=== PATIENT | female | born 1965 | race Caucasian/White ===

== ENCOUNTER 2022-02-05 11:04 | Outpatient (CLI) | payer OTHER, SELFPAY ==
--- NOTE | 2022-02-05 11:30 | CRLHL7_ITS ---
For Patients: As a result of the Century Cures Act, medical imaging exams and procedure reports are released immediately into your electronic medical record. You may view this report before your referring provider. If you have questions, please contact your health care provider. BILATERAL MAMMOGRAM WITH COMPUTER-AIDED DETECTION AND TOMOSYNTHESIS TECHNIQUE: CC and MLO views were obtained. These mammographic images have been obtained using full-field digital technique. These mammographic images were interpreted with the benefit of computer-aided detection. Breast Tomosynthesis was used in this interpretation. COMPARISON FILM: 01/17/2021, 01/17/2020, 12/15/2018. FINDINGS: The breasts are heterogeneously dense, which may obscure small masses IMPRESSION: There is no radiographic evidence for malignancy. ASSESSMENT: BI-RADS Category 2: Benign RECOMMENDATION: Routine screening mammogram in 1 year. A lay language report of this examination will be provided to the patient. Antonio Ludwig M.D. Diagnostic Radiologist [email or web address] ANTHONY/Dictated by: Antonio Ludwig MD @ 02/06/2022 12:56:00 PM (Electronically Signed)
--- NOTE | 2022-02-26 12:15 | ONC.NURNOTE ---
Rolando will be following up with Dr. Guevara in [place].
== END 2022-02-05 11:05 | disposition home or self-care (01) ==
LOC: MAMMO 11:05
PROVIDERS: PCP Family Medicine; Visit Provider Family Medicine
DX: Z12.31 Encounter for screening mammogram for malignant neoplasm of breast (principal); R92.8 Other abnormal and inconclusive findings on diagnostic imaging of breast
CPT/HCPCS: 77063; 77067

== ENCOUNTER 2022-06-24 10:56 | Outpatient (CLI) | payer OTHER, SELFPAY ==
--- OUTSIDE RECORDS SUMMARY | 2022-06-24 10:58 | XMS_ITS | Encounter Summary ---
:1965 Author Organization [facility] Address [address] [place] [address] Care Team Providers Name Role Phone Unavailable Primary Care Provider Unavailable Reason for Referral Outpatient (Routine) - Authorized Specialty Diagnoses / Procedures Referred By Contact Refer red To Contact Oncology Diagnoses Malignant Neoplasm Of Breast Upper Outer Quadrant Female Left (HCC) Macrocytosis Alma Guevara M.D. [address] [place] [phone] Referral ID Status Reason Start Date Expiration Date Visits V isits Requested Authorized [id number] Authorized 03/18/2022 03/18/2023 1 1 Scheduling Instructions Labs one week before ov Reason for Visit Reason Comments Follow-up Breast cancer Appointment Request (Routine) - Closed Specialty Diagnoses / Procedures Referred By Contact Refer red To Contact Oncology Alma Guevara M.D. [address] [place] [phone] Referral ID Status Reason Start Date Expiration Date Visits Requ ested Visits Authorized [id number] Closed 01/31/2022 01/31/2023 1 1 Encounter Details Date Type Department Care Team Description 03/18/2022 Office Visit Department of Oncology Alma Guevara Ma lignant Neoplasm Of Breast Upper Outer Quadrant Female Left (HCC) (Primary Dx); in [place] Rose M.D. Macrocytosis [address] [place] [phone] Social History Tobacco Use Types Packs/Day Years Used Date Smoking Tobacco: Former Cigarettes Quit : 11/12/2009 Smokeless Tobacco: Never Tobacco Cessation: Counseling Given: Not Answered Sex Assigned at Date Recorded Not on file documented as of this encounter Last Filed Vital Signs Vital Sign Reading Time Taken Comments Blood Pressure 134/97 03/18/2022 8:29 AM CDT Pulse 90 03/18/2022 8:29 AM CDT Temperature 35.9 ??C (96.6 ??F) 03/18/2022 8:29 AM CDT Respiratory Rate 14 03/18/2022 8:29 AM CDT Oxygen Saturation 97% 03/18/2022 8:29 AM CDT Inhaled Oxygen - - Concentration Weight 75.8 kg (167 lb 1.7 03/18/2022 8:29 AM verified, weighed oz) CDT twice Height - - Body Mass Index 25.92 02/12/2018 7:53 AM CDT documented in this encounter Patient Instructions Patient InstructionsKMelani ozuna R.N. - 03/18/2022 8:30 AM CDT Return to clinic in 6 months with lab work one week prior. documented in this encounter Progress Notes Alma Guevara M.D. - 03/18/2022 8:30 AM CDT SUBJECTIVE PRIMARY CARE PHYSICIAN No primary care provider on file. LOCAL ONCOLOGIST Alma Guevara M.D. 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 female who presents for evaluation on treatment for ER/KS positive HER2 negative stage IIA invasive ductal carcinoma of the left breast. HISTORY OF PRESENT ILLNESS Oncology History Oncology History Overview Note This Is 51-year-old 3 para 1 woman with cysts with a recently diagnosed infiltrating ductal carcinoma the breast, stage IIA whose oncologic history is as follows. 1. 08/15/2016 routine screening mammogram was notable for a suspicious lesion in the left breast, specifically a developing asymmetry in the posterior retroareolar aspect of left breast at approximately 3 o'clock, BI-RADS 0. 2. 08/20/2016 diagnostic mammogram was notable for a 16 x 15 mm suspicious mass at the 3 o'clock position 12 cm from the nipple. Ultrasound-guided biopsy was performed and returned infiltrating ductal carcinoma with Tray grade 1 of 3 ERPR positive her 2-characteristics. 3. 08/23/2016 MRI was notable for an abnormal vividly enhancing rounded mass with irregular margins measuring 1.7 x 1.7 x 1.9 cm at 10:30 to 3 o'clock 10 cm from the nipple. There were no additional ipsilateral left-sided lesions and no contralateral right-sided breast lesions identified on MRI. Therewas no obvious axillary adenopathy on either side. 5. Genetic counseling at [facility] on 09/02/2016 returned no evidence of BRCA mutations. 6. 10/01/2016 the patient underwent wire localization of the left breast mass and lumpectomy with sentinel lymph node biopsy. Pathology returned left breast lumpectomy infiltrating ductal carcinoma Caldwell grade 2, 1.7 cm with associated previous core biopsy site changes and ductal carcinoma in situ, cribriform and solid type, nuclear grade 2. Left axillary sentinel lymph node was negative, but 2 of 6 non sentinel lymph nodes were positive for metastatic carcinoma, measuring 0.5 cm in greatest diameter with extranodal extension present measuring 0.1 cm. Final stage was T1c N1 MX likely stage IIAestrogen receptor positive HER 2-. The margins were widely negative. 7. 10/31/2016 patient started on treatment with dose dense AC. 8. 12/26/2016 started on weekly paclitaxel. 9. 03/13/2017 the patient underwent left breast ultrasound for prominent ridge in inferior aspect upper breast which returned benign findings. She also completed her 12 weeks of paclitaxel on that date. 10. Patient completed radiation to the chest wall to a total dose of 60 Gy on 05/27/2017. 11. 08/14/2017 started on letrozole. 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 She did nurse her 1child for a short period of time. Her last menstrual period was 08/26/2016. Malignant Neoplasm Of Breast Upper Outer Quadrant Female Left (HCC) 10/24/2016 Initial Diagnosis Malignant Neoplasm Of Breast Upper Outer Quadrant Female Left (HCC) INTERVAL HISTORY The patient is here for follow up. She denies fever, chills, night sweats, change in appetite energyor weight. No cough, shortness of breath, chest pain, palpitations, nausea, vomiting, diarrhea, constipation, genitourinary or musculoskeletal complaints. The remainder of a detailed 12 system review of systems was explored with the patient and negative. The following portions of the patient's history were reviewed and updated as appropriate: allergies,current medications, family history, medical history, social history, surgical history, and problem list. A Pap smear in July 2021 was notable for LGSIL positive for high-risk HPV, not HPV type 16 or 18. History of radiation pneumonitis The patient has had multiple plastics procedures on the left breast post treatment. She gets in someexercise, but not consistently. She is working with a health track coach. REVIEW OF SYSTEMS A 12 system ROS is otherwise negative except as noted above in the HPI. OBJECTIVE BP (!) 134/97 (BP Location: Right arm, Patient Position: Sitting, Cuff Size: Regular) Pulse 90 Temp (!) 35.9 ??C Resp 14 Wt 75.8 kg Comment: verified, weighed twice SpO2 97% BMI 25.92 kg/m?? PHYSICAL EXAM Constitutional Comments: General: This is a well-developed well nourished woman who is comfortable and in no acuterespiratory distress. Her hair is growing back. HEENT: Patient is normocephalic. Pupils are equal round reactive to light. Extraocular movements areintact. Sclerae are anicteric. Conjunctivae are pink. Mouth not examined to avoid aresolization during COVID-19 public health crisis. Neck: Supple without thyromegaly or jugular venous distention. Lymph: There is no palpable preauricular, anterior or posterior cervical supraclavicular, infraclavicular, axillary, epitrochlear, inguinal, or femoral adenopathy. Lungs: Clear to percussion and auscultation. Breasts: Examined in the upright and supine positions. There is a an 8 cm well- healed wound in the lateral aspect of the left breast at three o'clock There is a 2 cm horizontal incision in the mid axillary line. There is a suggestion of a nodular area in the breast tissue, about 1.5 cm in diameter at about 7:30 and an angular band that feels linea. It is tender to touch. The patient describes it feeling like a bruise. Cardiovascular: Regular rate and rhythm without murmurs gallops or rubs. Abdomen: Soft and nontender. The liver is not enlarged. The spleen is not palpable. There are no palpable masses. Extremities: Without clubbing cyanosis or edema. Neuropsychiatric: Normal affect and mood; mood is much brighter today than in the recent past. Oriented and alert. Cranial nerves are intact. Speech is fluid. Gait is normal. Skin: Multiple tattoos. LABORATORY DATA Lab data reviewed. Recent Results (from the past 336 hour(s)) CBC with Differential, Blood Collection Time: 03/18/22 8:08 AM Result Value Ref Range Hemoglobin 14.6 11.6 - 15.0 g/dL Hematocrit 44.1 35.5 - 44.9 % Erythrocytes 4.25 3.92 - 5.13 x10(12)/L MCV 103.8 (H) 78.2 - 97.9 fL RBC Distrib Width 12.8 12.2 - 16.1 % Platelet Count 231 157 - 371 x10(9)/L Leukocytes 3.7 3.4 - 9.6 x10(9)/L Neutrophils 1.85 1.56 - 6.45 x10(9)/L Lymphocytes 1.30 0.95 - 3.07 x10(9)/L Monocytes 0.34 0.26 - 0.81 x10(9)/L Eosinophils 0.14 0.03 - 0.48 x10(9)/L Basophils 0.02 0.01 - 0.08 x10(9)/L Comprehensive Metabolic Panel Collection Time: 03/18/22 8:08 AM Result Value Ref Range Potassium, P 4.5 3.6 - 5.2 mmol/L Sodium, P 140 135 - 145 mmol/L Chloride, P 102 98 - 107 mmol/L Bicarbonate, P 28 22 - 29 mmol/L Anion Gap, P 10 7 - 15 BUN (Blood Urea Nitrogen), P 14 6 - 21 mg/dL Creatinine, P 0.76 0.59 - 1.04 mg/dL eGFR-Black/ >90 >=60 mL/min/BSA eGFR Non-Black/ 89 >=60 mL/min/BSA Calcium, Total, P 9.6 8.6 - 10.0 mg/dL Glucose, P 116 70 - 140 mg/dL Protein, Total, P 6.7 6.3 - 7.9 g/dL Albumin, P 4.3 3.5 - 5.0 g/dL Aspartate Aminotransferase (AST), P 27 8 - 43 U/L Alkaline Phosphatase, P 85 35 - 104 U/L Alanine Aminotransferase (ALT), P 28 7 - 45 U/L Bilirubin, Total, P 0.4 <=1.2 mg/dL RADIOLOGICAL DATA Radiology data reviewed. ASSESSMENT / PLAN #1 Malignant Neoplasm Of Breast Upper Outer Quadrant Female Left (HCC) #2 Macrocytosis Other orders - Oncology office visit (clinic) General; Breast; Future; Expected date: 09/18/2022 - CBC with Differential, Blood; Future; Expected date: 09/18/2022 - Comprehensive Metabolic Panel; Future; Expected date: 09/18/2022 - Vitamin B12 Assay; Future; Expected date: 09/18/2022 - Folate; Future; Expected date: 09/18/2022 - Haptoglobin; Future; Expected date: 09/18/2022 - Electrophoresis, Protein; Future; Expected date: 09/18/2022 - Thyroid Function Schurz; Future; Expected date: 09/11/2022 Rolando Turk is a year-old woman with definitively treated estrogen and progesterone receptor positive HER2 negative stage II infiltrating ductal carcinoma of the left breast. She has been on exemestane 25 mg p.o. daily since 2018. New data suggests that 7 years for high-risk disease, i.e. node positive disease, has a similar outcome to 10 years worth of adjuvant endocrine therapy. Her last visit was on 07/20/[address] Bob Melendez in [place] where I originally saw her. He reviewed the above data with the patient at that time and recommended 7 total years of treatment. He also recommended follow-up in 6 months, which would have been January of this year. He also notes that she had an elevated hemoglobin at the time of her visit in 04/2021, and he ordered comprehensive metabolic panel and complete blood count for the day of her next office visit. Workup for her macrocytosis at the time of her next visit. All of Mrs. Turk's questions were answered to the best of my ability and to her satisfaction. PATIENT EDUCATION Ready to learn, no apparent learning barriers were identified; learning preferences include listening. Explained diagnosis and treatment plan; patient expressed understanding of the content. ADMINISTRATIVE BILLING I personally spent 30 minutes in care of the patient today. Time includes both non face to face and face to face patient care. documented in this encounter Plan of Treatment Upcoming Encounters Date Type Specialty Care Team Description 09/11/2022 Appointment Laboratory Medicine Alma Guevara M.D. [address] [place] [address] [phone] (Wo rk) 09/18/2022 Office Visit Hematology Oncology Alma Guevara M.D. [address] [place] [phone] (Wo rk) Scheduled Orders Name Type Priority Associated Diagnoses Order S chedule CBC with Differential, Lab Routine Malignant Neoplasm Of Expected: 09/18/2022 Blood Breast Upper Outer (Approxim ate), Quadrant Female Left Expires : 06/17/2023 (HCC) Macrocytosis Comprehensive Metabolic Lab Routine Malignant Neoplas m Of Expected: 09/18/2022 Panel Breast Upper Outer (Approxim ate), Quadrant Female Left Expires : 06/17/2023 (HCC) Macrocytosis Vitamin B12 Assay Lab Routine Malignant Neoplasm Of E xpected: 09/18/2022 Breast Upper Outer (Approxim ate), Quadrant Female Left Expires : 03/18/2025 (HCC) Macrocytosis Folate Lab Routine Malignant Neoplasm Of Expect ed: 09/18/2022 Breast Upper Outer (Approxim ate), Quadrant Female Left Expires : 03/18/2025 (HCC) Macrocytosis Haptoglobin Lab Routine Malignant Neoplasm Of Expect ed: 09/18/2022 Breast Upper Outer (Approxim ate), Quadrant Female Left Expires : 06/18/2023 (HCC) Macrocytosis Electrophoresis, Protein Lab Routine Malignant Neopla sm Of Expected: 09/18/2022 Breast Upper Outer (Approxim ate), Quadrant Female Left Expires : 06/18/2023 (HCC) Macrocytosis Thyroid Function Schurz Lab Routine Malignant Neopla sm Of Expected: 09/11/2022, Breast Upper Outer Expires: 07/09/2023 Quadrant Female Left (HCC) Macrocytosis Scheduled Referrals Name Type Priority Associated Diagnoses Order S chedu Oncology office Outpatient Referral Routine Malignant Neoplasm Expected: visit (clinic) Of Breast Upper 09/18/2022 General; Breast Outer Quadrant (Approxima te), Female Left (HCC ) Expires: Macrocytosis 06/17/2023 documented as of this encounter Visit Diagnoses Diagnosis Malignant Neoplasm Of Breast Upper Outer Quadrant Female Left (HCC) - Primary Macrocytosis documented in this encounter Additional Health Concerns Assessment Noted Time PHQ-9 Depression Total Score: 1 04/29/2017 2:23 PM CDT documented as of this encounter
--- OUTSIDE RECORDS SUMMARY | 2022-06-24 10:58 | XMS_ITS | Clinical Summary ---
:1965 Author Organization [facility] Address [address] [place] [address] Care Team Providers Name Role Phone Unavailable Primary Care Provider Unavailable Source Comments Patient records contain information from all sites at [facility]. For routine questions regarding patient records, call [phone] during business hours, M-F 8:00 AM - 5:00 PM Central Time. Record requests for emergency care only can be directed to [phone] at any time.[facility] Allergies Active Allergy Reactions Severity Noted Date Comments Aspirin Hives 10/24/2016 rash Tezrnwks-Owrcajdkrbp-Dbksykixx Hives 10/24/2016 rash Nitrofurantoin Monohyd/M-Cryst Hives 10/24/2016 rash Sulfa (Sulfonamide Antibiotics) Hives 7 rash Sulfamethoxazole-Trimethoprim Hives 10/24/2016 rash Medications Medication Sig Dispensed Refills Start Date End Date Status acyclovir (for_ZOVIRAX) Take 1 tablet by 0 7 Active 400 mg tablet mouth as needed. cholecalciferol Take 1 capsule by 0 06/30/2017 Active (for_VITAMIN D3) 5,000 mouth daily. Unit capsule omeprazole Take 1 capsule by 0 07/09/2017 Active (for_PriLOSEC) 40 mg mouth daily. capsule calcium citrate-vitamin Take 2 tablets by 0 Active D3 (CITRACAL+D) 315 mouth. mg-5 mcg (200 Unit) per tablet cetirizine (ZyrTEC) 10 Take 10 mg by 0 05/02/2021 Active mg tablet mouth. estradioL (ESTRACE) 0.1 Insert 1 g into 0 05/17/2019 Active mg/g (0.01%) vaginal the vagina. cream ibuprofen Take 600 mg by 0 Activ e (ADVIL,MOTRIN) 600 mg mouth. tablet prasterone, dhea, Insert vaginally 0 09/23/2019 Active (Intrarosa) 6.5 mg as needed insert FLUoxetine (PROzac) 40 0 01/09/2022 Active mg capsule oxybutynin 0 02/22/2022 Active (DITROPAN-XL) 10 mg 24 hr tablet exemestane (AROMASIN) Take one tablet 90 tablet 3 04/24/2022 Active 25 mg tablet by mouth daily. Active Problems Problem Noted Date Nausea And Vomiting NOS 11/12/2017 Pneumonitis Radiation Acute 07/09/2017 Malignant Neoplasm Of Breast Upper Outer Quadrant Fema le Left 10/24/2016 Malignant Neoplasm Of Breast Adenocarcinoma Left 10/07 Malignant Neoplasm Of Overlapping Sites Of Left Female Breast 10/07/2016 Encounters Date Type Specialty Care Team Description 04/24/2022 Clinical Communication Hematology Oncology Nina Guevara M.D. from Last 3 Months Family History Medical History Relation Name Comments Hypertension Father Relation Name Status Comments Father Social History Tobacco Use Types Packs/Day Years Used Date Smoking Tobacco: Former Cigarettes Quit : 11/12/2009 Smokeless Tobacco: Never Tobacco Cessation: Counseling Given: Not Answered Sex Assigned at Date Recorded Not on file Last Filed Vital Signs Vital Sign Reading [...] AM verified, weighed oz) CDT twice Height 171 cm (5' 7.32) 02/12/2018 7:53 AM CDT Body Mass Index 25.92 02/12/2018 7:53 AM CDT Plan of Treatment Upcoming Encounters Date Type Specialty Care Team Description 09/11/2022 Appointment Laboratory Medicine Alma Guevara M.D. [address] [place] [phone] (Wo rk) 09/18/2022 Office Visit Hematology Oncology Alma Guevara M.D. [address] [place], [place] [phone] (Wo rk) Health Maintenance Due Date Last Done Comments CT Colonography 1965 Cologuard 1965 Colonoscopy 1965 Colorectal Cancer Screening 1965 FIT 1965 HIV Screening 1965 Hepatitis B Vaccines (1 of 1965 3 - 3-dose series) Hepatitis C Screening 1965 Lipid (Cholesterol) 1965 Screening Mammogram 10/01/2017 10/01/2016, 08/20/2016, 08/19/2016, Additional history exists COVID-19 Vaccine (3 - 09/12/2020 08/15/2020, 07/26/2020 Pfizer risk series) Depression Screening 08/04/2021 (Annual PHQ-2) Cervical Cancer Screening 03/19/2022 03/19/2019 DTaP,Tdap,and Td Vaccines 07/22/2024 07/22/2014, 07/12/2014 (3 - Td or Tdap) Fasting Glucose for 03/18/2025 03/18/2022, 11/12/2017 Diabetes Screening Zoster Vaccines Completed 09/02/2020, 06/03/2020 Influenza Vaccine Completed 05/22/2022, 05/02/2021, 04/24/2021, Additional history exists Pneumococcal vaccine (0-64 Aged Out No lo nger eligible years) based on patient 's age to complete this topic Insurance Payer Benefit Plan / Subscriber ID Effective Phone Address T ype Group Dates PREFERREDONE PREFERREDONE [id number] 2013-Pre [phone] PPO ADMINISTRATIVE ADMINISTRATIVE sent [phone] [id number] SERVICES SERVICES [place] [phone]
--- OUTSIDE RECORDS SUMMARY | 2022-06-24 10:58 | XMS_ITS | Encounter Summary ---
:1965 Author Organization [facility] Address [address] [place] [address] Care Team Providers Name Role Phone Unavailable Primary Care Provider Unavailable Encounter Details Date Type Department Care Team Description 04/24/2022 Clinical Communication Department of Oncology Graciela Guevara, in [place] Rose M.D. [address] [phone] Social History Tobacco Use Types Packs/Day Years Used Date Smoking Tobacco: Former Cigarettes Quit : 11/12/2009 Smokeless Tobacco: Never Sex Assigned at Date Recorded Not on file documented as of this encounter Miscellaneous Notes Telephone Encounter - Alma Solo - 04/24/2022 1:56 PM CDT Patient needs refill of exemestane. She has 1 weeks' left. Patient is requesting 90 day supply. Updated pharmacy: [facility] (call if questions: [phone]) (Pt thinks before, she was using [facility] --this is no longer) documented in this encounter Plan of Treatment Upcoming Encounters Date Type Specialty Care Team Description 09/11/2022 Appointment Laboratory Medicine Alma Guevara M.D. [address] [place] [address] [phone] (Wo rk) 09/18/2022 Office Visit Hematology Oncology Alma Guevara M.D. [address] [place] [address] [phone] (Wo rk) documented as of this encounter Visit Diagnoses Not on filedocumented in this encounter Additional Health Concerns Assessment Noted Time PHQ-9 Depression Total Score: 1 04/29/2017 2:23 PM CDT documented as of this encounter
--- OUTSIDE RECORDS SUMMARY | 2022-06-24 10:59 | XMS_ITS | Encounter Summary ---
:1965 Author Organization [facility] Address [address] [place] [address] Care Team Providers Name Role Phone Unavailable Primary Care Provider Unavailable Reason for Visit Reason Comments Communication Encounter Details Date Type Department Care Team Description 01/31/2022 Clinical Communication Department of Alma Guevara C ommunication Oncology in [place], [place] [address] [facility] [address] [place] [phone] Social History Tobacco Use Types Packs/Day Years Used Date Smoking Tobacco: Former Cigarettes Quit : 11/12/2009 Smokeless Tobacco: Never Sex Assigned at Date Recorded Not on file documented as of this encounter Miscellaneous Notes Telephone Encounter - Melani Talbot R.N. - 01/31/2022 1:51 PM CDT She may be scheduled as a follow up with Dr. Guevara due to being seen by a [facility] [place] provider, Dr. Melendez. She will need a CBC and CMP, day of follow up. Thanks Telephone Encounter - Bessie Srinivasan V. - 01/31/2022 12:51 PM CDT Reason for Communication: Patient would like to be seen by Dr. Guevara again. She hasn't been see since 2018. Would she be considered a new patient? Patient would like to be seen in March. (she is currently being seen in [place]) Action Needed: Schedule patient Special calling instructions: N/A Portal- No- Can we get you signed up today or send you instructions at how to get signed up? No- Patient refused documented in this encounter Plan of Treatment Upcoming Encounters Date Type Specialty Care Team Description 09/11/2022 Appointment Laboratory Medicine Alma Guevara M.D. [address] [place], [place] [phone] (Wo rk) 09/18/2022 Office Visit Hematology Oncology Alma Guevara M.D. [address] [place], [place] [phone] (Wo rk) documented as of this encounter Results Comprehensive Metabolic Panel (03/18/2022 8:08 AM CDT) P athologist Signature Potassium, P 4.5 3.6 - 5.2 03/18/2022 [facility] mmol/L 8:31 AM CDT Sodium, P 140 135 - 145 03/18/2022 [facility] mmol/L 8:31 AM CDT Chloride, P 102 98 - 107 03/18/2022 [facility] mmol/L 8:31 AM CDT Bicarbonate, P 28 22 - 29 03/18/2022 [facility] mmol/L 8:31 AM CDT Anion Gap, P 10 7 - 15 03/18/2022 [facility] 8:31 AM CDT BUN (Blood Urea 14 6 - 21 03/18/2022 [facility] Nitrogen), P mg/dL 8:31 AM CDT Creatinine 0.76 0.59 - 03/18/2022 [facility] 1.04 mg/dL 8:31 AM CDT eGFR-Black/Afric >90 >=60 03/18/2022 [facility] an Welsh mL/min/BSA 8:31 AM CDT Comment: ----ADDITIONAL INFORMATION---- Estimated GFR calculated using the 2009 CKD_EPI creatinine equation. eGFR Non-Black/ 89 >=60 mL/min/BSA 8:31 AM CDT NPR[facility] Comment: ----ADDITIONAL INFORMATION---- Estimated GFR calculated using the 2009 CKD_EPI creatinine equation. Calcium, Total, P 9.6 8.6 - 10.0 mg/dL 03/18/2022 8:31 AM CDT NPR[facility] Glucose, P 116 70 - 140 mg/dL 03/18/2022 8:31 AM CDT N PRG Protein, Total, P 6.7 6.3 - 7.9 g/dL 03/18/2022 8:31 A M CDT NPRG Albumin, P 4.3 3.5 - 5.0 g/dL 03/18/2022 8:31 AM CDT N PRG Aspartate Aminotransferase 27 8 - 43 U/L 03/18/2022 8 :31 AM CDT [facility] (AST), P Alkaline Phosphatase, P 85 35 - 104 U/L 03/18/2022 8: 31 AM CDT NPR[facility] Alanine Aminotransferase (ALT), 28 7 - 45 U/L 022 8:31 AM CDT NPRG P Bilirubin, Total, P 0.4 <=1.2 mg/dL 03/18/2022 8:31 AM CDT NPR[facility] Specimen Anatomical Collection Method Collection Time Receive d Time (Source) Location / / Volume Laterality Blood (Blood, 03/18/2022 8:08 AM 03/18/20 22 8:12 Venous) CDT AM CDT Alma Guevara M.D. LAB BLOOD ADD-ON Performing Organization Address City/State/ZIP Code Phon e Number [facility]- [address] [place] [address] [address] [facility] [place] [address] (ABNORMAL) CBC with Differential, Blood (03/18/2022 8:08 AM CDT) [facility] gist Method Time Signature Hemoglobin 14.6 11.6 - 03/18/2022 [facility] 15.0 g/dL 8:23 AM CDT Hematocrit 44.1 35.5 - 03/18/2022 [facility] 44.9 % 8:23 AM CDT Erythrocytes 4.25 3.92 - 03/18/2022 [facility] 5.13 8:23 AM CDT x10(12)/L MCV 103.8 (H) 78.2 - 03/18/2022 [facility] 97.9 fL 8:23 AM CDT RBC Distrib Width 12.8 12.2 - 03/18/2022 [facility] 16.1 % 8:23 AM CDT Platelet Count 231 157 - 371 03/18/2022 [facility] x10(9)/L 8:23 AM CDT Leukocytes 3.7 3.4 - 9.6 03/18/2022 [facility] x10(9)/L 8:23 AM CDT Neutrophils 1.85 1.56 - 03/18/2022 [facility] 6.45 8:23 AM CDT x10(9)/L Lymphocytes 1.30 0.95 - 03/18/2022 [facility] 3.07 8:23 AM CDT x10(9)/L Monocytes 0.34 0.26 - 03/18/2022 [facility] 0.81 8:23 AM CDT x10(9)/L Eosinophils 0.14 0.03 - 03/18/2022 [facility] 0.48 8:23 AM CDT x10(9)/L Basophils 0.02 0.01 - 03/18/2022 [facility] 0.08 8:23 AM CDT x10(9)/L Specimen Anatomical Collection Method Collection Time Receive d Time (Source) Location / / Volume Laterality Blood (Blood, 03/18/2022 8:08 AM 03/18/20 8:12 Venous) CDT AM CDT Alma Guevara M.D. LAB BLOOD ADD-ON Performing Organization Address City/State/ZIP Code Phon e Number [facility] [address] [place], [place] [address] [address] [place] [address] [facility] [address] documented in this encounter Visit Diagnoses Diagnosis Malignant Neoplasm Of Breast Upper Outer Quadrant Female Left (HCC) - Primary documented in this encounter Additional Health Concerns Assessment Noted Time PHQ-9 Depression Total Score: 1 04/29/2017 2:23 PM CDT documented as of this encounter
--- OUTSIDE RECORDS SUMMARY | 2022-06-24 10:59 | XMS_ITS | Encounter Summary ---
:1965 Author Organization [facility] Address [address] [place] [address] Care Team Providers Name Role Phone Unavailable Primary Care Provider Unavailable Reason for Referral Outpatient (Routine) - Closed Specialty Diagnoses / Procedures Referred By Contact Refer red To Contact Radiation Oncology Diagnoses Malignant Neoplasm Of Breast Upper Outer Quadrant Female Left (HCC) Joslyn Cruz P.A.-C.[facility] [address] [place] [address] Referral ID Status Reason Start Date Expiration Date Visits Requ ested Visits Authorized [id number] Closed 11/27/2017 05/26/2018 1 1 Encounter Details Date Type Department Care Team Description 11/10/2017 Orders Only Department of Infusion Nancy Hayes Ma lignant Neoplasm Of Therapy in [place], L, R.N. Breast Upper Outer [place] [address] Quadrant Female Left [address] [place], [place] (HCC) [place] [phone] Social History Tobacco Use Types Packs/Day Years Used Date Smoking Tobacco: Unknown Sex Assigned at Date Recorded Not on file documented as of this encounter Plan of Treatment Upcoming Encounters Date Type Specialty Care Team Description 09/11/2022 Appointment Laboratory Medicine Alma Guevara M.D. [address] [place], [place] [phone] (Wo rk) 09/18/2022 Office Visit Hematology Oncology Alma Guevara M.D. [address] [place] [phone] (Wo rk) Scheduled Referrals Name Type Priority Associated Diagnoses Order S chedu Radiation Oncology Outpatient Referral Routine Malignant Neopl asm Expected: office visit Of Breast Upper 02/11/2018 (clinic) Outer Quadrant (Approximate) , Female Left (HCC) Expires: 11/27/2020 documented as of this encounter Visit Diagnoses Diagnosis Malignant Neoplasm Of Breast Upper Outer Quadrant Female Left (HCC) documented in this encounter Additional Health Concerns Assessment Noted Time PHQ-9 Depression Total Score: 1 04/29/2017 2:23 PM CDT documented as of this encounter
--- OUTSIDE RECORDS SUMMARY | 2022-06-24 10:59 | XMS_ITS | Encounter Summary ---
:1965 Author Organization [facility] Address [address] [place] [id number] Care Team Providers Name Role Phone Unavailable Primary Care Provider Unavailable Reason for Referral Outpatient (Routine) - Closed Specialty Diagnoses / Procedures Referred By Contact Refer red To Contact Radiation Oncology Diagnoses Malignant Neoplasm Of Breast Upper Outer Quadrant Female Left (HCC) Joslyn Cruz P.A.-C., [facility] [address] [place] [phone] Referral ID Status Reason Start Date Expiration Date Visits Requ ested Visits Authorized [id number] Closed 11/27/2017 05/26/2018 1 1 Reason for Visit Outpatient (Routine) - Closed Specialty Diagnoses / Procedures Referred By Contact Refer red To Contact Radiation Oncology Diagnoses Malignant Neoplasm Of Breast Upper Outer Quadrant Female Left (HCC) Joslyn Cruz P.A.-C., [facility] [address] [place] [phone] Referral ID Status Reason Start Date Expiration Date Visits Requ ested Visits Authorized [id number] Closed 11/27/2017 05/26/2018 1 1 Encounter Details Date Type Department Care Team Description 02/12/2018 Hospital Encounter Department of Joseluis Huang Neoplasm Radiation Oncology Diomedes Marquez Of Breast Upper in [address] Female Left (HCC) [address] [phone] [place], [place] [phone] (Work) [phone] Social History Tobacco Use Types Packs/Day Years Used Date Smoking Tobacco: Former Cigarettes Quit : 11/12/2009 Smokeless Tobacco: Never Sex Assigned at Date Recorded Not on file documented as of this encounter Last Filed Vital Signs Vital Sign Reading Time Taken Comments Blood Pressure 125/76 02/12/2018 7:53 AM CDT Pulse 87 02/12/2018 7:53 AM CDT Temperature 36.4 ??C (97.5 ??F) 02/12/2018 7:53 AM CDT Respiratory Rate - - Oxygen Saturation 100% 02/12/2018 7:53 AM CDT Inhaled Oxygen Concentration - - Weight 85.5 kg (188 lb 7.9 oz) 02/12/2018 7:53 AM CDT Height 171 cm (5' 7.32) 02/12/2018 7:53 AM CDT Body Mass Index 29.24 02/12/2018 7:53 AM CDT documented in this encounter Medications at Time of Discharge Medication Sig Dispensed Refills Start Date End Date acyclovir (for_ZOVIRAX) Take 1 tablet by mouth 0 10/24/2016 400 mg tablet as needed. cholecalciferol Take 1 capsule by 0 06/30/2017 (for_VITAMIN D3) 5,000 mouth daily. Unit capsule omeprazole Take 1 capsule by 0 07/09/2017 (for_PriLOSEC) 40 mg mouth daily. capsule LORazepam (for_ATIVAN) Take 1-2 tablets by 0 10/0303/18/2022 0.5 mg tablet mouth as needed. EPINEPHrine (EPIPEN) Inject 0.3 mg intramuscularly once. Inj ect into the thigh. 0 03/18/2022 0.3 mg/0.3 mL injection hypersensitivity/bronchospas m ;Inject the delivered dose as needed syringe FLUoxetine (PROzac) 20 Take 1 capsule by 0 201603/18/2022 mg capsule mouth daily. gabapentin Take 1 capsule by 0 09/11/2017 022 (for_NEURONTIN) 300 mg mouth 2 (two) times a capsule day. documented as of this encounter Progress Notes Joseluis Huang M.D. - 02/12/2018 8:28 AM CDT SUBJECTIVE CHIEF COMPLAINT/PURPOSE OF VISIT Follow-up after completing radiotherapy for left-sided breast cancer. ?? HISTORY OF PRESENT ILLNESS Mrs. 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 She completed radiotherapy to the whole left breast and regional lymph nodes to a dose of 5000 cGy in 25 fractions followed by a boost of 1000 cGy in 5 fractions to the lumpectomy cavity on May 27, 2017. She developed posttreatment radiation pneumonitis. Her oncologic history is as follows: 1. August 15, 2016: Routine screening mammogram was notable for a developing asymmetry in the posterior retroareolar aspect of the left breast at approximately 3 o'clock, BI-RADS category 0. The patient had no antecedent breast symptoms. She did do regular self breast exams and did not notice any breast pain, any palpable masses, or nipple discharge or skin changes. 2. August 19, 2016: Diagnostic mammogram of the left breast was notable for a 13-14 mm focal asymmetry with irregular borders at the posterior 2-3 o'clock position of the left breast. Sonographic evaluation of the left breast demonstrated a suspicious 16 x 15 mm solid mass at the 3 o'clock position, 12 cm from the nipple. BI-RADS category 4 - suspicious. 3. August 20, 2016: Ultrasound-guided biopsy was performed and returned infiltrating ductal carcinoma with Trail grade 1 of 3, angio-lymphatic invasion suspicious. There was associated DCIS, cribriform type, nuclear grade 2. Estrogen receptor positive, progesterone receptor positive, and HER2 neg ative. 4. August 23, 2016: MRI was notable for an abnormal enhancing round mass with irregular margins that measured 1.7 x 1.7 x 1.9 cm at the 2 to 3 o'clock position, 10 cm from the nipple. There were no additional ipsilateral left-sided breast lesions and no contralateral right-sided breast lesions identified on MRI. There were no abnormal enlarged lymph nodes. 5. August 26, 2016: Surgical consultation with Dr. Back including discussion of surgical treatment options. 6. August 29, 2016: Consultation with Dr. Guevara who recommended Oncotype DX testing. Plan for follow-up after surgery to discuss final recommendations depending on BRCA testing and pathology. 7. September 02, 2016: The patient had genetic counseling at [facility]. BRCA testing wasnegative. 8. September 05, 2016: Oncotype DX test resulted in a low risk recurrence score of 11. 9. October 01, 2016: Dr. Back performed a wire localized left breast lumpectomy with left axillary sentinel node biopsy. Pathology of the left breast lumpectomy demonstrated infiltrating ductal carcinoma, Tray grade 2, 1.7 cm in maximum dimension with associated previous core biopsy site changes and ductal carcinoma in situ, minor component, cribriform and solid type, nuclear grade 2. The invasive carcinoma was located more than 0.6 cm from the closest anterior margin. The left axillary sentinel lymph node was negative, but 2 of 6 non-sentinel lymph nodes were positive for metastatic carcinoma, measuring 0.5 cm in greatest dimension with extranodal extension present measuring 0.1 cm. Estrogen receptor positive at 98%, progesterone receptor positive in 99%, and HER2 was 1+, not over expressed. Final pathologic stage IIA (pT1c N1a M0). 10. October 07, 2016: Appointment with Dr. Guevara, who recommended chemotherapy with dose dense doxorubicin and cyclophosphamide followed by weekly paclitaxel. 11. October 21, 2016: Port-A-Cath placement by Dr. Back. 12. October 24, 2016: Dr. Huang saw the patient in consultation and recommended adjuvant radiotherapy to the whole breast and regional lymphatics. 13. October 31, 2016 through March 13, 2017: Patient treated with 4 cycles of Adriamycin and Cytoxan followed by 12 cycles of Taxol under the care of Dr. Guevara. 14. April 16, 2017 through May 27, 2017: Patient treated with radiotherapy to the whole leftbreast and regional lymph nodes to a dose of 5000 cGy in 25 fractions followed by a boost of 1000 cGy in 5 fractions to the lumpectomy cavity. 15. June 11, 2017: CT scan of the abdomen and pelvis demonstrated no acute intra-abdominal abnormality identified. Postoperative changes in the posterior lateral left breast with 5 x 2 x 2 cm hypodense collection, most likely representing a postoperative seroma. Mild patchy infiltrate in the anterior lower left lung. 16. June 24, 2017: MRI of the brain demonstrated scattered areas of punctate white matter T2 hyperintensity, nonspecific. No intracranial mass, intracranial hemorrhage, or acute or subacute infarction. Mild bilateral patchy ethmoid air cell mucosal thickening. 17. June 24, 2017: WBC 2,810; Hgb 13.0; Platelet 284,000; ANC 1,340 18. June 25, 2017: Chest x-ray demonstrated linear areas of subsegmental atelectasis/fibrosis within the left lung with no consolidative infiltrates, overt pulmonary vascular congestion, or pleuraleffusions. 19. June 25, 2017: Ultrasound was negative for deep venous thrombosis in either lower extremity. 20. June 27, 2017: AST 83; ALT 77 21. July 02, 2017: CT scan of the chest with contrast revealed postoperative changes in the leftbreast with a probable seroma measuring 4.6 x 1.9 cm. Also seen were subpleural opacities in the lingula anteriorly and laterally as well as a small subpleural opacity at the left lung apex posteriorlylikely due to radiation. There was no lymphadenopathy. There is also a periosteal reaction along thelateral aspect of the right 6th rib which could indicate a subacute healing fracture. 22. July 08, 2017: PET/CT scan done in [place] showed no findings concerning for active malignancy. There was active radiation pneumonitis seen in the left lung in a linear distribution in the anterior aspect with a similar FDG avid part-solid opacity in the apex of the lung. There was also a subacute posttraumatic healing fracture in the right anterior 6th rib with mild FDG activity. Degenerative type activity was seen in the left neck facet joints and then the synovium of the left acromioclavicular joint. 23. July 09, 2017 anticipated through September 09, 2017: Patient started on prednisone taper starting at 60 mg daily for radiation pneumonitis. 24. July 15, 2017 and July 16, 2017: Patient completed an observed Bactrim challenge with two doses at [facility] while on prednisone. She had no allergic reaction. 25. August 14, 2017: Letrozole was started. 26. August 27, 2017: Prednisone taper was increased back to 20 mg from 10 mg daily due to recrudescence of left chest soreness 27. September 03, 2017: Chest CT with contrast revealed a chronic seroma anterior to the left chest wall measuring 4.4 x 1.5 cm that previously measured 4.6 x 1.9 cm. The subpleural opacities in the posterior left lung apex and the subpleural anterior left upper lobe have improved. No new pulmonary infiltrates or masses were seen. 28. October 19, 2017: Prednisone taper discontinued. 29. November 11, 2017: Bilateral diagnostic mammography was negative. 30. November 12, 2017: Patient presented to Dr. Guevara with nausea and vomiting. Letrozole was held. 31. November 19, 2017: MRI of the brain was negative. Letrozole was resumed. 32. January 21, 2018: Patient had switched from letrozole to tamoxifen because of arthralgias. These persisted on tamoxifen. Tamoxifen was held. INTERVAL HISTORY Patient reports that her nausea and arthralgias are improving somewhat since holding tamoxifen. Because of all of her symptoms, she has not been working. She does report that her breathing is good. Shedenies any dyspnea at rest or on exertion. Denies any cough or hemoptysis. She is doing her neck andshoulder range of motion exercises twice daily. She is also doing self breast massage in the area ofscarring twice daily. She is doing regular self-breast exams. She has noticed no new masses. She hasadjusted her diet and is making attempts at exercise and weight loss. Her ECOG performance status is1. ?? PATIENT REPORTED SYMPTOM SCREEN FATIGUE (Scale: 0 = no fatigue; 10 = worst fatigue you can imagine): 3 ?? PAIN (Scale: 0 = no pain; 10 = worst pain you can imagine): 3 ?? OVERALL QUALITY OF LIFE (Scale: 0 = as bad as can be; 10 = as good as can be): 10 OBJECTIVE Admission Weight: 85.5 kg Current Weight: 85.5 kg VITAL SIGNS Temperature: [36.4 ??C] 36.4 ??C Blood Pressure: (125)/(76) 125/76 SpO2: [100 %] 100 % Height: [171 cm] 171 cm Weight: [85.5 kg] 85.5 kg BSA (Calculated - sq m): [2.01 sq meters] 2.01 sq meters BMI (Calculated): [29.2 kg/m??] 29.2 kg/m?? Pulse Rate: [87] 87 PHYSICAL EXAM General: Patient is awake, alert, and oriented to person, place, and time. No apparent distress. ENT: Pupils equal, round, and reactive to light. Sclera anicteric. Oral cavity inspection reveals moist mucous membranes and no visible lesions. Neck: Supple. Lymph: No palpable cervical, supraclavicular, infraclavicular, or axillary adenopathy. Spine: No tenderness to palpation or fist percussion. Lungs: Clear to auscultation bilaterally. Heart: Regular rate and rhythm. Normal S1 and S2. No murmurs. Extremities: No clubbing, cyanosis, or edema. Wrist circumference is equal and normal bilaterally. Neurologic: CN II-XII tested and intact. Gait is normal. Breasts: Deferred because the patient just had an exam with Dr. Guevara last month. ASSESSMENT / PLAN #1 Stage IIA (pT1c pN1a M0) grade 2 infiltrating ductal carcinoma of the upper outer quadrant of theleft breast, ER positive, OR positive, HER2 negative, status post margin negative lumpectomy on October 01, 2016 #2 Adjuvant chemotherapy with 4 cycles of Adriamycin and Cytoxan followed by 12 cycles of Taxol, completed March 13, 2017 #3 Radiotherapy to the left breast initiated on April 16, 2017 and completed on May 27, 2017 #4 Left axillary/chest wall discomfort, onset on April 30, 2017; improved, likely secondary to muscle strain and inflammation from radiotherapy; improved with prednisone taper then worse again at adose of 10 mg daily #5 Radiation pneumonitis apparent on chest CT from July 02, 2017 and PET/CT from July 08, 2017; prednisone taper initiated on July 09, 2017; improved on chest CT from September 03, 2017 The patient is doing reasonably well now 9 months out from treatment completion. I saw her back today mainly with respect to her radiation pneumonitis which seems to have fully resolved. I encouraged her efforts at deep breathing and cardiovascular exercise as well as her self breast massage and arm and neck [id number] exercises. She is followed closely with Dr. Guevara, so I will not schedule anyfurther formal follow-up in Radiation Oncology Clinic. The patient knows she can contact me at any time with questions or concerns. She verbalized satisfaction with this plan. MEDICAL ONCOLOGIST Alma Guevara M.D. TILE INSPECTOR Samaria Giles M.D. SURGEON Cheikh Back M.D. documented in this encounter Miscellaneous Notes Addendum Note - Tami Covarrubias - 02/12/2018 9:00 AM CDTEncounter addended by: Tami Covarrubias on: 02/12/2018 9:31 AM
Actions taken: Letter status changed documented in this encounter Plan of Treatment Upcoming Encounters Date Type Specialty Care Team Description 09/11/2022 Appointment Laboratory Medicine Alma Guevara M.D. [address] [place] [phone] (Wo rk) 09/18/2022 Office Visit Hematology Oncology Alma Guevara M.D. [address] [place] [phone] (Wo rk) Scheduled Referrals Name Type Priority Associated Order Schedule Diagnoses Radiation Oncology Outpatient Referral Routine Malignant Neopl asm Once for 1 office visit Of Breast Upper Occurrences starting (clinic) Outer Quadrant 02/12/2018 un til Female Left (HCC) 02/12/2018 documented as of this encounter Visit Diagnoses Diagnosis Malignant Neoplasm Of Breast Upper Outer Quadrant Female Left (HCC) documented in this encounter Additional Health Concerns Assessment Noted Time PHQ-9 Depression Total Score: 1 04/29/2017 2:23 PM CDT documented as of this encounter
--- OUTSIDE RECORDS SUMMARY | 2022-06-24 10:59 | XMS_ITS | Encounter Summary ---
:1965 Author Organization [facility] Address [address] [place] [address] Care Team Providers Name Role Phone Unavailable Primary Care Provider Unavailable Reason for Visit Reason Comments Med Refill Encounter Details Date Type Department Care Team Description 03/31/2020 Refill Department of Oncology in Carmelo Mcdowell M.D. Med Refill [place], [place] [address] [facility] [address] [place] [address] [place] [address] [phone] Social History Tobacco Use Types Packs/Day Years Used Date Smoking Tobacco: Former Cigarettes Quit : 11/12/2009 Smokeless Tobacco: Never Sex Assigned at Date Recorded Not on file documented as of this encounter Miscellaneous Notes Telephone Encounter - Alma Guevara M.D. - 03/31/2020 6:41 PM CDT I messaged the patient to let her know that I will only give her a 30 day supply with a sig of 5 mg bid. I have not seen the patient in several months. The medication was originally given to palliate the hot flashes she was experiencing from endocrine therapy for breast cancer that significantly interfered with her sleep. I do not encourage patients to take more than 5 mg per dose, nor more than twice daily. Review of her chart shows that she is seeing a urologist in the [facility] system, Dr. Harris, who has sanctioned the 7.5 mg dose. I have let the patient know that the prescription I have given her is only to be taken as prescribed and to bridge her until she is able to obtain the medication from [facility]. Telephone Encounter - Alma Guevara M.D. - 03/31/2020 6:17 PM CDT Carmelo, I have used oxybutynin for hot flashes in some cases per Dr. Salome Samano's [facility] study SC-1603, presented at [place] in 2018. I am aware of some data that suggests it may be linked to a higher riskof dementia, and always encourage women to take it for as short a time as possible. Do you have other data that I need to consider when I think about prescribing this? Thanks for your help. Alma documented in this encounter Plan of Treatment Upcoming Encounters Date Type Specialty Care Team Description 09/11/2022 Appointment Laboratory Medicine Alma Guevara M.D. [address] [place], [place] [phone] (Billy avalos) 09/18/2022 Office Visit Hematology Oncology Alma Guevara M.D. [address] [place], [place] [phone] (Billy avalos) documented as of this encounter Visit Diagnoses Not on filedocumented in this encounter Additional Health Concerns Assessment Noted Time PHQ-9 Depression Total Score: 1 04/29/2017 2:23 PM CDT documented as of this encounter
--- OUTSIDE RECORDS SUMMARY | 2022-06-24 10:59 | XMS_ITS | Encounter Summary ---
:1965 Author Organization [facility] Address [address] [place] [address] Care Team Providers Name Role Phone Unavailable Primary Care Provider Unavailable Reason for Referral Outpatient (Routine) - Closed Specialty Diagnoses / Procedures Referred By Contact Refer red To Contact Oncology Diagnoses Malignant Neoplasm Of Overlapping Sites Of Left Female Breast (HCC) Alma Guevara M.D. [address] [phone] Referral ID Status Reason Start Date Expiration Date Visits Requ ested Visits Authorized [id number] Closed 11/12/2017 05/11/2018 1 1 Reason for Visit Reason Comments Return Visit Outpatient (Routine) - Canceled Specialty Diagnoses / Procedures Referred By Contact Refer red To Contact Oncology Alma Guevara M.D. [address] [phone] Referral ID Status Reason Start Date Expiration Date Visits V isits Requested Authorized [id number] Canceled 11/10/2017 05/09/2018 1 1 Encounter Details Date Type Department Care Team Description 11/12/2017 Office Visit Department of Oncology Alma Guevara Ma lignant Neoplasm Of Overlapping Sites Of Left Female Breast (HCC) (Primary Dx); in Talon Rose M.D. [address] [phone] Social History Tobacco Use Types Packs/Day Years Used Date Smoking Tobacco: Former Cigarettes Quit : 11/12/2009 Smokeless Tobacco: Never Sex Assigned at Date Recorded Not on file documented as of this encounter Last Filed Vital Signs Vital Sign Reading Time Taken Comments Blood Pressure 120/71 11/12/2017 3:08 PM CDT Pulse 97 11/12/2017 3:08 PM CDT Temperature 36.3 ??C (97.3 ??F) 11/12/2017 3:08 PM CDT Respiratory Rate 16 11/12/2017 3:08 PM CDT Oxygen Saturation 98% 11/12/2017 3:08 PM CDT Inhaled Oxygen Concentration - - Weight 85.6 kg (188 lb 11.4 oz) 11/12/2017 3:08 PM CDT Height 172 cm (5' 7.72) 11/12/2017 3:08 PM CDT Body Mass Index 28.93 11/12/2017 3:08 PM CDT documented in this encounter Progress Notes lAma Guevara M.D. - 11/12/2017 3:00 PM CDT SUBJECTIVE PRIMARY CARE PHYSICIAN No primary care provider on file. LOCAL ONCOLOGIST Alma Guevara M.D. PRIMARY [place] ONCOLOGIST No care project manager/team coach to display CHIEF COMPLAINT / REASON FOR VISIT Rolando Turk is a 52 y.o. female who presents for evaluation on endocrine therapy for her earlystage infiltrating ductal carcinoma of the breast. HISTORY OF PRESENT ILLNESS Oncology History 1. 08/15/2016 routine screening mammogram was notable [...] performed and returned infiltrating ductal carcinoma with [place] grade 1 of 3 ERPR positive her [...] on either side. 5. Genetic counseling at [facility] on 09/02/2016 returned no evidence of BRCA mutations. 6. 10/01/2016 the patient underwent wire localization of the left breast mass and lumpectomy with sentinel lymph node biopsy. Pathology returned left breast lumpectomy infiltrating ductal carcinoma Tray grade 2, 1.7 cm with associated previous [...] on 05/27/2017. 11. 08/14/2017 started on letrozole. JOINT RUNNER HISTORY 3 para 1-0-2-1 she had 1 vaginal delivery, 1 miscarriage and 1 . She did nurse her 1child for a short period of time. Her last menstrual period was 08/26/2016. INTERVAL HISTORY The patient is here for follow up. She is a [place] patient who is seeing me here in [place] for persistent severe nausea and vomiting. Turns out she actually never vomits. It is actually intractable nausea and dry heaves. The patient started having these symptoms around October 18, 2017. They are intermittent. They are not associated with eating. It is usually in the morning. She feels relief after the episode of dry heaves. Joints are sore and stiff. Fatigue. This patient has had a very difficult time from the very start of her treatment, and nausea has been one of her main symptoms throughout her treatment. Early on this was attributed to palonosetron and was accompanied by severe headaches. The following portions of the patient's history were reviewed and updated as appropriate: allergies,current medications, family history, medical history, social history, surgical history and problem list. REVIEW OF SYSTEMS Constitutional: Positive for fatigue, loss of appetite and weight gain of more than 10 pounds. Negative for fever and night sweats. Skin: Negative for skin rash. Eyes: Negative for visual problems. ENT: Negative for difficulty hearing. Respiratory: Negative for dyspnea. Cardiovascular: Negative for chest pain, pressure or tightness, swelling in the legs or feet and rapid or fluttering heart beat. Gastrointestinal: Positive for nausea. Negative for constipation, diarrhea and vomiting. She may have experienced one or two episodes of nausea and vomiting throughout the entire period ofher illness. She marvels at the fact that despite the nausea and the dry heaves, she does not in fact vomit. Genitourinary: Negative for incontinence, pain with urination, hematuria, urgency and frequent urination. Hematologic: Negative for bruises or bleeds easily. Musculoskeletal: Positive for arthralgias and pain or stiffness in the joints. No symptoms of PPE Neurological: Negative for headaches and slurred speech. No symptoms of peripheral neuropathy. All other systems reviewed and are negative. The following systems were negative: Skin, Eyes, Psych OBJECTIVE BP 120/71 (BP Location: Right arm, Patient Position: Sitting, Cuff Size: Regular) Pulse 97 Temp 36.3 ??C (Temporal) Resp 16 Ht 172 cm Wt 85.6 kg SpO2 98% BMI 28.93 kg/m?? PHYSICAL EXAM Constitutional: She is oriented to person, place, and time. She appears well- developed and well-nourished. HENT: Head: Normocephalic and atraumatic. Right Ear: External ear normal. Left Ear: External ear normal. Nose: Nose normal. Mouth/Throat: Oropharynx is clear and moist. Eyes: Conjunctivae and EOM are normal. Pupils are equal, round, and reactive to light. Neck: Normal range of motion. Neck supple. No JVD present. No tracheal deviation present. No thyromegaly present. Cardiovascular: Normal rate and regular rhythm. She exhibits no edema. Exam reveals no gallop and nofriction rub. No murmur heard. Pulmonary/Chest: Effort normal. She has no wheezes. She has no rales. No rhonchi. The breasts were examined in the upright and supine positions. There were no masses, nipple discharge, skin changes in the bilateral breasts. Abdominal: Soft. Bowel sounds are normal. She exhibits no mass (palpable). There is no tenderness. The liver is not enlarged. The spleen is not palpable. Neurological: She is alert and oriented to person, place, and time. No cranial nerve deficit. Normal gait. Speech is fluid. Skin: Skin is warm and dry. No rash noted. Psychiatric: She has a normal mood and affect. Her behavior is normal. Judgment and thought content normal. Nursing note and vitals reviewed. There is no palpable preauricular, anterior posterior cervical, supraclavicular, infraclavicular, axillary, epitrochlear, inguinal, or femoral adenopathy. LABORATORY DATA Lab data reviewed. RADIOLOGICAL DATA Radiology data reviewed. ASSESSMENT / PLAN #1 Malignant Neoplasm Of Overlapping Sites Of Left Female Breast (HCC) - Oncology office visit (clinic); Future; Expected date: 11/19/2017 #2 Vomiting Other orders - Oncology office visit (clinic) - CMP (Comprehensive Metabolic Panel); Future; Expected date: 11/12/2017 - Calcium, Ionized; Future; Expected date: 11/12/2017 - CBC with Differential; Future; Expected date: 11/12/2017 - CMP (Comprehensive Metabolic Panel) - Calcium, Ionized - CBC with Differential Stop all medications, as this is the most likely reason for the problem. Fluoxetine, in particular, has a very long half life, and also has effects in the serotonin pathway, as do the 5HT3s. I will seeher again in one week, at which time, if the symptoms have abated, we will put her medications back one at a time. \ PATIENT EDUCATION Ready to learn, no apparent learning barriers were identified; learning preferences include listening. Explained diagnosis and treatment plan; patient expressed understanding of the content. ADMINISTRATIVE BILLING I personally spent over half of a total 60 minutes face to face with the patient in counseling and discussion and/or coordination of care as described above. documented in this encounter Plan of Treatment Upcoming Encounters Date Type Specialty Care Team Description 09/11/2022 Appointment Laboratory Medicine Alma Guevara M.D. [address] [place] [phone] ([facility]) 09/18/2022 Office Visit Hematology Oncology Alma Guevara M.D. [address] [place], [place] [phone] (Wo rk) Scheduled Referrals Name Type Priority Associated Diagnoses [facility] Outpatient Referral Routine Malignant Neoplasm Of Expected: visit (clinic) Overlapping Sites Of 11/19 Left Female Breast (Approxim ate), (HCC) Expires: 11/12/2020 documented as of this encounter Procedures Procedure Name Priority Date/Time Associated Comments Diagnosis CBC WITH DIFFERENTIAL, Routine 11/12/2017 4:50 PM Malignant Ne oplasm Results for this B CDT Of Overlapping procedure are in Sites Of Left the results Female Breast (H CC) section. Vomiting CALCIUM, IONIZED, S/B Routine 11/12/2017 4:50 PM Malignant Ramez plasm Results for this CDT Of Overlapping procedure are in Sites Of Left the results Female Breast (H CC) section. Vomiting COMPREHENSIVE Routine 11/12/2017 4:50 PM Malignant Neoplasm Re sults for this METABOLIC PANEL, S/P CDT Of Overlapping proce dure are in Sites Of Left the results Female Breast (H CC) section. Vomiting documented in this encounter Results Calcium, Ionized (11/12/2017 4:50 PM CDT) P athologist Signature Calcium, 5.25 4.57 - 11/14/2017 [facility] Ionized, S 5.43 mg/dL 7:08 AM CDT LABORATORIES - [facility] Comment: ----ADDITIONAL INFORMATION---- This test has been modified from the man ufacturer's instructions. Its performance characteri stics were determined by [facility] in a manner co nsistent with CLIA requirements. This test has not bee n cleared or approved by the U.S. Food and Drug Admin istration. pH for Ionized 7.39 7.35 - 7.48 11/14/2017 7:08 AM CDT [facility] Calcium LABORATORIES - [facility] Specimen Anatomical Collection Method Collection Time Receive d Time (Source) Location / / Volume Laterality Blood (Blood, 11/12/2017 4:50 PM 11/15/19 18 6:34 Venous) CDT AM CDT Alma Guevara M.D. LAB BLOOD NON ADD-ON Performing Organization Address City/State/ZIP Code Phon e Number [facility] LAB[facility]ATORIES - [address] [place], [place] [address] [facility] (ABNORMAL) CBC with Differential (11/12/2017 4:50 PM CDT) [facility] Method Time Signature Hemoglobin 15.1 (H) 11.6 - 11/12/2017 [facility] 15.0 g/dL 5:17 PM CDT [facility] [place] [facility] Hematocrit 44.4 35.5 - 11/12/2017 [facility] 44.9 % 5:17 PM CDT [facility] [place] [facility] Erythrocytes 4.26 3.92 - 11/12/2017 [facility] 5.13 5:17 PM CDT [facility]ALTH x10(12)/L [facility] [place] [facility] MCV 104.2 (H) 78.2 - 11/12/2017 [facility] 97.9 fL 5:17 PM CDT [facility] [place] [facility] RBC Distrib Width 12.4 12.2 - 11/12/2017 [facility] 16.1 % 5:17 PM CDT [facility] [place] [facility] Platelet Count 237 157 - 371 11/12/2017 [facility] x10(9)/L 5:17 PM CDT [facility] [place] [facility] Leukocytes 3.6 3.4 - 9.6 11/12/2017 [facility] x10(9)/L 5:17 PM CDT [facility] [place] [facility] Neutrophils 1.93 1.56 - 11/12/2017 [facility] 6.45 5:17 PM CDT [facility]ALTH x10(9)/L [facility] [place] [facility] Lymphocytes 0.96 0.95 - 11/12/2017 [facility] 3.07 5:17 PM CDT [facility] x10(9)/L [facility] [place] [facility] Monocytes 0.55 0.26 - 11/12/2017 [facility] 0.81 5:17 PM CDT [facility] x10(9)/L [facility] [place] [facility] Eosinophils 0.11 0.03 - 11/12/2017 [facility] 0.48 5:17 PM CDT [facility] x10(9)/L [facility] [place] [facility] Basophils 0.02 0.01 - 11/12/2017 [facility] 0.08 5:17 PM CDT HEALTH x10(9)/L [facility] [employer] Specimen Anatomical Collection Method Collection Time Receive d Time (Source) Location / / Volume Laterality Blood (Blood, 11/12/2017 4:50 PM 11/13/19 18 4:52 Venous) CDT PM CDT Alma Guevara M.D. LAB BLOOD ADD-ON Performing Organization Address City/State/ZIP Code Phon e Number [facility] [address] [place] [address] [place] [facility] (ABNORMAL) CMP (Comprehensive Metabolic Panel) (11/12/2017 4:50 PM CDT) P athologist Signature Potassium, S 5.0 3.6 - 5.2 11/12/2017 [facility] mmol/L 6:15 PM [facility] Sodium, S 144 135 - 145 11/12/2017 [facility] mmol/L 6:15 PM [facility] Chloride, S 105 98 - 107 11/12/2017 [facility] mmol/L 6:15 PM [facility] Bicarbonate, S 28 22 - 29 11/12/2017 [facility] mmol/L 6:15 PM [facility] Anion Gap 11 7 - 15 11/12/2017 [facility] 6:15 PM [facility] BUN (Blood Urea 18 6 - 21 11/12/2017 [facility] Nitrogen), S mg/dL 6:15 PM [facility] Creatinine 0.67 0.59 - 11/12/2017 [facility] 1.04 mg/dL 6:15 PM [facility] eGFR-Non >90 >=60 11/12/2017 [facility] Black/ mL/min/BSA 6:15 PM [facility] [place] [facility] Comment: ----ADDITIONAL INFORMATION---- Estimated GFR calculated using the 2009 CKD_EPI creatinine equation. eGFR-Black/ >90 >=60 mL/min/BSA 2017 6:15 PM [facility] [place] [facility] Comment: ----ADDITIONAL INFORMATION---- Estimated GFR calculated using the 2009 CKD_EPI creatinine equation. Calcium, Total, S 9.5 8.9 - 10.1 11/12/2017 6:[address] [facility] mg/dL [facility] Glucose, S 100 70 - 140 mg/dL 11/12/2017 6:15 PM [facility] Protein, Total, S 6.5 6.3 - 7.9 g/dL 11/12/2017 6:15 P M [facility] Albumin, S 4.3 3.5 - 5.0 g/dL 11/12/2017 6:15 PM [facility] Aspartate 51 (H) 8 - 43 U/L 11/12/2017 6:15 PM [facility] Aminotransferase (AST), S [facility] [place] [facility] Alkaline Phosphatase, S 75 39 - 100 U/L 11/12/2017 6: 15 PM [facility] Alanine Aminotransferase 66 (H) 7 - 45 U/L 11/12/2017 6:1 5 PM [facility] (ALT), [facility] Bilirubin, Total, S 0.6 <=1.2 mg/dL 11/12/2017 6:15 PM [facility] Specimen Anatomical Collection Method Collection Time Receive d Time (Source) Location / / Volume Laterality Blood (Blood, 11/12/2017 4:50 PM 11/13/19 18 4:52 Venous) CDT PM CDT Alma Guevara M.D. LAB BLOOD ADD-ON Performing Organization Address City/State/ZIP Code Phon e Number [facility] [address] [place] [address] [place] documented in this encounter Visit Diagnoses Diagnosis Malignant Neoplasm Of Overlapping Sites Of Left Female Breast (HCC) - Primary Vomiting documented in this encounter Additional Health Concerns Assessment Noted Time PHQ-9 Depression Total Score: 1 04/29/2017 2:23 PM CDT documented as of this encounter
--- OUTSIDE RECORDS SUMMARY | 2022-06-24 10:59 | XMS_ITS | Encounter Summary ---
:1965 Author Organization [facility] Address [address] [place] [address] Care Team Providers Name Role Phone Unavailable Primary Care Provider Unavailable Encounter Details Date Type Department Care Team Description 07/08/2017 Hospital Encounter HX NO MAPPING Provider, Historical Social History Tobacco Use Types Packs/Day Years Used Date Smoking Tobacco: Never Assessed Sex Assigned at Date Recorded Not on file documented as of this encounter Medications at Time of Discharge Medication Sig Dispensed Refills Start Date End Date acyclovir (for_ZOVIRAX) 400 Take 1 tablet by 0 mg tablet mouth as needed. cholecalciferol Take 1 capsule by 0 06/30/2017 (for_VITAMIN D3) 5,000 Unit mouth daily. capsule FLUoxetine (PROzac) 20 mg Take 1 capsule by 0 03/18/2022 capsule mouth daily. LORazepam (for_ATIVAN) 0.5 Take 1-2 tablets 0 03/18/2022 mg tablet by mouth as needed. documented as of this encounter Plan of Treatment Upcoming Encounters Date Type Specialty Care Team Description 09/11/2022 Appointment Laboratory Medicine Alma Guevara M.D. [address] [place], [place] [phone] (Billy avalos) 09/18/2022 Office Visit Hematology Oncology Alma Guevara M.D. [address] [place], [place] [phone] (Billy avalos) documented as of this encounter Visit Diagnoses Not on filedocumented in this encounter Additional Health Concerns Assessment Noted Time PHQ-9 Depression Total Score: 1 04/29/2017 2:23 PM CDT documented as of this encounter
--- OUTSIDE RECORDS SUMMARY | 2022-06-24 10:59 | XMS_ITS | Encounter Summary ---
:[address] [facility] Address [address] [place] [address] Care Team Providers Name Role Phone Unavailable Primary Care Provider Unavailable Encounter Details Date Type Department Care Team Description 11/18/2018 Orders Only Department of Sherry Murphy, Malign ant Neoplasm Of Radiation Oncology in [employer] [facility], C.N. P., D.N.P. Breast [place], [place] [address] [facility] Quadrant Female Left [address] [place], [place] (HCC) (Primary Dx) [place] [id number] [phone] Social History Tobacco Use Types Packs/Day Years Used Date Smoking Tobacco: Former Cigarettes Quit : 11/12/2009 Smokeless Tobacco: Never Sex Assigned at Date Recorded Not on file documented as of this encounter Plan of Treatment Upcoming Encounters Date Type Specialty Care Team Description 09/11/2022 Appointment Laboratory Medicine Alma Guevara M.D. [address] [place], [place] [phone] (Wo bailey) 09/18/2022 Office Visit Hematology Oncology Alma Guevara M.D. [address] [place], [place] [phone] (Wo bailey) documented as of this encounter Visit Diagnoses Diagnosis Malignant Neoplasm Of Breast Upper Outer Quadrant Female Left (HCC) - Primary documented in this encounter Additional Health Concerns Assessment Noted Time PHQ-9 Depression Total Score: 1 04/29/2017 2:23 PM CDT documented as of this encounter
--- OUTSIDE RECORDS SUMMARY | 2022-06-24 10:59 | XMS_ITS | Encounter Summary ---
:1965 Author Organization [facility] Address [address] [place] [address] Care Team Providers Name Role Phone Unavailable Primary Care Provider Unavailable Encounter Details Date Type Department Care Team Description 04/01/2005 - Hospital Encounter HX ARZ NO MAPPING Provider, Histori oswaldo 04/02/2005 Social History Tobacco Use Types Packs/Day Years Used Date Smoking Tobacco: Never Assessed Sex Assigned at Date Recorded Not on file documented as of this encounter Plan of Treatment Upcoming Encounters Date Type Specialty Care Team Description 09/11/2022 Appointment Laboratory Medicine Alma Guevara M.D. [address] [place] [phone] (Billy avalos) 09/18/2022 Office Visit Hematology Oncology Alma Guevara M.D. [address] [place] [phone] (Wo bailey) documented as of this encounter Visit Diagnoses Not on filedocumented in this encounter
--- OUTSIDE RECORDS SUMMARY | 2022-06-24 10:59 | XMS_ITS | Encounter Summary ---
:1965 Author Organization [facility] Address [address] [place] [address] Care Team Providers Name Role Phone Unavailable Primary Care Provider Unavailable Reason for Visit Reason Comments Return Visit Outpatient (Routine) - Closed Specialty Diagnoses / Procedures Referred By Contact Refer red To Contact Oncology Diagnoses Malignant Neoplasm Of Overlapping Sites Of Left Female Breast (HCC) Alma Guevara M.D. [facility] Region [address] [place] [address] Referral ID Status Reason Start Date Expiration Date Visits Requ ested Visits Authorized [id number] Closed 11/12/2017 05/11/2018 1 1 Encounter Details Date Type Department Care Team Description 11/19/2017 Office Visit Department of Oncology Alma Guevara Ma lignant Neoplasm Of in Talon Rose M.D. [facility] [place] [address] [facility] Left Female Breast [address] [place], [place] (HCC) [place] [phone] Social History Tobacco Use Types Packs/Day Years Used Date Smoking Tobacco: Former Cigarettes Quit : 11/12/2009 Smokeless Tobacco: Never Sex Assigned at Date Recorded Not on file documented as of this encounter Last Filed Vital Signs Vital Sign Reading Time Taken Comments Blood Pressure 118/88 11/19/2017 9:58 AM CDT Pulse 93 11/19/2017 9:58 AM CDT Temperature 36.7 ??C (98.1 ??F) 11/19/2017 9:58 AM CDT Respiratory Rate 14 11/19/2017 9:58 AM CDT Oxygen Saturation 95% 11/19/2017 9:58 AM room air CDT Inhaled Oxygen Concentration - - Weight 85.2 kg (187 lb 13.3 11/19/2017 9:58 AM oz) CDT Height 172 cm (5' 7.72) 11/19/2017 9:58 AM per history CDT Body Mass Index 28.8 11/19/2017 9:58 AM CDT documented in this encounter Progress Notes Alma Guevara M.D. - 11/19/2017 10:00 AM CDT SUBJECTIVE PRIMARY CARE PHYSICIAN No primary care provider on file. LOCAL ONCOLOGIST Alma Guevara M.D. PRIMARY [place] ONCOLOGIST No care production team manager to display CHIEF COMPLAINT / REASON FOR VISIT Rolando Turk is a 52 y.o. female who presents for evaluation on endocrine therapy for stage IIAinfiltrating ductal carcinoma of the breast. HISTORY OF PRESENT ILLNESS Oncology History Oncology History This Is 51-year-old 3 para 1 woman with cysts with a recently diagnosed infiltrating ductalcarcinoma the breast, stage IIA whose oncologic history [...] performed and returned infiltrating ductal carcinoma with Loranger grade 1 of 3 ERPR positive her [...] on either side. 5. Genetic counseling at [facility] on 09/02/2016 returned no evidence of BRCA [...] on 05/27/2017. 11. 08/14/2017 started on letrozole. 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 She did nurse her 1child for a short period of time. Her last menstrual period was 08/26/2016. Malignant Neoplasm Of Breast Upper Outer Quadrant Female Left (HCC) 10/24/2016 Initial Diagnosis Malignant Neoplasm Of Breast Upper Outer Quadrant Female Left (HCC) INTERVAL HISTORY The patient is here for follow up for recent intractable nausea and dry heaves. The patient started having these symptoms around October 18, 2017. They are intermittent. They are not associated with eating. It is usually in the morning. She is off all her meds for the last week with essentially no change in her symptoms. She feels relief after the episode of dry heaves. Joints are sore and stiff. Fatigue. I saw her a week ago and stopped all of her medications. There has been absolutely no change in her symptoms. The following portions of the patient's history were reviewed and updated as appropriate: allergies,current medications, family history, medical history, social history, surgical history and problem list. REVIEW OF SYSTEMS Constitutional: Positive for weight gain of more than 10 pounds. Negative for fatigue, fever, loss of appetite and night sweats. Skin: Negative for skin [...] were negative: Skin, Eyes, Psych OBJECTIVE BP 118/88 (BP Location: Right arm, Patient Position: Sitting, Cuff Size: Large) Pulse 93 Temp 36.7 ??C (Core) Resp 14 Ht 172 cm Comment: per history Wt 85.2 kg SpO2 95% Comment: room air BMI 28.80 kg/m?? Physical Exam General: This is a well-developed well nourished woman who is comfortable and in no acute respiratory distress. Her hair is growing back. HEENT: Patient is normocephalic. Pupils are equal round reactive to light. Extraocular movements areintact. Sclerae are anicteric. Conjunctivae are pink. Oral mucous membranes are moist without lesions. Neck: Supple without thyromegaly or jugular venous [...] Multiple tattoos. LABORATORY DATA Lab data reviewed. RADIOLOGICAL DATA Radiology data reviewed. ASSESSMENT / PLAN #1 Malignant Neoplasm Of Overlapping Sites Of Left Female Breast (HCC) - Oncology office visit (clinic) - MR Brain with IV Contrast; Future; Expected date: 11/19/2017 (Patient to have study done at [facility]) The patient's clinical course Is unchanged. She does not want to restart her medications, and I don't think it is necessary to restart them, which the exception of the letrazole. Her current symptoms actually are explainable with that drug. For completeness, I will do an MRI of the brain to rule out brain metastases and I will see her in follow up in [place], where I usually see her. PATIENT EDUCATION Ready to learn, no apparent [...] Laboratory Medicine Alma Guevara M.D. [address] [place], [place] [phone] (Billy avalos) 09/18/2022 Office Visit Hematology Oncology Alma Guevara M.D. [address] [place], [place] [phone] (Billy avalos) documented as of this encounter Visit Diagnoses Diagnosis Malignant Neoplasm Of Overlapping Sites Of Left Female Breast (HCC) documented in this encounter Additional Health Concerns Assessment Noted Time PHQ-9 Depression Total Score: 1 04/29/2017 2:23 PM CDT documented as of this encounter
--- OUTSIDE RECORDS SUMMARY | 2022-06-24 10:59 | XMS_ITS | Encounter Summary ---
:1965 Author Organization [facility] Address [address] [place] [address] Care Team Providers Name Role Phone Unavailable Primary Care Provider Unavailable Encounter Details Date Type Department Care Team Description 01/27/2018 Abstract [facility] CRISTIANA Ray ea Provider, Historical [address] [facility] [place] [address] Social History Tobacco Use Types Packs/Day Years Used Date Smoking Tobacco: Former Cigarettes Quit : 11/12/2009 Smokeless Tobacco: Never Sex Assigned at Date Recorded Not on file documented as of this encounter Plan of Treatment Upcoming Encounters Date Type Specialty Care Team Description 09/11/2022 Appointment Laboratory Medicine Alma Guevara M.D. [address] [place], [place] [phone] (Wo bailey) 09/18/2022 Office Visit Hematology Oncology Alma Guevara M.D. [address] [place] [phone] (Wo rk) documented as of this encounter Visit Diagnoses Not on filedocumented in this encounter Additional Health Concerns Assessment Noted Time PHQ-9 Depression Total Score: 1 04/29/2017 2:23 PM CDT documented as of this encounter
--- OUTSIDE RECORDS SUMMARY | 2022-06-24 10:59 | XMS_ITS | Encounter Summary ---
:1965 Author Organization [facility] Address [address] [place] [address] Care Team Providers Name Role Phone Unavailable Primary Care Provider Unavailable Encounter Details Date Type Department Care Team Description 12/31/2017 Abstract DATA ABSTRACTION Provider, Historical Social History Tobacco Use Types Packs/Day Years Used Date Smoking Tobacco: Former Cigarettes Quit : 11/12/2009 Smokeless Tobacco: Never Sex Assigned at Date Recorded Not on file documented as of this encounter Plan of Treatment Upcoming Encounters Date Type Specialty Care Team Description 09/11/2022 Appointment Laboratory Medicine Alma Guevara M.D. [address] [place] [phone] (Wo bailey) 09/18/2022 Office Visit Hematology Oncology Alma Guevara M.D. [address] [place] [phone] (Wo bailey) documented as of this encounter Visit Diagnoses Not on filedocumented in this encounter Additional Health Concerns Assessment Noted Time PHQ-9 Depression Total Score: 1 04/29/2017 2:23 PM CDT documented as of this encounter
--- OUTSIDE RECORDS SUMMARY | 2022-06-24 10:59 | XMS_ITS | Encounter Summary ---
:1965 Author Organization [facility] Address [address] [place] [address] Care Team Providers Name Role Phone Unavailable Primary Care Provider Unavailable Encounter Details Date Type Department Care Team Description 04/01/2017 Ancillary Procedure Department of Oncology Social History Tobacco Use Types Packs/Day Years Used Date Smoking Tobacco: Never Assessed Sex Assigned at Date Recorded Not on file documented as of this encounter Plan of Treatment Upcoming Encounters Date Type Specialty Care Team Description 09/11/2022 Appointment Laboratory Medicine Alma Guevara M.D. [address] [place] [phone] (Wo rk) 09/18/2022 Office Visit Hematology Oncology Alma Guevara M.D. [address] [place] [phone] (Wo rk) documented as of this encounter Procedures Procedure Name Priority Date/Time Associated Diagnosis Comme nts ONCOLOGY IMAGE EXAM Routine 04/01/2017 9:45 AM Re sults for this CDT procedure are i n the results section. documented in this encounter Results LT MF BREAST-Oncology Image Exam (04/01/2017 9:45 AM CDT) Specimen (Source) Anatomical Location Collection Method / Collectio n Time Received Time / Laterality Volume Narrative IIMS - 11/21/2018 7:13 AM CDT This order has been created and auto-finalized to support the import of images acquired without order. The clini oswaldo documentation to support these images can be found on the encounter avelina t produced images. Provider Not In System IMG NON RAD IMAGING PROCEDUR ES Performing Organization Address City/State/ZIP Code Phon e Number IIMS IIMS NA documented in this encounter Visit Diagnoses Not on filedocumented in this encounter
--- OUTSIDE RECORDS SUMMARY | 2022-06-24 10:59 | XMS_ITS | Encounter Summary ---
:1965 Author Organization [facility] Address [address] [place] [address] Care Team Providers Name Role Phone Unavailable Primary Care Provider Unavailable Encounter Details Date Type Department Care Team Description 02/26/2018 Orders Only Department of Oncology Alma Guevara Ma lignant Neoplasm Of in Talon Rose M.D. Overlapping Sites [facility] [address] [place] [address] Left Female Breast [address] [place] [address] (HCC) [place] [phone] Social History Tobacco Use Types Packs/Day Years Used Date Smoking Tobacco: Former Cigarettes Quit : 11/12/2009 Smokeless Tobacco: Never Sex Assigned at Date Recorded Not on file documented as of this encounter Plan of Treatment Upcoming Encounters Date Type Specialty Care Team Description 09/11/2022 Appointment Laboratory Medicine Alma Guevara M.D. [address] [place] [phone] (Wo rk) 09/18/2022 Office Visit Hematology Oncology Alma Guevara M.D. [address] [place] [phone] (Wo rk) documented as of this encounter Procedures Procedure Name Priority Date/Time Associated Diagnosis Comme nts MR BRAIN WITH IV RAD - Routine (most 02/26/2018 11:53 Malignant Ramez plasm CONTRAST inpatients and all AM CDT Of Overlapping Sites outpatients) Of Left Female Breast (HCC) documented in this encounter Results MR Brain with IV Contrast (02/26/2018 11:53 AM CDT) Anatomical Region Laterality Modality Head, Brain, Neuroradiology RST LOS, Neuroradiology ARZ LOS, N/A Other Neuroradiology FLA LOS Narrative This result has an attachment that is no t available. Alma GUTIERREZ MRI PROCEDURES documented in this encounter Visit Diagnoses Diagnosis Malignant Neoplasm Of Overlapping Sites Of Left Female Breast (HCC) documented in this encounter Additional Health Concerns Assessment Noted Time PHQ-9 Depression Total Score: 1 04/29/2017 2:23 PM CDT documented as of this encounter
--- OUTSIDE RECORDS SUMMARY | 2022-06-24 10:59 | XMS_ITS | Encounter Summary ---
:1965 Author Organization [facility] Address [address] [place] [address] Care Team Providers Name Role Phone Unavailable Primary Care Provider Unavailable Encounter Details Date Type Department Care Team Description 05/12/2004 Hospital Encounter HX ARZ NO MAPPING Provider, Histori oswaldo Social History Tobacco Use Types Packs/Day Years Used Date Smoking Tobacco: Never Assessed Sex Assigned at Date Recorded Not on file documented as of this encounter Plan of Treatment Upcoming Encounters Date Type Specialty Care Team Description 09/11/2022 Appointment Laboratory Medicine Alma Guevara M.D. [address] [place] [phone] (Wo rk) 09/18/2022 Office Visit Hematology Oncology Alma Guevara M.D. [address] [place] [phone] (Wo rk) documented as of this encounter Procedures Procedure Name Priority Date/Time Associated Comments Diagnosis US OB TRANSVAGINAL Routine 05/12/2004 3:36 PM Res ults for this MST procedure are i n the results section. US OB LESS THAN 14 Routine 05/12/2004 3:35 PM Res ults for this WEEKS MST procedure are i n the results section. documented in this encounter Results Ultrasound OB transvaginal (05/12/2004 3:36 PM MST) Anatomical Region Laterality Modality Body Ultrasound Specimen (Source) Anatomical Collection Method Collection Time Re ceived Time Location / / Volume Laterality 05/12/2004 3:36 PM MST Narrative 05/12/2004 4:44 PM MST Indications: ?VAG BLEED ORIGINAL REPORT - 12-May-2004 16:44:00 US OB; TRANSVAGINAL: US OB<14WKS SINGLE;TRANSABD: ?? Pelvic ultrasound done using transabdomi nal and transvaginal approach. ??There is a gestational sac at the fundus of the uterus with embryo in the sac. ??However, there is no yolk sac and no cardiac act ivity. ??The patient's clinical gestatio nal age is eight weeks six days. ??The ultrasound age would be approximately six weeks five days. ??This likely represents an unsuccessful gestation. ??If require d, a repeat ultrasound in two weeks coul d be done for further evaluation. ??The ovaries are well visualized. ??The right ovary measures 3.5 x 2.5 cm, and the left ovary measures 1.7 x 1.2 cm. ?? This report has been electronically sign ed by Yonatan Sumner MD on May ??2003 ??4:43PM. Electronically signed by: ?? Sharmaine Sumner M.D. 12-May-2004 16:44 Procedure Note Yonatan Sumner M.D. - 04/08/2018Formatt ing of this note might be different from the original. Indications: VAG BLEED ORIGINAL REPORT - 12-May-2004 16:44:00 US OB; TRANSVAGINAL: US OB<14WKS SINGLE;TRANSABD: Pelvic ultrasound done using transabdomi nal and transvaginal approach. There is a gestational sac at the fundus of the uterus with embryo in the sac. However, there is no yolk sac and no cardiac activity. The patient's clinical gestational age is ei ght weeks six days. The ultrasound age would be approximately six weeks five days. This likely represents an unsuccessful gestation. If required, a repeat ultrasound in two weeks could be done for further eval uation. The ovaries are well visualized. The right ovary measures 3.5 x 2.5 cm, and the left ovary measures 1.7 x 1.2 cm. This report has been electronically sign ed by Yonatan Sumner MD on May 12 2004 4:43PM. Electronically signed by: Sharmaine Sumner M.D. 12-May-2004 16:44 Jesús Wills M.D. IMG OB US PROCEDURES US OB Less Than 14 Weeks (05/12/2004 3:35 PM [facility]) Anatomical Region Laterality Modality Ultrasound Specimen (Source) Anatomical Collection Method Collection Time Re ceived Time Location / / Volume Laterality 05/12/2004 3:35 PM MST Narrative 05/12/2004 4:44 PM [facility] Indications: ?VAG BLEED ORIGINAL REPORT - 12-May-2004 16:44:00 US OB; TRANSVAGINAL: US OB<14WKS SINGLE;TRANSABD: ?? Pelvic ultrasound done using transabdomi nal and transvaginal approach. ??There is a gestational sac at the fundus of the uterus with embryo in the sac. ??However, there is no yolk sac and no cardiac act ivity. ??The patient's clinical gestatio nal age is eight weeks six days. ??The ultrasound age would be approximately six weeks five days. ??This likely represents an unsuccessful gestation. ??If require d, a repeat ultrasound in two weeks coul d be done for further evaluation. ??The ovaries are well visualized. ??The right ovary measures 3.5 x 2.5 cm, and the left ovary measures 1.7 x 1.2 cm. ?? This report has been electronically sign ed by Yonatan Sumner MD on May ??4:43PM. Electronically signed by: ?? Sharmaine Sumner M.D. 12-May-2004 16:44 Procedure Note Yonatan Sumner M.D. - 04/08/2018Formatt ing of this note might be different from the original. Indications: VAG BLEED ORIGINAL REPORT - 12-May-2004 16:44:00 US OB; TRANSVAGINAL: US OB<14WKS SINGLE;TRANSABD: Pelvic ultrasound done using transabdomi nal and transvaginal approach. There is a gestational sac at the fundus of the uterus with embryo in the sac. However, there is no yolk sac and no cardiac activity. The patient's clinical gestational age is ei ght weeks six days. The ultrasound age would be approximately six weeks five days. This likely represents an unsuccessful gestation. If required, a repeat ultrasound in two weeks could be done for further eval uation. The ovaries are well visualized. The right ovary measures 3.5 x 2.5 cm, and the left ovary measures 1.7 x 1.2 cm. This report has been electronically sign ed by Yonatan Sumner MD on May 12 2004 4:43PM. Electronically signed by: Sharmaine Sumner M.D. 12-May-2004 16:44 Jesús Wills M.D. IMG OB US PROCEDURES documented in this encounter Visit Diagnoses Not on filedocumented in this encounter
--- OUTSIDE RECORDS SUMMARY | 2022-06-24 10:59 | XMS_ITS | Encounter Summary ---
:1965 Author Organization [facility] Address [address] [place] [address] Care Team Providers Name Role Phone Unavailable Primary Care Provider Unavailable Encounter Details Date Type Department Care Team Description 03/18/2022 Hospital Encounter Department of Alma Guevara Malig nant Neoplasm Laboratory Medicine M.[place]ile[place] Of Breast Upper in [place] [address] [place], [place] Female Left (HCC) [address] [place] [address] [place], [place] [phone] (Work) [phone] Social History Tobacco Use Types Packs/Day Years Used Date Smoking Tobacco: Former Cigarettes Quit : 11/12/2009 Smokeless Tobacco: Never Sex Assigned at Date Recorded Not on file documented as of this encounter Medications at Time of Discharge Medication Sig Dispensed Refills Start Date End Date acyclovir (for_ZOVIRAX) Take 1 tablet by 0 2016 400 mg tablet mouth as needed. calcium citrate-vitamin D3 Take 2 tablets by 0 (CITRACAL+D) 315 mg-5 mcg mouth. (200 Unit) per tablet cetirizine (ZyrTEC) 10 mg Take 10 mg by 0 021 tablet mouth. cholecalciferol Take 1 capsule by 0 06/30/2017 (for_VITAMIN D3) 5,000 mouth daily. Unit capsule estradioL (ESTRACE) 0.1 Insert 1 g into the 0 mg/g (0.01%) vaginal cream vagina. FLUoxetine (PROzac) 40 mg 0 01/09/2022 capsule ibuprofen (ADVIL,MOTRIN) Take 600 mg by 0 600 mg tablet mouth. omeprazole (for_PriLOSEC) Take 1 capsule by 0 12/ 01/2017 40 mg capsule mouth daily. oxybutynin (DITROPAN-XL) 0 02/22/2022 10 mg 24 hr tablet prasterone, dhea, Insert vaginally as 0 0 ([place]arosa) 6.5 mg insert needed exemestane (AROMASIN) 25 Take 25 mg by 0 04/24/2022 mg tablet mouth. documented as of this encounter Plan of Treatment Upcoming Encounters Date Type Specialty Care Team Description 09/11/2022 Appointment Laboratory Medicine Alma Guevara M.D. [address] [place] [phone] (Wo rk) 09/18/2022 Office Visit Hematology Oncology Alma Guevara M.D. [address] [place] [phone] (Wo rk) documented as of this encounter Procedures Procedure Name Priority Date/Time Associated Comments Diagnosis CBC WITH DIFFERENTIAL, Routine 03/18/2022 8:08 AM Malignant Ne oplasm Results for this B CDT Of Breast Upper procedure ar e in Outer Quadrant the results Female Left (HCC) section. COMPREHENSIVE Routine 03/18/2022 8:08 AM Malignant Neoplasm Re sults for this METABOLIC PANEL, S/P CDT Of Breast Upper proc edure are in Outer Quadrant the results Female Left (HCC) section. documented in this encounter Results Comprehensive Metabolic Panel (03/18/2022 [...] CDT eGFR-Black/Afric >90 >=60 03/18/2022 NPRG an Yemeni mL/min/BSA 8:31 AM CDT Comment: ----ADDITIONAL INFORMATION---- [...] Organization Address City/State/ZIP Code Phon e Number [facility]- [address] [place], [place] [address] [place] [address] [facility] [address] [place] (ABNORMAL) CBC with Differential, Blood (03/18/2022 8:08 AM CDT) [facility] gist Method Time Signature Hemoglobin 14.6 11.6 [...] Organization Address City/State/ZIP Code Phon e Number [facility]- [address] [place], [place] [address] [place] [address] [place] [address] [address] [facility] documented in this encounter Visit Diagnoses Diagnosis Malignant Neoplasm Of Breast Upper Outer Quadrant Female Left (HCC) documented in this encounter Additional Health Concerns Assessment Noted Time PHQ-9 Depression Total Score: 1 04/29/2017 2:23 PM CDT documented as of this encounter
== END 2022-06-24 10:57 | disposition home or self-care (01) ==
LOC: NFLDREF 10:57
PROVIDERS: PCP Family Medicine; Visit Provider Family Medicine
DX: R30.0 Dysuria (principal); N39.0 Urinary tract infection, site not specified
CPT/HCPCS: 87086; 87186

== ENCOUNTER 2022-09-04 07:39 | Outpatient (CLI) | payer OTHER, SELFPAY ==
--- NOTE | 2022-09-04 07:45 | CRLHL7_ITS ---
For Patients: As a result of the Cures Act, medical imaging exams and procedure reports are released immediately into your electronic medical record. You may view this report before your referring provider. If you have questions, please contact your health care provider. DIGITAL DIAGNOSTIC RIGHT MAMMOGRAM USING TOMOSYNTHESIS AND COMPUTER-AIDED DETECTION RIGHT BREAST ULTRASOUND CLINICAL HISTORY: RIGHT breast pain. COMPARISON: 02/05/2022, 01/17/2021, 01/17/2020, 12/15/2018. TECHNIQUE: Digital RIGHT mammogram in two projections. Tomosynthesis and CAD utilized. Real-time ultrasound imaging of RIGHT breast with imaging documentation. Scanning was performed by both the technologist and the radiologist. BREAST COMPOSITION: There are areas of scattered fibroglandular density. FINDINGS: 3D CC/MLO RIGHT breast mammogram images submitted. Nodular density in the upper outer quadrant likely represents intramammary lymph node. Normal RIGHT axillary lymph nodes are present. Benign calcifications noted. No suspicious masses or architectural distortion. Targeted RIGHT breast ultrasound performed in the area of pain at 8-10 o`clock 10 cm from the nipple. Normal fibroglandular tissue is present. Additional imaging of the RIGHT breast performed demonstrating normal intramammary lymph node in the upper outer quadrant and benign fibrocystic changes within the lower outer quadrant. No suspicious findings. IMPRESSION: Benign intramammary lymph nodes and cysts within the RIGHT breast. No findings concerning for malignancy. RECOMMENDATIONS: Routine BILATERAL screening mammography in February 2023. BI-RADS Category 2: Benign Results and recommendations discussed with the patient. A lay language report of this examination will be provided to the patient. Dictated by Antonio Ludwig MD @ 09/04/2022 12:03:50 PM jj/Dictated by: Antonio Ludwig MD @ 09/04/2022 9:46:00 AM (Electronically Signed)
--- NOTE | 2022-09-04 08:15 | CRLHL7_ITS ---
For Patients: As a result of the Cures Act, medical imaging exams and procedure reports are released immediately into your electronic medical record. You may view this report before your referring provider. If you have questions, please contact your health care provider. PLEASE SEE DIGITAL DIAGNOSTIC RIGHT MAMMOGRAM PERFORMED SAME DAY CRL:napoleon bender/Dictated by: Antonio Ludwig MD @ 09/04/2022 12:03:00 PM (Electronically Signed)
== END 2022-09-04 07:40 | disposition home or self-care (01) ==
LOC: MAMMO 07:40
PROVIDERS: PCP Family Medicine; Visit Provider Family Medicine
DX: N64.4 Mastodynia (principal)
CPT/HCPCS: 76642; 77065; G0279

== ENCOUNTER 2022-09-11 09:54 | Outpatient (REF) | payer OTHER, SELFPAY ==
[2022-09-11 12:15] LABS: Basophils Percent Auto 0.5 % (0.0-3.0); Eosinophils Percent Auto 3.6 % (0.0-7.0); Hematocrit 44.4 % (33.0-51.0); Hemoglobin* 14.8 gm/dL (12.0-16.0); Lymphocytes Percent Auto 27.3 % (20-44); Mean Corpuscular HGB Conc 33 gm/dL (32-36); Mean Corpuscular Hemoglobin 34 pg (26-34); Mean Corpuscular Volume 103 fL (80-100); Monocytes Percent Auto 9.4 % (0.0-11.0); Neutrophils Percent Auto 59.2 % (42.0-72.0); Platelet Count* 240 K/uL (140-440); RDW Coefficient of Variation % 13.1 % (11.5-15.5); Red Blood Count 4.32 m/uL (4.00-5.20); White Blood Count* 3.85 K/uL (4.50-11.00)
[2022-09-11 12:20] LABS: Slide Review Reflex No
[2022-09-11 13:07] LABS: Albumin* 4.3 g/dL (3.3-5.0); Chloride* 104 mmol/L (96-114); Sodium* 139 mmol/L (135-149)
[2022-09-11 13:08] LABS: Potassium* 4.6 mmol/L (3.6-5.1)
[2022-09-11 13:10] LABS: Alanine Aminotransferase* 44 U/L (4-35); Alkaline Phosphatase* 63 U/L (40-150); Aspartate Amino Transferase* 35 U/L (12-35); Bilirubin Total* 0.7 mg/dL (0.1-1.5); Blood Urea Nitrogen* 24 mg/dL (7-30); Carbon Dioxide* 27 mmol/L (20-32); Creatinine* 0.8 mg/dL (0.5-1.5); Estimated Glomerular Filt Rate 87 ml/min; Glucose* 65 mg/dL (60-115); Total Protein* 6.9 g/dL (6.0-8.3)
[2022-09-11 13:11] LABS: Calcium* 9.4 mg/dL (8.4-10.6)
[2022-09-11 14:00] LABS: Vitamin B12* 468 pg/mL (243-894)
[2022-09-12 17:12] LABS: Thyroid Peroxidase (TPO) Ab <0.3 IU/mL (0.0-9.0)
[2022-09-12 19:26] LABS: Haptoglobin 217 mg/dL (30-200)
[2022-09-12 21:06] LABS: Folate, Serum 12.9 ng/mL (>=5.9)
[2022-09-14 11:23] LABS: Albumin 4.09 g/dL (3.75-5.01); Alpha 1 Globulin 0.27 g/dL (0.19-0.46); Alpha 2 Globulin 0.74 g/dL (0.48-1.05); Total Protein, Serum 6.7 g/dL (6.3-8.2)
== END 2022-09-11 09:55 | disposition home or self-care (01) ==
LOC: NPINS 09:54
PROVIDERS: PCP Family Medicine; Visit Provider Internal Medicine Hematology & Oncology
DX: M79.673 Pain in unspecified foot (principal)
CPT/HCPCS: 80053; 82607; 82746; 83010; 84165; 85025; 86376

== ENCOUNTER 2022-11-05 06:03 | Day surgery (SDC) | payer OTHER, SELFPAY ==
[2022-11-05] MEDS: LACTATED RINGERS 1000 ML 1,000 ML 100 ML IV (06:05)
[2022-11-05 06:20] VITALS: BP 109/79; PULSE 81; RESP 16; TEMP 36.3; O2SAT 95
[2022-11-05] MEDS: SODIUM CHLORIDE 0.9 % (FLUSH) 10 ML SYRINGE IVF (06:57)
--- NOTE | 2022-11-05 07:29 | PM.PROC ---
Procedure Note Time Seen by Provider: 07:29 Date Seen: 11/05/22 Date of procedure: 11/05/22 Will [facility] bill your pro fee for this procedure?: Yes Procedure: Subjective: Rolando is a 57-year-old 5, para 2 who presents today for a colposcopy.She has had a colposcopy before. I reviewed HPV pathophysiology and how it causes cervical dysplasia which can progress on to malignancy. I reviewed recommendations for follow-up with different stages of dysplasia reach reviewing grade 1, grade 2 and grade 3 recommendations for treatment and/or future screening. She was given 3 ACOG pamphlets on: Abnormal Pap smears, colposcopy and LEEP. I reviewed what her Pap smear showed and why we recommend a colposcopy with that type of Pap smear she had. I reviewed how colposcopy is performed and what she should expect over the next few days with vaginal bleeding and/or unusual discharge after colposcopy and biopsy. All of her questions were answered. This discussion took 10 min of time. This patient is having a colposcopy under anesthesia due to severe vaginal pain with insertion of a speculum to the point where it causes a panic attack. Pap smear history: 07/07/2013:? WNL pap/positive high-risk HPV 07/09/2014:? WNL pap/positive high risk HPV 08/18/2014: ? Focal squamous atypia/ROSA M 1 at 6 o'clock, Benign ECC 08/15/2015:? LSIL, (+)HPV 09/14/2015:? Focal squamous atypia at 1 o'clock bx. Benign ECC. 09/05/2016:? Ascus/positive HPV 10/01/2016:? Benign endometrial biopsy:? Proliferative endometrium, ECC benign ectocervical but no endocervical tissues. 03/06/2018:? Unsatisfactory Pap/positive HPV, 04/01/2018 normal Pap. 04/01/2018:? Colposcopy:? Focal squamous atypia at 2 o'clock, ECC focal squamous atypia benign endocervical tissue. 03/19/2019:? ASC-H/Positive HPV. 04/27/2019:? ECC rare fragments of benign endocervical but no ectocervical tissue.? Biopsy x3:? 1, 5, 11 o'clock:? Focal squamous atypia suggestive of affect. 05/21/2019 LEEP for persistent ROSA M 1.? Path showed:? Atrophic cervical mucosa and large areas of biopsy site reaction.? No evidence of glandular neoplasia, squamous intraepithelial lesion or invasive malignancy. 03/24/2020:? Normal Pap with negative HPV 07/06/2021:? LGSIL cannot exclude higher grade lesion, positive HPV.? Negative for HPV 16 and 18. 08/23/2021: Colposcopy: no bx, very stenotic cervix, non-satisfactory. ECC showed benign ectocervical cells, no endocervical cell: did not explain abnormalities identified on Pap. 07/12/2022 ? LGSIL, cannot exclude higher grade lesion. Negative for HPV 16 and 18, positive for other high risk HPV types. History: Smoker: no Sexual history: number of lifetime partners < 5, male Contraception: menopause History of sexually transmitted infections: Yes: HPV Other pertinent history: None Objective: General: Rolando is a pleasant, well groomed, woman in no acute distress. Vital signs; included in her medical record above. Psychiatric: Normal affect and speech pattern. Alert oriented x3. Procedure: A urine test was performed, result: negative. The patient was placed in the dorsal lithotomy position. Her external genitalia, urethral meatus, Parsippany's and Bartholin's glands all appear normal. A sterile, bivalve, metal speculum was placed in the vaginal canal and both the vagina atrophic consistent with her menopausal state. The cervical os is extremely stenotic with the circumference of approximately 1 mm. Significant scarring of the cervix due to history of LEEP and menopausal state. The cervix is flush with the vaginal canal. Ascetic acid was then applied to the cervix and a colposcopy performed. Aceto-white change visualized: Yes: thin, at the 6-8 o'clock position(s). Colposcopy satisfactory: No squamocolumnar junction was not visualized circumferentially around the cervical os. Mosaicism: No Punctation: No Ramez-vascularization: No Biopsy (ies): Yes. A: 7 o'clock. ECC: Yes: Attempted but the endocervical curette was too large a diameter to insert with in the cervix. Attempt to dilate the cervix was performed with small cervical dilators. Second attempt at ECC was performed after dilation. Assessment: Colposcopy for LGSIL pap cannot exclude higher grade lesion with +HPV = other high risk types. (-) for HPV 16 and 18. Plan: Will follow up on pathology report: 1. If no evidence of dysplasia or ROSA M 1 will recommend repeat Pap with HPV in 1 year. 2. If ROSA M 2 or ROSA M 3 would recommend a cone biopsy most likely a LEEP. 3. Consider cold knife cone biopsy verses LEEP if the findings on biopsy and ECC do not explain the abnormality on Pap smear. She does not have a significant amount of cervix remaining and I suspect this will be an unsatisfactory sampling.
--- NOTE | 2022-11-05 07:29 | W.ANESCHARGE ---
Anesthesia Charges Start Date/Time Anesthesia Start Date: 11/05/22 Anesthesia Start Time: 07:23 Stop Date/Time Anesthesia Stop Date: 11/05/22
--- NOTE | 2022-11-05 07:58 | W.ANESCHARGE ---
Anesthesia Charges Start Date/Time Anesthesia Start Date: 11/05/22 Anesthesia Start Time: 07:23 Stop Date/Time Anesthesia Stop Date: 11/05/22 Anesthesia Stop Time: 07:56
[2022-11-05 08:03] VITALS: BP 118/84; PULSE 73; RESP 16; TEMP 36.9; O2SAT 93
[2022-11-05 08:11] VITALS: BP 118/82; PULSE 68; RESP 16; O2SAT 93
[2022-11-05 08:25] VITALS: BP 127/77; PULSE 68; RESP 16; O2SAT 95
== END 2022-11-05 09:12 | disposition home or self-care (01) ==
PROVIDERS: PCP Family Medicine; Visit Provider Obstetrics & Gynecology
PROC: 0UJH8ZZ Inspection of Vagina and Cul-de-sac, Via Natural or Artificial Opening Endoscopic (ICD-10-PCS; CPT 57454; principal; 2022-11-05 07:15)
DX: N87.0 Mild cervical dysplasia (principal); R87.810 Cervical high risk human papillomavirus (HPV) DNA test positive; N88.2 Stricture and stenosis of cervix uteri; N95.2 Postmenopausal atrophic vaginitis
CPT/HCPCS: 57454; 84703; 88305; 88342; 940; J1100; J1885; J2250; J2405; J2704; J3010; J7120

== ENCOUNTER 2023-03-10 08:11 | Outpatient (CLI) | payer OTHER, SELFPAY ==
--- NOTE | 2023-03-10 08:15 | CRLHL7_ITS ---
For Patients: As a result of the Century Cures Act, medical imaging exams and procedure reports are released immediately into your electronic medical record. You may view this report before your referring provider. If you have questions, please contact your health care provider. BILATERAL SCREENING MAMMOGRAM WITH COMPUTER-AIDED DETECTION AND TOMOSYNTHESIS TECHNIQUE: CC and MLO views were obtained. These mammographic images have been obtained using full-field digital technique. These mammographic images were interpreted with the benefit of computer-aided detection. Breast Tomosynthesis was used in this interpretation. COMPARISON FILM: 02/05/22, 01/17/21, 01/17/20. FINDINGS: The breasts are heterogeneously dense, which may obscure small masses IMPRESSION: There is no radiographic evidence for malignancy. ASSESSMENT: BI-RADS Category 1: Negative RECOMMENDATION: Routine screening mammogram in 1 year. A lay language report of this examination will be provided to the patient. Antonio Ludwig M.D. Diagnostic Radiologist [email or web address] PINA/marcell / be/Dictated by: Antonio Ludwig MD @ 03/10/2023 9:14:00 AM (Electronically Signed)
== END 2023-03-10 08:12 | disposition home or self-care (01) ==
LOC: MAMMO 08:13
PROVIDERS: PCP Family Medicine; Visit Provider Family Medicine
DX: Z12.31 Encounter for screening mammogram for malignant neoplasm of breast (principal); R92.2 Inconclusive mammogram
CPT/HCPCS: 77063; 77067

== ENCOUNTER 2023-03-18 09:43 | Outpatient (REF) | payer OTHER, SELFPAY ==
[2023-03-18 10:43] LABS: Basophils Percent Auto 0.4 % (0.0-3.0); Eosinophils Percent Auto 5.1 % (0.0-7.0); Hematocrit 41.5 % (33.0-51.0); Hemoglobin* 14.1 gm/dL (12.0-16.0); Immature Reticulocyte Fraction 7.3 % (3.0-15.9); Lymphocytes Percent Auto 35.2 % (20-44); Mean Corpuscular HGB Conc 34 gm/dL (32-36); Mean Corpuscular Hemoglobin 34 pg (26-34); Mean Corpuscular Volume 101 fL (80-100); Monocytes Percent Auto 9.8 % (0.0-11.0); Neutrophils Percent Auto 49.5 % (42.0-72.0); Platelet Count* 241 K/uL (140-440); RDW Coefficient of Variation % 12.8 % (11.5-15.5); Reticulocyte Hemoglobin Equivi 34.1 pg (29.0-35.0); Reticulocyte Percent 2.1 % (0.5-2.0); Reticulocytes Absolute 0.09 # (0.03-0.08); White Blood Count* 2.56 K/uL (4.50-11.00)
[2023-03-18 10:50] LABS: Slide Review Reflex No
[2023-03-18 11:11] LABS: Albumin* 4.2 g/dL (3.3-5.0)
[2023-03-18 11:13] LABS: Bilirubin Direct* 0.1 mg/dL (0.0-0.5); Bilirubin Total* 0.5 mg/dL (0.1-1.5)
[2023-03-18 11:14] LABS: Alanine Aminotransferase* 27 U/L (4-35); Alkaline Phosphatase* 68 U/L (40-150); Aspartate Amino Transferase* 29 U/L (12-35); Total Protein* 6.9 g/dL (6.0-8.3)
== END 2023-03-18 09:44 | disposition home or self-care (01) ==
LOC: NPINS 09:43
PROVIDERS: PCP Family Medicine; Visit Provider Internal Medicine
DX: D75.89 Other specified diseases of blood and blood-forming organs (principal)
CPT/HCPCS: 80076; 84207; 85025; 85045

== ENCOUNTER 2023-04-30 13:45 | Outpatient (RCR) | payer OTHER, SELFPAY | END 2023-06-18 11:15 | disposition home or self-care (01) | PROVIDERS: PCP Family Medicine; Visit Provider Family Medicine | DX: M25.812 Other specified joint disorders, left shoulder (principal); M67.814 Other specified disorders of tendon, left shoulder; M25.512 Pain in left shoulder; Z51.89 Encounter for other specified aftercare | CPT/HCPCS: 97110; 97140; 97163 ==

== ENCOUNTER 2023-06-24 09:06 | Outpatient (REF) | payer OTHER, SELFPAY ==
[2023-06-24 10:58] LABS: Basophils Percent Auto 0.7 % (0.0-3.0); Eosinophils Percent Auto 4.4 % (0.0-7.0); Hematocrit 43.3 % (33.0-51.0); Hemoglobin* 14.7 gm/dL (12.0-16.0); Lymphocytes Percent Auto 36.2 % (20-44); Mean Corpuscular HGB Conc 34 gm/dL (32-36); Mean Corpuscular Hemoglobin 35 pg (26-34); Mean Corpuscular Volume 102 fL (80-100); Monocytes Percent Auto 10.1 % (0.0-11.0); Neutrophils Percent Auto 48.6 % (42.0-72.0); Platelet Count* 242 K/uL (140-440); RDW Coefficient of Variation % 12.7 % (11.5-15.5); Red Blood Count 4.26 m/uL (4.00-5.20); White Blood Count* 2.98 K/uL (4.50-11.00)
[2023-06-24 11:13] LABS: Slide Review Reflex No
== END 2023-06-24 09:07 | disposition home or self-care (01) ==
LOC: NPINS 09:06
PROVIDERS: PCP Family Medicine; Visit Provider Internal Medicine
DX: D72.819 Decreased white blood cell count, unspecified (principal)
CPT/HCPCS: 85025

== ENCOUNTER 2023-06-25 15:25 | Outpatient (CLI) | payer OTHER, SELFPAY ==
--- NOTE | 2023-06-25 15:30 | CRLHL7_ITS ---
For Patients: As a result of the Century Cures Act, medical imaging exams and procedure reports are released immediately into your electronic medical record. You may view this report before your referring provider. If you have questions, please contact your health care provider. DXA BONE MINERAL DENSITY STUDY Reason for exam: Postmenopausal. History of breast cancer. Current height (in): 68. Weight (lb): 168. Menopause age: 52. Ethnicity: White. 1. Have you had a previous hip or vertebral fracture? No. 2. Have you had any fractures during your adult life which did not result from significant trauma (e.g., auto accident)? No. 3. Did either of your parents have a hip fracture? No. 4. Do you smoke? No. 5. Have you ever taken Glucocorticoids? No. 6. Do you have rheumatoid arthritis? No. 7. Do you have secondary osteoporosis? No. 8. Do you drink 3 or more alcoholic drinks per day? No. 9. Are you being treated for osteoporosis? No. 10. Have you ever taken any of the following medications: Actonel, Evista, Fosamax, Miacalcin, Reclast, Boniva, Forteo, HRT (i.e., estrogen/hormone therapy), Protelos, Prolia, Vitamin D, Calcium, other ??? please specify. ANSWER: Yes, vitamin D and calcium. 11. Do you have any of the following medical conditions: Anorexia or bulimia, asthma or emphysema, end stage renal disease, hyperparathyroidism, any seizure disorders, cancer, inflammatory bowel diseases, hysterectomy, other ??? please specify. ANSWER: No. 12. What was your maximum height (inches)? 68. 13. Do you perform weight bearing exercise regularly? No. 14. Do you regularly consume dairy products? No. 15. Do you drink caffeinated beverages? Yes. If female: 16. At what age did your period start? 16. 17. Are you premenopausal? No. 18. How many full-term pregnancies have you had? 1. 19. Have you ever missed your period for more than 6 months in a row (not including or menopause)? No. TECHNIQUE: Bone mineral density study was performed using the [employer]. FINDINGS: The results of the study expressed as bone mineral density (BMD) are as follows: Lumbar spine L1 to L4: BMD: 0.879 g/cm2. T-score: -1.5. Z-score: -0.4 Neck Left: BMD: 0.671 g/cm2. T-score: -1.6. Z-score: -0.5 Right: BMD: 0.698 g/cm2. T-score: -1.4. Z-score: -0.2 Total Left: BMD: 0.852 g/cm2. T-score: -0.7. Z-score: 0.0 Right: BMD: 0.933 g/cm2. T-score: -0.1. Z-score: 0.7 IMPRESSION: Osteopenia. *Comparison exams done prior to 01/2020 were performed on different unit, [facility]. COMPARISON: Compared with scan of 01/10/2021, the bone mineral density has decreased by 1.8 percent at the spine and increased by 5.2 percent at the hip. Compared with scan of 09/30/2019, the bone mineral density has increased by 1.8 percent at the spine and increased by 1.8 percent at the hip. FRAX 10-year Fracture Risk Major Osteoporotic Fracture: 7.3% Hip Fracture: 0.6% Reported Risk Factors: [place] () Neck BMD=0.671, BMI= 25.5 Antonio Ludwig M.D. Diagnostic Radiologist [email or web address] PINA/napoleon bender/Dictated by: Antonio Ludwig MD @ 06/27/2023 10:41:00 AM (Electronically Signed)
== END 2023-06-25 15:26 | disposition home or self-care (01) ==
LOC: RAD 15:25
PROVIDERS: PCP Family Medicine; Visit Provider Internal Medicine
DX: N95.8 Other specified menopausal and perimenopausal disorders (principal); M85.89 Other specified disorders of bone density and structure, multiple sites; Z85.3 Personal history of malignant neoplasm of breast
CPT/HCPCS: 77080

== ENCOUNTER 2023-11-14 10:20 | Outpatient (CLI) | payer OTHER, SELFPAY ==
--- OUTSIDE RECORDS SUMMARY | 2023-11-14 10:22 | XMS_ITS | Referral Summary ---
Author Name Unknown Organization [facility] Address [address] [place] [address] Care Team Providers Care Machine Tailer Name Role Phone Unavailable Primary Care Provider Unavailabl e Source Comments Patient records contain information from all sites at [facility]. For routine questions regarding patient records, call [phone] during business hours, M-F 8:00 AM - 5:00 PM Central Time. Record requests for emergency care only can be directed to [phone] at any time.[facility] Allergies Active Allergy Reactions Criticality Noted Date Comments Aspirin Hives (Reselect Reaction) 10/24/2016 rash Cuvdtbsb-Hcgruzrpzog-Rfiqbba n b Hives (Reselect Reaction) 10/24/2016 rash Nitrofurantoin Monohyd/M-Cryst Hives (Reselect Reaction) 10/24/2016 rash Sulfa (Sulfonamide Antibiotics) Hives (Reselect Reaction) 10/24/2016 rash Sulfamethoxazole-Trimethoprim Hives (Res elect Reaction) 10/24/2016 rash Medications Medication Sig Dispensed Refills Start Date End Date Status acyclovir (for_ZOVIRAX) 400 mg tablet Take 1 tablet by mouth as needed. 0 10/24/2016 Active cholecalciferol (for_VITAMIN D3) 5,000 Unit capsule Take 1 capsule by mouth daily. 0 06/30/2017 Active omeprazole (for_PriLOSEC) 40 mg capsule Take 1 capsule by mouth daily. 0 07/09/2017 Active calcium citrate-vitamin D3 (CITRACAL+D) 315 mg-5 mcg (200 Unit) per tablet Take 2 tablets by mouth. 0 Active cetirizine (ZyrTEC) 10 mg tablet Take 10 mg by mouth. 0 05/02/2021 Active ibuprofen (ADVIL,MOTRIN) 600 mg tablet Take 600 mg by mouth. 0 Active prasterone, dhea, (Intrarosa) 6.5 mg insert Insert vaginally as needed 0 09/23/2019 Active FLUoxetine (PROzac) 40 mg capsule 0 01/09/2022 Active oxybutynin (DITROPAN-XL) 10 mg 24 hr tablet 0 02/22/2022 Active cyanocobalamin (VITAMIN B12) 500 mcg SL tablet Dissolve in the mouth daily. Unsure of dose Chewable 0 Active pediatric multivitamin-fluorid e (multivitamin with fluoride) 1 mg chewable tablet Chew 1 tablet daily. 0 Active exemestane (AROMASIN) 25 mg tabletIndications:Ma lignant Neoplasm Of Breast Upper Outer Quadrant Female Left (HCC) Take one tablet by mouth daily. 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 10/24/2016 Malignant Neoplasm Of Breast Adenocarcinoma Left 10/07/2016 Malignant Neoplasm Of Overla pping Sites Of Left Female Breast 10/07/2016 Social History Tobacco Use Types Packs/Day Years Used Date Smoking Tobacco: Former Cigarettes 0.3 20 Q uit: 11/12/2009 Passive Smoke Exposure: Past Smokeless Tobacco: Never Tobacco Cessation:Counseling Given: Not Answered Alcohol Use Standard Drinks/Week Comments Yes 3 (1 standard drink = 0.6 oz pur e alcohol) weekly Nutrition Answer Date Recorded Nutrition: EVOO Fat Source Unknown 10/05 Nutrition: Servings of Fruits/Vegetables per Day Not on file 10/05/2020 Dental Answer Date Recorded Dental: Regular Dentist Unknown 10/06/19 Education Answer Date Recorded What is the highest level of school you have completed or the highest degree you have received? Bachelor's degree (e.g., BA, AB, BS) 05/01/2023 Sex and Gender Information Value Date Recorded Sex Assigned at Not on file Gender Identity Not on file Sexual Orientation Not on file Last Filed Vital Signs Vital Sign Reading Time Taken Comments Blood Pressure 116/80 05/01/2023 8:59 AM CDT Pulse 80 05/01/2023 8:59 AM CDT Temperature 36.5 ??C (97.7 ??F) 05/01/2023 8 :59 AM CDT Respiratory Rate 20 05/01/2023 8:59 AM CDT Oxygen Saturation 98% 05/01/2023 8:5 9 AM CDT room air,finger Inhaled Oxygen Concentration - - Weight 74.7 kg (164 lb 10.9 oz) 05/01/2023 8:59 AM CDT Height 172.5 cm (5' 7.91) 05/01/2023 8 :59 AM CDT per pt Body Mass Index 25.1 05/01/2023 8:59 AM CDT Plan of Treatment Upcoming Encounters Date Type Department Care Team (Late st Contact Info) Description 12/04/2023 9:00 AM CDT Office Visit Department of Oncology in [place], [place] [address] [place] [id number] Tiki Stewart M.B.B.S. [facility] [place] [address]
--- OUTSIDE RECORDS SUMMARY | 2023-11-14 10:22 | XMS_ITS ---
Author Name Unknown Organization [facility] Address [address] [place] [address] Care Team Providers Care Plumbing Hardware Assembler Name Role Phone Unavailable Unavailable Unavailable Surgery Details Not on file Complications Check Surgery Details section. Procedure Estimated Blood Loss Check Surgery Details section. Procedure Findings Check Surgery Details section. Procedure Specimens Taken Check Surgery Details section.
--- OUTSIDE RECORDS SUMMARY | 2023-11-14 10:22 | XMS_ITS | Clinical Summary ---
Author Name Unknown Organization [facility] Address [place], [place] [address] Care Team Providers Care Frozen Meat Cutter Name Role Phone Ciara Go MD Primary Care Provider + Allergies Active Allergy Reactions Criticality Noted Date Comments Aspirin Hives Medium 11/05/2016 Sulfamethoxazole-Trimethoprim Contact Dermatitis 10/05/2020 Nitrofurantoin Monohyd/M-Cryst Hives 11/05 Neomycin Rash Medium 11/05/2016 Sulfa (Sulfonamide Antibiotics) Hives Medium 11/2016 Medications Medication Sig Dispensed Refills Start Date End Date Status omeprazole (PRILOSEC) 40 mg Delayed-Release capsule Take 40 mg by mouth once daily. Active FLUoxetine (PROzac) 40 mg capsule Take 40 mg by mouth every morning. Active cholecalciferol (VITAMIN D-3) 2,000 unit capsule Take 2,000 units by mouth once daily. Active ibuprofen (ADVIL; MOTRIN) 600 mg tablet Take 600 mg by mouth 4 times daily if needed. Maximum of 3200 mg in 24 hours. Active acyclovir (ZOVIRAX) 400 mg tablet Take 400 mg by mouth once daily if needed. Active exemestane (AROMASIN) 25 mg tablet Take 25 mg by mouth once daily after a meal. Active INTRAROSA 6.5 mg inst Insert vaginally as needed 09/23/2019 Active estradioL (ESTRACE) 0.1 mg/g vaginal cream Insert 1 g into the vagina once daily if needed. 11 05/17/2019 Active calcium citrate-vitamin d 315 mg-200 unit (CALCIUM CITRATE + D) 315 mg-5 mcg (200 unit) tablet Take 2 tablets by mouth once daily with a meal. Active oxyCODONE (ROXICODONE) 5 mg immediate release tabletIndications:Ra diation adverse effect, sequela Take 1-2 Tablets (5-10 mg) by mouth every 4 hours if needed for Pain. 30 Tablet 06/16/2021 Active cetirizine (ZYRTEC) 10 mg tablet Take 1 Tablet (10 mg) by mouth once daily. 0 05/02/2021 Active methocarbamoL (ROBAXIN) 750 mg tabletIndications:Ra diation adverse effect, sequela Take 1 Tablet (750 mg) by mouth 4 times daily. 40 Tablet 06/16/2021 Active oxybutynin XL (DITROPAN XL) 10 mg CR tabletIndications:Ov eractive bladder Take 1 Tablet (10 mg) by mouth once daily. 90 Tablet 05/23/2022 Active Immunizations Name Administration Dates Next Due COVID-19 vaccine ([employer] 30mcg/0.3mL) P F, MDV 08/15/2020,07/26/2020 Influenza, IIV3 (Age 6-35 mos) 05/26/2020 Influenza, IIV4 04/24/2021 Influenza, IIV4 (=>6mos) MDV 05/02/2021 Td, Preservative Free (age >= 7 Years) 4 Tdap 07/12/2014 Zoster (Shingrix-RZV, recombinant) 09/02/2020, Family History Medical History Relation Name Comments Hypertension Father Cancer-colon Maternal Aunt Stroke Paternal Grandfather Aneurysm Paternal Grandmother Relation Name Status Comments Father Alive Maternal Aunt Mother Alive Paternal Grandfather Paternal Grandmother Social History Tobacco Use Types Packs/Day Years Used Date Smoking Tobacco: Former Cigarettes 1 - 2009 Smokeless Tobacco: Never Tobacco Cessation:Counseling Given: Yes Comments:quit 2009 Alcohol Use Standard Drinks/Week Comments Yes 5 (1 standard drink = 0.6 oz pur e alcohol) Sex and Gender Information Value Date Recorded Sex Assigned at Not on file Gender Identity Not on file Sexual Orientation Not on file Obstetrics History Last Filed Vital Signs Vital Sign Reading Time Taken Comments Blood Pressure 112/81 06/16/2021 9:45 AM BRICK OFFBEARER Pulse 89 07/23/2022 3:23 PM BRICK OFFBEARER Temperature 36.2 ??C (97.2 ??F) 06/16/2021 9:45 AM CS T Respiratory Rate 16 06/16/2021 9:45 AM BRICK OFFBEARER Oxygen Saturation 96% 07/23/2022 3:23 PM BRICK OFFBEARER Inhaled Oxygen Concentration - - Weight 70.3 kg (155 lb) 07/23/2022 3:23 PM BRICK OFFBEARER Height 172.7 cm (5' 8) 06/16/2021 6:30 AM BRICK OFFBEARER Body Mass Index 23.57 06/16/2021 6:30 AM BRICK OFFBEARER Plan of Treatment Health Maintenance Due Date Last Done Comments Depression screening for age 12+ 1979 HIV for age 15-65 1982 BMI (ht and wt on same day) for age 18+ 1985 Hepatitis C screening for age 18-79 1985 Colonoscopy through age 75 2012 Lipids for age 45-75 2012 Mammogram for age 45-75 2012 COVID-19 vaccine series (2022- season) 2023 08/15/2020, 07/26/2020 Influenza for age 50-64 04/04/2024 05/02/2021, 04/24 Tetanus booster 07/22/2024 07/22/2014, 07/12/2014 Pap test for age 21-65 07/12/2025 , 07/12/2022, 07/06/2021, Additional history exists Tdap Completed 07/12/2014 Zoster (shingles) series for age 50+ Completed 09/02/2020, 06/03/2020 Pneumococcal series for age 6-64 Aged Out No longer eligible based on patient's age to complete this topic Procedures Procedure Name Priority Date/Time Associated Diagnosis Comments HPV THIN PREP Routine 07/12/2022 9:15 AM BRICK OFFBEARER from Last 3 Months or Most Recently Relevant to Health Maintenance Results * (ABNORMAL) HPV HIGH RISK (07/12/2022 9:15 AM BRICK OFFBEARER) TYPE 16 Negative Negative 07/19/2022 11:43 AM BRICK OFFBEARER [facility] TYPE 18 Negative Negative 07/19/2022 11:43 AM BRICK OFFBEARER [facility] OTHER HIGH RISK TYPES Positive(A) Negative 07/19/2022 11:43 AM BRICK OFFBEARER [facility] Other (Cervical) 07/12/2022 9:15 AM BRICK OFFBEARER 07/17/2022 1:15 PM BRICK OFFBEARER Narrative [facility] - 07/19/2022 11:43 AM BRICK OFFBEARER Specimen is positive for the DNA of any one of, or combination of, the following high risk HPV types: 31, 33, 35, 39, 45, 51, 52, 56, 58, 59, 66, 68. HPV types 16 and 18 DNA were undetectable or below the pre-set threshold. ? Methodology: Yieldex Olya 4800 HPV Test November Monique [facility] [address] [place], [place] [address] [place] [address], from Last 3 Months or Most Recently Relevant to Health Maintenance Advance Directives * Full Code (Latest Code Status on File) Date Activated Date Inactivated Comments 06/16/2021 6:36 AM 06/17/2021 2:27 AM Question Answer Comments Code Status Discussion: Not Discussed * Full Code Date Activated Date Inactivated Comments 10/05/2020 8:59 AM 10/05/2020 6:37 PM Question Answer Comments Code Status Discussion: Not Discussed * Full Code Date Activated Date Inactivated Comments 09/04/2020 7:50 AM 09/05/2020 12:50 AM Question Answer Comments Code Status Discussion: Not Discussed * Full Code Date Activated Date Inactivated Comments 04/13/2020 6:50 AM 04/14/2020 1:36 PM Question Answer Comments Code Status Discussion: Not Discussed * Full Code Date Activated Date Inactivated Comments 04/15/2019 6:11 AM 04/16/2019 2:34 AM Question Answer Comments Code Status Discussion: Not Discussed Care Teams Frozen Meat Cutter Relationship Specialty Start Date End Date Ciara Go MD [address] [place] [address] PCP - General Family Practice 04/12/19
--- OUTSIDE RECORDS SUMMARY | 2023-11-14 10:22 | XMS_ITS | Clinical Summary ---
Author Name Unknown Organization [facility] Address [address] [place] [address] Care Team Providers Care Poleyard Supervisor Name Role Phone Unavailable Primary Care Provider Unavailabl e Source Comments Patient records contain information from all sites at [facility]. For routine questions regarding patient records, call [phone] during business hours, M-F 8:00 AM - 5:00 PM Central Time. Record requests for emergency care only can be directed to [phone] at any time.[facility] Allergies Active Allergy Reactions Criticality Noted Date Comments Aspirin Hives (Reselect Reaction) 10/24/2016 rash Ycehjsav-Qnxrqvbmaul-Pzyrgno n b Hives (Reselect Reaction) 10/24/2016 rash [...] pping Sites Of Left Female Breast 10/07/2016 Family History Medical History Relation Name Comments [...] Date Recorded Dental: Regular Dentist Unknown 10/06/19 21 Education Answer Date Recorded What is the [...] CDT Office Visit Department of Oncology in [place], [place] [address] [place] [address] Tiki Stewart M.B.B.S. [address] [place] [address] Health Maintenance Due Date Last Done Comments CT Colonography 1967 Cologuard 1967 Colonoscopy 1967 Colorectal Cancer Screening 1967 FIT 1967 HIV Screening 1967 Hepatitis C Screening 1967 Lipid (Cholesterol) Screening 1967 Pneumococcal vaccine (0-64 years) (1 of 2 - PCV) 1973 Hepatitis B Vaccines (1 of 3 - 19+ 3-dose series) 1986 Mammogram 10/01/2017 10/01/2016, 08/04, 08/19/2016, Additional history exists COVID-19 Vaccine (3 - Pfizer risk series) 09/12/2020 08/15/2020, 07/26/2020 Depression Screening (Annual PHQ-2) 08/04/2023 DTaP,Tdap,and Td Vaccines (3 - Td or Tdap) 07/22/2024 07/22/2014, 07/12/2014 Fasting Glucose for Diabetes Screening 03/18/2025 03/18/2022, 11/12/2017 Cervical Cancer Screening 07/12/2025 07/12/2022, Zoster Vaccines Completed 09/02/2020, 06/03/2020 Influenza Vaccine Completed 04/29/2023, , 05/22/2022, Additional history exists HPV Vaccines Aged Out No longer dio cruz based on patient's age to complete this topic
== END 2023-11-14 10:21 | disposition home or self-care (01) ==
LOC: NFLDREF 10:21
PROVIDERS: PCP Family Medicine; Visit Provider Physician Assistant
DX: Z13.1 Encounter for screening for diabetes mellitus (principal); Z13.29 Encounter for screening for other suspected endocrine disorder; Z13.220 Encounter for screening for lipoid disorders
CPT/HCPCS: 80061; 82947; 84443

== ENCOUNTER 2023-11-28 13:48 | Outpatient (REF) | payer OTHER, SELFPAY ==
--- OUTSIDE RECORDS SUMMARY | 2023-11-28 13:55 | XMS_ITS | Clinical Summary ---
Author Name Unknown Organization [facility] Address [place], [place] [address] Care Team Providers Care Appointment Coordinator Name Role Phone Ciara Go MD Primary [...] mouth once daily. 90 Tablet 05/23/2022 Active Encounters Date Type Department Care Team Description 11/17/2023 Lab Requisition [facility] [phone] Monique Clari Alma, WILLIE from Last 3 Months Immunizations Name Administration Dates Next Due COVID-19 vaccine (Pharmapod 30mcg/0.3mL) P F, MDV 08/15/2020,07/26/2020 Influenza, IIV3 [...] Used Date Smoking Tobacco: Former Cigarettes 1 5 - 2009 Smokeless Tobacco: Never Tobacco Cessation:Counseling [...] Comments Blood Pressure 112/81 06/16/2021 9:45 AM SLAT GRADER Pulse 89 07/23/2022 3:23 PM SLAT GRADER Temperature 36.2 ??C (97.2 ??F) 06/16/2021 9:45 AM CS T Respiratory Rate 16 06/16/2021 9:45 AM SLAT GRADER Oxygen Saturation 96% 07/23/2022 3:23 PM SLAT GRADER Inhaled Oxygen Concentration - - Weight 70.3 kg (155 lb) 07/23/2022 3:23 PM SLAT GRADER Height 172.7 cm (5' 8) 06/16/2021 6:30 AM SLAT GRADER Body Mass Index 23.57 06/16/2021 6:30 AM SLAT GRADER Plan of Treatment Health Maintenance Due Date [...] 07/22/2014, 07/12/2014 Pap test for age 21-65 11/13/2026 4, 07/12/2022, 07/12/2022, Additional history exists Tdap Completed 07/12/2014 Zoster (shingles) series for age 50+ Completed 09/02/2020, 06/03/2020 Pneumococcal series for age 6-64 Aged Out No longer eligible based on patient's age to complete this topic Procedures Procedure Name Priority Date/Time Associated Diagnosis Comments LAB TRACKING EVENT Routine 11/14/2023 12 :00 PM CDT HPV THIN PREP Routine 11/14/2023 12:00 PM CDT from Last 3 Months Results * LAB TRACKING EVENT (11/14/2023 12:00 PM CDT) Other (Other) Client Collect / Unknown 11/14/2023 12:00 PM CDT 11/17/2023 3:44 PM CDT November Alma Monique TAPIA LAB BILL ONLY Performing Organization Address [facility] Co de Phone Number [facility] [address] [place] [address], * (ABNORMAL) HPV HIGH RISK (11/14/2023 12:00 PM CDT) TYPE 16 Negative Negative 11/19/2023 2:05 PM CDT [facility] TR[facility] TYPE 18 Negative Negative 11/19/2023 2:05 PM CDT [facility] TRA LABORATORY OTHER HIGH RISK TYPES Positive(A) Negative 11/19/2023 2:05 PM CDT [facility] Other (Cervical) 11/14/2023 12:00 PM CDT 11/18/2023 8:47 AM CDT Narrative [facility] - 11/19/2023 2:05 PM CDT Specimen is positive for the DNA of any one of, or combination of, the following high risk HPV types: 31, 33, 35, 39, 45, 51, 52, 56, 58, 59, 66, 68. HPV types 16 and 18 DNA were undetectable or below the pre-set threshold. ? Methodology: Radha Olya 4800 HPV Test November Alma Monique TAPIA MICROBIOLOGY Performing Organization Address [facility] Co de Phone Number [facility] [address] [place] [address], from Last 3 Months Advance Directives * Full Code (Latest Code [...] Code Status Discussion: Not Discussed Care Teams Appointment Coordinator Relationship Specialty Start Date End Date Ciara Go MD [address] [place] [address] PCP - General Family Practice 04/12/19
--- OUTSIDE RECORDS SUMMARY | 2023-11-28 13:55 | XMS_ITS | Clinical Summary ---
Author Name Unknown Organization [facility] Address [address] [place] [address] Care Team Providers Care A And P Technician Name Role Phone Unavailable Primary Care Provider Unavailabl e Source Comments Patient records contain information from all sites at [facility]. For routine questions regarding patient records, call [phone] during business hours, M-F 8:00 AM - 5:00 PM Central Time. Record requests for emergency care only can be directed to [phone] at any time.[facility] Allergies Active Allergy Reactions Criticality Noted Date Comments Aspirin Hives (Reselect Reaction) 10/24/2016 rash Euhaxepm-Dwvehjuzlsi-Sppmwtw n b Hives (Reselect Reaction) 10/24/2016 rash Nitrofurantoin Monohyd/M-Cryst Hives (Reselect Reaction) 10/24/2016 rash Sulfa (Sulfonamide Antibiotics) Hives (Reselect Reaction) 10/24/2016 rash Sulfamethoxazole-Trimethoprim Hives (Res elect Reaction) 10/24/2016 rash Medications Medication Sig Dispensed Refills Start Date End Date Status acyclovir (for_ZOVIRAX) 400 mg tablet Take 1 tablet by mouth as needed. 10/24/2016 Active cholecalciferol (for_VITAMIN D3) 5,000 Unit capsule Take 1 capsule by mouth daily. 06/30/2017 Active omeprazole (for_PriLOSEC) 40 mg capsule Take 1 capsule by mouth daily. 07/09/2017 Active calcium citrate-vitamin D3 (CITRACAL+D) 315 mg-5 mcg (200 Unit) per tablet Take 2 tablets by mouth. Active cetirizine (ZyrTEC) 10 mg tablet Take 10 mg by mouth. 05/02/2021 Active ibuprofen (ADVIL,MOTRIN) 600 mg tablet Take 600 mg by mouth. Active prasterone, dhea, (Intrarosa) 6.5 mg insert Insert vaginally as needed 09/23/2019 Active FLUoxetine (PROzac) 40 mg capsule 01/09/2022 Active oxybutynin (DITROPAN-XL) 10 mg 24 hr tablet 02/22/2022 Active cyanocobalamin (VITAMIN B12) 500 mcg SL tablet Dissolve in the mouth daily. Unsure of dose Chewable Active pediatric multivitamin-fluorid e (multivitamin with fluoride) 1 mg chewable tablet Chew 1 tablet daily. Active exemestane (AROMASIN) 25 mg tabletIndications:Ma lignant [...] Date Smoking Tobacco: Former Cigarettes 0.3 20 0 11/12/1989 - 11/12/2009 Passive Smoke Exposure: Past Smokeless Tobacco: [...] CDT Office Visit Department of Oncology in [place], [place] [address] [place] [phone] Tiki Stewart M.B.B.S. [address] [place] [address] Health Maintenance Due Date Last Done Comments [...] 09/02/2020, 06/03/2020 Influenza Vaccine Completed 04/29/2023, , 05/02/2021, Additional history exists HPV Vaccines Aged Out No longer eligi ble based on patient's age to complete this topic Procedures Procedure Name Priority Date/Time Associated Diagnosis Comments COMPREHENSIVE METABOLIC PANEL, S/P Routine 03/18/2022 8:08 AM CDT Malignant Neoplasm Of Breast Upper Outer Quadrant Female Left (HCC) OUTSIDE MG MAMMOGRAM Routine 10/01/2016 12:57 PM SPORTS EQUIPMENT SUPERVISOR from Last 3 Months or Most Recently Relevant to Health Maintenance Results * Comprehensive Metabolic Panel (03/18/2022 8:08 AM CDT) Potassium, P 4.5 3.6 - 5.2 mmol/L 03/18/2022 8:31 AM CDT NPRG Sodium, P 140 135 - 145 mmol/L 03/18/2022 8:31 AM CDT NPR[facility] Chloride, P 102 98 - 107 mmol/L 03/18/2022 8:31 AM CDT NPR[facility] Bicarbonate, P 28 22 - 29 mmol/L 03/18/2022 8:31 AM CDT NPR[facility] Anion Gap, P 10 7 - 15 03/18/2022 8:31 AM CDT NPR[facility] BUN (Blood Urea Nitrogen), P 14 6 - 21 mg/dL 03/18/2022 8:31 AM CDT NPR[facility] Creatinine 0.76 0.59 - 1.04 mg/dL 03/18/2022 8:31 AM CDT NPRG eGFR-Black/ >90 >=60 mL/min/BS A 03/18/2022 8:31 AM CDT NPRG Comment: ----ADDITIONAL INFORMATION---- Estimated GFR calculated using the 2009 CKD_EPI creatinine equation. eGFR Non-Black/ 89 >=60 mL/min/BS A 03/18/2022 8:31 AM CDT NPR[facility] Comment: ----ADDITIONAL INFORMATION---- Estimated GFR calculated using the 2009 CKD_EPI creatinine equation. Calcium, Total, P 9.6 8.6 - 10.0 mg/dL 03/18/2022 8:31 AM CDT NPR[facility] Glucose, P 116 70 - 140 mg/dL 03/18/2022 8:31 AM CDT NPR[facility] Protein, Total, P 6.7 6.3 - 7.9 g/dL 03/18/2022 8:31 AM CDT NPR[facility] Albumin, P 4.3 3.5 - 5.0 g/dL 03/18/2022 8:31 AM CDT NPR[facility] Aspartate Aminotransferase (AST), P 27 8 - 43 U/L 03/18/2022 8:31 AM CDT NPR[facility] Alkaline Phosphatase, P 85 35 - 104 U/L 03/18/2022 8:31 AM CDT NPR[facility] Alanine Aminotransferase (ALT), P 28 7 - 45 U/L 03/18/2022 8:31 AM CDT NPR[facility] Bilirubin, Total, P 0.4 <=1.2 mg/dL 03/18/2022 8:31 AM CDT NPR[facility] Blood (Blood, Venous) 03/18/2022 8:08 AM CDT 03/18/2022 8:12 AM CDT Alma Guevara M.D. LAB BLOOD ADD-ON [facility] [address] [place] [address], [facility] NPRG [facility] [address] [place] [address] * Outside MG Mammogram (10/01/2016 12:57 PM SPORTS EQUIPMENT SUPERVISOR) 10/01/2016 12:5 7 PM SPORTS EQUIPMENT SUPERVISOR Addenda Addendum by ProviderGlenna M.D. on 10/01/2016 12:57 PM SPORTS EQUIPMENT SUPERVISOR ODM^^^MCR BREAST SURGICAL SPECIMEN 10/01/2016 12:57:37 Historical Provider IMG BI PROCEDURES [facility] [address] [place] [address], [facility] from Last 3 Months or Most Recently Relevant to Health Maintenance
--- OUTSIDE RECORDS SUMMARY | 2023-11-28 13:55 | XMS_ITS | Referral Summary ---
Author Name Unknown Organization [facility] Address [address] [place] [address] Care Team Providers Care Coffee Grinder Name Role Phone Unavailable Primary Care Provider Unavailabl e Source Comments Patient records contain information from all sites at [facility]. For routine questions regarding patient records, call [phone] during business hours, M-F 8:00 AM - 5:00 PM Central Time. Record requests for emergency care only can be directed to [phone] at any time.[facility] Allergies Active Allergy Reactions Criticality Noted Date Comments Aspirin Hives (Reselect Reaction) 10/24/2016 rash Yjnobgyn-Thvmpzzltrl-Pjtbgeb n b Hives (Reselect Reaction) 10/24/2016 rash [...] CDT Office Visit Department of Oncology in [place], [place] [address] [place] [address] Tiki Stewart M.B.B.S. [address] [place] [address] Procedures Procedure Name Priority Date/Time Associated Diagnosis Comments COMPREHENSIVE METABOLIC PANEL, S/P Routine 03/18/2022 8:08 AM CDT Malignant Neoplasm Of Breast Upper Outer Quadrant Female Left (HCC) OUTSIDE MG MAMMOGRAM Routine 10/01/2016 12:57 PM OBSTETRIC ASSISTANT from Last 3 Months or Most Recently [...] CDT Alma Guevara M.D. LAB BLOOD ADD-ON [facility] [address] [place] [address], [place] NPRG [facility] [address] [place] [address] * Outside MG Mammogram (10/01/2016 12:57 PM OBSTETRIC ASSISTANT) 10/01/2016 12:5 7 PM OBSTETRIC ASSISTANT Addenda Addendum by ProviderGlenna M.D. on 10/01/2016 12:57 PM OBSTETRIC ASSISTANT ODM^^^MCR BREAST SURGICAL SPECIMEN 10/01/2016 12:57:37 Historical Provider IMG BI PROCEDURES [facility] [address] [place] [address], [facility] from Last 3 Months or Most Recently Relevant to Health Maintenance
--- OUTSIDE RECORDS SUMMARY | 2023-11-28 13:55 | XMS_ITS ---
Author Name Unknown Organization [facility] Address [address] [place] [address] Care Team Providers Care Career Placement Services Counselor Name Role Phone Unavailable Unavailable Unavailable Surgery Details Not on file Complications Check Surgery Details section. Procedure Estimated Blood Loss Check Surgery Details section. Procedure Findings Check Surgery Details section. Procedure Specimens Taken Check Surgery Details section.
[2023-11-28 14:04] LABS: Basophils Absolute Auto 0.01 K/uL (0.00-0.30); Basophils Percent Auto 0.2 % (0.0-3.0); Eosinophils Absolute Auto 0.11 K/uL (0.00-0.50); Eosinophils Percent Auto 2.3 % (0.0-7.0); Hematocrit 42.7 % (33.0-51.0); Hemoglobin* 14.7 gm/dL (12.0-16.0); Immature Granulocytes Abs Auto 0.01 K/uL (0.00-0.30); Immature Granulocytes Pct Auto 0.2 %; Immature Reticulocyte Fraction 7.4 % (3.0-15.9); Lymphocytes Absolute Auto 1.55 K/uL (0.90-2.90); Lymphocytes Percent Auto 32.9 % (20-44); Mean Corpuscular HGB Conc 34 gm/dL (32-36); Mean Corpuscular Hemoglobin 36 pg (26-34); Mean Corpuscular Volume 104 fL (80-100); Monocytes Percent Auto 7.2 % (0.0-11.0); Neutrophils Absolute Auto 2.69 K/uL (1.7-7.0); Neutrophils Percent Auto 57.2 % (42.0-72.0); Platelet Count* 260 K/uL (140-440); RDW Coefficient of Variation % 12.9 % (11.5-15.5); Red Blood Count 4.12 m/uL (4.00-5.20); Reticulocyte Hemoglobin Equivi 35.8 pg (29.0-35.0); Reticulocyte Percent 2.1 % (0.5-2.0); Reticulocytes Absolute 0.09 # (0.03-0.08); White Blood Count* 4.71 K/uL (4.50-11.00)
[2023-11-28 14:07] LABS: Slide Review Reflex No
[2023-11-28 14:15] LABS: Albumin* 4.4 g/dL (3.3-5.0)
[2023-11-28 14:18] LABS: Aspartate Amino Transferase* 44 U/L (12-35); Bilirubin Direct* 0.1 mg/dL (0.0-0.5); Bilirubin Total* 0.9 mg/dL (0.1-1.5); Total Protein* 7.1 g/dL (6.0-8.3)
[2023-11-28 14:19] LABS: Alanine Aminotransferase* 42 U/L (4-35); Alkaline Phosphatase* 79 U/L (40-150)
== END 2023-11-28 13:49 | disposition home or self-care (01) ==
LOC: NPINS 13:48
PROVIDERS: PCP Family Medicine; Visit Provider Internal Medicine
DX: D75.89 Other specified diseases of blood and blood-forming organs (principal)
CPT/HCPCS: 80076; 85025; 85045

== ENCOUNTER 2023-12-31 10:00 | Outpatient (RCR) | payer OTHER, SELFPAY | END 2023-12-31 16:18 | disposition home or self-care (01) | PROVIDERS: PCP Family Medicine; Visit Provider Family Medicine | DX: M25.511 Pain in right shoulder (principal); Z51.89 Encounter for other specified aftercare | CPT/HCPCS: 97110; 97140; 97162 ==

== ENCOUNTER 2024-01-08 08:57 | Outpatient (CLI) | payer OTHER, SELFPAY ==
--- OUTSIDE RECORDS SUMMARY | 2024-01-12 14:46 | XMS_ITS | Clinical Summary ---
Author Organization [facility] Address [address] [place] [address] Care Team Providers Care Brim Greaser Operator Name Role Phone Unavailable Primary Care Provider Unavailabl e Source Comments Patient records contain information from all sites at [facility]. For routine questions regarding patient records, call [phone] during business hours, M-F 8:00 AM - 5:00 PM Central Time. Record requests for emergency care only can be directed to [phone] at any time.[facility] Allergies Active Allergy Reactions Criticality Noted Date Comments Aspirin Hives (Reselect Reaction) 10/24/2016 rash Okuukvcm-Yntopdoqzul-Mxamhlz n b Hives (Reselect Reaction) 10/24/2016 rash [...] 05/01/2023 8:59 AM CDT Plan of Treatment Health Maintenance Due Date [...] Screening 03/18/2025 03/18/2022, 11/12/2017 Cervical Cancer Screening 11/13/20262023, 07/12/2022, 03/19/2019 Zoster Vaccines Completed 09/02/2020, 06/03/2020 Influenza Vaccine [...] OUTSIDE MG MAMMOGRAM Routine 10/01/2016 12:57 PM HYPO DIPPER from Last 3 Months or Most Recently [...] CDT Alma Guevara M.D. LAB BLOOD ADD-ON [facility] [address] [place] [address], [facility] NPRG [facility] [address] [place] [address] * Outside MG Mammogram (10/01/2016 12:57 PM HYPO DIPPER) 10/01/2016 12:5 7 PM HYPO DIPPER Addenda Addendum by ProviderGlenna M.D. on 10/01/2016 12:57 PM HYPO DIPPER ODM^^^MCR BREAST SURGICAL SPECIMEN 10/01/2016 12:57:37 Historical Provider IMG BI PROCEDURES [facility] [address] from Last 3 Months or Most Recently Relevant to Health Maintenance
--- OUTSIDE RECORDS SUMMARY | 2024-01-12 14:46 | XMS_ITS ---
Author Organization [facility] Address [address] [place] [address] Care Team Providers Care Locomotive Engineer Diesel Name Role Phone Unavailable Unavailable Unavailable Surgery Details Not on file Complications Check Surgery Details section. Procedure Estimated Blood Loss Check Surgery Details section. Procedure Findings Check Surgery Details section. Procedure Specimens Taken Check Surgery Details section.
--- OUTSIDE RECORDS SUMMARY | 2024-01-12 14:46 | XMS_ITS | Clinical Summary ---
Author Organization [facility] Address [place], [place] [address] Care Team Providers Care Shade Hanger Name Role Phone Ciara Go MD Primary [...] Department Care Team Description 11/17/2023 Lab Requisition [facility] [phone] Clari Amaya PA-C from Last 3 Months Immunizations Name Administration Dates Next Due COVID-19 vaccine (Soundwave 30mcg/0.3mL) P F, MDV 08/15/2020,07/26/2020 Influenza, IIV3 [...] Comments Blood Pressure 112/81 06/16/2021 9:45 AM TEACHER VOCATIONAL TRAINING Pulse 89 07/23/2022 3:23 PM TEACHER VOCATIONAL TRAINING Temperature 36.2 ??C (97.2 ??F) 06/16/2021 9:45 AM CS T Respiratory Rate 16 06/16/2021 9:45 AM TEACHER VOCATIONAL TRAINING Oxygen Saturation 96% 07/23/2022 3:23 PM TEACHER VOCATIONAL TRAINING Inhaled Oxygen Concentration - - Weight 70.3 kg (155 lb) 07/23/2022 3:23 PM TEACHER VOCATIONAL TRAINING Height 172.7 cm (5' 8) 06/16/2021 6:30 AM TEACHER VOCATIONAL TRAINING Body Mass Index 23.57 06/16/2021 6:30 AM TEACHER VOCATIONAL TRAINING Plan of Treatment Health Maintenance Due Date Last Done Comments Depression screening for age 12+ 1979 HIV for age 15-65 1982 BMI (ht and wt on same day) for age 18+ 1985 Hepatitis C screening for age 18-79 1985 Colonoscopy through age 75 2012 Lipids for age 45-75 2012 Mammogram for age 45-75 2012 COVID-19 vaccine series ( season) 2023 08/15/2020, 07/26/2020 Influenza for age 50-64 04/04/2024 05/02/2021, 04/24 Tetanus booster 07/22/2024 07/22/2014, 07/12/2014 Pap test for age 21-65 11/13/2026 4, 11/14/2023, 07/12/2022, Additional history exists Tdap Completed 07/12/2014 Zoster (shingles) series for age 50+ Completed 09/02/2020, 06/03/2020 Pneumococcal series for age 6-64 Aged Out No longer eligible based on patient's age to complete this topic Procedures Procedure Name Priority Date/Time Associated Diagnosis Comments LAB TRACKING EVENT Routine 11/14/2023 12 :00 PM CDT TRAFFIC MONITOR SPECIALIST THIN PREP PAP SCREEN IMAGED Routine 11/14/2023 12:00 PM CDT HPV THIN PREP Routine 11/14/2023 12:00 PM CDT from Last 3 Months Results * LAB TRACKING EVENT (11/14/2023 12:00 PM CDT) Other (Other) Client Collect / Unknown 11/14/2023 12:00 PM CDT 11/17/2023 3:44 PM CDT Clari Amaya PA-C LAB BILL ONLY [facility] [address] [place] [address], * (ABNORMAL) TRAFFIC MONITOR SPECIALIST THIN PREP PAP SCREEN IMAGED (11/14/2023 12:00 PM CDT) Case Report Gynecologic Cytology Report ? Case: [id number] ? Authorizing Provider: ??Clari Amaya PA-C ?Collected: ? 11/14/2023 1200 ? Ordering Location: ? [facility] ?Received: ?11/18/2023 08 ? First Screen: ?Marley Jennings ? Pathologist: ? Alma Hoyos MD ? Specimen: ?TRAFFIC MONITOR SPECIALIST ThinPrep Vial Screening, Cervical ? 11/28/2023 4:36 PM CDT [facility] INTERPRETATION/ RESULT ATYPICAL SQUAMOUS CELLS, CANNOT EXCLUDE HIGH GRADE JACIEL (ASC-H)(A) (none) 11/28/2023 4:36 PM CDT [facility] R NON-NEOPLASTIC FINDING(S) Atrophy 11/28/2023 4:36 PM CDT [facility] SPECIMEN ADEQUACY Satisfactory for evaluation Endocervical cells cannot be evaluated due to severe atrophy Scant cellularity 11/28/2023 4:36 PM CDT [facility] HPV REQUEST HPV and PAP 11/28/2023 4:36 PM CDT [facility] Date of LMP 11/28/2023 4:36 PM CDT [facility] Comment:2017 Last Pap Date 07/12/2022 11/28/2023 4:36 PM CDT [facility] Last Pap Result LSIL 4:36 PM CDT [facility] Abnormal Pap or [place] Bx in last 5 years No 11/28/2023 4:36 PM CDT [facility] Menstrual Status Perimenopausal 11/28/2023 4:36 PM CDT [facility] [place] Bx Done Today No 11/28/2023 4:36 PM CDT [facility] Additional Information 11/28/2023 4:36 PM CDT [facility] Comment: Interpreted at [facility] Central Laboratory - [address], [place] [address] Automated Review Successful 11/28/2023 4:36 PM CDT [facility] Comment:Specimen processed s uccessfully by automated letterpress setter device, ThinPrep Imaging System, [employer] ANCILLARY TESTING TRAFFIC MONITOR SPECIALIST HPV Ordered, Please see separate report 11/28/2023 4:36 PM CDT [facility] Note The pap test is a screening technique, not a diagnostic procedure. It is used primarily to screen for squamous cancers and precursor lesions. Published studies have shown that it is subject to both false negative and false positive results. The pap test should not be used as the sole means to diagnose or exclude pre-malignant and malignant lesions. 11/28/2023 4:36 PM CDT [facility] Other (Cervical) 11/14/2023 12:00 PM CDT 11/18/2023 8:47 AM CDT Clari Amaya PA-C PATHOLOGY/CYTOLOGY [facility] [address] [place] [address], * (ABNORMAL) HPV HIGH RISK (11/14/2023 12:00 PM CDT) TYPE 16 Negative Negative 11/19/2023 2:05 PM CDT [facility] TYPE 18 Negative Negative 11/19/2023 2:05 PM CDT [facility] OTHER HIGH RISK TYPES Positive(A) Negative 11/19/2023 2:05 PM CDT [facility] Other (Cervical) 11/14/2023 12:00 PM CDT 11/18/2023 8:47 AM CDT Narrative [facility] - 11/19/2023 2:05 PM CDT Specimen is positive for the DNA of any one of, or combination of, the following high risk HPV types: 31, 33, 35, 39, 45, 51, 52, 56, 58, 59, 66, 68. HPV types 16 and 18 DNA were undetectable or below the pre-set threshold. ? Methodology: Enliken Olya 4800 HPV Test Clari Amaya PA-C MICROBIOLOGY [facility] [address] [place] [address], [place] from Last 3 Months Advance Directives * [...] Code Status Discussion: Not Discussed Care Teams Shade Hanger Relationship Specialty Start Date End Date Ciara Go MD [address] [place] [address] PCP - General Family Practice 04/12/19
--- OUTSIDE RECORDS SUMMARY | 2024-01-12 14:46 | XMS_ITS | Referral Summary ---
Author Organization [facility] Address [address] [place] [address] Care Team Providers Care Digital Strategy Manager Name Role Phone Unavailable Primary Care Provider Unavailabl e Source Comments Patient records contain information from all sites at [facility]. For routine questions regarding patient records, call [phone] during business hours, M-F 8:00 AM - 5:00 PM Central Time. Record requests for emergency care only can be directed to [phone] at any time.[facility] Allergies Active Allergy Reactions Criticality Noted Date Comments Aspirin Hives (Reselect Reaction) 10/24/2016 rash Ajikzkla-Piifipdqfku-Xrpzyjt n b Hives (Reselect Reaction) 10/24/2016 rash [...] 05/01/2023 8:59 AM CDT Plan of Treatment Not on file Procedures Procedure Name Priority Date/Time Associated Diagnosis Comments COMPREHENSIVE METABOLIC PANEL, S/P Routine 03/18/2022 8:08 AM CDT Malignant Neoplasm Of Breast Upper Outer Quadrant Female Left (HCC) OUTSIDE MG MAMMOGRAM Routine 10/01/2016 12:57 PM FISH AND WILDLIFE TECHNICIAN from Last 3 Months or Most Recently [...] CDT Alma Guevara M.D. LAB BLOOD ADD-ON [facility] [address] [place] [address], [facility] NPRG [facility] [address] [place] [address] * Outside MG Mammogram (10/01/2016 12:57 PM FISH AND WILDLIFE TECHNICIAN) 10/01/2016 12:5 7 PM FISH AND WILDLIFE TECHNICIAN Addenda Addendum by ProviderGlenna M.D. on 10/01/2016 12:57 PM FISH AND WILDLIFE TECHNICIAN ODM^^^MCR BREAST SURGICAL SPECIMEN 10/01/2016 12:57:37 Historical Provider IMG BI PROCEDURES [facility] [address] [place] [address], [facility] from Last 3 Months or Most Recently Relevant to Health Maintenance
== END 2024-01-08 08:58 | disposition home or self-care (01) ==
LOC: NFLDREF 01-12 14:42
PROVIDERS: PCP Family Medicine; Referring Provider Family Medicine; Visit Provider Physician Assistant
DX: D75.89 Other specified diseases of blood and blood-forming organs (principal); R79.89 Other specified abnormal findings of blood chemistry
CPT/HCPCS: 80053

== ENCOUNTER 2024-01-09 09:14 | Outpatient (CLI) | payer OTHER, SELFPAY ==
--- OUTSIDE RECORDS SUMMARY | 2024-01-27 09:30 | XMS_ITS | Clinical Summary ---
Author Organization [employer] [facility] Address [place], [place] [address] Care Team Providers Care Cutter Hot Knife Name Role Phone Ciara Go MD Primary [...] Department Care Team Description 11/17/2023 Lab Requisition [facility] [phone] Clari Amaya PA-C from Last 3 Months Immunizations Name Administration Dates Next Due COVID-19 vaccine ([employer] 30mcg/0.3mL) P F, MDV 08/15/2020,07/26/2020 Influenza, IIV3 [...] Comments Blood Pressure 112/81 06/16/2021 9:45 AM STUDENT ADMISSIONS CLERK Pulse 89 07/23/2022 3:23 PM STUDENT ADMISSIONS CLERK Temperature 36.2 ??C (97.2 ??F) 06/16/2021 9:45 AM CS T Respiratory Rate 16 06/16/2021 9:45 AM STUDENT ADMISSIONS CLERK Oxygen Saturation 96% 07/23/2022 3:23 PM STUDENT ADMISSIONS CLERK Inhaled Oxygen Concentration - - Weight 70.3 kg (155 lb) 07/23/2022 3:23 PM STUDENT ADMISSIONS CLERK Height 172.7 cm (5' 8) 06/16/2021 6:30 AM STUDENT ADMISSIONS CLERK Body Mass Index 23.57 06/16/2021 6:30 AM STUDENT ADMISSIONS CLERK Plan of Treatment Health Maintenance Due Date [...] EVENT Routine 11/14/2023 12 :00 PM CDT BOILER OR ENGINE OPERATOR THIN PREP PAP SCREEN IMAGED Routine 11/14/2023 12:00 PM CDT HPV THIN PREP Routine 11/14/2023 12:00 PM CDT from Last 3 Months Results * LAB TRACKING EVENT (11/14/2023 12:00 PM CDT) Other (Other) Client Collect / Unknown 11/14/2023 12:00 PM CDT 11/17/2023 3:44 PM CDT Clari Amaya PA-C LAB BILL ONLY [facility] [address] [place] [address], * (ABNORMAL) BOILER OR ENGINE OPERATOR THIN PREP PAP SCREEN IMAGED (11/14/2023 12:00 PM CDT) Case Report Gynecologic Cytology Report ? Case: [id number] ? Authorizing Provider: ??Clari Amaya PA-C ?Collected: ? 11/14/2023 1200 ? Ordering Location: ? [facility] ?Received: ?11/18/2023 08 ? First Screen: ?Marley Jennings ? Pathologist: ? Alma Hoyos MD ? Specimen: ?BOILER OR ENGINE OPERATOR ThinPrep Vial Screening, Cervical ? 11/28/2023 4:36 PM CDT [facility] INTERPRETATION/ RESULT ATYPICAL SQUAMOUS CELLS, CANNOT EXCLUDE HIGH GRADE JACIEL (ASC-H)(A) (none) 11/28/2023 4:[address] [facility] R NON-NEOPLASTIC FINDING(S) Atrophy 11/28/2023 4:[address] [facility] SPECIMEN ADEQUACY Satisfactory for evaluation Endocervical cells cannot be evaluated due to severe atrophy Scant cellularity 11/28/2023 4:[address] [facility] HPV REQUEST HPV and PAP 11/28/2023 4:36 PM CDT [facility] Date of LMP 11/28/2023 4:36 PM CDT [facility] Comment:2017 Last Pap Date 07/12/2022 11/28/2023 4:[address] [facility] Last Pap Result LSIL 4:[address] [facility] Abnormal Pap or [place] Bx in last 5 years No 11/28/2023 4:[address] [facility] Menstrual Status Perimenopausal 11/28/2023 4:[address] [facility] [place] Bx Done Today No 11/28/2023 4:[address] [facility] Additional Information 11/28/2023 4:36 PM CDT [facility] Comment: Interpreted at [facility] - [address], [place] [address] Automated Review Successful 11/28/2023 4:36 PM CDT [facility] Comment:Specimen processed s uccessfully by automated internal communications specialist device, ThinPrep Imaging System, [employer] ANCILLARY TESTING BOILER OR ENGINE OPERATOR HPV Ordered, Please see separate report 11/28/2023 4:[address] [facility] Note The pap test [...] and malignant lesions. 11/28/2023 4:36 PM CDT [facility] Other (Cervical) 11/14/2023 12:00 PM CDT 11/18/2023 8:47 AM CDT Clari Amaya PA-C PATHOLOGY/CYTOLOGY [facility] [address] [place] [address], * (ABNORMAL) HPV HIGH RISK (11/14/2023 12:00 PM CDT) TYPE 16 Negative Negative 11/19/2023 2:05 PM CDT [facility] TYPE 18 Negative Negative 11/19/2023 2:05 PM CDT [facility] OTHER HIGH RISK TYPES Positive(A) Negative 11/19/2023 2:05 PM CDT [facility] Other (Cervical) 11/14/2023 12:00 PM CDT 11/18/2023 8:47 AM CDT Narrative [facility] - 11/19/2023 2:05 PM CDT Specimen is positive for the DNA of any one of, or combination of, the following high risk HPV types: 31, 33, 35, 39, 45, 51, 52, 56, 58, 59, 66, 68. HPV types 16 and 18 DNA were undetectable or below the pre-set threshold. ? Methodology: [employer] 4800 HPV Test Clari Amaya PA-C MICROBIOLOGY [facility] [address] [place] [address], [place] from Last 3 Months Advance Directives [...] Code Status Discussion: Not Discussed Care Teams Cutter Hot Knife Relationship Specialty Start Date End Date Ciara Go MD [address] [place] [address] PCP - General Family Practice 04/12/19
--- OUTSIDE RECORDS SUMMARY | 2024-01-27 09:30 | XMS_ITS | Referral Summary ---
Author Organization [facility] Address [address] [place] [address] Care Team Providers Care Laundry Presser Name Role Phone Unavailable Primary Care Provider Unavailabl e Source Comments Patient records contain information from all sites at [facility]. For routine questions regarding patient records, call [phone] during business hours, M-F 8:00 AM - 5:00 PM Central Time. Record requests for emergency care only can be directed to [phone] at any time.[facility] Allergies Active Allergy Reactions Criticality Noted Date Comments Aspirin Hives (Reselect Reaction) 10/24/2016 rash Fhancodu-Wagwcdnqcch-Hsnfspr n b Hives (Reselect Reaction) 10/24/2016 rash [...] Procedure Name Priority Date/Time Associated Diagnosis Comments OUTSIDE CT BODY Routine 01/21/2024 9:55 AM CDT COMPREHENSIVE METABOLIC PANEL, S/P Routine 03/18/2022 8:08 AM CDT Malignant Neoplasm Of Breast Upper Outer Quadrant Female Left (HCC) OUTSIDE MG MAMMOGRAM Routine 10/01/2016 12:57 PM WINDING INSPECTOR AND TESTER from Last 3 Months or Most Recently Relevant to Health Maintenance Results * CT ABDOMEN PELVIS W CON-Outside CT Body (01/21/2024 9:55 AM CDT) Narrative [facility]ID - 01/23/2024 11:43 AM CDT This order has been created and auto-finalized to support the import of outside images. If available, original interpretation can be found on the Media Tab in Chart Review, in Document Viewer, as an image in QREADS or as an Addendum. If a re-interpretation or overread is required please follow defined workflow.?? Provider Not In System IMG CT PROCEDURES [facility] NA * Comprehensive Metabolic Panel (03/18/2022 8:08 AM [...] CDT Alma Guevara M.D. LAB BLOOD ADD-ON [facility] [address] [place] [address], [facility] NPRG [facility] [address] [place] [address] * Outside MG Mammogram (10/01/2016 12:57 PM WINDING INSPECTOR AND TESTER) 10/01/2016 12:5 7 PM WINDING INSPECTOR AND TESTER Addenda Addendum by ProviderGlenna M.D. on 10/01/2016 12:57 PM WINDING INSPECTOR AND TESTER ODM^^^MCR BREAST SURGICAL SPECIMEN 10/01/2016 12:57:37 Historical Provider IMG BI PROCEDURES [facility] [address] [place] [address], [facility] from Last 3 Months or Most Recently Relevant to Health Maintenance
--- OUTSIDE RECORDS SUMMARY | 2024-01-27 09:30 | XMS_ITS | Clinical Summary ---
Author Organization [facility] Address [address] [place] [address] Care Team Providers Care Greeting Card Maker Name Role Phone Unavailable Primary Care Provider Unavailabl e Source Comments Patient records contain information from all sites at [facility]. For routine questions regarding patient records, call [phone] during business hours, M-F 8:00 AM - 5:00 PM Central Time. Record requests for emergency care only can be directed to [phone] at any time.[facility] Allergies Active Allergy Reactions Criticality Noted Date Comments Aspirin Hives (Reselect Reaction) 10/24/2016 rash Qiznnjcb-Ailzmbzhzhn-Xngyarg n b Hives (Reselect Reaction) 10/24/2016 rash [...] OUTSIDE MG MAMMOGRAM Routine 10/01/2016 12:57 PM MOLDER FOAM RUBBER from Last 3 Months or Most Recently Relevant to Health Maintenance Results * CT ABDOMEN PELVIS W CON-Outside CT Body (01/21/2024 9:55 AM CDT) Narrative [facility] - 01/23/2024 11:43 AM CDT This order has been created and auto-finalized to support the import of outside images. If available, original interpretation can be found on the Media Tab in Chart Review, in Document Viewer, as an image in QREADS or as an Addendum. If a re-interpretation or overread is required please follow defined workflow.?? Provider Not In System IMG CT PROCEDURES [facility] NA * Comprehensive Metabolic Panel (03/18/2022 8:08 [...] CDT Alma Guevara M.D. LAB BLOOD ADD-ON [facility] [address] [place] [address], [facility] NPRG [facility] [address] [place] [address] * Outside MG Mammogram (10/01/2016 12:57 PM MOLDER FOAM RUBBER) 10/01/2016 12:5 7 PM MOLDER FOAM RUBBER Addenda Addendum by ProviderGlenna M.D. on 10/01/2016 12:57 PM MOLDER FOAM RUBBER ODM^^^MCR BREAST SURGICAL SPECIMEN 10/01/2016 12:57:37 Historical Provider IMG BI PROCEDURES [facility] [address] [place] [address], [facility] from Last 3 Months or Most Recently Relevant to Health Maintenance
--- OUTSIDE RECORDS SUMMARY | 2024-01-27 09:30 | XMS_ITS ---
Author Organization [facility] Address [address] [place] [address] Care Team Providers Care Meal Temperer Name Role Phone Unavailable Unavailable Unavailable Surgery Details Not on file Complications Check Surgery Details section. Procedure Estimated Blood Loss Check Surgery Details section. Procedure Findings Check Surgery Details section. Procedure Specimens Taken Check Surgery Details section.
--- OUTSIDE RECORDS SUMMARY | 2024-01-27 09:30 | XMS_ITS | Data Portability ---
[facility] Organization [facility] Address [address] [facility] [address] [place] [address] Care Team Providers Care Certified Alcohol Counselor Name Role Phone DORI LOPES Primary Care Provider [phone] Assessment Encounter Date Assessment Date Assessment LastModified [...] [email or web address] 30 [facility], [address], [place], [address], 14:53:12 Referral urologist referral 2023 024 livan Jerez MD, [address], [address], [place], [address], 4 09:14:25 Procedures None recorded. Surgeries None recorded. Imaging None recorded. Medication Orders Macrobid 100 mg capsule 2022 023 [email or web address] 30 [facility], [address] [place] [address], [id number], 4 14:51:38 oxybutynin chloride ER 10 mg tablet,exte nded release 24 hr 2022 023 [facility], [address] [place] [address], [id number], 3 15:21:16 oxybutynin chloride ER 10 mg tablet,exte nded release 24 hr 2023 024 [facility], [address] [place] [address], [id number], 4 14:53:07 Patient TargetsNo targets recorded. Patient InstructionsNo instructions recorded. Reason for Referral Urologist Referral for Femal e stress incontinence Referring Physician: Damian Harris, Urology, Encounter Date: 09/12/2023 Results Created Date Observation Date Name Description Value Unit Range Abnormal Flag LastModifiedBy Organization Detail LastModifiedTime 09/12/19 24 09/12/2023 urina lysis , dipst ick Bilirubin-St atus Small Not Available [facility] [address], [place], [address], 09/12/2023 14:52:30 09/12/19 24 09/12/2023 urina lysis , dipst ick pH-Status 6.5 Not Available [facility] [address], [place], [address], 09/12/2023 14:52:30 09/12/19 24 09/12/2023 urina lysis , dipst ick Protein-Stat us >=9.0 Not Available [facility] [address], [place], [address], 09/12/2023 14:52:30 09/12/19 24 09/12/2023 urina lysis , dipst ick Nitrates-Sta tus negati ve Not Available [facility] [address], [place], [address], 09/12/2023 14:52:30 09/12/19 24 09/12/2023 urina lysis , dipst ick Blood-Status Negati ve Not Available [facility] [address], [place], [address], 09/12/2023 14:52:30 09/12/19 24 09/12/2023 urina lysis , dipst ick Leuko-Status Negati ve Not Available [facility] [address], [place], [address], 09/12/2023 14:52:30 09/12/19 24 09/12/2023 urina lysis , dipst ick Specimen Type Voided Not Available [facility] [address], [place], [address], 09/12/2023 14:52:30 Result Notes None recorded. Procedures Surgical History Date Name Laterality Status Provider Name and Address Organization Details Recorded Time Bladder Scan completed Beatriz butler [facility] 09/12/2023 14:50:36 Imaging Results None recorded. Procedure Notes None recorded. Medical Equipment None Reported. Allergies Allergen ID Allergen Name Allergen Category Reaction Reaction Severity Criticality Documentation Date Start Date Code Code System Note Provider Name and Address Organization Details Recorded Time 400481 Substance with sulfonami de structure and antibacte rial mechanism of action (substanc e) medicatio n Not available Not available Not available 08/07/2022 07662 8003 SNOMED Komal Stromquis abram butler [facility] 14:16:59 702895 bacitraci n medicatio n Not available Not available Not available 08/07/2022 1291 RxNorm Komal Padgett t null, [facility] 3 14:17:03 859204 aspirin medicatio n Not available Not available Not available 08/07/2022 1191 RxNorm Komal Padgett t null, [facility] 3 14:17:08 Medications Name Sig Start [...] Updated DateTime 08/07/2022 172.72 cm 22.8 kg/m2 [address] [facility] 08/07/2022 14:16:48 Date Recorded Body height Body mass index (BMI) Body weight Provider Name and Address Organization Details Last Updated DateTime 09/12/2023 172.72 cm 25.1 kg/m2 10084.74 g Beatriz Ryder [facility] 09/12/2023 14:50:59 Social History Question Answer Notes LastModified by Organizat ion Details LastModified Time Tobacco Smoking Status [facility]/07/2022 14:19:36 What Is Your Level Of Alcohol Consumption? Occasional Information not available 08/07/2022 When Did You Quit Smoking? 11-15yearssince lastcigarette Information not available 08/07/2022 What Was The Date Of Your Most Recent Tobacco Screening? 08/07/2022 Information not available 08/07/2022 Sex: Unknown Functional Status None recorded. Mental Status None recorded. Family History Nothing Reported. Medical History Condition Response Cancer Y Gynecological HistoryNo gynecological history recorded. Obstetrics History GPAL:G 0 P 0 0 0 0 Immunizations Vaccine Type Date Status Provider Name and Address Organization Details Recorded Time Influenza, split virus, quadrivalent, PF 04/29/2023 completed Beatriz butler [facility] 09/12/2023 14:52:02 Influenza, split virus, quadrivalent, preservative 05/02/2021 [facility]23 16:48:28 Influenza, recombinant, quadrivalent, PF 05/22/2022 [facility]2023 16:48:28 zoster recombinant 09/02/2020 completed Asuncion butler [facility] 06/02/2023 16:48:28 zoster recombinant 06/03/2020 [facility]2023 16:48:28 COVID-19, mRNA, LNP-S, PF, 30 mcg/0.3 mL dose 08/15/2020 [facility]2023 16:48:28 COVID-19, mRNA, LNP-S, PF, 30 mcg/0.3 mL dose 07/26/2020 [facility] 16:48:28 Tdap 07/12/[address] [facility] 06/02/2023 16:48:28 Influenza, split virus, trivalent, PF 05/26/[address] [facility] 06/02/2023 16:48:28 Td (adult), 5 Lf tetanus toxoid, preservative free, adsorbed 07/22/[address] [facility] 06/02/2023 16:48:28 Influenza, split virus, quadrivalent, PF 04/24/[address] [facility] 06/02/2023 16:48:28 Past Encounters Encounter ID Performer Location Encounter Start Date Encounter Closed Date Diagnosis/Indication Diagnosis SNOMED-CT Code [id number] MD LIZBETH [facility] [address] [place] [address] 08/07/2022 14:14:41 08/09/2022 09:20:25 Urgent desire to urinate 65911030 Recurrent urinary tract infection 886481398 Myalgia of pelvic floor 968226672 [id number] MD LIZBETH [facility] [address] [place] [address] 09/12/2023 14:33:20 09/22/2023 11:25:30 Urgent desire to urinate 10396736 Recurrent urinary tract infection 420610047 Myalgia of pelvic floor 328123542 Female str ess incontinence 19880965 Health Concerns Section Related Observation LastModified by Organization Detai ls LastModified Time None Recorded Concern Status LastModified by Organization Details LastModified Time None Recorded Advance Directives Directive None Recorded Payers Encounter Date Sequence Insurance Name Policy Number Policy Duval Covered Member ID Duval Member ID Guarantor Name 08/07/2022 1 PREFERREDONE (PPO) [id number] Mylie D Lougheed [id number] Mylie D Lougheed 09/12/2023 1 UMR [id number] Nasime D Hectoreed [id number] Nasime D H[employer]oreed Notes Date Note Type Note Provider Name [...] and coordinate their care. Damian Harris MD [address], [place], [address], [facility] 08/07/2022 15:21:57 09/12/2023 text/html HPI Notes: [...] discussing other options. Damian Harris MD [address], [place], [address], [facility] 09/12/2023 17:13:25 OBGyn Episode No OBEpisode recorded.
== END 2024-01-09 09:15 | disposition home or self-care (01) ==
LOC: NFLDREF 01-27 09:28
PROVIDERS: PCP Family Medicine; Referring Provider Family Medicine; Visit Provider Physician Assistant
DX: D75.89 Other specified diseases of blood and blood-forming organs (principal); C50.912 Malignant neoplasm of unspecified site of left female breast; C77.3 Secondary and unspecified malignant neoplasm of axilla and upper limb lymph nodes
CPT/HCPCS: 82746

== ENCOUNTER 2024-01-21 09:34 | Outpatient (CLI) | payer OTHER, SELFPAY ==
--- OUTSIDE RECORDS SUMMARY | 2024-01-21 09:36 | XMS_ITS | Clinical Summary ---
Author Organization [facility] Address [place], [place] [address] Care Team Providers Care Ocean Fishing Guide Name Role Phone Ciara Go MD Primary [...] Department Care Team Description 11/17/2023 Lab Requisition [facility] [phone] Clari Amaya PA-C from Last 3 Months Immunizations Name Administration Dates Next Due COVID-19 vaccine (OkCopay 30mcg/0.3mL) P F, MDV 08/15/2020,07/26/2020 Influenza, IIV3 [...] Comments Blood Pressure 112/81 06/16/2021 9:45 AM PRACTICE ADMINISTRATOR Pulse 89 07/23/2022 3:23 PM PRACTICE ADMINISTRATOR Temperature 36.2 ??C (97.2 ??F) 06/16/2021 9:45 AM CS T Respiratory Rate 16 06/16/2021 9:45 AM PRACTICE ADMINISTRATOR Oxygen Saturation 96% 07/23/2022 3:23 PM PRACTICE ADMINISTRATOR Inhaled Oxygen Concentration - - Weight 70.3 kg (155 lb) 07/23/2022 3:23 PM PRACTICE ADMINISTRATOR Height 172.7 cm (5' 8) 06/16/2021 6:30 AM PRACTICE ADMINISTRATOR Body Mass Index 23.57 06/16/2021 6:30 AM PRACTICE ADMINISTRATOR Plan of Treatment Health Maintenance Due Date [...] EVENT Routine 11/14/2023 12 :00 PM CDT NURSE ADVISOR THIN PREP PAP SCREEN IMAGED Routine 11/14/2023 12:00 PM CDT HPV THIN PREP Routine 11/14/2023 12:00 PM CDT from Last 3 Months Results * LAB TRACKING EVENT (11/14/2023 12:00 PM CDT) Other (Other) Client Collect / Unknown 11/14/2023 12:00 PM CDT 11/17/2023 3:44 PM CDT Clari Amaya PA-C LAB BILL ONLY [facility] [address] [place] [address], * (ABNORMAL) NURSE ADVISOR THIN PREP PAP SCREEN IMAGED (11/14/2023 12:00 PM CDT) Case Report Gynecologic Cytology Report ? Case: [id number] ? Authorizing Provider: ??Clari Amaya PA-C ?Collected: ? 11/14/2023 1200 ? Ordering Location: ? [facility] ?Received: ?11/18/2023 08 ? First Screen: ?Marley Jennings ? Pathologist: ? Alma Hoyos MD ? Specimen: ?NURSE ADVISOR ThinPrep Vial Screening, Cervical ? 11/28/2023 4:36 PM CDT [facility] INTERPRETATION/ RESULT ATYPICAL SQUAMOUS CELLS, CANNOT EXCLUDE HIGH GRADE JACIEL (ASC-H)(A) (none) 11/28/2023 4:36 PM CDT [facility] R NON-NEOPLASTIC FINDING(S) Atrophy 11/28/2023 4:36 PM CDT [facility] SPECIMEN ADEQUACY Satisfactory for evaluation Endocervical cells cannot be evaluated due to severe atrophy Scant cellularity 11/28/2023 4:36 PM CDT [facility] HPV REQUEST HPV and PAP 11/28/2023 4:36 PM CDT [facility] Date of LMP 11/28/2023 4:36 PM CDT [facility] Comment:2017 Last Pap Date 07/12/2022 11/28/2023 4:36 PM CDT [facility] Last Pap Result LSIL 4:36 PM CDT [facility] Abnormal Pap or Redding Bx in last 5 years No 11/28/2023 4:36 PM CDT [facility] Menstrual Status Perimenopausal 11/28/2023 4:36 PM CDT [facility] Redding Bx Done Today No 11/28/2023 4:36 PM CDT [facility] Additional Information 11/28/2023 4:36 PM CDT [facility] Comment: Interpreted at [facility] - [address], [place] [address] Automated Review Successful 11/28/2023 4:36 PM CDT [facility] Comment:Specimen processed s uccessfully by automated transmission engineer device, ThinPrep Imaging System, [employer] ANCILLARY TESTING NURSE ADVISOR HPV Ordered, Please see separate report 11/28/2023 4:36 PM CDT [facility] Note The pap test is a [...] and malignant lesions. 11/28/2023 4:36 PM CDT [facility] Other (Cervical) 11/14/2023 12:00 PM CDT 11/18/2023 8:47 AM CDT Clari Amaya PA-C PATHOLOGY/CYTOLOGY [facility] [address] [place] [id number], * (ABNORMAL) HPV HIGH RISK (11/14/2023 12:00 PM CDT) TYPE 16 Negative Negative 11/19/2023 2:05 PM CDT [facility] TYPE 18 Negative Negative 11/19/2023 2:05 PM CDT [facility] OTHER HIGH RISK TYPES Positive(A) Negative 11/19/2023 2:05 PM CDT [facility] Other (Cervical) 11/14/2023 12:00 PM CDT 11/18/2023 8:47 AM CDT Narrative [facility] - 11/19/2023 2:05 PM CDT Specimen is positive for the DNA of any one of, or combination of, the following high risk HPV types: 31, 33, 35, 39, 45, 51, 52, 56, 58, 59, 66, 68. HPV types 16 and 18 DNA were undetectable or below the pre-set threshold. ? Methodology: Podio Olya 4800 HPV Test Clari Amaya PA-C MICROBIOLOGY [facility] [address] [place] [address], [place] from Last 3 Months Advance Directives [...] Code Status Discussion: Not Discussed Care Teams Ocean Fishing Guide Relationship Specialty Start Date End Date Ciara Go MD [address] [place] [address] PCP - General Family Practice 04/12/19
--- OUTSIDE RECORDS SUMMARY | 2024-01-21 09:36 | XMS_ITS ---
Author Organization [facility] Address [address] [place] [address] Care Team Providers Care Maintenance Trainer Name Role Phone Unavailable Unavailable Unavailable Surgery Details Not on file Complications Check Surgery Details section. Procedure Estimated Blood Loss Check Surgery Details section. Procedure Findings Check Surgery Details section. Procedure Specimens Taken Check Surgery Details section.
--- OUTSIDE RECORDS SUMMARY | 2024-01-21 09:36 | XMS_ITS | Clinical Summary ---
Author Organization [facility] Address [address] [place] [address] Care Team Providers Care Appliance Counselor Name Role Phone Unavailable Primary Care Provider Unavailabl e Source Comments Patient records contain information from all sites at [facility]. For routine questions regarding patient records, call [phone] during business hours, M-F 8:00 AM - 5:00 PM Central Time. Record requests for emergency care only can be directed to [phone] at any time.[facility] Allergies Active Allergy Reactions Criticality Noted Date Comments Aspirin Hives (Reselect Reaction) 10/24/2016 rash Gkojddtr-Dojjrwuuqip-Hyvkafx n b Hives (Reselect Reaction) 10/24/2016 rash [...] OUTSIDE MG MAMMOGRAM Routine 10/01/2016 12:57 PM CLOTHING WORKER from Last 3 Months or Most Recently [...] CDT Alma Guevara M.D. LAB BLOOD ADD-ON [facility] [address] [place] [address], [facility] NPRG [facility] [address] [place] [address] * Outside MG Mammogram (10/01/2016 12:57 PM CLOTHING WORKER) 10/01/2016 12:5 7 PM CLOTHING WORKER Addenda Addendum by ProviderGlenna M.D. on 10/01/2016 12:57 PM CLOTHING WORKER ODM^^^MCR BREAST SURGICAL SPECIMEN 10/01/2016 12:57:37 Historical Provider IMG BI PROCEDURES [facility] [address] from Last 3 Months or Most Recently Relevant to Health Maintenance
--- OUTSIDE RECORDS SUMMARY | 2024-01-21 09:36 | XMS_ITS | Data Portability ---
Author Organization [facility] Address [address] [facility] [address] [place] [address] Care Team Providers Care Commissioner Conservation Of Resources Name Role Phone DORI LOPES Primary Care Provider Assessment Encounter Date Assessment Date Assessment LastModified by Organization Details LastModified Time 08/07/2022 08/07/2022 56 yoF with urgency of urination, pelvic pressure, and urinary frequency. Of note a total of 15 minutes was spent: preparing to see the patient by reviewing records, images, and laboratory data; obtaining/revie wing separately obtained history; performing physical examination, counseling and educating patient/family/ caregiver; ordering appropriate medications, labs, imaging or procedures; documenting the clinical encounter; and coordination of care. Not available 08/07/2022 15:21:49 09/12/2023 09/12/2023 56 yoF with urgency of urination, pelvic pressure, and urinary frequency. Not available 09/12/2023 10:20:51 Plan of Treatment Reminders Order Date Submit Date Provider Last Modified By Organization Details Last Modified Time Details Appointments None recorded. Lab urinalysis, dipstick 2023 024 [email or web address] 30 [facility], [address], [place], [address], 14:53:12 Referral urologist referral 2023 024 livan Jerez MD, [address], [address], [place], [address], 4 09:14:25 Procedures None recorded. Surgeries None recorded. Imaging None recorded. Medication Orders oxybutynin chloride ER 10 mg tablet,exte nded release 24 hr 2023 024 [facility], [address] [place] [address], [id number], 4 14:53:07 Macrobid 100 mg capsule 2022 023 [email or web address] 30 [facility], [address] [place] [address], [id number], 4 14:51:38 oxybutynin chloride ER 10 mg tablet,exte nded release 24 hr 2022 023 [facility], [address] [place] [address], [id number], 3 15:21:16 Patient TargetsNo targets recorded. Patient InstructionsNo instructions recorded. Reason for Referral Urologist Referral for Femal e stress incontinence Referring Physician: Damian Harris, Urology, Encounter Date: 09/12/2023 Results Created Date Observation Date Name Description Value Unit Range Abnormal Flag LastModifiedBy Organization Detail LastModifiedTime 09/12/19 24 09/12/2023 urina lysis , dipst ick Bilirubin-St atus Small Not Available [facility] [address], [place], [address], 09/12/2023 14:52:30 09/12/19 24 09/12/2023 urina lysis , dipst ick pH-Status 6.5 Not Available [facility] [address], [place], [address], 09/12/2023 14:52:30 09/12/19 24 09/12/2023 urina lysis , dipst ick Protein-Stat us >=9.0 Not Available [facility] [address], [place], [address], 09/12/2023 14:52:30 09/12/19 24 09/12/2023 urina lysis , dipst ick Nitrates-Sta tus negati ve Not Available [facility] [address], [place], [address], 09/12/2023 14:52:30 09/12/19 24 09/12/2023 urina lysis , dipst ick Blood-Status Negati ve Not Available [facility] [address], [place], [address], 09/12/2023 14:52:30 09/12/19 24 09/12/2023 urina lysis , dipst ick Leuko-Status Negati ve Not Available [facility] [address], [place], [address], 09/12/2023 14:52:30 09/12/19 24 09/12/2023 urina lysis , dipst ick Specimen Type Voided Not Available [facility] [address], [place], [address], 09/12/2023 14:52:30 02/22/20 20 02/02/2020 measu remen t of post- voidi ng resid ual urine and/o r bladd er capac ity (PROC ) No observ ation record ed. Not Available 08/07/2022 15:11:11 08/10/19 21 07/26/2020 measu remen t of post- voidi ng resid ual urine and/o r bladd er capac ity (PROC ) No observ ation record ed. Not Available 08/07/2022 15:11:11 Result Notes None recorded. Procedures Surgical History Date Name Laterality Status Provider Name and Address Organization Details Recorded Time Bladder Scan completed [place] [facility] 09/12/2023 14:50:36 Imaging Results Imaging Date Name Status LastModified by Organiz ation Details LastModified Time 02/02/2020 measurement of post-voiding residual urine and/or bladder capacity (PROC) completed [facility] er5 Information not available 08/07/2022 15:11:11 07/26/2020 measurement of post-voiding residual urine and/or bladder capacity (PROC) completed [facility] erHickies Information not available 08/07/2022 15:11:11 Procedure Notes None recorded. Medical Equipment None Reported. Allergies Allergen ID Allergen Name Allergen Category Reaction Reaction Severity Criticality Documentation Date Start Date Code Code System Note Provider Name and Address Organization Details Recorded Time 105220 Substance with sulfonami de structure and antibacte rial mechanism of action (substanc e) medicatio n Not available Not available Not available 08/07/2022 01138 8003 SNOMED Komal Stromquis t [facility] [place] [facility] 3 14:16:59 060953 bacitraci n medicatio n Not available Not available Not available 08/07/2022 1291 RxNorm Komal Stromquis t [facility] [place] [facility] 3 14:17:03 958786 aspirin medicatio n Not available Not available Not available 08/07/2022 1191 RxNorm Komal Stromquis t [facility] [place] [facility] 3 14:17:08 Medications Name Sig Start Date Stop Date Status Note LastModified by Organization Details LastModified Time fluoxetine 40 mg capsule Take 1 capsule every day by oral route. active Not Available Not Available No t Available amoxicillin 500 mg capsule TAKE 2 CAPSULES BY MOUTH THREE TIMES DAILY DIRECTED 09/12 completed Not Available Not Available Not Available oxybutynin chloride ER 10 mg tablet,exte nded release 24 hr Take 1 tablet every day by oral route. 2023 active Not Available Not Available Not Avai lable azithromyci n 250 mg tablet 09/12 completed Not Available Not Available Not Available ibuprofen 800 mg tablet TAKE 1 TABLET BY MOUTH THREE TIMES DAILY NEEDED FOR PAIN 09/12 completed Not Available Not Available Not Available omeprazole 40 mg capsule,del ayed release Take 1 capsule every day by oral route. active Not Available Not Available No t Available Macrobid 100 mg capsule Take 1 capsule by oral route as directed. 09/12 completed Not Available Not Available Not Available methocarbam ol 750 mg tablet TAKE 1 TABLET BY MOUTH EVERY 8 HOURS FOR BACK PAIN 09/12 completed Not Available Not Available Not Available exemestane 25 mg tablet Take 1 tablet every day by oral route. active Not Available Not Available No t Available bupropion HCl XL 150 mg 24 hr tablet, extended release TAKE 1 TABLET BY MOUTH EVERY MORNING active Not Available Not Available No t Available calcium active Not Available Not Avail able Not Available Vitals Date Recorded Body height Body mass index (BMI) Body weight Provider Name and Address Organization Details Last Updated DateTime 08/07/2022 172.72 cm 22.8 kg/m2 20570.86 g Komal Joseph [facility] 08/07/2022 14:16:48 Date Recorded Body height Body mass index (BMI) Body weight Provider Name and Address Organization Details Last Updated DateTime 09/12/2023 172.72 cm 25.1 kg/m2 75243.74 g Beatriz Soler [facility] 09/12/2023 14:50:59 Social History Question Answer Notes LastModified by Organizat ion Details LastModified Time Tobacco Smoking Status Former Smoker Komal butler [facility] 08/07/2022 14:19:36 What Is Your Level Of Alcohol Consumption? Occasional Information not available 08/07/2022 When Did You Quit Smoking? 11-15yearssince lastcigarette Information not available 08/07/2022 What Was The Date Of Your Most Recent Tobacco Screening? 08/07/2022 Information not available 08/07/2022 Sex: Female Functional Status None recorded. Mental Status None recorded. Family History Nothing Reported. Medical History Condition Response Cancer Y Gynecological HistoryNo gynecological history recorded. Obstetrics History GPAL:G 0 P 0 0 0 0 Immunizations Vaccine Type Date Status Provider Name and Address Organization Details Recorded Time Influenza, split virus, quadrivalent, PF 04/29/2023 cornell butler [facility] 09/12/2023 14:52:02 Influenza, split virus, quadrivalent, preservative 05/02/2021 completed Asuncion butler [facility] 06/02/2023 16:48:28 Influenza, recombinant, quadrivalent, PF 05/22/2022 completed Asuncion butler [facility] 06/02/2023 16:48:28 zoster recombinant 09/02/2020 completed Asuncion butler [facility] 06/02/2023 16:48:28 zoster recombinant 06/03/2020 completed Asuncion butler [facility] 06/02/2023 16:48:28 COVID-19, mRNA, LNP-S, PF, 30 mcg/0.3 mL dose 08/15/2020 completed Asuncion butler [facility] 06/02/2023 16:48:28 COVID-19, mRNA, LNP-S, PF, 30 mcg/0.3 mL dose 07/26/2020 completed Asuncion butler [facility] 06/02/2023 16:48:28 [facility] 07/12/2014 [facility] 16:48:28 Influenza, split virus, trivalent, PF [facility]26/2020 [facility] 16:48:28 Td (adult), 5 Lf tetanus toxoid, preservative free, adsorbed 07/22/2014 completed Asuncion butler [facility] 06/02/2023 16:48:28 Influenza, split virus, quadrivalent, PF 04/24/2021 [facility] 16:48:28 Past Encounters Encounter ID Performer Location Encounter Start Date Encounter Closed Date Diagnosis/Indication Diagnosis SNOMED-CT Code [id number] MD Aline Lara [address] [place] [id number] 08/07/2022 14:14:41 08/09/2022 09:20:25 Urgent desire to urinate 81161085 Recurrent urinary tract infection 652025718 Myalgia of pelvic floor 469818000 [id number] MD Aline Lara [address] [facility] [address] [place] [address] 09/12/2023 14:33:20 09/22/2023 11:25:30 Urgent desire to urinate 63130336 Recurrent urinary tract infection 724730335 Myalgia of pelvic floor 191513950 Female str ess incontinence [id number] Health Concerns Section Related Observation LastModified by Organization Detai ls LastModified Time None Recorded Concern Status LastModified by Organization Details LastModified Time None Recorded Advance Directives Directive None Recorded Payers Encounter Date Sequence Insurance Name Policy Number Policy Duval Covered Member ID Duval Member ID Guarantor Name 09/12/2023 1 UMR [id number] Mylie D Lougheed [id number] Mylie D Lougheed 08/07/2022 1 PREFERREDONE (PPO) [id number] Mylie D Lougheed [id number] Mylie D Lougheed Notes Date Note Type Note Provider Name and Address Organization Details Recorded Time 08/07/2022 text/html HPI Notes: 56 yo F with history of breast cancer who presents for evaluation of urinary urgency. Duration: 3-4 weeks ago Severity: Significant urinary urgency, pressure and frequency. No suprapubic pain like documented UTIs. Context: Symptoms but urine culture x2 negative. Associated Symptoms: denies fevers, chills, nausea, emesis, hematuria or other systemic symptoms. Alleviating factors: oxybutynin has helped, but otherwise no identified alleviating factors. Aggravating factors: none identified. She has bee prescribed oxybutynin 5 mg by her oncologist for hot flashes, which has helped significantly. She does get some dry mouth but tolerable. 07/26/20: Has been maintained on 7.5 mg of Oxybutynin for her urinary urgency, frequency and lower abdominal pain. She denies any interim urinary infections, fevers, chills, nausea, emesis, hematuria, dysuria, or cloudy urine. Has been dealing with some plantar fascitiitis and underwent left lumpectomy, partial breast reconstruction with latissimus myocutaneous flap. While she likes the benefits she is getting from the oxybutynin she reports that the dry mouth and dry eyes are of significant bother wondering if we could try a different agent. 05/02/21 Here for follow up urinary urgency, frequency and pelvic pain. She also reports recurrent UTIs following intercourse with her . Tolerating current dose of oxybutynin well. 08/07/2022: Here for follow up urinary urgency, frequency and pelvic pain. She also reports recurrent UTIs following intercourse with her . Tolerating current dose of oxybutynin well. This visit was conducted by telephone due to the COVID-19 crisis. Prior to conducting our telephone visit, the patient was apprised of the risks, benefits and alternatives to telephone visits including but not limited to poor audio quality, interrupted visits due to technological limitations, delays in medical evaluation and treatment due to deficiencies or failures of equipment, failure of security protocols resulting in a breach of privacy of personal medical information and a lack of access to complete medical records resulting in not fully informed decisions. Also, because of the COVID-19 pandemic, it was not possible for the patient to sign the privacy regulations, HIPAA release and assignment of benefits forms. The patient was given the opportunity to ask questions about these policies and gave verbal acknowledgement and approval of these policies as well as to hold this meeting by telephone. Lastly, the patient agreed to allowing their medication history to be pulled from a national pharmacy database to facilitate and coordinate their care. Damian Harris MD [address] [place] [address],[address], [place], [address], [facility] 08/07/2022 15:21:57 09/12/2023 text/html HPI Notes: 56 yo F with history of breast cancer who presents for evaluation of urinary urgency. Duration: 3-4 weeks ago Severity: Significant urinary urgency, pressure and frequency. No suprapubic pain like documented UTIs. Context: Symptoms but urine culture x2 negative. Associated Symptoms: denies fevers, chills, nausea, emesis, hematuria or other systemic symptoms. Alleviating factors: oxybutynin has helped, but otherwise no identified alleviating factors. Aggravating factors: none identified. She has bee prescribed oxybutynin 5 mg by her oncologist for hot flashes, which has helped significantly. She does get some dry mouth but tolerable. 07/26/20: Has been maintained on 7.5 mg of Oxybutynin for her urinary urgency, frequency and lower abdominal pain. She denies any interim urinary infections, fevers, chills, nausea, emesis, hematuria, dysuria, or cloudy urine. Has been dealing with some plantar fascitiitis and underwent left lumpectomy, partial breast reconstruction with latissimus myocutaneous flap. While she likes the benefits she is getting from the oxybutynin she reports that the dry mouth and dry eyes are of significant bother wondering if we could try a different agent. 05/02/21 Here for follow up urinary urgency, frequency and pelvic pain. She also reports recurrent UTIs following intercourse with her . Tolerating current dose of oxybutynin well. 08/07/2022: Here for follow up urinary urgency, frequency and pelvic pain. She also reports recurrent UTIs following intercourse with her . Tolerating current dose of oxybutynin well. 09/12/2023: Here for follow up urinary urgency, frequency and pelvic pain. Overall doing well but still dealing with significant stress incontinence if she has any urine ni her bladder. Interested in discussing other options. Damian Harris MD [address] [facility],[address], [place], [address], [facility] 09/12/2023 17:13:25 OBGyn Episode No OBEpisode recorded.
--- OUTSIDE RECORDS SUMMARY | 2024-01-21 09:36 | XMS_ITS | Referral Summary ---
Author Organization [facility] Address [address] [place] [address] Care Team Providers Care Emg Technician Name Role Phone Unavailable Primary Care Provider Unavailabl e Source Comments Patient records contain information from all sites at [facility]. For routine questions regarding patient records, call [phone] during business hours, M-F 8:00 AM - 5:00 PM Central Time. Record requests for emergency care only can be directed to [phone] at any time.[facility] Allergies Active Allergy Reactions Criticality Noted Date Comments Aspirin Hives (Reselect Reaction) 10/24/2016 rash Hfmxxozq-Xnypppshsmg-Hihnbcy n b Hives (Reselect Reaction) 10/24/2016 rash [...] OUTSIDE MG MAMMOGRAM Routine 10/01/2016 12:57 PM BIOMEDICAL INSTRUMENT TECHNICIAN from Last 3 Months or Most [...] CDT Alma Guevara M.D. LAB BLOOD ADD-ON [facility] [address] [place] [address], [facility] NPRG [facility] [address] [place] [address] * Outside MG Mammogram (10/01/2016 12:57 PM BIOMEDICAL INSTRUMENT TECHNICIAN) 10/01/2016 12:5 7 PM BIOMEDICAL INSTRUMENT TECHNICIAN Addenda Addendum by ProviderGlenna M.D. on 10/01/2016 12:57 PM BIOMEDICAL INSTRUMENT TECHNICIAN ODM^^^MCR BREAST SURGICAL SPECIMEN 10/01/2016 12:57:37 Historical Provider IMG BI PROCEDURES [facility] [address] [place] [address], [facility] from Last 3 Months or Most Recently Relevant to Health Maintenance
--- NOTE | 2024-01-21 10:00 | CRLHL7_ITS ---
For Patients: As a result of the Century Cures Act, medical imaging exams and procedure reports are released immediately into your electronic medical record. You may view this report before your referring provider. If you have questions, please contact your health care provider. Indication: ELEVATED LABS CHECK LIVER Technique: CT Abdomen/Pelvis 83CC [id number] Please note that all CT scans at this facility use dose modulation, iterative reconstruction, and/or weight-based dosing when appropriate to reduce radiation dose to as low as reasonably achievable. Comparison: Report from CT 06/11/2017 Findings: Lung bases are clear. Surgical clip left breast along with posttreatment changes. Simple cyst is present within the right hepatic lobe measuring 9 millimeters. Mild diffuse low-attenuation of the hepatic parenchyma. Spleen is within normal limits. Normal pancreas. The adrenal glands are normal. Subcentimeter cyst lower pole left kidney. Right kidney unremarkable. Normal gallbladder. Bladder normal. Uterus unremarkable. Bilateral tubal ligation devices. No adnexal mass, free air, free fluid or abscess. No bowel obstruction or inflammatory change. Appendix normal. No adenopathy. Disc space narrowing and spurring at L5-S1 with discogenic sclerosis. No fracture. Impression: Diffuse hepatic steatosis with incidental subcentimeter cyst in the right hepatic lobe. No suspicious intrahepatic lesion or biliary obstruction. Please note that all CT scans at this facility use dose modulation, iterative reconstruction, and/or weight-based dosing when appropriate to reduce radiation dose to as low as reasonably achievable. Dictated by Antonio Ludwig MD @ 01/22/2024 3:19:58 PM (Electronically Signed)
== END 2024-01-21 09:35 | disposition home or self-care (01) ==
LOC: CT 09:34
PROVIDERS: PCP Family Medicine; Visit Provider Physician Assistant
DX: R79.89 Other specified abnormal findings of blood chemistry (principal); K76.0 Fatty (change of) liver, not elsewhere classified
CPT/HCPCS: 74177; Q9967

== ENCOUNTER 2024-01-26 07:27 | Outpatient (RCR) | payer OTHER, SELFPAY ==
[2024-01-08 14:56] LABS: Vitamin B12* 528 pg/mL (243-894)
[2024-01-09 21:20] LABS: Folate, Serum 15.6 ng/mL (>=5.9)
== END 2024-06-05 23:59 | disposition home or self-care (01) ==
LOC: CCIC 07:27
PROVIDERS: PCP Family Medicine; Visit Provider Physician Assistant
DX: C50.912 Malignant neoplasm of unspecified site of left female breast (principal); Z17.0 Estrogen receptor positive status [ER+]; C77.3 Secondary and unspecified malignant neoplasm of axilla and upper limb lymph nodes; D75.89 Other specified diseases of blood and blood-forming organs; N95.8 Other specified menopausal and perimenopausal disorders; R23.2 Flushing; N94.2 Vaginismus; R68.82 Decreased libido; R79.89 Other specified abnormal findings of blood chemistry; K75.81 Nonalcoholic steatohepatitis (NASH)
CPT/HCPCS: 36415; 82607; 82746; 84443; 85025; 99202; 99205; 99214; G0463

== ENCOUNTER 2024-03-19 10:10 | Outpatient (CLI) | payer OTHER, SELFPAY ==
--- OUTSIDE RECORDS SUMMARY | 2024-03-19 10:12 | XMS_ITS | Clinical Summary ---
Author Organization [facility] Address [place], [place] [address] Care Team Providers Care Knot Saw Operator Name Role Phone Ciara Go MD Primary [...] Name Administration Dates Next Due COVID-19 vaccine (Waste2Tricity 30mcg/0.3mL) P F, MDV 08/15/2020,07/26/2020 Influenza, IIV3 [...] Comments Blood Pressure 112/81 06/16/2021 9:45 AM NATURAL HISTORY COLLECTIONS CURATOR Pulse 89 07/23/2022 3:23 PM NATURAL HISTORY COLLECTIONS CURATOR Temperature 36.2 ??C (97.2 ??F) 06/16/2021 9:45 AM CS T Respiratory Rate 16 06/16/2021 9:45 AM NATURAL HISTORY COLLECTIONS CURATOR Oxygen Saturation 96% 07/23/2022 3:23 PM NATURAL HISTORY COLLECTIONS CURATOR Inhaled Oxygen Concentration - - Weight 70.3 kg (155 lb) 07/23/2022 3:23 PM NATURAL HISTORY COLLECTIONS CURATOR Height 172.7 cm (5' 8) 06/16/2021 6:30 AM NATURAL HISTORY COLLECTIONS CURATOR Body Mass Index 23.57 06/16/2021 6:30 AM NATURAL HISTORY COLLECTIONS CURATOR Plan of Treatment Health Maintenance Due Date Last Done Comments Depression screening for age 12+ 1979 HIV for age 15-65 1982 BMI (ht and wt on same day) for age 18+ 1985 Hepatitis C screening for age 18-79 1985 Colonoscopy through age 75 2012 Lipids for age 45-75 2012 Mammogram for age 45-75 2012 COVID-19 vaccine series (2022-24 season) 2023 08/15/2020, 07/26/2020 Influenza for age 50-64 04/04/2024 05/02/2021, 04/24 Tetanus booster 07/22/2024 07/22/2014, 07/12/2014 Pap test for age 21-65 11/13/2026 , 11/14/2023, 07/12/2022, Additional history exists Tdap Completed 07/12/2014 Zoster (shingles) series for age 50+ Completed 09/02/2020, 06/03/2020 Pneumococcal series for age 6-64 Aged Out No longer eligible based on patient's age to complete this topic Procedures Procedure Name Priority Date/Time Associated Diagnosis Comments HPV THIN PREP Routine 11/14/2023 12:00 PM CDT from Last 3 Months or Most Recently Relevant to Health Maintenance Results * (ABNORMAL) HPV HIGH RISK (11/14/2023 12:00 PM CDT) TYPE 16 Negative Negative 11/19/2023 2:05 PM CDT [facility] TYPE 18 Negative Negative 11/19/2023 2:05 PM CDT [facility] OTHER HIGH RISK TYPES Positive(A) Negative 11/19/2023 2:05 PM CDT [facility] Other (Cervical) 11/14/2023 12:00 PM CDT 11/18/2023 8:47 AM CDT Narrative [facility] - 11/19/2023 2:05 PM CDT Specimen is positive for the DNA of any one of, or combination of, the following high risk HPV types: 31, 33, 35, 39, 45, 51, 52, 56, 58, 59, 66, 68. HPV types 16 and 18 DNA were undetectable or below the pre-set threshold. ? Methodology: [employer] 4800 HPV Test November Monique [facility] [address] [place] [id number], from Last 3 Months or Most Recently [...] Code Status Discussion: Not Discussed Care Teams Knot Saw Operator Relationship Specialty Start Date End Date Ciara Go MD [address] [place] [address] PCP - General Family Practice 04/12/19
--- NOTE | 2024-03-19 10:15 | CRLHL7_ITS ---
For Patients: As a result of the Century Cures Act, medical imaging exams and procedure reports are released immediately into your electronic medical record. You may view this report before your referring provider. If you have questions, please contact your health care provider. BILATERAL SCREENING MAMMOGRAM WITH COMPUTER-AIDED DETECTION AND TOMOSYNTHESIS TECHNIQUE: CC and MLO views were obtained. These mammographic images have been obtained using full-field digital technique. These mammographic images were interpreted with the benefit of computer-aided detection. Breast Tomosynthesis was used in this interpretation. COMPARISON FILM: 03/10/23, 02/05/22, 01/07/20. FINDINGS: There are scattered areas of fibroglandular density. IMPRESSION: There is no radiographic evidence for malignancy. ASSESSMENT: BI-RADS Category 2: Benign RECOMMENDATION: Routine screening mammogram in 1 year. A lay language report of this examination will be provided to the patient. Antonio Ludwig M.D. Diagnostic Radiologist [email or web address] SP/Dictated by: Antonio Ludwig MD @ 03/19/2024 11:37:00 AM (Electronically Signed)
== END 2024-03-19 10:11 | disposition home or self-care (01) ==
LOC: MAMMO 10:10
PROVIDERS: PCP Family Medicine; Visit Provider Physician Assistant
DX: Z12.31 Encounter for screening mammogram for malignant neoplasm of breast (principal)
CPT/HCPCS: 77063; 77067

== ENCOUNTER 2024-07-09 14:30 | Outpatient (RCR) | payer OTHER, SELFPAY | END 2024-11-06 23:59 | disposition home or self-care (01) | PROVIDERS: PCP Family Medicine; Visit Provider Nurse Practitioner | DX: M25.511 Pain in right shoulder (principal); R29.3 Abnormal posture; R29.898 Other symptoms and signs involving the musculoskeletal system; Z74.09 Other reduced mobility; Z51.89 Encounter for other specified aftercare | CPT/HCPCS: 97110; 97140; 97162 ==

== ENCOUNTER 2024-07-20 14:50 | Inpatient (IN) | payer OTHER, SELFPAY ==
[2024-07-20] VITALS (56 sets, daily range): BP systolic 85–133; BP diastolic 62–104; PULSE 83–108; RESP 12–21; TEMP 36.1–36.8; O2SAT 86–100; BMI 23.1
[2024-07-20] MEDS: 0.9 % SODIUM CHLORIDE 500 ML 500 ML 100 ML IV (07:45)
[2024-07-20] MEDS: SODIUM CHLORIDE 0.9 % (FLUSH) 10 ML SYRINGE IVF (07:46)
[2024-07-20 08:05] LABS: Hemoglobin* 14.9 gm/dL (12.0-16.0)
--- NOTE | 2024-07-20 08:39 | P.PCN_ITS ---
Procedure Note Time Seen by Provider: : Date Seen: 07/20/24 Date of procedure: 07/20/24 Will [facility] bill your pro fee for this procedure?: Yes Procedure: Preoperative diagnosis: 59-year-old 1 para 1 with personal history of breast cancer and persistent ROSA M 1. Postoperative diagnosis: Same Procedure: Attempted Total laparoscopic hysterectomy converted to total abdominal hysterectomy, bilateral salpingo oophorectomy, diagnostic cystoscopy. Proctoscopy, Exam under anesthesia. Anesthesia: General endotracheal, local Surgeon: Franca De La Torre MD Consulting surgeon: Fanny Burgos MD Textile Machine Operator: Matt Calderón MD Estimated blood loss: 300 mL. IV Fluid: 1000mL cystalloid, 250mL albumin Urine output: 200 mL clear urine at the end of the procedure. Drains: Petit to gravity Specimen: Uterus, bilateral fallopian tubes and ovaries to pathology. Findings: On exam under anesthesia: The uterus was mid position, approximately less than 8 week size, mobile without nodularity or masses palpable. Adnexa without mass or fullness palpable. The cervix was flush with the vaginal canal and extremely stenotic likely secondary to history of LEEP, postmenopausal state and status post chemotherapy for breast cancer. On laparoscopy: The attempt at placing uterine manipulator was unsuccessful and perforated the posterior left cervix and punctured the mesentery of the sigmoid colon resulting in an injury to mesenteric blood vessel. Because the blood vessel was injured there was too much bleeding to safely perform the laparoscopy so the decision was made to perform an abdominal hysterectomy. Liver and gallbladder appeared normal. Procedure: Rolando was taken to the operating room where general anesthetic was found to be adequate. She was placed in the dorsal lithotomy position and an exam under anesthesia was performed with findings stated above. She was then prepped and draped in a normal sterile manner. A Petit catheter was placed. A bivalve speculum was placed in the vaginal canal. A single-tooth tenaculum was placed on the posterior lip of the cervix. Because the cervix was so stenotic extra- small cervical dilators were used to attempt to dilate the cervix enough to place a VCare uterine manipulator. The uterus was sounded to 8 cm. A medium VCare uterine manipulator was then placed. The tenaculum and speculum were removed from the cervix. Attention was then turned to performing the laparoscopic portion of the procedure. All incisions were infiltrated with 0.50% Marcaine prior to incising the skin. A vertical, infraumbilical 1 cm incision was made. An 11 mm trocar was then placed under direct visualization. The abdomen was then insufflated with CO2 gas to a pressure of 15 mm of mercury. Two,, pelvic ports were then placed approximately 3-4 finger breaths medial to the ischial crests. The trocar in the RLQ = 5mm, LLQ = 11mm. These were placed under direct visualization. A diagnostic laparoscopy was performed in at that point was noted to have the uterine manipulator perforated through the posterior aspect of the cervix left of midline. Attention was return to attempting to dilate the cervix and replace the uterine manipulator. The dilation was performed with laparoscopy to visualize if there was another perforation. The cervix was too stenotic to dilate so a vaginal probe was placed instead of a uterine manipulator. When attention was returned to the laparoscopy the patient was placed in Trendelenburg position and bleeding was noted in the posterior cul-de-sac within the mesentery and decision was made to convert to an abdominal hysterectomy and general surgeon was contacted to aid in obtaining hemostasis and evaluate the rectum and descending colon to assess for injury. Attention was turned to performing the abdominal hysterectomy. All the trocars were removed under direct visualization. A Pfannenstiel skin incision was made and carried through sharply to the underlying layer of fascia. Fascia was incised in the midline and this incision carried laterally with Caldwell scissors. The superior aspect of the fascial incision was grasped with Denia clamps, tented up and the rectus muscles dissected off with combination of blunt and sh rose mary dissection. The inferior aspect of the fascial incision was tented up with Denia clamps and the rectus muscles again dissected off with a combination of blunt and sharp dissection. Hemostasis obtained with bipolar cautery. The rectus muscles were did divided in the midline, the peritoneum identified and entered bluntly. This opening was bluntly extended. A moistened bowel pack was placed to push the colon and small intestine cephalad in order to visualize the pelvis. An Paul-O self-retaining retractor was placed. At this point Dr. Burgos performed her portion of the procedure. Please see her note for complete details. [place] clamps were placed at the cornua bilaterally for traction. Both ureters were identified along their courses within the pelvic sidewall by palpation. The right round ligament was identified, doubly clamped with Denia clamps and divided using bipolar cautery and suture ligated with 0 Vicryl. The anterior leaf of the broad ligament was then divided using bipolar cautery down to the level of the cervix. The posterior leaf of the broad ligament was divided, the infundibulopelvic ligament identified and the mesial salpinx inferior to the right ovary was divided. Two Jaclyn clamps were placed through this opening and the infundibulopelvic ligament divided. The infundibulopelvic ligament pedicle was then doubly suture ligated, 1st with a free tie of 0 Vicryl and then an 0 Vicryl [id number] stitch. Excellent hemostasis was obtained. The uterine vessels were then skeletonized, clamped, divided and Jaclyn suture ligated. Attention was then turned to the left side. The left round ligament was clamped with 2 Denia clamps, transected, and suture ligated with 0-Vicryl. The anterior leaf of the broad ligament was opened from the left side to the midline. The bladder flap was then created bluntly. The bladder was further pushed caudally with a sponge stick. The left fallopian tube was clamped across its attachments serially, transected, and suture ligated with 0-Vicryl until the tube was transected at the cornua. The left ovary and tube were removed from the infundibulopelvic ligament in a similar manner to the description above. Excellent hemostasis was obtained. The uterine vessels were skeletonized, clamped with a Jaclyn clamp, divided and suture ligated and Jaclyn ligated with 0 Vicryl. The remaining cardinal and uterosacral ligament attachments on both sides were clamped with straight Jaclyn clamps adjacent to the lower uterine segment and cervix, transected and suture ligated with 0 Vicryl. Excellent hemostasis was obtained. Two Jaclyn clamps were placed across the vaginal cuff angles. The uterus with attached cervix was then transected and passed off the field. The vaginal cuff angles were fixed with Jaclny stitches of 0 Vicryl. The intervening vaginal cuff was closed with [id number] sutures of 0 Vicryl. The abdomen and pelvis were then copiously irrigated. Small bleeding vessels were isolated with DeBakey clamps and cauterized for hemostasis. One figure of 8 suture was placed for hemostasis in the right bladder pillars on the anterior aspect of the vaginal cuff. The pelvis was irrigated with sterile water and hemostasis verified. IV fluorescein was given to the patient. The Petit catheter was briefly removed. And urine output recorded. A diagnostic cystoscopy was performed which showed no evidence of bladder injury and urine jets were visualized from both ureteral orifices. The Petit catheter was then replaced. Attention was then returned to the abdomen. Jayna was applied to the vaginal cuff to verify hemostasis. All laparotomy sponges and instruments were then removed. The subfascial tissues were carefully inspected and hemostasis assured. The fascia was re-approximated in a running fashion with a looped 0 Maxon suture. The subcutaneous tissues were copiously irrigated and hemostasis assured. The subcutaneous adipose layer was re- approximated in 2 layers with 3-0 plain gut interrupted sutures. The skin was closed in a subcuticular fashion with 4-0 Monocryl. A Mepilex dressing was applied. The laparoscopy incisions were all reapproximated with 4-0 Monocryl and a subcuticular manner and Exofin skin adhesive was applied. The patient tolerated the procedure well. Sponge, lap, needle, instrument counts were reported as correct x2. The patient was taken to recovery room awake and in stable condition. The patient received 2gm IV ancef prior to the start of the procedure. She received Toradol 30mg IV at the end of the procedure prior to being awakened from anesthesia.
--- NOTE | 2024-07-20 08:39 | W.PM.H&PU ---
History & Physical Update History & Physical Update H&P Reviewed and patient assessed: No changes noted
[2024-07-20] MEDS: CEFAZOLIN 2 GM INJ IVP (09:35)
[2024-07-20] MEDS: BUPIVACAINE 0.5% 30 ML INJECTION (09:36)
--- NOTE | 2024-07-20 10:33 | SUR.OPER ---
(ELEAZAR) WAS UPDATED ABOUT CONVERTING TO OPEN ABDOMINAL HYST
--- NOTE | 2024-07-20 10:42 | PM.GSPRC ---
Operative Note Date of procedure: 07/20/24 Pre-op diagnosis: ROSA M 1 Post-op diagnosis: Same Type of Procedure: 1. Intraoperative consultation 2. Hemostasis of mesenteric bleeding 3. Proctoscopy Indications: I was asked to see the patient during the operation for intraoperative bleeding that occurred during cervical manipulation. Please see Dr. Rober Mccarthy note for full discussion regarding risks and benefits of procedure. Procedure Description: Patient was already sedated and positioned on the operating room table. Dr. Rober Beck and Dr. Calderón were in the process of creating a low Pfannenstiel incision. They were able to enter into the abdomen and packed the pelvis with laps for hemostasis. I then slowly removed the packs with evidence of perforation from the cervix into the abdomen causing a tear on the left lateral abdominal wall, partially injuring the rectal mesentery. Some mesenteric bleeding was identified and controlled with 3-0 Vicryl ties and cautery. These were all small vessels. There was no evidence of injury to the underlying colon. A piece of Surgicel was then placed over the area of injury and I proceeded to perform a proctoscopy. A digital rectal exam was performed with no hard stool or masses palpated. The proctoscope was placed within the anal opening and the colon insufflated, no obvious injuries identified. Dr. Rober Beck then proximally occluded the colon, saline was placed in the abdomen and I performed a leak test with no evidence of leak. I then scrubbed back in and took a 2nd look at the operative field. The previously placed Surgicel was removed and a new piece was placed within the mesentery and left in place. The colon was carefully examined and appeared well perfused. With palpation of the mesentery I was able to appreciate good arterial flow. At this point I scrubbed out of the case, please see the other procedure note for further details. Findings: Injury to the left lateral abdominal wall and rectal mesentery. Anesthesia: GETA Surgeon: Fanny Burgos MD Estimated blood loss (mL): 0 Condition: stable Disposition: no change
--- NOTE | 2024-07-20 10:56 | P.NB_ITS ---
Nerve Block Nerve Block Time Seen by Provider: 09:12 Date Seen: 07/20/24 Type of block requested by surgeon for post-operative analgesia: TAP Side: bilateral Time out performed: Yes Verification of patient name: Yes Verification of date of : Yes Site marking: site marked Name of person performing procedure: Freddy Continuous monitoring Was continuous monitoring of O2 sat, B/P, quality assurance monitor body, recorded every 15 minutes?: Yes Procedure Checklist: sterile prep, needles and gloves Ultrasound guided. Images saved: Yes Medications given in 5ml increments after negative aspiration: Marcaine %: 0.25 mL: 30 Needle gauge: 20 and Exparel mL: 10 Patient tolerated procedure well: Yes Additional comments: Needle noted between internal oblique and transversus abdominus. Local spread visualized Block Charges Block Charge (with Pro Fee): TAP Bilateral Use of Ultrasound Machine for Block: Yes- US Guidance/pain block
--- NOTE | 2024-07-20 10:56 | W.ANESCHARGE ---
Anesthesia Charges Start Date/Time Anesthesia Start Date: 07/20/24 Anesthesia Start Time: 09:04 Stop Date/Time Anesthesia Stop Date: 07/20/24 Anesthesia Stop Time: 12:10
--- NOTE | 2024-07-20 12:12 | W.ANESCHARGE ---
Anesthesia Charges Start Date/Time Anesthesia Start Date: 07/20/24 Anesthesia Start Time: 09:04 Stop Date/Time Anesthesia Stop Date: 07/20/24 Anesthesia Stop Time: 12:10
[2024-07-20] MEDS: fentaNYL 100 MCG/2 ML inj 50 MCG IVP ×3 (12:18→12:40)
[2024-07-20] MEDS: HYDROmorphone 0.5 mg/0.5 ml inj IVP ×3 (12:30→12:56)
[2024-07-20] MEDS: hydrOXYzine pamoate 25 MG CAPSULE PO (12:53)
[2024-07-20] MEDS: ACETAMINOPHEN INJ 1,000 MG/100 ML VIAL 400 MG IVPB (13:26)
--- NOTE | 2024-07-20 14:25 | PC.NURSE ---
I entered patient's chart to prepare for post-op care; however, post-op plan of care changed (room and nurse assignment changed).
--- NOTE | 2024-07-20 14:36 | PM.GYNPNPO ---
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 Status: Acute Plan 1. Pain poorly controlled immediately postoperatively that became well controlled after Duramorph was placed. 2. Advance diet as tolerated. 3. Plan on discontinuing Petit catheter tomorrow morning. 4. Dr. Susana Calderón is planning on rounding on the patient tomorrow and I will see her on . 5. Report given to Dr. Watts who is development consultant for my group overnight. 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 Patient was seen in the recovery room. Her pain was poorly controlled after maximum doses of IV pain medications including Toradol, fentanyl and Vistaril. Please see anesthesia flow sheet for medications. The patient was awake and alert and speaking with me. She complained of cramping in her pelvis in the area of the incision. She states the cramping is deep. Anesthesia decided to place Duramorph as a last resort to control her pain. Her vital signs are all normal with good urine output. She denies nausea and vomiting. If pain continues to be poorly controlled I would recommend getting a CBC and consider CT scan to look for internal bleeding. However, her vital signs are normal so I am not suspicious of active bleeding. After the Duramorph was placed the patient stated her pain was well controlled and that she was feeling tired and wanted to take a nap. Was also asking when she can have regular food because she is hungry. CIGAR MAKING MACHINE SUPERVISOR-PN: Obj Exam Physical Exam: Vital signs: Temp Pulse Resp BP Pulse Ox O2 Del Method O2 Flow Rate 97.8 F 102 H 18 116/86 98 Nasal Cannula 2 07/20/24 12:05 07/20/24 14:05 07/20/24 14:05 07/20/24 14:05 07/20/24 14:05 07/20/24 12:05 07/20/24 12:05 Narrative: General: Well-groomed, woman in acute distress prior to duramorph placement then drowsy but arousable after duramorph. Vital signs: See the patient's electronic medical record. Heart: Regular rate and rhythm to mildly tachycardic. Chest: Clear to auscultation bilateral Abdomen: Soft, bilateral lower quadrant tenderness to deep palpation. No guarding or rebound. Bowel sounds are decreased throughout. No CVA or flank tenderness. Incision: Dressing is clean, dry and intact. Extremities: SCDs in place. 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
--- NOTE | 2024-07-20 15:06 | SUR.PHASEI ---
into pacu with 450cc lr, infused 250cc in phase 1 patient received duramorph intrathecally per john Palacios at 1410; patient's pain went down from 10 to none post this med administration and ok to be transferred to [facility]
[2024-07-20 15:07] LABS: Basophils Absolute Auto 0.01 K/uL (0.00-0.30); Basophils Percent Auto 0.1 % (0.0-3.0); Hematocrit 38.6 % (33.0-51.0); Hemoglobin* 13.1 gm/dL (12.0-16.0); Immature Granulocytes Abs Auto 0.01 K/uL (0.00-0.30); Immature Granulocytes Pct Auto 0.1 %; Lymphocytes Percent Auto 4.6 % (20-44); Mean Corpuscular HGB Conc 34 gm/dL (32-36); Mean Corpuscular Hemoglobin 36 pg (26-34); Mean Corpuscular Volume 106 fL (80-100); Neutrophils Percent Auto 91.2 % (42.0-72.0); Platelet Count* 194 K/uL (140-440); RDW Coefficient of Variation % 12.2 % (11.5-15.5); Red Blood Count 3.64 m/uL (4.00-5.20); White Blood Count* 7.81 K/uL (4.50-11.00)
[2024-07-20 15:16] LABS: Slide Review Reflex No
[2024-07-20] MEDS: diphenhydrAMINE 50 MG/ML inj 25 MG IVP (15:55)
[2024-07-20] MEDS: KETOROLAC 30 MG/ML inj IVP (17:50)
--- NOTE | 2024-07-20 18:19 | PC.NURSE ---
Shift Summary: Patient pleasant and cooperative. Up with one assist and gait belt. Tolerating regular diet well. Petit patent with bright yellow urine due to dye placed during surgery. lap sites dry and open to air, lower abd dressing clean, dry and intact. Vitals stable, needing o2 @ 4L/oxymask when asleep. RR >10/min throughout evening. Pain 2/10 at worse, scheduled medications see OCT. Ice over lower abdomen as tolerated.
[2024-07-20] MEDS: ACETAMINOPHEN 500 MG TABLET 1000 MG PO (21:03)
[2024-07-20] MEDS: diphenhydrAMINE 50 MG/ML inj 12.5 MG IVP (21:04)
[2024-07-20] MEDS: DOCUSATE SODIUM 100 MG CAPSULE PO (21:04)
[2024-07-21] VITALS (19 sets, daily range): BP systolic 91–110; BP diastolic 64–78; PULSE 80–100; RESP 16–20; TEMP 36.2–36.7; O2SAT 95–98
[2024-07-21] MEDS: KETOROLAC 30 MG/ML inj IVP ×4 (00:01→17:52)
[2024-07-21] MEDS: diphenhydrAMINE 50 MG/ML inj 25 MG IVP ×2 (01:32→06:03)
[2024-07-21] MEDS: ACETAMINOPHEN 500 MG TABLET 1000 MG PO ×2 (03:35→08:56)
--- NOTE | 2024-07-21 06:31 | PC.NURSE ---
Pt alert, oriented and vitally stable. Pain rated 3/10 lying still, 7/10 with movement. PRN Tylenol given. Pt stated occasional itching; prn Benadryl given, pt stated some improvement. Abdominal dressings all C/D/I. Ames cath patent and draining appropriately. Pt denies nausea. Pt educated on bracing abdomen with pillow, tolerated well. Pt refused SCDs along with leg band for ames cath due to itchy skin. Pt appears to be resting, call light within reach. ?
[2024-07-21 06:35] LABS: Hemoglobin* 12.3 gm/dL (12.0-16.0)
--- NOTE | 2024-07-21 08:26 | P.GYNPN_ITS ---
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 Status: Acute Plan Rolando is a 59-year-old seen on postoperative day 1 from diagnostic laparoscopy converted to total abdominal hysterectomy, bilateral salpingo oophorectomy and diagnostic cystoscopy. Procedure was converted from planned TLH in the setting of cervical perforation with subsequent bleeding from a sigmoid mesenteric blood vessel. Please see Dr. De La Torre operative note for complete details. - Continue efforts at pain control with NSAIDs, Tylenol narcotics p.r.n. for analgesia. s/p duramorph in the PACU with significant pain improvement, now has pruritus managed with benadyrl. - Recommend continued efforts at trial of ambulation with an abdominal binding - Plan to remove ames catheter this morning - Return of bowel function noted, continue gentle PO intake - Intraoperative course was reviewed, patient expressed understanding. She understands Dr. De La Torre will round tomorrow if she has any further questions. Disposition is inpatient for today. Anticipate dismissal to home tomorrow. Postoperative Procedures: Procedures Operation Date: 07/20/24 08:25 Actual Procedure Side Surgeon p ATTEMPTED Total Laparoscopic Hysterectomy CONVERTED TO OPEN ABDOMINAL HYSTERECTOMY, Bilateral Salpingo-Oophorectomy, DIAGNOSTIC CYSTOSCOPY, PROCTOSCOPY, EXAM UNDER ANESTHESIA Bilateral Franca De La Torre MD Time Spent With Patient Time: Total time spent is greater than 50% in coordination of care (as documented) at patient's floor/unit and/or counseling patient: Time with patient: less than 15 minutes MATERIALS RESEARCH ENGINEER- PN:Subj Post-Op Subjective Date Seen: 07/21/24 Post Operative Details: Post-operative day number 1: status post diagnostic laparoscopic converted to CAM, BSO and diagnostic cystoscopy. Her media postop course was complicated by difficulty with pain control, where she did receive Duramorph in the PACU. Katja notes she is feeling pretty well this morning. She has had some persistent itching from the Duramorph, mildly improved with Benadryl. Her gogo re pain has resolved, where she now just has soreness in her pelvis. She notes her pain is exacerbated with position changes/movement. She was up once yesterday evening and did feel dizzy/lightheaded, did stand at the edge of the bed today with no dizziness/lightheadedness but did note it exacerbated her pain. Ames catheter remains in Situ, she is motivated to have this removed today. She is tolerating p.o. intake without nausea or vomiting. No significant vaginal bleeding. Endorses passage of flatus x2, no bowel movement yet. Denies chest pain, dyspnea, fever/chills, lower extremity p ain/erythema/edema. MATERIALS RESEARCH ENGINEER-PN: Obj Exam Physical Exam: Vital signs: Temp Pulse Resp BP Pulse Ox O2 Del Method O2 Flow Rate 97.8 F 94 18 100/73 95 Room Air 2 07/21/24 03:00 07/21/24 03:00 07/21/24 06:11 07/21/24 03:00 07/21/24 03:00 07/21/24 03:00 07/20/24 22:40 Narrative: VS reviewed and are within normal limits. UOP adequate at 43mL/hr since midnight, total 350mL. General: Alert and oriented, no acute distress Psych: Appropriate mood and affect Abdomen: Soft, nondistended. Tenderness to palpation throughout, no rebound or guarding. Incision is covered, dressing is clean/dry. Extremities: No edema, erythema or tenderness Urinary Catheter Management: 2-way Urethral: Cath placed during this visit: no MATERIALS RESEARCH ENGINEER - PN: Obj Data Labs Labs: Laboratory Results - last 24 hr 07/20/24 07/20/24 07/21/24 07:58 15:02 06:24 WBC 7.81 RBC 3.64 L Hgb 13.1 12.3 Hct 38.6 MCV 106 H MCH 36 H MCHC 34 RDW Coeff of Srikanth 12.2 Plt Count 194 Neut % (Auto) 91.2 H Lymph % (Auto) 4.6 L [place] % (Auto) 4.0 Eos % (Auto) 0.0 Baso % (Auto) 0.1 Neut # (Auto) 7.10 H Lymph # (Auto) 0.40 L [place] # (Auto) 0.30 Eos # (Auto) 0.00 Baso # (Auto) 0.01 Abs Immat Gran (auto) 0.01 Imm/Tot Granulo (auto) 0.1 Blood Type A Positive Antibody Screen NEGATIVE Crossmatch (AHG) See Detail
[2024-07-21] MEDS: OMEPRAZOLE 20 MG CAPSULE DR 40 MG PO (08:56)
[2024-07-21] MEDS: oxyBUTYnin chloride 5 MG TAB.ER.24 10 MG PO (08:56)
[2024-07-21] MEDS: FLUOXETINE HCL 20 MG CAPSULE 40 MG PO (08:56)
--- NOTE | 2024-07-21 09:53 | PM.GSPN ---
Subjective Subjective Date Seen: 07/21/24 Interval history: Patient is doing well this morning. Did pass some gas. Has been tolerating regular food. Abdomen feels sore but pain is currently well controlled. No other concerns. Exam Narrative: Exam Narrative: Gen: alert and oriented, NAD Abd: soft, appropriately tender over incision. Const: Vital Signs, click to edit/add: Vital Signs - 24 hr 07/20/24 12:05 07/20/24 12:10 07/20/24 12:15 Temperature 97.8 F Pulse Rate 84 83 84 Pulse Rate [Pulse Oximeter] Respiratory Rate 16 16 14 Blood Pressure 95/68 95/68 97/71 Blood Pressure [Ri ght Arm] Pulse Oximetry 95 97 98 Oxygen Delivery Me thod Nasal Cannula Oxygen Flow Rate 2 07/20/24 12:20 07/20/24 12:25 07/20/24 12:30 Temperature Pulse Rate 87 85 92 Pulse Rate [Pulse Oximeter] Respiratory Rate 16 18 18 Blood Pressure 97/77 98/76 104/88 Blood Pressure [Ri ght Arm] Pulse Oximetry 100 98 98 Oxygen Delivery Me thod Oxygen Flow Rate 07/20/24 12:35 07/20/24 12:40 07/20/24 12:45 Temperature Pulse Rate 96 98 96 Pulse Rate [Pulse Oximeter] Respiratory Rate 20 18 16 Blood Pressure 110/81 117/88 117/79 Blood Pressure [Ri ght Arm] Pulse Oximetry 94 99 100 Oxygen Delivery Me thod Oxygen Flow Rate 07/20/24 12:50 07/20/24 12:55 07/20/24 13:00 Temperature Pulse Rate 99 100 93 Pulse Rate [Pulse Oximeter] Respiratory Rate 18 20 18 Blood Pressure 121/104 H 101/89 105/82 Blood Pressure [Ri ght Arm] Pulse Oximetry 100 98 99 Oxygen Delivery Me thod Oxygen Flow Rate 07/20/24 13:05 07/20/24 13:10 07/20/24 13:15 Temperature Pulse Rate 104 H 101 H 101 H Pulse Rate [Pulse Oximeter] Respiratory Rate 20 18 21 Blood Pressure 116/85 108/91 H 107/84 Blood Pressure [Ri ght Arm] Pulse Oximetry 99 98 99 Oxygen Delivery Me thod Oxygen Flow Rate 07/20/24 13:20 07/20/24 13:25 07/20/24 13:30 Temperature Pulse Rate 105 H 103 H 96 Pulse Rate [Pulse Oximeter] Respiratory Rate 18 17 18 Blood Pressure 119/93 H 120/91 H 110/81 Blood Pressure [Ri ght Arm] Pulse Oximetry 99 98 99 Oxygen Delivery Me thod Oxygen Flow Rate 07/20/24 13:35 07/20/24 13:40 07/20/24 13:45 Temperature Pulse Rate 105 H 108 H 106 H Pulse Rate [Pulse Oximeter] Respiratory Rate 16 18 17 Blood Pressure 99/77 115/90 H 122/98 H Blood Pressure [Ri ght Arm] Pulse Oximetry 98 99 98 Oxygen Delivery Me thod Oxygen Flow Rate 07/20/24 13:50 07/20/24 13:55 07/20/24 14:00 Temperature Pulse Rate 101 H 103 H 105 H Pulse Rate [Pulse Oximeter] Respiratory Rate 16 18 16 Blood Pressure 121/89 133/94 H 118/92 H Blood Pressure [Ri ght Arm] Pulse Oximetry 98 100 99 Oxygen Delivery Me thod Oxygen Flow Rate 07/20/24 14:05 07/20/24 14:10 07/20/24 14:15 Temperature Pulse Rate 102 H 96 101 H Pulse Rate [Pulse Oximeter] Respiratory Rate 18 16 18 Blood Pressure 116/86 95/66 107/84 Blood Pressure [Ri ght Arm] Pulse Oximetry 98 98 94 Oxygen Delivery Me thod Oxygen Flow Rate 07/20/24 14:20 07/20/24 14:25 07/20/24 14:30 Temperature Pulse Rate 105 H 103 H 96 Pulse Rate [Pulse Oximeter] Respiratory Rate 16 17 14 Blood Pressure 119/93 H 120/91 H 110/81 Blood Pressure [Ri ght Arm] Pulse Oximetry 93 94 93 Oxygen Delivery Me thod Oxygen Flow Rate 07/20/24 14:35 07/20/24 14:40 07/20/24 14:49 Temperature 98.0 F 97.5 F L Pulse Rate 105 H 105 H 98 Pulse Rate [Pulse Oximeter] Respiratory Rate 16 14 12 Blood Pressure 99/77 101/62 99/73 Blood Pressure [Ri ght Arm] Pulse Oximetry 95 94 92 Oxygen Delivery Me thod Room Air Oxygen Flow Rate 07/20/24 15:00 07/20/24 15:00 07/20/24 15:00 Temperature 97.5 F L Pulse Rate 102 H Pulse Rate [Pulse Oximeter] Respiratory Rate 12 12 14 Blood Pressure 104/89 Blood Pressure [Ri ght Arm] Pulse Oximetry 97 90 Oxygen Delivery Me thod Nasal Cannula Room Air Oxygen Flow Rate 2 07/20/24 15:15 07/20/24 15:17 07/20/24 15:30 Temperature 97 F L 97.7 F Pulse Rate 97 100 Pulse Rate [Pulse Oximeter] Respiratory Rate 12 12 14 Blood Pressure 93/64 105/76 Blood Pressure [Ri ght Arm] Pulse Oximetry 94 96 Oxygen Delivery Me thod Room Air Room Air Oxygen Flow Rate 07/20/24 15:45 07/20/24 16:00 07/20/24 16:16 Temperature 97.7 F Pulse Rate 95 103 H Pulse Rate [Pulse Oximeter] Respiratory Rate 12 12 12 Blood Pressure 117/82 105/79 Blood Pressure [Ri ght Arm] Pulse Oximetry 98 98 Oxygen Delivery Me thod OxyMask OxyMask Oxygen Flow Rate 3 4 07/20/24 16:30 07/20/24 17:00 07/20/24 17:17 Temperature 97.5 F L 97.8 F Pulse Rate 103 H 98 Pulse Rate [Pulse Oximeter] Respiratory Rate 12 14 14 Blood Pressure 105/70 101/68 Blood Pressure [Ri ght Arm] Pulse Oximetry 98 96 Oxygen Delivery Me thod OxyMask Room Air Oxygen Flow Rate 4 07/20/24 18:00 07/20/24 18:17 07/20/24 19:00 Temperature 97.7 F 97.1 F L Pulse Rate 101 H Pulse Rate [Pulse Oximeter] 102 H Respiratory Rate 14 14 14 Blood Pressure 99/67 Blood Pressure [Ri ght Arm] 92/68 Pulse Oximetry 95 94 Oxygen Delivery Me thod OxyMask OxyMask Oxygen Flow Rate 4 4 07/20/24 19:00 07/20/24 20:00 07/20/24 20:02 Temperature 97.1 F L 97.6 F Pulse Rate 102 H 105 H Pulse Rate [Pulse Oximeter] Respiratory Rate 14 14 Blood Pressure 92/68 85/62 L Blood Pressure [Ri ght Arm] Pulse Oximetry 94 93 96 Oxygen Delivery Me thod OxyMask OxyMask Oxygen Flow Rate 4 1.5 07/20/24 20:17 07/20/24 21:00 07/20/24 22:17 Temperature 98.0 F Pulse Rate 106 H Pulse Rate [Pulse Oximeter] Respiratory Rate 16 16 14 Blood Pressure 95/70 Blood Pressure [Ri ght Arm] Pulse Oximetry 93 Oxygen Delivery Me thod Room Air Oxygen Flow Rate 07/20/24 22:40 07/20/24 23:00 07/20/24 23:00 Temperature Pulse Rate Pulse Rate [Pulse Oximeter] 96 Respiratory Rate 14 18 18 Blood Pressure Blood Pressure [Ri ght Arm] Pulse Oximetry 86 L 96 Oxygen Delivery Me thod OxyMask Room Air Oxygen Flow Rate 2 07/20/24 23:00 07/21/24 00:17 07/21/24 02:17 Temperature 98.2 F Pulse Rate Pulse Rate [Pulse Oximeter] 96 Respiratory Rate 18 18 18 Blood Pressure Blood Pressure [Ri ght Arm] 103/85 Pulse Oximetry 96 Oxygen Delivery Me thod Room Air Oxygen Flow Rate 07/21/24 03:00 07/21/24 04:17 07/21/24 05:17 Temperature 97.8 F Pulse Rate Pulse Rate [Pulse Oximeter] 94 Respiratory Rate 16 16 16 Blood Pressure Blood Pressure [Ri ght Arm] 100/73 Pulse Oximetry 95 Oxygen Delivery Me thod Room Air Oxygen Flow Rate 07/21/24 06:11 Temperature Pulse Rate Pulse Rate [Pulse Oximeter] Respiratory Rate 18 Blood Pressure Blood Pressure [Ri ght Arm] Pulse Oximetry Oxygen Delivery Me thod Oxygen Flow Rate Labs/Imaging Labs Labs: HGb post op 13.1 last night and 12.3 this morning. Progress Note:A&P Assessment and plan (1) Status post total abdominal hysterectomy and bilateral salpingo-oophorectomy (CAM-BSO): Status: Acute Assessment and Plan: Patient is POD1. Doing well post op. Hgb 12.3 this morning. Low concern for ongoing bleeding given VSS and benign exam. Patient is passing gas and tolerating a regular diet. All other cares per Vehicle Monitor Technician team. Please call with any questions or concerns.
--- NOTE | 2024-07-21 18:29 | PC.NURSE ---
End of shift [id number] - Pt alert, oriented, cooperative. Up with standby assistance in room and ambulating in halls. Petit removed per MD order, with catheter intact. Pt able to void after removal. Pt reported pain as 4-8, managed with medication with pt indicating improvement. Previous report of mild itching resolved per patient. Dressing CDI, ice on opsite. Pt appears to be resting comfortably at end of shift with call light within reach and family at bedside.
[2024-07-21] MEDS: SIMETHICONE 80 MG TAB.CHEW 160 MG PO (18:50)
[2024-07-21] MEDS: IBUPROFEN 600 MG TABLET PO (22:04)
[2024-07-21] MEDS: SODIUM CHLORIDE 0.9 % (FLUSH) 10 ML SYRINGE IVF (22:05)
[2024-07-21] MEDS: LORazepam 2 MG/ML inj IVP (22:05)
[2024-07-22 03:25] VITALS: BP 105/80; PULSE 81; RESP 18; TEMP 36.2; O2SAT 95
[2024-07-22] MEDS: IBUPROFEN 600 MG TABLET PO ×2 (04:22→12:17)
--- NOTE | 2024-07-22 04:57 | PC.NURSE ---
Addendum entered by Chrystal Gee RN 07/22/24 05:00: Pt states some gas Original Note: Pt up independently in room. Voiding without complication or complaint. Bowels sounds active, pt c/o of gas pain around entire stomach; movement and warm Aqua-K pad with relief.
[2024-07-22 07:00] VITALS: BP 123/93; PULSE 84; RESP 20; TEMP 36.6; O2SAT 97
[2024-07-22] MEDS: OXYCODONE 5 MG TABLET PO ×2 (08:05→12:17)
--- NOTE | 2024-07-22 08:35 | P.DS_ITS ---
DS: Providers Provider Time Seen by Provider: 08:00 Date Seen: 07/22/24 Date of admission: 07/20/24 14:50 Primary care physician: Ciara Go MD Admitting Clinician: Franca De La Torre MD Attending Physician on discharge: Franca De La Torre MD Date of Discharge: 07/22/24 DS: Diagnosis Discharge Diagnosis (1) Status post total abdominal hysterectomy and bilateral salpingo-oophorectomy (CAM-BSO): Status: Acute Problem details: Converted from TLH due to perforation through the cervix w/ the uterine manipulator that punctured a mesenteric blood vessel. MERCHANDISING ASSISTANT-Discharge Summary Hospital Course Hospital Course Narrative: Patient is a 59 year old admitted on 07/20/2024 for scheduled TLH/BSO that was converted to CAM/BSO, diagnostic cystoscopy. Indication for surgery: Personal history of breast cancer and persistent ROSA M 1. Intraoperative findings were notable for normal appearing uterus, tubes and ovaries. She had complicated by a mesenteric blood vessels injury secondary to review perforation of the cervix with the uterine manipulator. Postoperative course has been uneventful. Vitals have been stable. She has remained afebrile. Today, on postoperative day 2, she reports the pain is well controlled. She has been able to ambulate Without difficulty. She is tolerating regular diet. She is passing flatus. Petit catheter has been removed, and she is voiding without difficulty. Time Spent with Patient Time attestation: Total time spent providing and/or coordinating discharge services: Time spent: Less than 30 minutes MERCHANDISING ASSISTANT - Exam Physical Exam: Vital signs: Temp Pulse Resp BP Pulse Ox O2 Del Method O2 Flow Rate 97.2 F L 81 18 105/80 95 Room Air 2 07/22/24 03:25 07/22/24 03:25 07/22/24 03:25 07/22/24 03:25 07/22/24 03:25 07/22/24 03:25 07/20/24 22:40 Narrative: General: Pleasant, woman in no acute distress. Vital signs: Included in her electronic medical record. Heart: Regular rate and rhythm without gallop or murmur. Chest: Clear to auscultation bilaterally Abdomen: Soft, nontender, nondistended with normal bowel sounds throughout. No CVA or flank tenderness. Incisions: All clean, dry and intact with sutures and skin adhesive gel Extremities: No pain or edema MERCHANDISING ASSISTANT - DS: Data Procedures Procedures: Procedures Operation Date: 07/20/24 08:25 Actual Procedure Side Surgeon p ATTEMPTED Total Laparoscopic Hysterectomy CONVERTED TO OPEN ABDOMINAL HYSTERECTOMY, Bilateral Salpingo-Oophorectomy, DIAGNOSTIC CYSTOSCOPY, PROCTOSCOPY, EXAM UNDER ANESTHESIA Bilateral Franca De La Torre MD Discharge Plan Discharge Disposition: Home, Self-Care Date of Admission: 07/20/24 14:50 Attending Provider on Discharge: Franca De La Torre Consulting Providers: Fanny Burgos Primary Care Provider: Ciara Go Condition: Stable Anticipated Discharge Date/Time: 07/22/24 13:40 Discharge Medications: New docusate sodium 100 mg Capsule 100 mg PO BID PRN (Reason: Constipation) Qty: 100 0RF ibuprofen 600 mg Tablet 600 mg PO Q6H Qty: 30 0RF oxycodone 5 mg Tablet 5 mg PO 3XD PRN (Reason: Moderate Pain) Qty: 21 0RF Continued omeprazole 40 mg capsule,delayed release(DR/EC) 40 mg PO QDAY Qty: 90 3RF exemestane 25 mg tablet 25 mg PO QDAY Rx Instructions: must administer after a meal oxybutynin chloride 10 mg tablet extended release 24hr 10 mg PO QDAY calcium citrate-vitamin D3 [Citracal + D Maximum] 315 mg-6.25 mcg (250 unit) tablet 1 tab PO QDAY acyclovir 400 mg tablet 400 mg PO QDAY PRN cholecalciferol (vitamin D3) 50 mcg (2,000 unit) capsule 50 mcg PO QDAY fluoxetine 40 mg capsule 40 mg PO QDAY Qty: 90 3RF phentermine 37.5 mg tablet 37.5 mg PO QAM Qty: 30 1RF Discharge Orders: Discharge Order (Routine); Ordered 07/22/24 Ordered By: Franca De La Torre Patient Education: Hysterectomy (DC) Additional Instructions: ACTIVITY RESTRICTIONS: Nothing vaginally for 6 weeks: no tampons/intercourse No driving while taking narcotic pain medication during the day. 1-2 weeks. Lifting restriction: Maximum of 20 pounds for 4 weeks. High impact or core exercises: 3 weeks. Submerge the incisions in water (bath/pool/machuca): 2 weeks. Off of work/school for a minimum of 4 weeks NO RESTRICTIONS for: Walking Going up/down stairs Showering Being the passenger in a motor vehicle SYMPTOMS TO REPORT TO YOUR DOCTOR: Bleeding that is red, like a moderate period Passing clots larger than the size of a golf ball Pain not relieved by prescribed medication Fever above 100.4 degrees Fahrenheit A foul vaginal odor Decrease in urination or painful, frequent urinating Chest pain Shortness of breath Tenderness or pain with redness and/swelling in the calf(s) of your leg Follow-up Appointments: 1. [facility] 2-3 [facility] for an incision check. 2. A 6 week postop visit to verify that the vaginal cuff is well-healed. For Pain: Alternate ibuprofen 600mg every 3 hours with 2 tablets (1,000mg) of ES Tylenol. Add oxycodone up to 3 times a day if needed. Activity Level: Other Discharge Diet: Regular Follow Up Appointments: Franca De La Torre MD [Staff Physician] - 08/03/24 11:00 am Ciara Go MD [Primary Care Provider] - Forms: [employer] Info Instructions
[2024-07-22] MEDS: oxyBUTYnin chloride 5 MG TAB.ER.24 10 MG PO (09:05)
[2024-07-22] MEDS: OMEPRAZOLE 20 MG CAPSULE DR 40 MG PO (09:05)
[2024-07-22] MEDS: FLUOXETINE HCL 20 MG CAPSULE 40 MG PO (09:05)
[2024-07-22] MEDS: SIMETHICONE 80 MG TAB.CHEW 160 MG PO (09:05)
--- NOTE | 2024-07-22 13:13 | PC.NURSE ---
Discharge - Pt alert, oriented,cooperative. Up independently in room. Tolerating RA, regular diet and fluids. Able to void independently during hospital stay. Pt reported pain in abdomen rated as 7. Medication given with pt verbalizing improvement and pt behavior noted to improve. Incision open to air, no drainage present. Bowel sounds present and pt reported flatus. D/C instructions given to pt regarding medication, follow up, and MD recommendations. Pt verbalized understanding. IV removed with catheter intact. Pt d/c to home with spouse via wheelchair at approximately 1250.
== END 2024-07-22 12:50 | disposition home or self-care (01) | DRG 742 ==
LOC: OR 15:28 → MEDSURG 15:28
PROVIDERS: Admitting Provider Obstetrics & Gynecology; PCP Family Medicine; Visit Provider Obstetrics & Gynecology
PROC: 0UT94ZZ Resection of Uterus, Percutaneous Endoscopic Approach (ICD-10-PCS; principal; 2024-07-20 08:15)
DX: N87.0 Mild cervical dysplasia (principal); K91.72 Accidental puncture and laceration of a digestive system organ or structure during other procedure; N99.71 Accidental puncture and laceration of a genitourinary system organ or structure during a genitourinary system procedure; G89.18 Other acute postprocedural pain; N88.2 Stricture and stenosis of cervix uteri; N95.8 Other specified menopausal and perimenopausal disorders; N95.1 Menopausal and female climacteric states; Z53.31 Laparoscopic surgical procedure converted to open procedure; R23.2 Flushing; R68.82 Decreased libido; F41.9 Anxiety disorder, unspecified; Z85.3 Personal history of malignant neoplasm of breast; F33.42 Major depressive disorder, recurrent, in full remission; K21.9 Gastro-esophageal reflux disease without esophagitis
CPT/HCPCS: 00840; 36415; 64488; 76942; 85018; 85025; 86850; 86900; 86901; 86922; 88309; 94761; A4314; A9270; C9290; J0131; J0665; J0690; J1100; J1171; J1200; J1885; J2060; J2250; J2274; J2704; J2710; J3010; J3490; J7030

== ENCOUNTER 2024-08-02 12:37 | Outpatient (RCR) | payer OTHER, SELFPAY ==
--- NOTE | 2024-08-06 16:34 | ONC.NURNOTE ---
Addendum entered by Claribel Cordova 08/20/24 14:09: Testing cancelled per [facility]. States patients declined to proceed with [facility]CI test. Original Note: Breast Cancer Index testing requested via online portal.
== END 2025-01-29 23:59 | disposition home or self-care (01) ==
LOC: CCIC 12:37
PROVIDERS: PCP Family Medicine; Visit Provider Physician Assistant
DX: C50.912 Malignant neoplasm of unspecified site of left female breast (principal); Z17.0 Estrogen receptor positive status [ER+]; C77.3 Secondary and unspecified malignant neoplasm of axilla and upper limb lymph nodes; D72.828 Other elevated white blood cell count; D75.89 Other specified diseases of blood and blood-forming organs; R79.89 Other specified abnormal findings of blood chemistry; M85.80 Other specified disorders of bone density and structure, unspecified site
CPT/HCPCS: 99215; G0463

== ENCOUNTER 2024-10-11 10:15 | Outpatient (CLI) | payer OTHER, SELFPAY | END 2024-10-11 10:16 | disposition home or self-care (01) | LOC: MRI 10:16 | PROVIDERS: PCP Family Medicine; Visit Provider Family Medicine | DX: G44.52 New daily persistent headache (NDPH) (principal); I67.82 Cerebral ischemia; C50.912 Malignant neoplasm of unspecified site of left female breast; C77.3 Secondary and unspecified malignant neoplasm of axilla and upper limb lymph nodes; Z82.49 Family history of ischemic heart disease and other diseases of the circulatory system; Z86.69 Personal history of other diseases of the nervous system and sense organs | CPT/HCPCS: 70544; 70551 ==

== ENCOUNTER 2024-11-10 13:06 | Outpatient (CLI) | payer OTHER, SELFPAY | END 2024-11-10 13:07 | disposition home or self-care (01) | PROVIDERS: PCP Family Medicine; Visit Provider Registered Nurse | DX: J90 Pleural effusion, not elsewhere classified (principal); R06.02 Shortness of breath; R68.82 Decreased libido; R79.89 Other specified abnormal findings of blood chemistry; R53.83 Other fatigue | CPT/HCPCS: 80053; 83880; 85379 ==

== ENCOUNTER 2024-11-11 13:54 | Outpatient (CLI) | payer OTHER, SELFPAY ==
--- NOTE | 2024-11-11 14:00 | CRLHL7_ITS ---
For Patients: As a result of the Century Cures Act, medical imaging exams and procedure reports are released immediately into your electronic medical record. You may view this report before your referring provider. If you have questions, please contact your health care provider. INDICATION: Dyspnea. Chest pain. History of breast cancer. TECHNIQUE: Multiplanar CT pulmonary angiogram was performed after the administration of 95 mL of Isovue 370 intravenous contrast. COMPARISON: Chest radiographs 11/10/2024. FINDINGS: Lower neck: The visualized thyroid is unremarkable. Cardiovascular: Contrast opacification of the pulmonary arterial tree is adequate. Heart size is enlarged. Thoracic aorta is normal in caliber. Mildly dilated main pulmonary artery measuring 3.5 cm. No significant atherosclerotic calcifications of the aortic arch. No significant coronary arterial calcifications. No pulmonary embolus. No bowing of the interventricular septum. Mediastinum and lymph nodes: Unremarkable. No pathologic mediastinal or hilar lymphadenopathy by size criteria. Lungs: No focal consolidation. Mild pulmonary edema. Linear bandlike opacification of the lung bases bilaterally, likely subsegmental atelectasis and/or scarring. Airways: Trachea remains patent and midline. Mild diffuse peribronchial wall thickening. Pleura: Small bilateral pleural effusions, right greater than left. No pneumothorax. Chest wall: Surgical clips in the left breast. Prominent axillary lymph nodes that do not meet size criteria for lymphadenopathy. Bones: No acute osseous abnormalities. Mild degenerative changes of the thoracic spine. Upper abdomen: No acute findings within the visualized upper abdomen. IMPRESSION: 1. No pulmonary embolus. 2. Cardiomegaly with mild pulmonary edema and small bilateral pleural effusions. 3. Dilated main pulmonary artery measuring 3.5 cm, nonspecific, and can be seen with pulmonary arterial hypertension or mild right heart strain Please note that all CT scans at this facility use dose modulation, iterative reconstruction, and/or weight-based dosing when appropriate to reduce radiation dose to as low as reasonably achievable. Dictated by Rubin Calabrese MD @ 11/11/2024 2:48:56 PM (Electronically Signed)
== END 2024-11-11 13:55 | disposition home or self-care (01) ==
LOC: CT 13:55
PROVIDERS: PCP Family Medicine; Visit Provider Registered Nurse
DX: R06.02 Shortness of breath (principal); J90 Pleural effusion, not elsewhere classified; I51.7 Cardiomegaly; R07.89 Other chest pain; Z85.3 Personal history of malignant neoplasm of breast
CPT/HCPCS: 71275; Q9967

== ENCOUNTER 2024-11-12 13:50 | Outpatient (CLI) | payer OTHER, SELFPAY ==
[2024-11-12] MEDS: PERFLUTREN LIPID MICROSPHERES 2 ML VIAL IVP (15:03)
== END 2024-11-12 13:51 | disposition home or self-care (01) ==
PROVIDERS: PCP Family Medicine; Visit Provider Registered Nurse
DX: I51.7 Cardiomegaly (principal); I35.1 Nonrheumatic aortic (valve) insufficiency; I31.39 Other pericardial effusion (noninflammatory); R06.09 Other forms of dyspnea; R07.89 Other chest pain; Z85.3 Personal history of malignant neoplasm of breast
CPT/HCPCS: 93306; Q9957

== ENCOUNTER 2024-11-13 14:55 | Emergency (ER) | payer OTHER, SELFPAY ==
[2024-11-13] VITALS (8 sets, daily range): BP systolic 105–117; BP diastolic 78–95; PULSE 97–101; RESP 14–20; TEMP 36.7; O2SAT 92–98; BMI 24.3
--- OUTSIDE RECORDS SUMMARY | 2024-11-13 14:57 | XMS_ITS | Data Portability ---
Author Organization [facility], [facility] [address] [address] [place] [address] Care Team Providers Care Repair Table Operator Name Role Phone DORI LOPES Primary Care [...] 2023 024 [email or web address] 30 [facility], [address], [place], [address], 14:53:12 Referral None recorded. Procedures None recorded. Surgeries None recorded. Imaging None recorded. Medication Orders oxybutynin chloride ER 10 mg tablet,exte nded release 24 hr 2023 024 [facility], [address] , [place], [place], [phone], 4 14:53:07 Macrobid 100 mg capsule 2022 023 [email or web address] 30 [facility], [address] [place] [address] [place]od[place], [place], [phone], 4 14:51:38 oxybutynin chloride ER 10 mg tablet,exte nded release 24 hr 2022 023 CARLOS EDUARDO [facility], [address] [place] [address], [phone], 3 15:21:16 Patient TargetsNo targets recorded. Patient InstructionsNo instructions recorded. Reason for Referral None Reported. Results Created Date Observation Date Name Description Value Unit Range Abnormal Flag Note LastModifiedBy Organization Detail LastModifiedTime 09/12/19 24 09/12/2023 urina lysis , dipst ick Bilirubin-St atus Small Not Available [facility] [address], [place], [address], 09/12/2023 14:52:30 09/12/19 24 09/12/2023 urina lysis , dipst ick pH-Status 6.5 Not Available [facility] [address], [place], [address], 09/12/2023 14:52:30 09/12/19 24 09/12/2023 urina lysis , dipst ick Protein-Stat us >=9.0 Not Available [facility] [address], [place], [address], 09/12/2023 14:52:30 09/12/19 24 09/12/2023 urina lysis , dipst ick Nitrates-Sta tus negati ve Not Available [facility] [address], [place], [address], 09/12/2023 14:52:30 09/12/19 24 09/12/2023 urina lysis , dipst ick Blood-Status Negati ve Not Available [facility] [address], [place], [address], 09/12/2023 14:52:30 09/12/19 24 09/12/2023 urina lysis , dipst ick Leuko-Status Negati ve Not Available [facility] [address], [place], [address], 09/12/2023 14:52:30 09/12/19 24 09/12/2023 urina lysis , dipst ick Specimen Type Voided Not Available [facility] [address], [place], [address], 09/12/2023 14:52:30 Result Notes None recorded. Procedures Surgical History Date Name Laterality Status Provider Name and Address Organization Details Recorded Time Bladder Scan completed Beatriz Soler [facility] 09/12/2023 14:50:36 Imaging Results None recorded. Procedure Notes None recorded. Medical Equipment None Reported. Allergies Allergen ID Allergen Name Allergen Category Reaction Reaction Severity Criticality Documentation Date Start Date Code Code System Note Provider Name and Address Organization Details Recorded Time 960686 Substance with sulfonami de structure and antibacte rial mechanism of action (substanc e) medicatio n Not available Not available Not available 08/07/2022 42655 8003 SNOMED Not Available Not Available Not Available 814726 bacitraci n medicatio n Not available Not available Not available 08/07/2022 1291 RxNorm Not Available Not Available Not Available 986078 aspirin medicatio n Not available Not available Not available 08/07/2022 1191 RxNorm Not Available Not Available Not Available Medications Name Sig Start Date Stop Date [...] active Not Available Not Available Not Avai labomar azithromyci n 250 mg tablet 09/12 completed [...] Updated DateTime 08/07/2022 172.72 cm 22.8 kg/m2 11187.86 g Komal Joseph [facility] 08/07/2022 14:16:48 Date Recorded Body height Body mass index (BMI) Body weight Provider Name and Address Organization Details Last Updated DateTime 09/12/2023 172.72 cm 25.1 kg/m2 44483.74 g Beatriz Soler [facility] 09/12/2023 14:50:59 Social History Question Answer Notes LastModified by Organizat ion Details LastModified Time Tobacco Smoking Status Former Smoker Komal butler [facility] 08/07/2022 14:19:36 What Is Your Level Of [...] 0 0 Immunizations Vaccine Type Date Status Note Provider Nam e and Address Organization Details Recorded Time Influenza, split virus, quadrivalent, PF 3 completed [facility] 14:52:02 Influenza, split virus, quadrivalent, preservative 1 completed [facility] 06/02/2023 16:48:28 Influenza, recombinant, quadrivalent, PF 2 completed [facility] 06/02/2023 16:48:28 zoster recombinant 1 completed [facility] 06/02/2023 16:48:28 zoster recombinant 0 completed Asuncion [facility] 06/02/2023 16:48:28 COVID-19, mRNA, LNP-S, PF, 30 mcg/0.3 mL dose 1 completed [facility] 06/02/2023 16:48:28 COVID-19, mRNA, LNP-S, PF, 30 mcg/0.3 mL dose 0 completed Asuncion [facility] 06/02/2023 16:48:28 Tdap 4 completed [facility]uncion Lang[facility] 06/02/2023 16:48:28 Influenza, split virus, trivalent, PF 0 completed [facility] 06/02/2023 16:48:28 Td (adult), 5 Lf tetanus toxoid, preservative free, adsorbed 4 completed [facility] 06/02/2023 16:48:28 Influenza, split virus, quadrivalent, PF 1 completed Asuncion butler [place] [facility] 06/02/2023 16:48:28 Past Encounters Encounter ID Performer Location Encounter Start Date Encounter Closed Date Diagnosis/Indication Diagnosis SNOMED-CT Code Diagnosis ICD10 Code Diagnosis Note [id number] Damian Harris MD [facility] [address] [place] [address] 08/07/2022 14:14:41 08/09/2022 09:20:25 Urgent desire to urinate 20676886 R39.15 -Doing well on 10 mg of oxybutynin , we did discuss trying oxybutynin patch if adverse effects prove bothersome -PVR remains low -Follow-up in 6 months Recurrent urinary tract infection 962002235 N39.0 - Will write for post-coita l prophylaxi s. In review of her allergies she states that she has recently used nitrofuran toin and tolerated it well. Myalgia of pelvic floor 851123792 M79.18 - As above [id number] Damian Harris MD [facility] [address] [place] [address] 09/12/2023 14:33:20 09/22/2023 11:25:30 Urgent desire to urinate 71394938 R39.15 -Doing well on 10 mg of oxybutynin , we have discussed trying oxybutynin patch if adverse effects prove bothersome -PVR 1 mL Recurrent urinary tract infection 380688435 N39.0 - Will write for post-coita l prophylaxi s. In review of her allergies she states that she has recently used nitrofuran toin and tolerated it well. Myalgia of pelvic floor 983122131 M79.18 - As above Female str ess incontinence 16700102 N39.3 - Will refer to our Female Pelvic Medicine and Reconstruc tive Surgery team Health Concerns Section Related Observation LastModified by Organization Detai ls LastModified Time None Recorded Concern Status LastModified by Organization Details LastModified Time None Recorded Advance Directives Directive None Recorded Payers Encounter Date Sequence Insurance Name Policy Number Policy Duval Covered Member ID Duval Member ID Guarantor Name 08/07/2022 1 [employer]PP[employer]) [id number] Rolando Youngeed [id number] Rolando Turk 09/12/2023 1 [facility] [id number] Rolando Turk [id number] Rolando Turk Notes Date Note Type Note Provider Name and Address Organization Details Recorded Time 08/07/2022 text/html 56 yoF with hist ory of breast cancer who presents for evaluation of urinary urgency. Duration: 3-4 weeks agoSeverity: Significant urinary urgency, pressure and frequency. No suprapubic pain like documented UTIs.Context: Symptoms but urine culture x2 negative.Associated Symptoms: denies fevers, chills, nausea, emesis, hematuria or other systemic symptoms.Alleviating factors: oxybutynin has helped, but otherwise no identified alleviating factors.Aggravating factors: none identified. She has bee prescribed oxybutynin 5 mg by her oncologist for hot flashes, which has helped significantly. She does get some dry mouth but tolerable. 07/26/20:Has been maintained on 7.5 mg of Oxybutynin [...] if we could try a different agent. 05/02/21Here for follow up urinary urgency, frequency and pelvic pain. She also reports recurrent UTIs following intercourse with her . Tolerating current dose of oxybutynin well. 08/07/2022:Here for follow up urinary urgency, frequency and [...] and coordinate their care. Damian Harris MD [address] [place] [address],[address], [place], [address], [facility] 08/07/2022 15:21:57 09/12/2023 text/html 56 yoF with hist ory of breast cancer who presents for evaluation of urinary urgency. Duration: 3-4 weeks agoSeverity: Significant urinary urgency, pressure and frequency. No suprapubic pain like documented UTIs.Context: Symptoms but urine culture x2 negative.Associated Symptoms: denies fevers, chills, nausea, emesis, hematuria or other systemic symptoms.Alleviating factors: oxybutynin has helped, but otherwise no identified alleviating factors.Aggravating factors: none identified. She has bee prescribed oxybutynin 5 mg by her oncologist for hot flashes, which has helped significantly. She does get some dry mouth but tolerable. 07/26/20:Has been maintained on 7.5 mg of Oxybutynin [...] if we could try a different agent. 05/02/21Here for follow up urinary urgency, frequency and pelvic pain. She also reports recurrent UTIs following intercourse with her . Tolerating current dose of oxybutynin well. 08/07/2022:Here for follow up urinary urgency, frequency and pelvic pain. She also reports recurrent UTIs following intercourse with her . Tolerating current dose of oxybutynin well. 09/12/2023:Here for follow up urinary urgency, frequency and pelvic pain. Overall doing well but still dealing with significant stress incontinence if she has any urine ni her bladder. Interested in discussing other options. Damian aHrris MD [address] [place] [address],[address], [place], [address], [facility] 09/12/2023 17:13:25 OBGyn Episode No OBEpisode recorded.
--- OUTSIDE RECORDS SUMMARY | 2024-11-13 14:57 | XMS_ITS | Clinical Summary ---
Author Organization [facility] Address [address] [place] [address] Care Team Providers Care Welder Fabricator Name Role Phone Ciara Go MD Primary Care Provider + Allergies Active Allergy Reactions Criticality Noted Date Comments Aspirin Hives Medium 11/05/2016 Sulfamethoxazole-Trimethoprim Contact Dermatitis 10/05/2020 Nitrofurantoin Monohyd/M-Cryst Hives 11/05 Neomycin Rash Medium 11/05/2016 Sulfa (Sulfonamide Antibiotics) Hives Medium 11/2016 Medications omeprazole (PRILOSEC) 40 mg Delayed-Release capsule Take [...] 6.5 mg inst Insert vaginally as needed 0 Active estradioL (ESTRACE) 0.1 mg/g vaginal cream Insert 1 g into the vagina once daily if needed. 11 9 Active calcium citrate-vitamin d 315 mg-200 unit (CALCIUM CITRATE + D) 315 mg-5 mcg (200 unit) tablet Take 2 tablets by mouth once daily with a meal. Active oxyCODONE (ROXICODONE) 5 mg immediate release tabletIndicatio ns:Radiation adverse effect, sequela Take 1-2 Tablets (5-10 mg) by mouth every 4 hours if needed for Pain. 30 Tablet 06/16/2021 7:57 AM SLAB OFF MILL TENDER 1 Active cetirizine (ZYRTEC) 10 mg tablet Take 1 Tablet (10 mg) by mouth once daily. 0 1 Active methocarbamoL (ROBAXIN) 750 mg tabletIndicatio ns:Radiation adverse effect, sequela Take 1 Tablet (750 mg) by mouth 4 times daily. 40 Tablet 06/16/2021 7:57 AM SLAB OFF MILL TENDER 1 Active oxybutynin XL (DITROPAN XL) 10 mg CR tabletIndicatio ns:Overactive bladder Take 1 Tablet (10 mg) by mouth once daily. 90 Tablet 2 Active Encounters Date Type Department Care Team Description 11/12/2024 2:00 PM CDT Ancillary Procedure [facility] [address] [place] [address] Arrived from Last 3 Months Immunizations Immunization Administration Dates Next Due COVID-19 vaccine ([employer] 30mcg/0.3mL) P F, MDV 08/15/2020,07/26/2020 Influenza, IIV3 [...] drink = 0.6 oz pur e alcohol) Comments No Sex and Gender Information Value Date Recorded Sex Assigned at Not on file Legal Sex Female 7:57 PM [employer] Gender Identity Not on file Sexual Orientation Not on file Obstetrics History Last Filed Vital Signs Vital Sign Reading Time Taken Comments Blood Pressure 112/81 06/16/2021 9:45 AM SL[employer] OFF MILL TENDER Pulse 89 07/23/2022 3:23 PM [employer] T[employer]ER Temperature 36.2 C (97.2 F) 06/16/2021 9:45 AM SL[employer] OFF MILL TENDER Respiratory Rate 16 06/16/2021 9:45 AM SL[employer] OFF MILL TENDER Oxygen Saturation 96% 07/23/2022 3:23 PM SL[employer] OFF MILL TENDER Inhaled Oxygen Concentration - - Weight 70.3 kg (155 lb) 07/23/2022 3:23 PM SL[employer] OFF MILL TENDER Height 172.7 cm (5' 8) 06/16/2021 6:30 AM SLAB OFF MILL TENDER Body Mass Index 23.57 06/16/2021 6:30 AM SL[employer] MILL TENDER Plan of Treatment Health Maintenance Due Date Last Done Comments Depression screening for age 12+ 1979 HIV for age 15-65 1982 BMI (ht and wt on same day) for age 18+ 1985 Hepatitis C screening for ag e 18-79 1985 Pneumococcal series for age 50+ (1 of 2 - PCV) 1986 Colonoscopy through age 75 2012 Lipids for age 45-75 2012 Mammogram for age 45-75 2012 COVID-19 vaccine series (3 - Pfizer risk series) 09/12/2020 08/15/2020, 07/26/2020 Tetanus booster 07/22/2024 07/22/2014, 07/12/2014 Influenza Vaccine (Season Ended) 2025 05/02/2021, 04/24/2021, 05/26/2020 Pap test for age 21-65 11/13/2026 , 11/14/2023, 07/12/2022, Additional history exists Tdap Completed 07/12/2014 Zoster (shingles) series for age 50+ Completed 09/02/2020, 06/03/2020 Procedures Procedure Name Priority Date/Time Associated Diagnosis Comments ECHO TTE COMPLETE W CONTRAST Routine 11/12/2024 3:02 PM CDT Cardiomegaly HPV HIGH RISK Routine 11/14/2023 12:00 PM CDT from Last 3 Months or Most Recently Relevant to Health Maintenance Results * ECHO TTE COMPLETE W CONTRAST (11/12/2024 3:02 PM CDT) AORTIC VALVE MEAN PG 5 mmHg EJECTION FRACTION 20 % PEAK TR VELOCITY 2.5 m/s LVEDD 5.4 cm EJECTION FRACTION 10 - 20% Anatomical Region Laterality Modality Ultrasound 11/12/2024 2:16 PM CDT Narrative 11/12/2024 3:15 PM CDT ECHOCARDIOGRAM ROLANDO HATHAWAY : 1965 59 years Study Date: 11/12/2024 2:16:24 PM Gender: F BP: 118/84 mmHg Height: 173.00 cm BSA: 1.83 m Weight: 70.00 kg Tech: [facility] Referring MD: MAYA KERNS Site: [facility] Reading Location: Mobile-OP Patient Location: Outpatient. Procedure: 2D w/ Contrast, Color Doppler and Spectral Doppler. Indication for study: Cardiomegaly Cardiac Rhythm: Sinus tachycardia.Study quality: Technically limited. Imaging limitations: This study was subject to imaging limitations due to a prominent lung artifact. Final Impressions: 1. Mildly increased LV size, normal wall thickness, severely reduced global systolic function with an estimated EF of 10-20%. There is severe global left ventricular hypokinesis. 2. Right ventricular cavity size is mildly enlarged, global systolic RV function is moderately reduced. 3. Mild aortic regurgitation. 4. Trivial pericardial effusion. 5. Echo contrast was administered to enhance visualization of all left ventricular segments. Comparison Compared to prior exam of 10/07/2016: LVEF is severely reduced. Chamber Sizes and Function Mildly increased left ventricular size, normal wall thickness, severely reduced global systolic function with an estimated EF of 10-20%. There is severe global left ventricular hypokinesis. Left atrial size is mildly enlarged. Right ventricular cavity size is mildly enlarged, global systolic RV function is moderately reduced. The right atrium is mildly enlarged. Right atrial volume index is 35 ml/m . Right atrial area is 21 cm . The pulmonary artery is not well visualized. The sinus of Valsalva is normal sized. The ascending aorta is normal sized. Valves, RV Pressures and Diastolic Function The aortic valve is normal in structure, no stenosis and mild regurgitation. The mitral valve is normal in structure, trace mitral regurgitation. Indeterminate pattern of LV diastolic filling. The tricuspid valve is normal in structure, mild tricuspid regurgitation. The tricuspid regurgitant velocity is 2.5 m/s, the estimated right ventricular systolic pressure is 25 mmHg plus right atrial pressure. There is normal estimated pulmonary pressure by tricuspid regurgitation velocity and right atrial pressure. The pulmonic valve is not well visualized. Trace pulmonary regurgitation. Masses, Effusion, Shunts There is trivial pericardial effusion. The inferior vena cava is normal sized, respiratory size variation less than 50%. No left to right shunting was detected by limited color flow Doppler interrogation of the interatrial septum. MEASUREMENTS AND CALCULATIONS 2-D Measurements and LV Function: LVID (d) 5.4 cm LV FS% (2D) 10 % LVID (s) 4.8 cm LVOT diameter 1.9 cm IVS (d) 0.9 cm HR 107 bpm LVPW (d) 1.0 cm LA Vol index 32 ml/m2 Ao Sinus 3.6 cm RA Vol index 35 ml/m2 Ao Sinus ULN 3.7 cm RA area 21 cm Asc Ao 3.9 cm RV Basal Diam 4.1 cm Asc Ao ULN 3.8 cm RV Mid Diam 2.6 cm LA 3.8 cm Aortic Valve: Vmax 1.4 m/s KATIA (V) 1.30 cm AI P 1/2 278 msec VTI 0.22 m KATIA (I) 1.28 cm LVOT V max 0.6 m/s Max PG 8 mmHg LVOT VTI 0.10 m Mean PG 5 mmHg SV 29 ml Dim Index 0.44 SV index 16 ml/m CO 3.1 l/min CI 1.7 l/min/m Tricuspid Valve and estimated PA pressures: TR Vmax 2.5 m/s TAPSE 1.6 cm TR maxG 25 mmHg Contrast documentation: 1 ml diluted Definity, lot #[id number], [facility]# [id number] was administered peripherally to enhance visualization of all left ventricular segments. . This study was interpreted by an [facility] accredited facility. CC: [facility] (med records) [facility]. Final Procedure Note Herminio Gregg MD - 11/12/2024 ECHOCARDIOGRAM ROLANDO HATHAWAY : 1965 59 years Study Date: 11/12/2024 2:16:24 PM Gender: F BP: 118/84 mmHg Height: 173.00 cm BSA: 1.83 m Weight: 70.00 kg Tech: [facility] Referring MD: MAYA KERNS Site: [facility] Reading Location: Mobile-OP Patient Location: Outpatient. Procedure: 2D w/ Contrast, Color Doppler and Spectral Doppler. Indication for study: Cardiomegaly Cardiac Rhythm: Sinus tachycardia.Study quality: Technically limited. Imaging limitations: This study was subject to imaging limitations due toa prominent lung artifact. Final Impressions: 1. Mildly increased LV size, normal wall thickness, severely reducedglobal systolic function with an estimated EF of 10-20%. There is severeglobal left ventricular hypokinesis. 2. Right ventricular cavity size is mildly enlarged, global systolic RVfunction is moderately reduced. 3. Mild aortic regurgitation. 4. Trivial pericardial effusion. 5. Echo contrast was administered to enhance visualization of all leftventricular segments. Comparison Compared to prior exam of 10/07/2016: LVEF is severely reduced. Chamber Sizes and Function Mildly increased left ventricular size, normal wall thickness, severelyreduced global systolic function with an estimated EF of 10-20%. There issevere global left ventricular hypokinesis. Left atrial size is mildlyenlarged. Right ventricular cavity size is mildly enlarged, globalsystolic RV function is moderately reduced. The right atrium is mildlyenlarged. Right atrial volume index is 35 ml/m . Right atrial area is 21cm . The pulmonary artery is not well visualized. The sinus of Valsalvais normal sized. The ascending aorta is normal sized. Valves, RV Pressures and Diastolic Function The aortic valve is normal in structure, no stenosis and mildregurgitation. The mitral valve is normal in structure, trace mitralregurgitation. Indeterminate pattern of LV diastolic filling. Thetricuspid valve is normal in structure, mild tricuspid regurgitation. Thetricuspid regurgitant velocity is 2.5 m/s, the estimated right ventricularsystolic pressure is 25 mmHg plus right atrial pressure. There is normalestimated pulmonary pressure by tricuspid regurgitation velocity and rightatrial pressure. The pulmonic valve is not well visualized. Tracepulmonary regurgitation. Masses, Effusion, Shunts There is trivial pericardial effusion. The inferior vena cava is normalsized, respiratory size variation less than 50%. No left to right shuntingwas detected by limited color flow Doppler interrogation of theinteratrial septum. MEASUREMENTS AND CALCULATIONS 2-D Measurements and LV Function: LVID (d) 5.4 cm LV FS% (2D) 10 % LVID (s) 4.8 cm LVOT diameter 1.9 cm IVS (d) 0.9 cm HR 107 bpm LVPW (d) 1.0 cm LA Vol index 32 ml/m2 Ao Sinus 3.6 cm RA Vol index 35 ml/m2 Ao Sinus ULN 3.7 cm RA area 21 cm Asc Ao 3.9 cm RV Basal Diam 4.1 cm Asc Ao ULN 3.8 cm RV Mid Diam 2.6 cm LA 3.8 cm Aortic Valve: Vmax 1.4 m/s KATIA (V) 1.30 cm AI P 1/2 278 msec VTI 0.22 m KATIA (I) 1.28 cm LVOT V max 0.6 m/s Max PG 8 mmHg LVOT VTI 0.10 m Mean PG 5 mmHg SV 29 ml Dim Index 0.44 SV index 16 ml/m CO 3.1 l/min CI 1.7 l/min/m Tricuspid Valve and estimated PA pressures: TR Vmax 2.5 m/s TAPSE 1.6 cm TR maxG 25 mmHg Contrast documentation: 1 ml diluted Definity, lot #[id number], [facility]#[id number] was administered peripherally to enhance visualization of allleft ventricular segments. . This study was interpreted by an [facility] accredited facility. CC: [facility] (med [facility]) [facility]. Final us Maya Alstonwn Buchholtz [employer]OOK[employer] ECHO ORD F inal Result * (ABNORMAL) HPV HIGH RISK (11/14/2023 12:00 PM CDT) TYPE 16 Negative Negative 11/19/2023 2:05 PM CDT [facility] TYPE 18 Negative Negative 11/19/2023 2:05 PM CDT [facility] OTHER HIGH RISK TYPES Positive(A) Negative 11/19/2023 2:05 PM CDT [facility] Other (Cervical) 11/14/2023 12:00 PM [...] were undetectable or below the pre-set threshold. Methodology: Radha Olya 4800 HPV Test november Monique [facility] Final Resu lt [facility] [address] [place] [address], [place] from Last 3 Months or Most Recently [...] Code Status Discussion: Not Discussed Care Teams Welder Fabricator Relationship Specialty Start Date End Date Ciara Go MD [address] [place] [address] PCP - General Family Practice 04/12/19
--- NOTE | 2024-11-13 15:30 | CRLHL7_ITS ---
For Patients: As a result of the Century Cures Act, medical imaging exams and procedure reports are released immediately into your electronic medical record. You may view this report before your referring provider. If you have questions, please contact your health care provider. INDICATION: Shortness of breath TECHNIQUE: Two view chest. FINDINGS: Enlarged cardiac silhouette. Basilar atelectasis slight blunting the costophrenic angles could be related to small effusions/atelectasis. Small effusions posteriorly. Dictated by Anne Torres MD @ 11/13/2024 4:27:31 PM (Electronically Signed)
--- NOTE | 2024-11-13 15:32 | ED.GENADULT ---
HPI - General Adult General Chief complaint: Shortness of Breath/Dyspnea <Anh Rai MD - Last Filed: 11/13/24 15:39> Stated complaint: Abnormal Echo <Anh Rai MD - Last Filed: 11/13/24 15:39> Time Seen by Provider: 11/13/24 15:17 <Anh Rai MD - Last Filed: 11/13/24 15:39> Source: patient <Anh Rai MD - Last Filed: 11/13/24 15:39> Mode of arrival: ambulatory <Anh Rai MD - Last Filed: 11/13/24 15:39> Limitations: no limitations <Anh Rai MD - Last Filed: 11/13/24 15:39> History of Present Illness HPI narrative: 59-year-old female presenting today with shortness of breath. Shortness breath is been present for 2-3 weeks and has been progressively getting worse. She states that she can not get to the top of the stairs in her house without her pulse increasing into the 120s and her breathing becoming quite difficult. Her appetite has been good, she has been sleeping well. She states that she has gained about 10 lb in the last month despite eating less. Every now and then she does get a central chest pressure that comes and goes, not sustained. She was seen in the clinic in the last few days and had a chest x-ray done which showed small bilateral pleural effusions, she had an elevated D-dimer and had a subsequent chest CTA - that showed mild pulmonary edema, small bilateral pleural effusions, cardiomegaly and a dilated main pulmonary artery. BNP on 11/10/2024 was 10,700. She had an echocardiogram done on Friday, results were obtained today - EF of 10-20% with global hypokinesis. Patient was instructed to come to the ER for evaluation. <Anh Rai MD - Last Filed: 11/13/24 15:39> Related Data Home medications: Home Medications ?Medication ?Instructions ?Recorded ?Confirmed acyclovir 400 mg tablet 400 mg PO QDAY PRN 04/29/22 11/05/24 calcium 315 mg (as 1 tab PO QDAY 04/29/22 11/05/24 citrate)-vitamin D3 6.25 mcg (250 unit) tablet (Citracal + Vitamin D Maximum) cholecalciferol (vitamin D3) 50 50 mcg PO QDAY 04/29/22 11/05/24 mcg (2,000 unit) capsule ibuprofen 600 mg tablet 600 mg PO Q6H PRN 08/02/24 11/05/24 Previous Rx's ?Medication ?Instructions ?Recorded fluoxetine 40 mg capsule 40 mg PO QDAY #90 caps 06/18/24 docusate sodium 100 mg capsule 100 mg PO BID PRN Constipation 07/22/24 #100 caps amitriptyline 25 mg tablet 25 mg PO QHS #60 tabs 09/07/24 exemestane 25 mg tablet 25 mg PO QDAY #90 tabs 10/21/24 nitrofurantoin macrocrystal 50 mg 50 mg PO DAILY #90 caps 10/25/24 capsule oxybutynin chloride 10 mg 10 mg PO QDAY #90 tabs 10/25/24 tablet,extended release 24 hr omeprazole 40 mg capsule,delayed 40 mg PO QDAY #90 caps 10/28/24 release fluticasone propionate 110 2 puff inhalation BID 4 weeks #12 11/05/24 mcg/actuation HFA aerosol inhaler grams lorazepam 0.5 mg tablet 0.5 mg PO QHS PRN sleep #20 tabs 11/10/24 <Anh Rai MD - Last Filed: 11/13/24 15:39> Allergies/adverse reactions: Allergies Allergy/AdvReac Type Severity Reaction Status Date / Time aspirin Allergy Mild Hives Verified 11/13/24 15:10 neomycin Allergy Mild Rash Verified 11/13/24 15:10 Sulfa (Sulfonamide Allergy Mild Hives Verified 11/13/24 15:10 Antibiotics) bacitracin AdvReac Intermediate Verified 11/13/24 15:10 <Anh Rai MD - Last Filed: 11/13/24 15:39> Review of Systems Status of ROS: Reports: 10 or more systems reviewed and unremarkable except as noted in History and below <Anh Rai MD - Last Filed: 11/13/24 15:39> [facility] Medical History: Medical History Recurrent UTI ?N39.0 - Urinary tract infection, site not specified (ICD-10) Chronic gastroesophageal reflux disease ?K21.9 - Gastro-esophageal reflux disease without esophagitis (ICD-10) History of antineoplastic chemotherapy ?Z92.21 - Personal history of antineoplastic chemotherapy (ICD-10) Carcinoma of breast metastatic to axillary lymph node (2016) ?C50.919 - Malignant neoplasm of unspecified site of unspecified female breast (ICD-10) ?C77.3 - Secondary and unspecified malignant neoplasm of axilla and upper limb lymph nodes (ICD-10) Chronic low back pain ?M54.50 - Low back pain, unspecified (ICD-10) ?G89.29 - Other chronic pain (ICD-10) Genital herpes simplex ?A60.00 - Herpesviral infection of urogenital system, unspecified (ICD-10) Prolonged QT interval (2020) ?R94.31 - Abnormal electrocardiogram [ECG] [EKG] (ICD-10) Degenerative disc disease, cervical ?M50.30 - Other cervical disc degeneration, unspecified cervical region (ICD-10) Overweight (BMI 25.0-29.9) ?E66.3 - Overweight (ICD-10) Libido, decreased ?R68.82 - Decreased libido (ICD-10) Macrocytosis ?D75.89 - Other specified diseases of blood and blood-forming organs (ICD-10) Metabolic dysfunction-associated steatohepatitis (MASH) ?K75.81 - Nonalcoholic steatohepatitis (DANIELS) (ICD-10) LFT elevation ?R79.89 - Other specified abnormal findings of blood chemistry (ICD-10) Impingement syndrome, shoulder, left ?M75.42 - Impingement syndrome of left shoulder (ICD-10) 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 ?R87.612 - Low grade squamous intraepithelial lesion on cytologic smear of cervix (LGSIL) (ICD-10) Depression ?F32.A - Depression, unspecified (ICD-10) Anxiety ?F41.9 - Anxiety disorder, unspecified (ICD-10) History of abnormal cervical Pap smear ?Z87.42 - Personal history of other diseases of the female genital tract (ICD-10) Back pain ?M54.9 - Dorsalgia, unspecified (ICD-10) Genitourinary syndrome of menopause ?N95.8 - Other specified menopausal and perimenopausal disorders (ICD-10) <Anh Rai MD - Last Filed: 11/13/24 15:39> Surgical History: Surgical History Status post total abdominal hysterectomy and bilateral salpingo-oophorectomy (CAM-BSO) (07/20/24) ?Z90.710 - Acquired absence of both cervix and uterus (ICD-10) ?Z90.722 - Acquired absence of ovaries, bilateral (ICD-10) ?Z90.79 - Acquired absence of other genital organ(s) (ICD-10) History of colposcopy (11/05/22) ?Z98.890 - Other specified postprocedural states (ICD-10) History of breast surgery ?Z98.890 - Other specified postprocedural states (ICD-10) History of varicose vein ligation (1996) ?Z98.890 - Other specified postprocedural states (ICD-10) ?Z86.79 - Personal history of other diseases of the circulatory system (ICD-10) Status post loop electrosurgical excision procedure (LEEP) of cervix (05/19/19) ?Z98.890 - Other specified postprocedural states (ICD-10) Status post left breast lumpectomy (2016) ?Z98.890 - Other specified postprocedural states (ICD-10) History of foot surgery (1998) ?Z98.890 - Other specified postprocedural states (ICD-10) History of colposcopy (08/23/21) ?Z98.890 - Other specified postprocedural states (ICD-10) History of colonoscopy (03/01/19) ?Z98.890 - Other specified postprocedural states (ICD-10) History of bilateral ligation of fallopian tubes ?Z98.51 - Tubal ligation status (ICD-10) S/P ORIF (open reduction internal fixation) fracture (10/19/15) ?Z98.890 - Other specified postprocedural states (ICD-10) ?Z87.81 - Personal history of (healed) traumatic fracture (ICD-10) <Anh Rai MD - Last Filed: 11/13/24 15:39> Family History: Family History Paternal Grandfather Stroke Aunt Colon cancer, Onset Age: 70 Sister Alcohol dependence Alcoholic cirrhosis of liver with ascites Paternal Grandmother Brain aneurysm, Onset Age: 84 <Anh Rai MD - Last Filed: 11/13/24 15:39> Social History: Social History Narrative: . 1 child. 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 Nonsmoker (quite 2009, 15 pack-years). Social EtOH (5/week). Exercises 3-4 times/week walking. What is your current living situation?: I presently have a place to live Problems where you live: no known problems In the past 12 months, utilities in danger of being shut off: no In past 12 months, lack of transportation kept you from medical appts, meetings, work, or getting things needed for daily living: no In the past 12 mos, have been you worried that your food would run out before you had money to buy more?: never true In the past 12 mos, the food you bought just didn't last and you didn't have money to buy more?: never true Smoking Status: Never smoker Do you use any of these nicotine containing products: None How often do you have a drink containing alcohol: monthly or less Alcohol type: beer, wine and hard liquor How many standard drinks containing alcohol do you have on a typical day: 3 or 4 How often do you have six or more drinks on one occasion: Never AUDIT-C Alcohol total score: 2 Non-prescribed substance use: marijuana (any form) Caffeine: Yes How often does anyone, including family, friends and others, physically hurt you: never How often does anyone, including family, friends and others, insult or talk down to you: never How often does anyone, including family, friends and others, threaten you with harm: never How often does anyone, including family, friends and others, scream or curse at you: never Are you using contraception or practicing any form of control: No <Anh Rai MD - Last Filed: 11/13/24 15:39> Exam Narrative: Exam Narrative: Well-nourished well-developed patient in no acute distress. Alert and oriented. Answers questions appropriately. Mood and affect are appropriate. Thoughts are goal oriented and rational. No tangential or magical thinking noted. Patient speaks in full sentences without needing to catch her breath. HEENT: Normocephalic atraumatic. Pupils are equally round reactive to light. Extraocular muscles are intact. Conjunctivae are moist without any icterus noted. Moist mucous membranes. Neck is soft. Cardiovascular: Heart is regular rate and rhythm S1 and S2 are present without any murmurs. Lungs: Bibasilar crackles. No pain with deep inspiration. Abdomen: Soft and nontender nondistended with normal bowel sounds. Extremities: Bilateral lower extremities are without edema. Normal DP and PT pulses. Skin: Well perfused without any obvious rashes. <Anh Rai MD - Last Filed: 11/13/24 15:39> Const: Vital Signs, click to edit/add: Vital Signs - 24 hr 11/13/24 15:10 11/13/24 15:32 11/13/24 15:55 Temperature 98.1 F Pulse Rate 97 Pulse Rate [Pulse Oximeter] 100 Respiratory Rate 20 17 Blood Pressure 108/85 Blood Pressure [Ri ght Upper Arm] 114/83 Pulse Oximetry 93 95 98 Oxygen Delivery Me thod Room Air 11/13/24 16:30 11/13/24 17:04 Temperature Pulse Rate 101 H 98 Pulse Rate [Pulse Oximeter] Respiratory Rate 14 17 Blood Pressure 105/78 Blood Pressure [Ri ght Upper Arm] Pulse Oximetry 95 96 Oxygen Delivery Me thod <Anh Rai MD - Last Filed: 11/13/24 15:39> Vital Signs, click to edit/add: Vital Signs - 24 hr 11/13/24 15:10 11/13/24 15:32 11/13/24 15:55 Temperature 98.1 F Pulse Rate 97 Pulse Rate [Pulse Oximeter] 100 Respiratory Rate 20 17 Blood Pressure 108/85 Blood Pressure [Ri ght Upper Arm] 114/83 Pulse Oximetry 93 95 98 Oxygen Delivery Me thod Room Air 11/13/24 16:30 11/13/24 17:04 Temperature Pulse Rate 101 H 98 Pulse Rate [Pulse Oximeter] Respiratory Rate 14 17 Blood Pressure 105/78 Blood Pressure [Ri ght Upper Arm] Pulse Oximetry 95 96 Oxygen Delivery Me thod <Toni Rouse DO - Last Filed: 11/13/24 18:00> Course Course ED Course: From patient's recent workup in symptoms it does appear that she is in acute heart failure. EKG, read by me, shows normal sinus rhythm with a pulse of 98, prolonged QT, T-wave inversions in V5 and V6. IV is established and 20 mg of IV Lasix is ordered. Will repeat some blood work today including a BNP and chest x-ray to see if fluid buildup is getting worse. Care will be transferred to oncoming physician. <Anh aRi MD - Last Filed: 11/13/24 15:39> Vital Signs Vital signs: Initial Vital Signs Temperature 98.1 F 11/13/24 15:10 Temperature Source Temporal Artery Scan 11/13/24 15:10 Pulse Rate 100 11/13/24 15:10 Respiratory Rate 20 11/13/24 15:10 Blood Pressure 114/83 11/13/24 15:10 Blood Pressure Mean 93 11/13/24 15:10 Blood Pressure Position Semi-Fowlers 11/13/24 15:10 Pulse Oximetry 93 11/13/24 15:10 Oxygen Delivery Method Room Air 11/13/24 15:10 Vital Signs Temperature 98.1 F 11/13/24 15:10 Pulse Rate 100 11/13/24 15:10 Respiratory Rate 20 11/13/24 15:10 Blood Pressure 114/83 11/13/24 15:10 Pulse Oximetry 93 11/13/24 15:10 Oxygen Delivery Method Room Air 11/13/24 15:10 Temperature 98.1 F 11/13/24 15:10 Pulse Rate 98 11/13/24 17:04 Respiratory Rate 17 11/13/24 17:04 Blood Pressure 105/78 11/13/24 17:04 Pulse Oximetry 96 11/13/24 17:04 Oxygen Delivery Method Room Air 11/13/24 15:10 <Anh Rai MD - Last Filed: 11/13/24 15:39> Initial Vital Signs Temperature 98.1 F 11/13/24 15:10 Temperature Source Temporal Artery Scan 11/13/24 15:10 Pulse Rate 100 11/13/24 15:10 Respiratory Rate 20 11/13/24 15:10 Blood Pressure 114/83 11/13/24 15:10 Blood Pressure Mean 93 11/13/24 15:10 Blood Pressure Position Semi-Fowlers 11/13/24 15:10 Pulse Oximetry 93 11/13/24 15:10 Oxygen Delivery Method Room Air 11/13/24 15:10 Vital Signs Temperature 98.1 F 11/13/24 15:10 Pulse Rate 100 11/13/24 15:10 Respiratory Rate 20 11/13/24 15:10 Blood Pressure 114/83 11/13/24 15:10 Pulse Oximetry 93 11/13/24 15:10 Oxygen Delivery Method Room Air 11/13/24 15:10 Temperature 98.1 F 11/13/24 15:10 Pulse Rate 98 11/13/24 17:04 Respiratory Rate 17 11/13/24 17:04 Blood Pressure 105/78 11/13/24 17:04 Pulse Oximetry 96 11/13/24 17:04 Oxygen Delivery Method Room Air 11/13/24 15:10 <Toni Rouse DO - Last Filed: 11/13/24 18:00> Medications Administered Medications: Discontinued Medications Generic Name Dose Route Start Last Admin Trade Name Freq PRN Reason Stop Dose Admin Furosemide 20 mg 11/13/24 15:30 11/13/24 15:56 Furosemide 10 Mg/Ml Inj IVP 11/13/24 15:31 20 mg ONCE ONE Administration <Anh Rai MD - Last Filed: 11/13/24 15:39> Discontinued Medications Generic Name Dose Route Start Last Admin Trade Name Freq PRN Reason Stop Dose Admin Furosemide 20 mg 11/13/24 15:30 11/13/24 15:56 Furosemide 10 Mg/Ml Inj IVP 11/13/24 15:31 20 mg ONCE ONE Administration <Toni Rouse DO - Last Filed: 11/13/24 18:00> Medical Decision Making [facility] Narrative Medical decision making narrative: Patient is a 59-year-old female signed out be pending rest of her lab work. Troponin came back elevated 0.12. This is likely secondary to her heart failure. She is currently asymptomatic. Also has a BNP of 8760. This is actually lower than it was a few days ago. I went to evaluate again she continues to stay asymptomatic. Due to her level of heart failure and lab work I did speak to Dr. Bourgeois of [facility]. Due to the heart failure she recommends immediate transfer. Also recommends to do a lactate To make sure there is no signs of shock. Vital signs are stable at this time. Patient will be transferred. of note due to her history of breast cancer this heart failure may be related to her previous breast cancer medications. She really does not have any other risk factors that would make me think she would developed heart failure. <Toni Rouse, - Last Filed: 11/13/24 18:00> Lab Data Labs: Lab Results 11/13/24 Range/Units 15:55 WBC 5.28 (4.50-11.00) K/uL RBC 3.83 L (4.00-5.20) m/uL Hgb 13.5 (12.0-16.0) gm/dL Hct 40.7 (33.0-51.0) % MCV 106 H (80-100) fL MCH 35 H (26-34) pg MCHC 33 (32-36) gm/dL RDW Coeff of Srikanth 13.5 (11.5-15.5) % Plt Count 276 (140-440) K/uL Neut % (Auto) 65.7 (42.0-72.0) % Lymph % (Auto) 24.1 (20-44) % [place] % (Auto) 8.3 (0.0-11.0) % Eos % (Auto) 1.3 (0.0-7.0) % Baso % (Auto) 0.4 (0.0-3.0) % Neut # (Auto) 3.47 (1.7-7.0) K/uL Lymph # (Auto) 1.27 (0.90-2.90) K/uL [place] # (Auto) 0.40 (0.00-0.90) K/UL Eos # (Auto) 0.07 (0.00-0.50) K/uL Baso # (Auto) 0.02 (0.00-0.30) K/uL Abs Immat Gran (auto) 0.01 (0.00-0.30) K/uL Imm/Tot Granulo (auto) 0.2 % Sodium 140 (135-149) mmol/L Potassium 4.6 (3.6-5.1) mmol/L Chloride 103 (96-114) mmol/L Carbon Dioxide 27 (20-32) mmol/L Anion Gap 10 (7-15) mEq/L BUN 24 (7-30) mg/dL Creatinine 0.8 (0.5-1.5) mg/dL Estimated Creat Clear 78.27 Estimated GFR 86 ml/min Glucose 104 (60-115) mg/dL Calcium 9.4 (8.4-10.6) mg/dL Total Bilirubin 0.8 (0.1-1.5) mg/dL Direct Bilirubin 0.3 (0.0-0.5) mg/dL AST 42 H (12-35) U/L ALT 72 H (4-35) U/L Alkaline Phosphatase 66 (40-150) U/L Troponin I 0.12 H* (0.01-0.04) ng/mL NT-Pro-B Natriuret Pep 8760 pg/mL Total Protein 6.6 (6.0-8.3) g/dL Albumin 4.2 (3.3-5.0) g/dL SARS-CoV-2 (PCR) Negative SARS-CoV-2 (Negative) Influenza Type A (PCR) Negative PCR FLU A (Negative) Influenza Type B (PCR) Negative PCR FLU B (Negative) RSV (PCR) Negative PCR RSV (Negative) <Anh Rai MD - Last Filed: 11/13/24 15:39> Lab Results 11/13/24 Range/Units 15:55 WBC 5.28 (4.50-11.00) K/uL RBC 3.83 L (4.00-5.20) m/uL Hgb 13.5 (12.0-16.0) gm/dL Hct 40.7 (33.0-51.0) % MCV 106 H (80-100) fL MCH 35 H (26-34) pg MCHC 33 (32-36) gm/dL RDW Coeff of Srikanth 13.5 (11.5-15.5) % Plt Count 276 (140-440) K/uL Neut % (Auto) 65.7 (42.0-72.0) % Lymph % (Auto) 24.1 (20-44) % [place] % (Auto) 8.3 (0.0-11.0) % Eos % (Auto) 1.3 (0.0-7.0) % Baso % (Auto) 0.4 (0.0-3.0) % Neut # (Auto) 3.47 (1.7-7.0) K/uL Lymph # (Auto) 1.27 (0.90-2.90) K/uL [place] # (Auto) 0.40 (0.00-0.90) K/UL Eos # (Auto) 0.07 (0.00-0.50) K/uL Baso # (Auto) 0.02 (0.00-0.30) K/uL Abs Immat Gran (auto) 0.01 (0.00-0.30) K/uL Imm/Tot Granulo (auto) 0.2 % Sodium 140 (135-149) mmol/L Potassium 4.6 (3.6-5.1) mmol/L Chloride 103 (96-114) mmol/L Carbon Dioxide 27 (20-32) mmol/L Anion Gap 10 (7-15) mEq/L BUN 24 (7-30) mg/dL Creatinine 0.8 (0.5-1.5) mg/dL Estimated Creat Clear 78.27 Estimated GFR 86 ml/min Glucose 104 (60-115) mg/dL Calcium 9.4 (8.4-10.6) mg/dL Total Bilirubin 0.8 (0.1-1.5) mg/dL Direct Bilirubin 0.3 (0.0-0.5) mg/dL AST 42 H (12-35) U/L ALT 72 H (4-35) U/L Alkaline Phosphatase 66 (40-150) U/L Troponin I 0.12 H* (0.01-0.04) ng/mL NT-Pro-B Natriuret Pep 8760 pg/mL Total Protein 6.6 (6.0-8.3) g/dL Albumin 4.2 (3.3-5.0) g/dL SARS-CoV-2 (PCR) Negative SARS-CoV-2 (Negative) Influenza Type A (PCR) Negative PCR FLU A (Negative) Influenza Type B (PCR) Negative PCR FLU B (Negative) RSV (PCR) Negative PCR RSV (Negative) <Toni Rouse DO - Last Filed: 11/13/24 18:00> Discharge Plan Discharge Clinical Impression: Heart failure Qualifiers: Heart failure type: systolic Heart failure chronicity: unspecified Qualified Code(s): I50.20 - Unspecified systolic (congestive) heart failure <Anh Rai MD - Last Filed: 11/13/24 15:39> Patient Disposition: [facility] <Anh Rai MD - Last Filed: 11/13/24 15:39> Condition: Guarded <Anh Rai MD - Last Filed: 11/13/24 15:39> Prescriptions: No Action amitriptyline 25 mg tablet 25 mg PO QHS Qty: 60 0RF ibuprofen 600 mg tablet 600 mg PO Q6H PRN calcium citrate-vitamin D3 [Citracal + D Maximum] 315 mg-6.25 mcg (250 unit) tablet 1 tab PO QDAY acyclovir 400 mg tablet 400 mg PO QDAY PRN cholecalciferol (vitamin D3) 50 mcg (2,000 unit) capsule 50 mcg PO QDAY fluoxetine 40 mg capsule 40 mg PO QDAY Qty: 90 3RF fluticasone propionate 110 mcg/actuation HFA aerosol inhaler 2 puff inhalation BID 28 Days Qty: 12 1RF Rx Instructions: administer with spacer lorazepam 0.5 mg tablet 0.5 mg PO QHS PRN (Reason: sleep) Qty: 20 0RF docusate sodium 100 mg Capsule 100 mg PO BID PRN (Reason: Constipation) Qty: 100 0RF exemestane 25 mg tablet 25 mg PO QDAY Qty: 90 3RF Rx Instructions: must administer after a meal nitrofurantoin macrocrystal 50 mg capsule 50 mg PO DAILY Qty: 90 0RF Rx Instructions: Take daily after intercourse. oxybutynin chloride 10 mg tablet extended release 24hr 10 mg PO QDAY Qty: 90 3RF omeprazole 40 mg capsule,delayed release(DR/EC) 40 mg PO QDAY Qty: 90 1RF <Anh Rai MD - Last Filed: 11/13/24 15:39> Follow Up/Referrals: Ciara Go MD [Primary Care Provider] - <Anh Rai MD - Last Filed: 11/13/24 15:39> Stand Alone Forms: MyHealth Info Instructions <Anh Rai MD - Last Filed: 11/13/24 15:39>
[2024-11-13] MEDS: FUROSEMIDE 10 MG/ML inj 20 MG IVP (15:56)
[2024-11-13 16:06] LABS: Basophils Absolute Auto 0.02 K/uL (0.00-0.30); Basophils Percent Auto 0.4 % (0.0-3.0); Eosinophils Absolute Auto 0.07 K/uL (0.00-0.50); Eosinophils Percent Auto 1.3 % (0.0-7.0); Hematocrit 40.7 % (33.0-51.0); Hemoglobin* 13.5 gm/dL (12.0-16.0); Immature Granulocytes Abs Auto 0.01 K/uL (0.00-0.30); Immature Granulocytes Pct Auto 0.2 %; Lymphocytes Absolute Auto 1.27 K/uL (0.90-2.90); Lymphocytes Percent Auto 24.1 % (20-44); Mean Corpuscular HGB Conc 33 gm/dL (32-36); Mean Corpuscular Hemoglobin 35 pg (26-34); Mean Corpuscular Volume 106 fL (80-100); Monocytes Percent Auto 8.3 % (0.0-11.0); Neutrophils Absolute Auto 3.47 K/uL (1.7-7.0); Neutrophils Percent Auto 65.7 % (42.0-72.0); Platelet Count* 276 K/uL (140-440); RDW Coefficient of Variation % 13.5 % (11.5-15.5); Red Blood Count 3.83 m/uL (4.00-5.20); White Blood Count* 5.28 K/uL (4.50-11.00)
[2024-11-13 16:09] LABS: Slide Review Reflex No
[2024-11-13 16:18] LABS: Albumin* 4.2 g/dL (3.3-5.0); Chloride* 103 mmol/L (96-114)
[2024-11-13 16:19] LABS: Potassium* 4.6 mmol/L (3.6-5.1); Sodium* 140 mmol/L (135-149)
[2024-11-13 16:21] LABS: Alanine Aminotransferase* 72 U/L (4-35); Anion Gap 10 mEq/L (7-15); Aspartate Amino Transferase* 42 U/L (12-35); Blood Urea Nitrogen* 24 mg/dL (7-30); Carbon Dioxide* 27 mmol/L (20-32); Creatinine* 0.8 mg/dL (0.5-1.5); Est. Creatinine Clearance* 78.27; Estimated Glomerular Filt Rate 86 ml/min
[2024-11-13 16:22] LABS: Alkaline Phosphatase* 66 U/L (40-150); Bilirubin Direct* 0.3 mg/dL (0.0-0.5); Bilirubin Total* 0.8 mg/dL (0.1-1.5); Calcium* 9.4 mg/dL (8.4-10.6); Glucose* 104 mg/dL (60-115); Total Protein* 6.6 g/dL (6.0-8.3)
[2024-11-13 16:32] LABS: NT Pro B Type NatriureticPept* 8760 pg/mL
[2024-11-13 16:45] LABS: PCR FLU A Negative PCR FLU A (Negative); PCR FLU B Negative PCR FLU B (Negative); PCR RSV Negative PCR RSV (Negative); SARS PCR* Negative SARS-CoV-2 (Negative)
[2024-11-13 16:46] LABS: Troponin I* 0.12 ng/mL (0.01-0.04)
[2024-11-13 18:14] LABS: Lactate* 3.3 mmol/L (0.5-1.9)
== END 2024-11-13 20:13 | disposition short-term general hospital (02) ==
PROVIDERS: Family Medicine; Emergency Provider Student in an Organized Health Care Education/Training Program; PCP Family Medicine
DX: I50.9 Heart failure, unspecified (principal)
CPT/HCPCS: 36415; 71046; 80048; 80076; 83605; 83880; 84484; 85025; 87631; 93005; 94761; 96374; 96375; 99285; J1938

== ENCOUNTER 2024-11-26 08:30 | Outpatient (RCR) | payer OTHER, SELFPAY | END 2025-02-02 12:13 | disposition home or self-care (01) | PROVIDERS: PCP Family Medicine; Visit Provider Family Medicine | DX: M54.2 Cervicalgia (principal); G44.209 Tension-type headache, unspecified, not intractable; Z51.89 Encounter for other specified aftercare | CPT/HCPCS: 97035; 97110; 97112; 97140; 97162 ==

== ENCOUNTER 2024-11-27 13:06 | Emergency (ER) | payer OTHER, SELFPAY ==
[2024-11-27] VITALS (9 sets, daily range): BP systolic 99–111; BP diastolic 73–81; PULSE 86–98; RESP 20; TEMP 36.7; O2SAT 95–100
--- OUTSIDE RECORDS SUMMARY | 2024-11-27 13:09 | XMS_ITS | Clinical Summary ---
Author Organization [facility] Address [address] [place] [id number] Care Team Providers Care Monotype Caster Name Role Phone Ciara Lopes MD Primary Care Provider + Allergies Active Allergy Reactions Criticality Noted Date Comments Aspirin Hives Medium 11/05/2016 Sulfamethoxazole-Trimethoprim Contact Dermatitis 10/05/2020 Chlorhexidine Towelette Itching,Erythema Medium 2024 Neomycin Rash Medium 11/05/2016 Sulfa (Sulfonamide Antibiotics) Hives Medium 11/2016 Medications omeprazole (PRILOSEC) 40 mg Delayed-Release capsule Take 40 mg by mouth once daily. Active FLUoxetine (PROzac) 40 mg capsule Take 40 mg by mouth every morning. Active ibuprofen (ADVIL; MOTRIN) 600 mg tablet Take 600 mg by mouth 4 times daily if needed. Maximum of 3200 mg in 24 hours. Active acyclovir (ZOVIRAX) 400 mg tablet Take 400 mg by mouth once daily if needed. Active exemestane (AROMASIN) 25 mg tablet Take 25 mg by mouth once daily after a meal. Active estradioL (ESTRACE) 0.1 mg/g vaginal cream Insert 1 g into the vagina once daily if needed. 11 05/17/20 19 Active calcium citrate-vitamin d 315 mg-200 unit (CALCIUM CITRATE + D) 315 mg-5 mcg (200 unit) tablet Take 2 tablets by mouth once daily with a meal. Active oxybutynin XL (DITROPAN XL) 10 mg CR tabletIndicatio ns:Overactive bladder Take 1 Tablet (10 mg) by mouth once daily. 90 Tablet 05/23/20 22 Active LORazepam 0.5 mg tab Take 0.5 mg by mouth at bedtime. 11/11/19 25 Active amitriptyline 25 mg tablet Take 25 mg by mouth at bedtime. Active nitrofurantoin macrocrystaL 100 mg capsule Take 100 mg by mouth each time if needed (As UTI prophylaxis post intercourse). Best taken with high fat meal. Active loratadine 10 mg tablet Take 10 mg by mouth once daily. Active furosemide 40 mg tabletIndicatio ns:Biventricula r heart failure (HC) Take 1 Tablet (40 mg) by mouth once daily in the morning. 30 Tablet 3 5 12:01 PM CDT 11/17/19 25 Active spironolactone 25 mg tabletIndicatio ns:Biventricula r heart failure (HC) Take 1 Tablet (25 mg) by mouth once daily in the morning. 30 Tablet 3 5 12:01 PM CDT 11/17/19 25 Active thiamine 100 mg tabletIndicatio ns:Alcohol use disorder Take 1 Tablet (100 mg) by mouth once daily. 30 Tablet 11/16/19 25 Active losartan 25 mg tabletIndicatio ns:Biventricula r heart failure (HC) Take 1 Tablet (25 mg) by mouth once daily. 30 Tablet 3 5 12:01 PM CDT 11/17/19 25 Active digoxin 125 mcg (0.125 mg) tabletIndicatio ns:Biventricula r heart failure (HC) Take 1 Tablet (125 mcg) by mouth once daily. 30 Tablet 3 5 12:01 PM CDT 11/16/19 25 Active Jardiance 10 mg tabletIndicatio ns:Acute systolic heart failure (HC) Take 1 Tablet (10 mg) by mouth once daily. 30 Tablet 5 11/23/19 25 Active cholecalciferol (VITAMIN D-3) 2,000 unit capsule Take 2,000 units by mouth once daily. 025 Discontinued( Pharmacist change per medication history (E-cancel not sent)) INTRAROSA 6.5 mg inst Insert vaginally as needed 09/23/19 025 Discontinued( *Med complete/Keysha men complete/Leve l of care change) oxyCODONE (ROXICODONE) 5 mg immediate release tabletIndicatio ns:Radiation adverse effect, sequela Take 1-2 Tablets (5-10 mg) by mouth every 4 hours if needed for Pain. 30 Tablet 1 7:57 AM TRIM SAWYER 06/16/20 21 025 Discontinued( Pharmacist change per medication history (E-cancel not sent)) cetirizine (ZYRTEC) 10 mg tablet Take 1 Tablet (10 mg) by mouth once daily. 0 05/02/20 21 025 Discontinued( Pharmacist change per medication history (E-cancel not sent)) methocarbamoL (ROBAXIN) 750 mg tabletIndicatio ns:Radiation adverse effect, sequela Take 1 Tablet (750 mg) by mouth 4 times daily. 40 Tablet 1 7:57 AM TRIM SAWYER 06/16/20 025 Discontinued( Pharmacist change per medication history (E-cancel not sent)) fluticasone propionate 110 mcg/Actuation inhaler Inhale 2 Puffs by mouth two times daily. 11/06/19 025 Discontinued( *Patient states no longer taking) Active Problems Problem Noted Date Diagnosed Date Acute systolic heart failure 11/14/2024 History of left breast cancer 10/07/2016 Encounters Date Type Department Care Team Description 11/27/2024 Nurse Triage [facility] [address] [facility] [address] [place] [address] Jesús Lopez [facility] Shortness Of Breath 11/26/2024 Telephone [facility] [address] [facility] [address] [place] [address] Cindi Marroquin NP 11/19/2024 11:30 AM CDT Office Visit [facility] [address] [facility] [address] [place] [phone] Cindi Marroquin NP CV Heart Failure Discharge (Appointment Note//CHF PO HOSP FOLLOW UP/LABS PRIOR//) 11/19/2024 10:30 AM CDT Orders Only [facility] [address] [facility] [address] [place] [address] Lab 11/19/2024 Telephone [facility] [address] [facility] [address] [place] [address] Cindi Marroquin NP Follow Up (Entresto/SGLT2 Coverage) 11/18/2024 Travel 11/13/2024 9:14 PM CDT - 11/15/2024 3:15 PM CDT Hospital Encounter [facility] [address] [place] [address] [facility] Hospitalists [facility], MD Milo Tyler, MD Melissa Singh, Jon Caldera MD Biventricular heart failure (HC) (Primary Dx); Cardiovascular symptoms; Alcohol use disorder Discharge Disposition: Home Self Care 11/13/2024 Travel 11/13/2024 Telephone [facility] [address], [place] [address] Christine Bourgeois, [facility] 11/12/2024 2:00 PM CDT Ancillary Procedure [facility] & [address] [address] from Last 3 Months Immunizations Immunization Administration Dates Next Due COVID-19 vaccine ([employer] 30mcg/0.3mL) P F, MDV 08/15/2020,07/26/2020 Influenza, IIV3 [...] Used Date Smoking Tobacco: Former Cigarettes 1 2009 Smokeless Tobacco: Never Tobacco Cessation:Counseling Given: Yes Comments:quit 2009 Alcohol Use Standard Drinks/Week Comments Yes 5 (1 standard drink = 0.6 oz pur e alcohol) Social Connections Answer Date Recorded Do you often feel lonely or isolated from those around you? 0 11/13/2024 Financial Resource Strain Answer Date R ecorded Difficulty of Paying Living Expenses 3 11/13/2024 Difficulty of Paying Living Expenses Not on file 11/13/2024 Food Insecurity Answer Date Recorded Do you worry your food will run out before you are able to buy more? 1 11/13/2024 Transportation Needs Answer Date Record ed Does lack of transportation keep you from medica l appointments? 1 11/13/2024 Does lack of transportation keep you from work, meetings or getting things that you need? 1 11/13/2024 Housing Stability Answer Date Recorded What is your housing situation today? 1 11/13/2024 Interpersonal Safety Answer Date Record ed Are you being hit, kicked, p ushed or yelled at (see row info)? No 11/13/2024 Interpersonal Safety Abuse 12 - 18 Not on file 11/13/2024 Interpersonal Safety Ambulatory Vulnerability No t on file 11/13/2024 Utilities Answer Date Recorded Do you have trouble paying f or utilities (for example, heat, electricity, water, phone)? 1 11/13/2024 Comments No Sex and Gender Information Value Date Recorded Sex Assigned at Not on file Legal Sex Female 7:57 PM TRIM SAWYER Gender Identity Not on file Sexual Orientation Not on file Obstetrics History Last Filed Vital Signs Vital Sign Reading Time Taken Comments Blood Pressure 103/72 11/19/2024 11:12 AM CDT Pulse 93 11/19/2024 11:12 AM CDT Temperature 36.7 C (98 F) 11/15/2024 8:09 AM CDT Respiratory Rate 16 11/15/2024 8:09 AM CDT Oxygen Saturation 95% 11/19/2024 11:12 AM CDT Inhaled Oxygen Concentration - - Weight 69.4 kg (153 lb) 11/19/2024 11:12 AM CDT Height 172.7 cm (5' 7.99) 11/19/2024 11:12 AM C DT Body Mass Index 23.27 11/19/2024 11:12 AM CDT Plan of Treatment Upcoming Encounters Date Type Department Care Team (Late st Contact Info) Description 12/08/2024 9:00 AM CDT Orders Only [facility] [address] [place] [address] 12/08/2024 10:00 AM CDT Office Visit [facility] [address] [place] [address] Cindi Marroquin, [employer] [address] [place] [address] 01/05/2025 10:30 AM CDT Orders Only [facility] [address] [place] [address] [place] [address] 01/05/2025 11:30 AM CDT Office Visit [facility] [address] [place] [address] Jesús Lopez, [facility] [address] [place] [address] Health Maintenance Due Date Last Done Comments Depression screening for age 12+ 1979 Pneumococcal series for age 50+ (1 of 2 - PCV) 1986 Colonoscopy through age 75 2012 Mammogram for age 45-75 2012 COVID-19 vaccine series (3 - Pfizer risk series) 09/12/2020 08/15/2020, 07/26/2020 Tetanus booster 07/22/2024 07/22/2014, 07/12/2014 Influenza Vaccine (Season Ended) 2025 05/02/2021, 04/24/2021, 05/26/2020 BMI (ht and wt on same day) for age 18+ 11/19/2025 11/19/2024 Pap test for age 21-65 11/13/2026 4, 11/14/2023, 07/12/2022, Additional history exists Lipids for age 45-75 11/14/2029 11/14/2024 Tdap Completed 07/12/2014 Zoster (shingles) series for age 50+ Completed 09/02/2020, 06/03/2020 HIV for age 15-65 Completed 11/14/2024 Hepatitis C screening for ag e 18-79 Completed 11/15/2024 Procedures Procedure Name Priority Date/Time Associated Diagnosis Comments PRO-BNP Routine 11/19/2024 10:44 AM CDT Acute systolic heart failure (HC) BASIC METABOLIC PANEL Routine 11/19/2024 10:44 AM CDT Acute systolic heart failure (HC) SCAN CORRESP-EKG RESULTS 11/15/2024 1:49 PM CDT SCAN CORRESP-LABORATORY RESULTS 11/15/2024 1:49 PM CDT SCAN CORRESP-IMAGING 11/15/2024 1:49 PM CDT COMPREHENSIVE BLOOD GAS MIXED VENOUS Timed 11/15/2024 9:56 AM CDT COMPREHENSIVE BLOOD GAS ARTERIAL Timed 11/15/2024 9:53 AM CDT CVL CORONARY ANGIOGRAM POSS PCI Routine 11/15/2024 9:39 AM CDT Cardiovascular symptoms MAGNESIUM Add On 11/15/2024 7:14 AM CDT ANTI HCV Early AM 11/15/2024 7:14 AM CDT COMP METABOLIC PANEL Early AM 11/15/2024 7:14 AM CDT CBC W PLT NO DIFF Early AM 11/15/2024 7:1 4 AM CDT SCAN-CARDIAC STRIP 11/15/2024 1: 29 AM CDT PHOSPHATIDYLETHANOL, BLOOD Today 11/14/2024 3:29 PM CDT MAGNESIUM Timed 11/14/2024 3:29 PM CDT DRUG SCREEN RAPID URINE INHOUSE Today 11/14/2024 2:22 PM CDT MR CARDIAC WWO Routine 11/14/2024 9:29 AM CDT HBSAG (HBS) SAM 11/14/2024 7:29 AM CDT PRO-BNP SAM 11/14/2024 7:29 AM CDT ANTI HIV 1/2 SAM 11/14/2024 7:29 AM CDT FERRITIN SAM 11/14/2024 7:29 AM CDT TSH Early AM 11/14/2024 7:29 AM CDT LIPID PANEL Early AM 11/14/2024 7:29 AM CDT HEPATIC FUNCTION PANEL Early AM 7:29 AM CDT CBC W PLT NO DIFF Early AM 11/14/2024 7:2 9 AM CDT MAGNESIUM Early AM 11/14/2024 7:29 AM CDT CREATININE Early AM 11/14/2024 7:29 AM CDT POTASSIUM Early AM 11/14/2024 7:29 AM CDT SODIUM Early AM 11/14/2024 7:29 AM CDT TROPONIN T (HS) ONE TIME Timed 11/13/2024 11:46 PM CDT LACTATE VENOUS Today 11/13/2024 11:46 PM CDT C-REACTIVE PROTEIN Timed 11/13/2024 11 :46 PM CDT TROPONIN T (HS) ACUTE W/2HR REFLEX STAT 11/13/2024 10:39 PM CDT SCAN-CARDIAC STRIP 11/13/2024 9: 22 PM CDT ECHO TTE COMPLETE W CONTRAST Routine 11/12/2024 3:02 PM CDT Cardiomegaly HPV HIGH RISK Routine 11/14/2023 12:00 PM CDT from Last 3 Months or Most Recently Relevant to Health Maintenance Results * (ABNORMAL) PRO-BNP (11/19/2024 10:44 AM CDT) Only the most recent of2 resultswithin the time period is included. [facility] Signature PRO-BNP 1,441(H) <125 pg/mL 11/19/2024 11:57 AM CDT [facility] Blood BLOOD SPECIMEN / Unknown Venipuncture / Unknown 11/19/2024 10:44 AM CDT 11/19/2024 10:44 AM CDT [facility] LABORATORY - 11/19/2024 11:57 AM CDT The following cut-points have been suggested for the use of proBNP for the diagnostic evaluation of heart failure (HF) in patient with acute dyspnea. Patients with eGFR >= 60 Diagnosis (rule in CHF) <50 Years Old 450 pg/mL 50 - 75 Years Old 900 pg/mL >75 Years Old 1800 pg/mL Exclusion (rule out CHF) Age Independent 300 pg/mL A cutoff of 1200 pg/mL for patients with an eGFR <60 yields a diagnostic sensitivity of 89% and specificity of 72% for acute congestive heart failure. us Cindi Marroquin NP SEND OUTS Final Resu lt [facility] [address] [place] [address], [place] * (ABNORMAL) BASIC METABOLIC PANEL (11/19/2024 10:44 AM CDT) SODIUM 136 136 - 145 mmol/L 11/19/2024 11:56 AM CDT [facility] TR[facility] LAB[facility] POTASSIUM 4.4 3.5 - 5.1 mmol/L 11/19/2024 11:56 AM CDT [facility] LAB[facility] CHLORIDE 98 98 - 107 mmol/L 11/19/2024 11:56 AM CDT [facility] CO2,TOTAL 26 22 - 29 mmol/L 11/19/2024 11:56 AM CDT [facility] ANION GAP 12 5 - 18 11/19/2024 11:56 AM CDT [facility] GLUCOSE 66(L) 70 - 99 mg/dL 11/19/2024 11:56 AM CDT [facility] CALCIUM 9.6 8.8 - 10.4 mg/dL 11/19/2024 11:56 AM CDT [facility] Comment: Reference ranges for this test were updated on 06/08/2024 to reflect our healthy population more accurately. Reference range changes are not retroactively applied to results, but previous results using the same methodology can be interpreted in the context of the new reference range. BUN 21(H) 6 - 20 mg/dL 11/19/2024 11:56 AM CDT [facility] CREATININE 1.08(H) 0.50 - 0.90 mg/dL 11/19/2024 11:56 AM CDT [facility] TR[facility] LAB[facility] BUN/CREAT RATIO 19 10 - 20 11:56 AM CDT [facility] eGFR 60(L) >90 mL/min/1. 73m2 11/19/2024 11:56 AM CDT [facility] Comment:As of 2021, eG FR is calculated by the CKD-EPI creatinine equation without race adjustment. eGFR can be influenced by muscle mass, exercise, and diet. The reported eGFR is an estimation only and is only applicable if the renal function is stable. Blood BLOOD SPECIMEN / Unknown Venipuncture / Unknown 11/19/2024 10:44 AM CDT 11/19/2024 10:44 AM CDT us Cindi Marroquin [employer] CHEMISTRY Final Resu lt [facility] [address] [place] [address], [place] * SCAN CORRESP-LABORATORY RESULTS (11/15/2024 1:49 PM CDT) Narrative 11/15/2024 1:49 PM CDT Ordered by an unspecified provider. us Other Clinical Staff OTHER Final Resul t * SCAN CORRESP-EKG RESULTS (11/15/2024 1:49 PM CDT) Narrative 11/15/2024 1:49 PM CDT Ordered by an unspecified provider. us Other Clinical Staff OTHER Final Resul t * SCAN CORRESP-IMAGING (11/15/2024 1:49 PM CDT) Anatomical Region Laterality Modality Other Narrative 11/15/2024 1:49 PM CDT Ordered by an unspecified provider. Other Clinical Staff OTHER Final Resul t * (ABNORMAL) COMPREHENSIVE BLOOD GAS MIXED VENOUS (11/15/2024 9:56 AM CDT) O2 SATURATION, MEASURED, MIXED VENOUS 59(L) 70 - 75 % 11/15/2024 9:56 AM CDT [facility] LAB[facility] PATIENT TEMPERATURE 37.0 Degrees C 11/15/2024 9:56 AM CDT [facility] COLLECTION SITE PULMONARY ARTERY 11/15/2024 9:56 AM CDT [facility] NTRAL LABORATORY HEMOGLOBIN,BLOO D GAS 14.0 12.0 - 16.0 g/dL 11/15/2024 9:56 AM CDT [facility] NTRAL LABORATORY Blood BLOOD SPECIMEN / Unknown 11/15/2024 9:56 AM CDT 11/15/2024 9:56 AM CDT [facility] CHEMISTRY Final Re sult Performing Organization Address [facility]/ZIP Co de Phone Number [facility] [address] [place] [id number], [place] * COMPREHENSIVE BLOOD GAS ARTERIAL (11/15/2024 9:53 AM CDT) PH, ARTERIAL 7.40 7.35 - 7.45 11/15/2024 9:53 AM CDT [facility] LAB[facility] PCO2, ARTERIAL 42 32 - 45 mmHg 11/16/19 9:53 AM CDT [facility] PO2, ARTERIAL 99 83 - 108 mmHg 11/15/2024 9:53 AM CDT [facility] HCO3, ARTERIAL 26 21 - 28 mmol/L 11/15/2024 9:53 AM CDT [facility] LAB[facility] BASE EXCESS, ARTERIAL 1.0 -2.0 - 3.0 11/15/2024 9:53 AM CDT [facility] LAB[facility] O2 SATURATION, ARTERIAL 98 94 - 98 % 11/15/2024 9:53 AM CDT [facility] LAB[facility] PATIENT TEMPERATURE 37.0 Degrees C 11/15/2024 9:53 AM CDT [facility] Blood BLOOD SPECIMEN / Unknown 11/15/2024 9:53 AM CDT 11/15/2024 9:53 AM CDT [facility] CHEMISTRY Final Re sult Performing Organization Address City/[facility]/ZIP Co de Phone Number [facility] [address] [place] [id number], [place] * CVL CORONARY ANGIOGRAM POSS PCI (11/15/2024 9:39 AM CDT) Anatomical Region Laterality Modality Other 11/15/2024 9:39 AM CDT Narrative Transcriptions Jaime Murrieta MD - 11/15/2024 12:02 PM CDT [facility] Cardiac Catheterization Report Name: SATISH TURK Event Date: 11/15/2024 09:39 [facility] ID #: [id number] VERNON #: [id number] Patient Class: Inpatient Diagnostic Physician: JAIME MURRIETA [facility] Referring Physician: Ciara Lopes Primary Care Physician: CIARA LOPES Date: 1965 Gender: Female Age: 59 Summary/Conclusions PRESENTATION / INDICATIONS * Elective VASCULAR ACCESS * Using ultrasound guidance and a percutaneous technique, the rightinternal jugular vein was accessed. Ultrasound was used to confirm vesselpatency, localizing needle into the lumen of the vessel. An image wassaved for the medical record. * Using ultrasound guidance and a percutaneous technique, the right radialartery was accessed. Ultrasound was used to confirm vessel patency,localizing needle into the lumen of the vessel. An image was saved for themedical record. DIAGNOSTIC - CORONARY * Normal coronary arteries in a right dominant system DIAGNOSTIC SUMMARY ? The LMCA is free of significant disease. ? The LAD is free of significant disease. ? The Circumflex is free of significant disease. ? The RCA is dominant and is free of significant disease. LEFT VENTRICULAR FUNCTION ? LV Pressure = 107/24. HEMODYNAMICS ? RA=9; RV=31/13; PW=19; PA=33/24, mean 28; Axel CO 3.2, CI 1.8 RECOMMENDATIONS & PLAN * Next steps as per the advanced HF team. Consent & [place] Protocol The risks, benefits, and alternatives of the procedure were discussed withthe patient and written informed consent was obtained. [place] protocol was followed. TIME OUT conducted just prior tostarting procedure confirmed patient identity, site/side, procedure,patient position, and availability of correct equipment and implants (ifapplicable). Staff Name Title Jaime Murrieta Diagnostic Supplemental Nurse Chantale Snyder RN Nurse Jose Grimm CVT Scrub Carmen Koch CVT Monitor Procedures ? Ultrasound Guided Vascular Access ? Coronary Angiogram ? Right Heart Catheterization ? Left Heart Cath No Ventriculogram Diagnostic Findings * Left Main Coronary Artery ? The LMCA is free of significant disease. * Left Anterior Descending ? The LAD is free of significant disease. * Circumflex ? The Circumflex is free of significant disease. * Right Coronary Artery ? The RCA is dominant and is free of significant disease. Hemodynamics State: Baseline Pressures (mmHg) Site Systolic Diastolic End Diastolic A Wave V Wave Mean LV 110 11 22 AO 107 80 94 RA 10 9 9 RV 31 10 13 PCW 21 20 19 PA 33 24 28 LV 107 13 24 Oximetry AO: 97.9 % PA: 59.3 % Cardiac Output Estimated Axel Output: 3.23 l/min Estimated Axel Index: 1.76 l/min/m2 Resistances PVR: [id number] PVR Index: 408.11 SVR: [id number] SVR Index: 3854.34 PVR/SVR: 0.11 Blood Flow Pulmonary (QP): 3.23 l/min Systemic (QS): 3.23 l/min Procedure Details Estimated Blood Loss: < 30 ml Specimen Collected: None Level of Sedation Achieved: Moderate Procedure Start: 09:39 Procedure End: 10:03 Procedure Time: 24 min Fluoroscopy Time: 3.3 min Cumulative Air Kerma: 137 mGy DAP: 1120 uGy/M2 Contrast: Omnipaque (low-osmolar), 35 ml Physiologic Data Hemoglobin: 13.5 g/dl Weight: 69.7 kg BSA: 1.83 m2 Vascular Access Time Access Sheath Size 09:44 Right IJ Vein, sheath inserted 09:48 Right Radial Artery, sheath inserted Complications ? No Complications Medications Ordered and Administered Start Time Stop Time Medication Dose Units Route Ordered By Given By 09:33 Versed 1 mg IV Jaime Murrieta Tammy RN 09:33 Fentanyl 50 mcg IV Jaime Murrieta Tammy RN 09:37 Versed 1 mg IV Jaime Murrieta Tammy RN 09:37 Fentanyl 50 mcg IV Jaime Murrieta Tammy RN 09:42 1% Lidocaine 5 ml Subcut Jaime Murrieta Yader 09:48 1% Lidocaine 3 ml Subcut Jaime Murrieta Yader 09:52 Heparin 5000 units IV Jaime Murrieta Tammy RN I personally monitored the patient?s conscious sedation during theprocedure. Conscious sedation starts with the first sedation medication dose ofFentanyl or Versed and ends when the procedure is completed, the patientis stable for recovery status, and the physician or other qualified healthcare professional providing the sedation ends personal [id number] time with the patient. The medications listed above were verbally ordered by me and read back tome as documented above. Refer to the procedure log report for additional case details. electronically signed on 11/15/2024 12:02:43 PM with status of Final Jaime Martinez MD [facility] [address] [address] (p) [phone](f) Provider Referring CV IMAGING Edited Result - Final * ANTI HCV (11/15/2024 7:14 AM CDT) HEPATITIS C ANTIBODY Non-Reacti ve Non-React yon 11/15/2024 8:36 AM CDT [facility] TR[facility] LAB[facility]ATORY Comment:Please note, per www .CDC.gov: If a patient is known to be at high risk of HCV infection, or is symptomatic, and the physician's suspicion of HCV infection is high, HCV RNA testing is often employed and is of diagnostic value, even after an initial negative anti-HCV test result. Blood BLOOD SPECIMEN / Unknown Venipuncture / Unknown 11/15/2024 7:14 AM CDT 11/15/2024 7:50 AM CDT Jesús Lopez [facility] SEND OUTS Final Result [facility] [address] [place] [address], [place] * (ABNORMAL) CBC no diff AM (11/15/2024 7:14 AM CDT) Only the most recent of2 resultswithin the time period is included. WHITE BLOOD COUNT 3.8(L) 4.5 - 11.0 thou/cu mm 11/15/2024 7:56 AM CDT [facility] TR[facility] LAB[facility] RED BLOOD COUNT 3.90(L) 4.00 - 5.20 mil/cu mm 11/15/2024 7:56 AM CDT [facility] HEMOGLOBIN 13.5 12.0 - 16.0 g/dL 11/15/2024 7:56 AM CDT [facility] LAB[facility] HEMATOCRIT 40.2 33.0 - 51.0 % 11/15/2024 7:56 AM CDT [facility] LAB[facility] MCV 103(H) 80 - 100 fL 11/15/2024 7:56 AM CDT [facility] MCH 34.6(H) 26.0 - 34.0 pg 11/15/2024 7:56 AM CDT [facility] MCHC 33.6 32.0 - 36.0 g/dL 11/15/2024 7:56 AM CDT [facility] LAB[facility] RDW 13.5 11.5 - 15.5 % 11/15/2024 7:56 AM CDT [facility] PLATELET COUNT 232 140 - 440 thou/cu mm 11/15/2024 7:56 AM CDT [facility] [facility] MPV 9.4 6.5 - 11.0 fL 11/15/2024 7:56 AM CDT [facility] TRAL LABORATORY NRBC 0.0 % 11/15/2024 7:56 AM CDT [facility] TRAL LABORATORY ABS NRBC 0.0 thou /cu mm 11/15/2024 7:56 AM CDT [facility] TRAL LABORATORY Blood BLOOD SPECIMEN / Unknown Venipuncture / Unknown 11/15/2024 7:14 AM CDT 11/15/2024 7:49 AM CDT [facility] HEMATOLOGY Final Result Performing Organization Address City/[facility]/ZIP Co de Phone Number [facility] [address] [place] [address], * MAGNESIUM (11/15/2024 7:14 AM CDT) Only the most recent of3 resultswithin the time period is included. MAGNESIUM 2.3 1.6 - 2.6 mg/dL 11/15/2024 8:17 AM CDT [facility] Blood BLOOD SPECIMEN / Unknown Venipuncture / Unknown 11/15/2024 7:14 AM CDT 11/15/2024 7:50 AM CDT Jon Torres MD CHEMISTRY Final R esult Performing Organization Address City/[facility] Co de Phone Number [facility] [address] [place] [address], [place] * (ABNORMAL) COMP METABOLIC PANEL (11/15/2024 7:14 AM CDT) SODIUM 139 136 - 145 mmol/L 11/15/2024 8:17 AM CDT [facility] TRAL LABORATORY POTASSIUM 4.8 3.5 - 5.1 mmol/L 11/15/2024 8:17 AM CDT [facility] TRAL LABORATORY CHLORIDE 105 98 - 107 mmol/L 11/15/2024 8:17 AM CDT [facility] TRAL LABORATORY CO2,TOTAL 25 22 - 29 mmol/L 11/15/2024 8:17 AM CDT [facility] TRAL LABORATORY ANION GAP 9 5 - 18 11/15/2024 8:17 AM CDT [facility] TRAL LABORATORY GLUCOSE 111(H) 70 - 99 mg/dL 11/15/2024 8:17 AM CDT [facility] TRAL LABORATORY CALCIUM 9.0 8.8 - 10.4 mg/dL 11/15/2024 8:17 AM CDT [facility] TRAL LABORATORY Comment: Reference ranges for this test were updated on 06/08/2024 to reflect our healthy population more accurately. Reference range changes are not retroactively applied to results, but previous results using the same methodology can be interpreted in the context of the new reference range. BUN 21(H) 6 - 20 mg/dL 11/15/2024 8:17 AM CDT [facility] TRAL LABORATORY CREATININE 0.83 0.50 - 0.90 mg/dL 11/15/2024 8:17 AM CDT [facility] BUN/CREAT RATIO 25(H) 10 - 20 8:17 AM CDT [facility] TRAL LABORATORY eGFR 82(L) >90 mL/min/1. 73m2 11/15/2024 8:17 AM T [facility] TRA LABORATORY Comment:As of 2021, eG FR is calculated by the CKD-EPI creatinine equation without race adjustment. eGFR can be influenced by muscle mass, exercise, and diet. The reported eGFR is an estimation only and is only applicable if the renal function is stable. ALBUMIN 3.7(L) 4.0 - 4.9 g/dL 11/15/2024 8:17 AM CDT [facility] TRAL LABORATORY PROTEIN,TOTAL 5.9(L) 6.0 - 8.0 g/dL 11/15/2024 8:17 AM T [facility] TRA LABORATORY BILIRUBIN,TOTAL 0.4 0.0 - 1.2 mg/dL 11/15/2024 8:17 AM CDT [facility] TRA LABORATORY ALK PHOSPHATASE 71 35 - 104 IU/L 11/15/2024 8:17 AM T [facility] TRAL LABORATORY ALT (SGPT) 50(H) 10 - 35 IU/L 11/15/2024 8:17 AM CDT [facility] TRA LABORATORY AST (SGOT) 29 10 - 35 IU/L 11/15/2024 8:17 AM T [facility] Blood BLOOD SPECIMEN / Unknown Venipuncture / Unknown 11/15/2024 7:14 AM CDT 11/15/2024 7:50 AM CDT [facility] CHEMISTRY Final Result [facility] [address] [place] [address], [place] * SCAN-CARDIAC STRIP (11/15/2024 1:29 AM CDT) Scanner OTHER Final Result * (ABNORMAL) PHOSPHATIDYLETHANOL, BLOOD (11/14/2024 3:29 PM CDT) [facility] Phosphatidylethanol Positive (A) 11/19/2024 11:[address] [facility] ([facility]) Phosphatidylethanol (PEth) 195 ng/mL 11/19/2024 11:09 AM CDT [facility] (CET) Comment: Analyzed compound: PEth 16:0/18:1. 6-[id number]-cy-pitspdg-3-phosphoethanol. Analysis performed by Liquid Chromatography with Tandem Mass Spectrometry (LC/MS/MS). Detection limit: 20 ng/mL PEth levels in excess of 20 ng/mL are considered evidence of moderate to heavy ethanol consumption. However, the Center for Substance Abuse Treatment (CSAT) advises caution in interpretation and use of biomarkers alone to assess alcohol use. Results should be interpreted in the context of all available clinical and behavioral information. Reference: Substance Abuse and Mental Health Services Administration (2012). The Role of Biomarkers in the Treatment of Alcohol Use Disorders, 2012 Revision. Advisory, Volume 11, Issue 2. This test was developed and its performance characteristics determined by [employer]. It has not been cleared or approved by the Food and Drug Administration. Blood BLOOD SPECIMEN / Unknown Butterfly / Unknown 11/14/2024 3:29 PM CDT 11/14/2024 3:58 PM CDT Narrative [facility] (CET) - 11/19/2024 11:09 AM CDT Performed at: - [employer] [address] [place] [address] [id number] Distribution Operations Manager: Yadira Montelongo [facility], Phone: [phone] Jesús Travisgildardo [facility] SEND OUTS Final Result [facility] ([facility]) [address] [place] [address], * (ABNORMAL) Drug screen, rapid urine inhouse TODAY (11/14/2024 2:22 PM CDT) THC METABOLITES,MARCO L Not Detected Not Detected 11/14/2024 3:05 PM CDT [facility] LABORAT[facility] PCP,QUAL Not Detected Not Detected 11/14/2024 3:05 PM CDT [facility] COCAINE,QUAL Not Detected Not Detected 11/14/2024 3:05 PM CDT [facility] METHAMPHETAMINE , QUALITATIVE Not Detected Not Detected 11/14/2024 3:05 PM CDT [facility] OPIATES,QUAL Not Detected Not Detected 11/14/2024 3:05 PM CDT [facility] AMPHETAMINE, QUALITATIVE Not Detected Not Detected 11/14/2024 3:05 PM CDT [facility] BENZODIAZEPINES ,QUAL Not Detected Not Detected 11/14/2024 3:05 PM CDT [facility] TRICYCLICS,QUAL Non-negative , consider further testing if indicated(A) Not Detected 11/14/2024 3:05 PM CDT [facility] METHADONE, QUALITATIVE Not Detected Not Detected 11/14/2024 3:05 PM CDT [facility] BARBITURATES,QU AL Not Detected Not Detected 11/14/2024 3:05 PM CDT [facility] OXYCODONE, QUALITATIVE Not Detected Not Detected 11/14/2024 3:05 PM CDT [facility] BUPRENORPHINE, QUALITATIVE Not Detected Not Detected 11/14/2024 3:05 PM CDT [facility] Urine URINE SPECIMEN / Unknown Non-Blood / Unknown 11/14/2024 2:22 PM CDT 11/14/2024 2:33 PM CDT [facility] LABORATORY - 11/14/2024 3:05 PM CDT Please Note: This is a screening test only, all results are unconfirmed and should be used for medical purposes only. Unconfirmed results must not be used for non-medical purposes (e.g., employment testing, legal testing). Suggest analyte specific confirmation for all non-negative results. Specimens will be held for 24 hours if additional testing is needed. The following threshold concentrations are used for this analysis: Drug Screening Threshold Buprenorphine 10 ng/mL PCP 25 ng/mL THC Metabolites 50 ng/mL *Opiates 100 ng/mL Oxycodone 100 ng/mL Cocaine 150 ng/mL Benzodiazepines 150 ng/mL Methadone 200 ng/mL Barbiturates 200 ng/mL Tricyclic Antidepressants 300 ng/mL Amphetamines 500 ng/mL Methamphetamines 500 ng/mL *Includes related compounds: Codeine 50 ng/mL Heroin 100 ng/mL Morphine 100 ng/mL Hydrocodone 400 ng/mL Hydromorphone 800 ng/mL Venlafaxine (Effexor) is a known cross reactant in the PCP assay. If clinically indicated, order PCP confirmation. Jesús [facility] URINE Final Result [facility] [address] [place] [address], * MR CARDIAC WWO (11/14/2024 9:29 AM CDT) Anatomical Region Laterality Modality HEART, THORAX Magnetic Resonan ce 11/14/2024 8:37 AM CDT Narrative 11/14/2024 11:34 AM CDT [facility] [place] [facility] CMR Report Name: SATISH TURK : Scan Date: Accession Number: [id number] Status: Final Electronically signed by Lobo Baeza 11:34:09 VITALS ===== HEIGHT: 68 in (173 cm) WEIGHT: 154 lbs (70 kgs) BSA: 1.83 m^2 BASELINE HR: 94 BPM HEART RHYTHM: Normal Sinus Rhythm FINAL IMPRESSION ===== 1. Severe nonspecific nonischemic biventricular cardiomyopathy: - nonspecific fibrosis in the basal anteroseptum and anterolateral wall - diffusely increase interstitial fibrosis with ECV of 33% - no evidence of myocardial infarction - findings are not suggestive of myocarditis or cardiac amyloidosis. 2. Left ventricle is severely enlarged with normal wall thickness, severely decreased systolic function, and akinesis of the entire inferior and inferoseptal rod. Calculated LVEF is 14%. 3. Right ventricle is moderately enlarged with severely reduced systolic function. Calculated RVEF is 16%. 4. Trileaflet aortic valve with mild-moderate regurgitation. 5. Small bilateral pleural effusions. 6. Mildly enlarged ascending aorta: 40 x 40 mm. SUMMARY ===== LEFT VENTRICLE: Quantitative LVEF 14 %. LV wall thickness is normal. LV cavity is severely enlarged. LV systolic function is severely decreased globally. VIABILITY: LV scar size is 3 %. RIGHT VENTRICLE: Quantitative RVEF 16 %. RV wall thickness is normal. RV is moderately enlarged. RV systolic function is severely decreased globally. LV/RV SEPTUM: The LV/RV septum is normal. LEFT ATRIUM: LA cavity size is normal. RIGHT ATRIUM: RA cavity size is normal. PERICARDIUM: There is a small pericardial effusion. PLEURAL EFFUSION: There is a small right pleural effusion. There is a small left pleural effusion. AORTIC VALVE: Aortic valve is trileaflet. There is no aortic stenosis. There is mild-moderate aortic regurgitation. Aortic regurgitant fraction 19 %. MITRAL VALVE: Mitral valve leaflets are normal. There is no mitral stenosis. There is mild mitral regurgitation. TRICUSPID VALVE: Tricuspid valve leaflets are normal. There is no tricuspid stenosis. PULMONIC VALVE: Pulmonic valve leaflets are normal. There is no pulmonic stenosis. There is trivial pulmonic regurgitation. AORTIC ROOT: The aortic root is normal. OTHER FINDINGS: Thoracic aorta Left sided arch Ascending 40 x 40 mm Descending 23 x 23 mm CORE EXAM ===== MEASUREMENTS ----- --- VOLUMETRIC ANALYSIS . . LV Reference RV Reference +------+ +------+ +------+ + EDV ml 255 (86-166) 217 (81-166) ml/m^2 139 (56-90) 119 (53-90) ESV ml 220 (22-59) 183 (15-68) ml/m^2 120 (14-33) 100 (11-37) CO L/min 3.29 3.20 L/min/m^2 1.80 1.75 MASS g 121 (72-144) g/m^2 66 (48-78) SV ml 35 (57-113) 34 (56-108) ml/m^2 19 (37-62) 19 (36-60) EF % 14 (59-77) 16 (55-79) '------+ +------+ +------+ ' LV DIMENSIONS WALL THICKNESS - ANTEROSEPTAL: 0.7 cm WALL THICKNESS - INFEROLATERAL: 0.5 cm LA DIMENSIONS (LV SYSTOLE) VOLUME: 91 ml VOLUME NORMALIZED: 49.8 ml/m^2 RA DIMENSIONS (RV SYSTOLE) VOLUME: 77 ml VOLUME NORMALIZED: 42.1 ml/m^2 EXTRACELLULAR VOLUME MEASUREMENT PRE-CONTRAST T1 MYOCARDIUM: 1120 msec ECV: 33 % 17 SEGMENT ----- --- . ----- -------. Segments Wall Motion Hyperenhancement Stress Perfusion Interpretation + + + + +---- ----- -------+ Base Anterior Severe Hypo None Base Anteroseptal Severe Hypo 26-50% Non-CAD Scar Base Inferoseptal Akinetic None Base Inferior Akinetic None Base Inferolateral Severe Hypo None Base Anterolateral Mild/Mod Hypo 1-25% Non-CAD Scar Mid Anterior Severe Hypo None Mid Anteroseptal Severe Hypo None Mid Inferoseptal Akinetic None Mid Inferior Akinetic None Mid Inferolateral Akinetic None Mid Anterolateral Severe Hypo None Apical Anterior Severe Hypo None Apical Septal Severe Hypo None Apical Inferior Akinetic None Apical Lateral Severe Hypo None [place] Severe Hypo None + + + + +---- ----- -------+ RV Segments Wall Motion Hyperenhancement Interpretation + + + + +---- ----- -------+ RV Basal Anterior RV Basal Inferior RV Mid RV Apical ' + + + +---- ----- -------' FINDINGS LV SCAR SIZE (17 SEGMENT): 3 % SCAN INFO ===== GENERAL ----- --- SCANNER BUSINESS DEVELOPMENT ENGINEER: SIEMENS MODEL: Aera CONTRAST AGENT TYPE: Gadavist GD CONCENTRATION: 1.0 M SETUP REASON(S) FOR SCAN: Ischemic vs nonischemic REFERRING PHYSICIAN: LEONA BUSTAMANTE ATTENDING PHYSICIAN: DOV BARBOSA BILLING ===== Patient Account [id number] Report generated by [employer], a product of [employer] Procedure Note Lobo Baeza MD - 11/14/2024 [place] [facility] CMR Report Name: SATISH TURK : Scan Date: Accession Number: [id number] Status: Final Electronically signed by Lobo Baeza 11:34:09 VITALS ===== HEIGHT: 68 in (173 cm) WEIGHT: 154 lbs (70 kgs) BSA: 1.83 m^2 BASELINE HR: 94 BPM HEART RHYTHM: Normal Sinus Rhythm FINAL IMPRESSION ===== 1. Severe nonspecific nonischemic biventricular cardiomyopathy: - nonspecific fibrosis in the basal anteroseptum and anterolateralwall - diffusely increase interstitial fibrosis with ECV of 33% - no evidence of myocardial infarction - findings are not suggestive of myocarditis or cardiac amyloidosis. 2. Left ventricle is severely enlarged with normal wall thickness,severely decreased systolic function, and akinesis of the entire inferior and inferoseptal rod. CalculatedLVEF is 14%. 3. Right ventricle is moderately enlarged with severely reduced systolicfunction. Calculated RVEF is 16%. 4. Trileaflet aortic valve with mild-moderate regurgitation. 5. Small bilateral pleural effusions. 6. Mildly enlarged ascending aorta: 40 x 40 mm. SUMMARY ===== LEFT VENTRICLE: Quantitative LVEF 14 %. LV wall thickness is normal. LVcavity is severely enlarged. LV systolic function is severely decreased globally. VIABILITY: LV scar size is 3 %. RIGHT VENTRICLE: Quantitative RVEF 16 %. RV wall thickness is normal. RVis moderately enlarged. RV systolic function is severely decreased globally. LV/RV SEPTUM: The LV/RV septum is normal. LEFT ATRIUM: LA cavity size is normal. RIGHT ATRIUM: RA cavity size is normal. PERICARDIUM: There is a small pericardial effusion. PLEURAL EFFUSION: There is a small right pleural effusion. There is asmall left pleural effusion. AORTIC VALVE: Aortic valve is trileaflet. There is no aortic stenosis.There is mild-moderate aortic regurgitation. Aortic regurgitant fraction 19 %. MITRAL VALVE: Mitral valve leaflets are normal. There is no mitralstenosis. There is mild mitral regurgitation. TRICUSPID VALVE: Tricuspid valve leaflets are normal. There is notricuspid stenosis. PULMONIC VALVE: Pulmonic valve leaflets are normal. There is no pulmonicstenosis. There is trivial pulmonic regurgitation. AORTIC ROOT: The aortic root is normal. OTHER FINDINGS: Thoracic aorta Left sided arch Ascending 40 x 40 mm Descending 23 x 23 mm CORE EXAM ===== MEASUREMENTS ----- --- VOLUMETRIC ANALYSIS . . LV Reference RV Reference +------+ +------+ +------+ + EDV ml 255 (86-166) 217 (81-166) ml/m^2 139 (56-90) 119 (53-90) ESV ml 220 (22-59) 183 (15-68) ml/m^2 120 (14-33) 100 (11-37) CO L/min 3.29 3.20 L/min/m^2 1.80 1.75 MASS g 121 (72-144) g/m^2 66 (48-78) SV ml 35 (57-113) 34 (56-108) ml/m^2 19 (37-62) 19 (36-60) EF % 14 (59-77) 16 (55-79) '------+ +------+ +------+ ' LV DIMENSIONS WALL THICKNESS - ANTEROSEPTAL: 0.7 cm WALL THICKNESS - INFEROLATERAL: 0.5 cm LA DIMENSIONS (LV SYSTOLE) VOLUME: 91 ml VOLUME NORMALIZED: 49.8 ml/m^2 RA DIMENSIONS (RV SYSTOLE) VOLUME: 77 ml VOLUME NORMALIZED: 42.1 ml/m^2 EXTRACELLULAR VOLUME MEASUREMENT PRE-CONTRAST T1 MYOCARDIUM: 1120 msec ECV: 33 % 17 SEGMENT ----- --- . ----- -------. Segments Wall Motion Hyperenhancement Stress Perfusion Interpretation + + + + +---- ----- -------+ Base Anterior Severe Hypo None Base Anteroseptal Severe Hypo 26-50% Non-CAD Scar Base Inferoseptal Akinetic None Base Inferior Akinetic None Base Inferolateral Severe Hypo None Base Anterolateral Mild/Mod Hypo 1-25% Non-CAD Scar Mid Anterior Severe Hypo None Mid Anteroseptal Severe Hypo None Mid Inferoseptal Akinetic None Mid Inferior Akinetic None Mid Inferolateral Akinetic None Mid Anterolateral Severe Hypo None Apical Anterior Severe Hypo None Apical Septal Severe Hypo None Apical Inferior Akinetic None Apical Lateral Severe Hypo None [place] Severe Hypo None + + + + +---- ----- -------+ RV Segments Wall Motion Hyperenhancement Interpretation + + + + +---- ----- -------+ RV Basal Anterior RV Basal Inferior RV Mid RV Apical ' + + + +---- ----- -------' FINDINGS LV SCAR SIZE (17 SEGMENT): 3 % SCAN INFO ===== GENERAL ----- --- SCANNER BUSINESS DEVELOPMENT ENGINEER: SIEMENS MODEL: Aera CONTRAST AGENT TYPE: Gadavist GD CONCENTRATION: 1.0 M SETUP REASON(S) FOR SCAN: Ischemic vs nonischemic REFERRING PHYSICIAN: LEONA BUSTAMANTE ATTENDING PHYSICIAN: DOV BARBOSA BILLING ===== Patient Account [id number] Report generated by [employer], a product of [employer] Edgardo DE MR Final Res ult * TSH (11/14/2024 7:29 AM CDT) TSH 4.00 0.27 - 4.20 uIU/mL 11/14/2024 8:54 AM CDT [facility] Blood BLOOD SPECIMEN / Unknown Butterfly / Unknown 11/14/2024 7:29 AM CDT 11/14/2024 8:09 AM CDT Narrative [facility] - 11/14/2024 8:54 AM CDT In Adults, TSH values between 5.00 and 10.00 uIU/ml do not necessarily indicate the presence of Hypothyroidism. Correlation with clinical findings such as presence of goiter and/or Thyroperoxidase (TPO) Antibody may be helpful. For more information please refer to ISAI 2004; 291: 228-238. Miguelito Hawthorne MD CHEMISTRY Final Res ult Performing Organization Address City/[facility]/ZIP Co de Phone Number [facility] [address] [place] [address], [place] * HBSAG (HBS) (11/14/2024 7:29 AM CDT) HBSAG Nonreactive Nonreactive 11/14/2024 4:44 PM CDT [facility] TRAL LABORATORY Blood BLOOD SPECIMEN / Unknown Butterfly / Unknown 11/14/2024 7:29 AM CDT 11/14/2024 8:09 AM CDT Jesús Thaddeusessence [facility] SEND OUTS Final Result Performing Organization Address [facility] Co de Phone Number [facility] [address] [place], [place] [id number], [place] * SODIUM (11/14/2024 7:29 AM CDT) SODIUM 139 136 - 145 mmol/L 11/14/2024 8:54 AM CDT [facility] Blood BLOOD SPECIMEN / Unknown Butterfly / Unknown 11/14/2024 7:29 AM CDT 11/14/2024 8:09 AM CDT Miguelito Hawthorne MD CHEMISTRY Final Res ult Performing Organization Address [facility] Co de Phone Number [facility] [address] [place], [place] [id number], [place] * POTASSIUM (11/14/2024 7:29 AM CDT) POTASSIUM 4.9 3.5 - 5.1 mmol/L 11/14/2024 8:54 AM CDT [facility] Blood BLOOD SPECIMEN / Unknown Butterfly / Unknown 11/14/2024 7:29 AM CDT 11/14/2024 8:09 AM CDT Miguelito Hawthorne MD CHEMISTRY Final Res ult [facility] [address] [place] [id number], [place] * (ABNORMAL) CREATININE (11/14/2024 7:29 AM CDT) [facility] eGFR 81(L) >90 mL/min/1.7 3m2 11/14/2024 8:54 AM CDT [facility] Comment:As of 2021, eG FR is calculated by the CKD-EPI creatinine equation without race adjustment. eGFR can be influenced by muscle mass, exercise, and diet. The reported eGFR is an estimation only and is only applicable if the renal function is stable. CREATININE 0.84 0.50 - 0.90 mg/dL 11/14/2024 8:54 AM CDT [facility] Blood BLOOD SPECIMEN / Unknown Butterfly / Unknown 11/14/2024 7:29 AM CDT 11/14/2024 8:09 AM CDT Miguelito Hawthorne MD CHEMISTRY Final Res ult Performing Organization Address [facility] Co de Phone Number [facility] [address] [place] [phone], [place] * Anti HIV 1/2 - TODAY (11/14/2024 7:29 AM CDT) [facility] HIV-1/HIV-2 SCREEN Non-Reacti ve Non-Reacti ve 11/14/2024 2:03 PM CDT [facility] Comment:HIV-1 p24 and HIV-1/ HIV-2 Ab Not Detected. Blood BLOOD SPECIMEN / Unknown Butterfly / Unknown 11/14/2024 7:29 AM CDT 11/14/2024 8:09 AM CDT Jesús COURTNEY SEND OUTS Final Result Performing Organization Address City/[facility]/ZIP Co de Phone Number [facility] [address] [place] [id number], [place] * FERRITIN (11/14/2024 7:29 AM CDT) [facility] FERRITIN 58.0 15.0 - 150.0 ng/mL 11/14/2024 2:31 PM CDT [facility] Blood BLOOD SPECIMEN / Unknown Butterfly / Unknown 11/14/2024 7:29 AM CDT 11/14/2024 8:09 AM CDT Jesús Lopez [facility] CHEMISTRY Final Result [facility] [address] [place] [address], * (ABNORMAL) HEPATIC FUNCTION PANEL (11/14/2024 7:29 AM CDT) ALBUMIN 3.8(L) 4.0 - 4.9 g/dL 11/14/2024 8:54 AM CDT [facility] PROTEIN,TOTAL 6.1 6.0 - 8.0 g/dL 11/14/2024 8:54 AM CDT [facility] BILIRUBIN,TOTAL 0.7 0.0 - 1.2 mg/dL 11/14/2024 8:54 AM CDT [facility] BILIRUBIN,DIRECT 0.3(H) 0.0 - 0.2 mg/dL 11/14/2024 8:54 AM CDT [facility] BILIRUBIN,INDIRE CT 0.4 0.2 - 0.8 mg/dL 11/14/2024 8:54 AM CDT [facility] LABOR[facility] ALK PHOSPHATASE 75 35 - 104 IU/L 11/14/2024 8:54 AM CDT [facility] ALT (SGPT) 61(H) 10 - 35 IU/L 11/14/2024 8:54 AM CDT [facility] AST (SGOT) 37(H) 10 - 35 IU/L 11/14/2024 8:54 AM CDT [facility] Blood BLOOD SPECIMEN / Unknown Butterfly / Unknown 11/14/2024 7:29 AM CDT 11/14/2024 8:09 AM CDT Miguelito Hawthorne MD CHEMISTRY Final Res ult [facility] [address] [place] [phone], * LIPID PANEL (11/14/2024 7:29 AM CDT) CHOLESTEROL,TOTAL 136 100 - 199 mg/dL 11/14/2024 8:54 AM CDT [facility] Comment: Cholesterol, Total Reference Ranges Desirable <200 mg/dL Borderline 200-239 mg/dL High >=240 mg/dL TRIGLYCERIDES 117 <150 mg/dL 11/14/2024 8:54 AM CDT [facility] TR[facility] LABORAT[facility] HDL CHOLESTEROL 48 >40 mg/dL 8:54 AM CDT [facility] NON-HDL CHOLESTEROL 88 <145 mg/dl 11/14/2024 8:54 AM CDT [facility] CHOL/HDL RATIO 2.83 <4.50 11/14/2024 8:54 AM CDT [facility] LDL CHOLESTEROL 65 <=130 mg/dL 11/14/2024 8:54 AM CDT [facility] VLDL CHOLESTEROL 23 <=30 mg/dL 11/14/2024 8:54 AM CDT [facility] PROVIDER ORDERED STATUS RANDOM 11/14/2024 8:54 AM CDT [facility] [facility] Blood BLOOD SPECIMEN / Unknown Butterfly / Unknown 11/14/2024 7:29 AM CDT 11/14/2024 8:09 AM CDT Miguelito Hawthorne MD CHEMISTRY Final Res ult [facility] [address] [place] [address], [place] * (ABNORMAL) TROPONIN T (HS) ONE TIME (11/13/2024 11:46 PM CDT) TROPONIN T HS 36(H) 6-10 ng/L ng/L 11/14/2024 12:21 AM CDT [facility] Blood BLOOD SPECIMEN / Unknown Venipuncture / Unknown 11/13/2024 11:46 PM CDT 11/13/2024 11:53 PM CDT Miguelito Hawthorne MD CHEMISTRY Final Res ult Performing Organization Address City/[facility]/ZIP Co de Phone Number [facility] [address] [address], [place] * LACTATE VENOUS (11/13/2024 11:46 PM CDT) Pathologist [facility] LACTATE,VENOUS 1.4 0.5 - 2.0 mmol/L 11/14/2024 12:24 AM CDT [facility] Blood BLOOD SPECIMEN / Unknown Venipuncture / Unknown 11/13/2024 11:46 PM CDT 11/13/2024 11:53 PM CDT Edgardo DE CHEMISTRY Final Res ult Performing Organization Address [facility] Co de Phone Number [facility] [address] [address], [place] * (ABNORMAL) C-REACTIVE PROTEIN (11/13/2024 11:46 PM CDT) Pathologist [facility] C-REACTIVE PROTEIN 0.7(H) <0.5 mg/dL 11/14/2024 12:21 AM CDT [facility] Blood BLOOD SPECIMEN / Unknown Venipuncture / Unknown 11/13/2024 11:46 PM CDT 11/13/2024 11:53 PM CDT Edgardo DE CHEMISTRY Final Res ult Performing Organization Address City/[facility]/ZIP Co de Phone Number [facility] [address] [place] [address], [place] * (ABNORMAL) TROPONIN T (HS) ACUTE W/2HR REFLEX (11/13/2024 10:39 PM CDT) TROPONIN T HS 38(H) 6-10 ng/L ng/L 11/13/2024 11:23 PM CDT [facility] Blood BLOOD SPECIMEN / Unknown Venipuncture / Unknown 11/13/2024 10:39 PM CDT 11/13/2024 11:02 PM CDT Narrative [facility] - 11/13/2024 11:23 PM CDT hs-cTnT (Elecsys Troponin T Gen 5) concentration (s) above the sex-specific 99th percentile (16 ng/L or greater for males or 11 ng/L or greater for females) are indicative of myocardial injury. If initial hs-cTnT <=100 ng/L at presentation, a 0h/2h ABSOLUTE (ng/L) delta change (rising or falling) of >=10 ng/L suggests a significant change, whereas a 0h/2h delta change <=3 ng/L suggests no significant change. If initial hs-cTnT >100 ng/L at presentation, a 0h/2h/ RELATIVE (percent, %) delta change of 20% is suggested to distinguish patients with acute vs. chronic myocardial injury. There are multiple etiologies that can cause hs-cTnT increases above the 99th percentile (myocardial injury) other than acute myocardial infarction. Clinical context and careful clinical evaluation are critical for diagnosis and risk-stratification. The diagnosis of acute myocardial infarction requires a rising and/or falling pattern in hs-cTnT concentrations with at least one value above the sex-specific 99th percentile PLUS at least one of the following clinical criteria: ischemic symptoms, new or presumed new significant ST-T wave changes or new LBBB, development of pathological Q waves, imaging evidence of new loss of viable myocardium or new regional wall motion abnormality, or identification of intracoronary atherothrombosis or an acute angiographic culprit on coronary angiography. In appropriate low-risk patients with a non-ischemic electrocardiogram without active chest pain with a symptom onset >3-hours without recurrence, a single initial hs-cTnT<6 ng/L identifies patient with a very low risk in emergency department patient population. us Miguelito Hawthorne MD CHEMISTRY Final Res ult [facility] [address] [address], [place] * SCAN-CARDIAC STRIP (11/13/2024 9:22 PM CDT) us Scanner OTHER Final Result * ECHO TTE COMPLETE W CONTRAST (11/12/2024 3:02 PM CDT) AORTIC VALVE MEAN PG 5 mmHg EJECTION FRACTION 20 % PEAK TR VELOCITY 2.5 m/s LVEDD 5.4 cm EJECTION FRACTION 10 - 20% Anatomical Region Laterality Modality Ultrasound 11/12/2024 2:16 PM CDT Narrative 11/12/2024 3:15 PM CDT ECHOCARDIOGRAM SATISH TURK : 1965 59 years Study Date: 11/12/2024 2:16:24 PM Gender: F BP: 118/84 mmHg Height: 173.00 cm BSA: 1.83 m Weight: 70.00 kg Tech: [facility] Referring MD: MAYA KERNS Site: [facility] Reading Location: Mobile-OP Patient Location: [...] documentation: 1 ml diluted Definity, lot #[id number], [facility]# [id number] was administered peripherally to enhance visualization of all left ventricular segments. . This study was interpreted by an [facility] accredited facility. CC: [facility] (med records) [facility]. Final Procedure Note Herminio Gregg MD - 11/12/2024 ECHOCARDIOGRAM SATISH TURK : 1965 59 years Study Date: 11/12/2024 2:16:24 PM Gender: F BP: 118/84 mmHg Height: 173.00 cm BSA: 1.83 m Weight: 70.00 kg Tech: [facility] Referring MD: MAYA KERNS Site: [facility] Reading Location: Mobile-OP Patient Location: [...] documentation: 1 ml diluted Definity, lot #[id number], [facility]#[id number] was administered peripherally to enhance visualization of allleft ventricular segments. . This study was interpreted by an [facility] accredited facility. CC: [facility] (med records) [facility]. Final us Maya Kerns [employer] ECHO ORD F inal Result * (ABNORMAL) HPV HIGH RISK (11/14/2023 12:00 PM CDT) TYPE 16 Negative Negative 11/19/2023 2:05 PM CDT [facility] TYPE 18 Negative Negative 11/19/2023 2:05 PM CDT [facility] TRA LABORATORY OTHER HIGH RISK TYPES Positive(A) Negative 11/19/2023 2:05 PM CDT [facility] Other (Cervical) 11/14/2023 12:00 PM CDT 11/18/2023 8:47 AM CDT Narrative [facility] - 11/19/2023 2:05 PM CDT [...] november Monique TAPIA MICROBIOLOGY Final Resu lt [facility] [address] [place] [address], [place] from Last 3 Months or Most Recently Relevant to Health Maintenance Insurance [facility] Advance Directives * Full Code (Latest Code Status on File) Date Activated Date Inactivated Comments 11/13/2024 10:06 PM 11/15/2024 5:31 PM Question Answer Comments Code Status Discussion: Reviewed Preferences * Full Code Date Activated Date Inactivated Comments 06/16/2021 6:36 [...] Code Status Discussion: Not Discussed Care Teams Monotype Caster Relationship Specialty Start Date End Date Ciara Lopes MD [address] [place] [address] PCP - General Family Practice 04/12/19
--- OUTSIDE RECORDS SUMMARY | 2024-11-27 13:09 | XMS_ITS | Data Portability ---
Author Organization [facility], [facility] [address] [place] [address] Care Team Providers Care Clam Shucker Name Role Phone DORI LOPES Primary Care Provider [phone] Assessment Encounter Date Assessment Date Assessment LastModified [...] [email or web address] 30 [facility], [address], [place], [address], 14:53:12 Referral None recorded. Procedures None recorded. Surgeries None recorded. Imaging None recorded. Medication Orders oxybutynin chloride ER 10 mg tablet,exte nded release 24 hr 2023 024 [facility], [address] , [place], [place], [phone], 4 14:53:07 Macrobid 100 mg capsule 2022 023 [email or web address] 30 [facility], [address] [place] [address] [place]od[place], [phone], 4 14:51:38 oxybutynin chloride ER 10 mg tablet,exte nded release 24 hr 2022 023 CARLOS EDUARDO [facility], [address] [place] [address], [phone], 3 15:21:16 Patient TargetsNo targets recorded. Patient InstructionsNo instructions recorded. Reason for Referral None Reported. Results Created Date Observation Date Name Description Value Unit Range Abnormal Flag Note LastModifiedBy Organization Detail LastModifiedTime 09/12/19 24 09/12/2023 urina lysis , dipst ick Bilirubin-St atus Small Not Available [facility] [address], [place], [address], 09/12/2023 14:52:30 09/12/19 24 09/12/2023 urina lysis , dipst ick pH-Status 6.5 Not Available [facility] [address], [place], [address], 09/12/2023 14:52:30 09/12/19 24 09/12/2023 urina lysis , dipst ick Protein-Stat us >=9.0 Not Available [facility] [address], [place], [address], 09/12/2023 14:52:30 09/12/19 24 09/12/2023 urina lysis , dipst ick Nitrates-Sta tus negati ve Not Available [facility] [address], [place], [address], 09/12/2023 14:52:30 09/12/19 24 09/12/2023 urina lysis , dipst ick Blood-Status Negati ve Not Available [facility] [address], [place], [address], 09/12/2023 14:52:30 09/12/19 24 09/12/2023 urina lysis , dipst ick Leuko-Status Negati ve Not Available [facility] [address], [place], [address], 09/12/2023 14:52:30 09/12/19 24 09/12/2023 urina lysis , dipst ick Specimen Type Voided Not Available [facility] [address], [place], [address], 09/12/2023 14:52:30 Result Notes None recorded. Procedures Surgical History Date Name Laterality Status Provider Name and Address Organization Details Recorded Time Bladder Scan completed Beatriz Soler [facility] 09/12/2023 14:50:36 Imaging Results None recorded. Procedure Notes None recorded. Medical Equipment None Reported. Allergies Allergen ID Allergen Name Allergen Category Reaction Reaction Severity Criticality Documentation Date Start Date Code Code System Note Provider Name and Address Organization Details Recorded Time 402722 Substance with sulfonami de structure and antibacte rial mechanism of action (substanc e) medicatio n Not available Not available Not available 08/07/2022 72975 8003 SNOMED Not Available Not Available Not Available 677744 bacitraci n medicatio n Not available Not available Not available 08/07/2022 1291 RxNorm Not Available Not Available Not Available 163453 aspirin medicatio n Not available Not available [...] Updated DateTime 08/07/2022 172.72 cm 22.8 kg/m2 70214.86 g Komal Joseph [facility] 08/07/2022 14:16:48 Date Recorded Body height Body mass index (BMI) Body weight Provider Name and Address Organization Details Last Updated DateTime 09/12/2023 172.72 cm 25.1 kg/m2 65237.74 g Beatriz Soler [facility] 09/12/2023 14:50:59 Social History Question Answer Notes LastModified by Organizat ion Details LastModified Time Tobacco Smoking Status Former Smoker Komal butler [facility] 08/07/2022 14:19:36 What Is Your [...] virus, quadrivalent, PF 3 completed [facility] 09/12/2023 14:52:02 Influenza, split virus, quadrivalent, preservative 1 completed Asuncion Dod[facility] 06/02/2023 16:48:28 Influenza, recombinant, quadrivalent, PF 2 completed Asuncion [facility] 06/02/2023 16:48:28 zoster recombinant 1 completed Asnucion Dod[facility] 06/02/2023 16:48:28 zoster recombinant 0 completed Asuncion Langston [facility] 06/02/2023 16:48:28 COVID-19, mRNA, LNP-S, PF, 30 mcg/0.3 mL dose 1 completed Asuncion Dod[facility] 06/02/2023 16:48:28 COVID-19, mRNA, LNP-S, PF, 30 mcg/0.3 mL dose 0 completed Asuncion Langston [facility] 06/02/2023 16:48:28 Tdap 4 completed sAuncion Langston [facility] 06/02/2023 16:48:28 Influenza, split virus, trivalent, PF 0 completed Asuncion Dod[facility] 06/02/2023 16:48:28 Td (adult), 5 Lf tetanus toxoid, preservative free, adsorbed 4 completed [facility]uncion [facility] 06/02/2023 16:48:28 Influenza, split virus, quadrivalent, PF 1 completed Asuncion butler [place] [facility] 06/02/2023 16:48:28 Past Encounters Encounter ID Performer Location Encounter Start Date Encounter Closed Date Diagnosis/Indication Diagnosis SNOMED-CT Code Diagnosis ICD10 Code Diagnosis Note [id number] Damian Harris MD [facility] [address] [place] [address] 08/07/2022 14:14:41 08/09/2022 09:20:25 Urgent desire to urinate 10810317 R39.15 -Doing well on 10 mg of oxybutynin , we did discuss trying oxybutynin patch if adverse effects prove bothersome -PVR remains low -Follow-up in 6 months Recurrent urinary tract infection 982787957 N39.0 - Will write for post-coita l prophylaxi s. In review of her allergies she states that she has recently used nitrofuran toin and tolerated it well. Myalgia of pelvic floor 906523599 M79.18 - As above [id number] Damian Harris MD _[place] [address] [place] [address] 09/12/2023 14:33:20 09/22/2023 11:25:30 Urgent desire to urinate [id number] R39.15 -Doing well on 10 mg of oxybutynin , we have discussed trying oxybutynin patch if adverse effects prove bothersome -PVR 1 mL Recurrent urinary tract infection 764980663 N39.0 - Will write for post-coita l prophylaxi s. In review of her allergies she states that she has recently used nitrofuran toin and tolerated it well. Myalgia of pelvic floor 135187708 M79.18 - As above Female str ess incontinence 83092769 N39.3 - Will refer to our Female [...] ID Guarantor Name 08/07/2022 1 P[employer]ERREDONE (PPO) [id number] Rolando Youngeed [id number] Rolando Turk 09/12/2023 1 [facility] [id number] Rolando Turk [id number] Rolando Turk Notes Date Note Type Note [...] and coordinate their care. Damian Harris MD [address] [place] [address],[address], [place], [address], [facility] 08/07/2022 15:21:57 09/12/2023 text/html 54 [...] in discussing other options. Damian Harris MD [address] [place] [address],[address], [place], [address], [facility] 09/12/2023 17:13:25 OBGyn Episode No OBEpisode recorded.
--- NOTE | 2024-11-27 13:33 | CRLHL7_ITS ---
For Patients: As a result of the Century Cures Act, medical imaging exams and procedure reports are released immediately into your electronic medical record. You may view this report before your referring provider. If you have questions, please contact your health care provider. INDICATION: Cough history of radiation chemo TECHNIQUE: Two view chest. FINDINGS: The lungs are clear. The heart, mediastinum and pulmonary vessels are of normal size. There is no evidence of pleural disease. IMPRESSION: Negative chest. Dictated by Anne Torres MD @ 11/27/2024 2:46:31 PM (Electronically Signed)
--- NOTE | 2024-11-27 13:35 | ED.GENADULT ---
HPI - General Adult General Chief complaint: Cough Stated complaint: chest tightness Time Seen by Provider: 11/27/24 13:17 History of Present Illness HPI narrative: This 59-year-old female comes in with her because of cough and chest tightness that began yesterday. She states that she he has a productive cough at times. She does not report any fevers. She has a history of lung cancer that spread to her ribcage and lymph nodes and has undergone chemotherapy and radiation treatments. She has subsequently developed significant heart failure with an ejection fraction at 16%. Related Data Home Medications ?Medication ?Instructions ?Recorded ?Confirmed acyclovir 400 mg tablet 400 mg PO QDAY PRN 04/29/22 11/05/24 calcium 315 mg (as 1 tab PO QDAY 04/29/22 11/05/24 citrate)-vitamin D3 6.25 mcg (250 unit) tablet (Citracal + Vitamin D Maximum) cholecalciferol (vitamin D3) 50 50 mcg PO QDAY 04/29/22 11/05/24 mcg (2,000 unit) capsule ibuprofen 600 mg tablet 600 mg PO Q6H PRN 08/02/24 11/05/24 Previous Rx's ?Medication ?Instructions ?Recorded fluoxetine 40 mg capsule 40 mg PO QDAY #90 caps 06/18/24 docusate sodium 100 mg capsule 100 mg PO BID PRN Constipation 07/22/24 #100 caps exemestane 25 mg tablet 25 mg PO QDAY #90 tabs 10/21/24 nitrofurantoin macrocrystal 50 mg 50 mg PO DAILY #90 caps 10/25/24 capsule oxybutynin chloride 10 mg 10 mg PO QDAY #90 tabs 10/25/24 tablet,extended release 24 hr omeprazole 40 mg capsule,delayed 40 mg PO QDAY #90 caps 10/28/24 release fluticasone propionate 110 2 puff inhalation BID 4 weeks #12 11/05/24 mcg/actuation HFA aerosol inhaler grams lorazepam 0.5 mg tablet 0.5 mg PO QHS PRN sleep #20 tabs 11/10/24 amitriptyline 25 mg tablet 25 mg PO QHS #30 tabs 11/23/24 acetaminophen 300 mg-codeine 30 mg 1 tab PO Q6H PRN pain #15 tabs 11/27/24 tablet doxycycline hyclate 100 mg capsule 100 mg PO BID 7 days #14 caps 11/27/24 Allergies Allergy/AdvReac Type Severity Reaction Status Date / Time aspirin Allergy Mild Hives Verified 11/27/24 13:22 neomycin Allergy Mild Rash Verified 11/27/24 13:22 Sulfa (Sulfonamide Allergy Mild Hives Verified 11/27/24 13:22 Antibiotics) bacitracin AdvReac Intermediate Verified 11/27/24 13:22 Review of Systems Status of ROS: Reports: 10 or more systems reviewed and unremarkable except as noted in History and below Narrative: Constitutional: No fevers, no weight gain or loss. Eyes: No discharge. No vision changes. HENT: No congestion, no sore throat, no ear pain. Cardiovascular: No palpitations. Respiratory: Cough which is productive at times. No new shortness of breath. Gastrointestinal: No abdominal pain, no vomiting, no diarrhea. Genitourinary: No dysuria, no hematuria. Musculoskeletal: Normal range of motion. Skin: No rashes, no pruritis. Neurological: No dizziness, weakness, sensory change, speech change. Endo/Heme/Allergies: No bruising or bleeding. No polydipsia. Pysch: no suicidality, no anxiety, no insomnia. All other systems reviewed and are negative. [facility] Medical History (Updated 11/27/24 @ 15:01 by Lazaro Reyes MD) Heart failure (11/2024) ?I50.9 - Heart failure, unspecified (ICD-10) Cardiomyopathy (11/15/24) ?I42.9 - Cardiomyopathy, unspecified (ICD-10) Recurrent UTI ?N39.0 - Urinary tract infection, site not specified (ICD-10) Chronic gastroesophageal reflux disease ?K21.9 - Gastro-esophageal reflux disease without esophagitis (ICD-10) History of antineoplastic chemotherapy ?Z92.21 - Personal history of antineoplastic chemotherapy (ICD-10) Carcinoma of breast metastatic to axillary lymph node (2017) ?C50.919 - Malignant neoplasm of unspecified site of unspecified female breast (ICD-10) ?C77.3 - Secondary and unspecified malignant neoplasm of axilla and upper limb lymph nodes (ICD-10) Chronic low back pain ?M54.50 - Low back pain, unspecified (ICD-10) ?G89.29 - Other chronic pain (ICD-10) Genital herpes simplex ?A60.00 - Herpesviral infection of urogenital system, unspecified (ICD-10) Prolonged QT interval (2020) ?R94.31 - Abnormal electrocardiogram [ECG] [EKG] (ICD-10) Degenerative disc disease, cervical ?M50.30 - Other cervical disc degeneration, unspecified cervical region (ICD-10) Overweight (BMI 25.0-29.9) ?E66.3 - Overweight (ICD-10) Libido, decreased ?R68.82 - Decreased libido (ICD-10) Macrocytosis ?D75.89 - Other specified diseases of blood and blood-forming organs (ICD-10) Metabolic dysfunction-associated steatohepatitis (MASH) ?K75.81 - Nonalcoholic steatohepatitis (DANIELS) (ICD-10) LFT elevation ?R79.89 - Other specified abnormal findings of blood chemistry (ICD-10) Impingement syndrome, shoulder, left ?M75.42 - Impingement syndrome of left shoulder (ICD-10) 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 ?R87.612 - Low grade squamous intraepithelial lesion on cytologic smear of cervix (LGSIL) (ICD-10) Depression ?F32.A - Depression, unspecified (ICD-10) Anxiety ?F41.9 - Anxiety disorder, unspecified (ICD-10) History of abnormal cervical Pap smear ?Z87.42 - Personal history of other diseases of the female genital tract (ICD-10) Back pain ?M54.9 - Dorsalgia, unspecified (ICD-10) Genitourinary syndrome of menopause ?N95.8 - Other specified menopausal and perimenopausal disorders (ICD-10) Surgical History (Updated 11/16/24 @ 12:08 by Ciara Go MD) History of cardiac catheterization (11/15/24) ?Z98.890 - Other specified postprocedural states (ICD-10) Status post total abdominal hysterectomy and bilateral salpingo-oophorectomy (CAM-BSO) (07/20/24) ?Z90.710 - Acquired absence of both cervix and uterus (ICD-10) ?Z90.722 - Acquired absence of ovaries, bilateral (ICD-10) ?Z90.79 - Acquired absence of other genital organ(s) (ICD-10) History of colposcopy (11/05/22) ?Z98.890 - Other specified postprocedural states (ICD-10) History of breast surgery ?Z98.890 - Other specified postprocedural states (ICD-10) History of varicose vein ligation (1996) ?Z98.890 - Other specified postprocedural states (ICD-10) ?Z86.79 - Personal history of other diseases of the circulatory system (ICD-10) Status post loop electrosurgical excision procedure (LEEP) of cervix (05/19/19) ?Z98.890 - Other specified postprocedural states (ICD-10) Status post left breast lumpectomy (2016) ?Z98.890 - Other specified postprocedural states (ICD-10) History of foot surgery (1998) ?Z98.890 - Other specified postprocedural states (ICD-10) History of colposcopy (08/23/21) ?Z98.890 - Other specified postprocedural states (ICD-10) History of colonoscopy (03/01/19) ?Z98.890 - Other specified postprocedural states (ICD-10) History of bilateral ligation of fallopian tubes ?Z98.51 - Tubal ligation status (ICD-10) S/P ORIF (open reduction internal fixation) fracture (10/19/15) ?Z98.890 - Other specified postprocedural states (ICD-10) ?Z87.81 - Personal history of (healed) traumatic fracture (ICD-10) Family History Paternal Grandfather Stroke Aunt Colon cancer, Onset Age: 70 Sister Alcohol dependence Alcoholic cirrhosis of liver with ascites Paternal Grandmother Brain aneurysm, Onset Age: 84 Social History Narrative: . 1 child. 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 Nonsmoker (quite 2009, 15 pack-years). Social EtOH (5/week). Exercises 3-4 times/week walking. What is your current living situation?: I presently have a place to live Problems where you live: no known problems In the past 12 months, utilities in danger of being shut off: no In past 12 months, lack of transportation kept you from medical appts, meetings, work, or getting things needed for daily living: no In the past 12 mos, have been you worried that your food would run out before you had money to buy more?: never true In the past 12 mos, the food you bought just didn't last and you didn't have money to buy more?: never true Smoking Status: Never smoker Do you use any of these nicotine containing products: None How often do you have a drink containing alcohol: monthly or less Alcohol type: beer, wine and hard liquor How many standard drinks containing alcohol do you have on a typical day: 3 or 4 How often do you have six or more drinks on one occasion: Never AUDIT-C Alcohol total score: 2 Non-prescribed substance use: marijuana (any form) Caffeine: Yes How often does anyone, including family, friends and others, physically hurt you: never How often does anyone, including family, friends and others, insult or talk down to you: never How often does anyone, including family, friends and others, threaten you with harm: never How often does anyone, including family, friends and others, scream or curse at you: never Are you using contraception or practicing any form of control: No Exam Narrative: Exam Narrative: Constitutional: Well-developed, well-nourished, no acute distress. HEENT: Normocephalic, atraumatic. Neck: Normal range of motion. Nontender. Supple. Heart: Regular. No murmurs. Normal rate. Intact distal pulses. Lungs: Clear to auscultation. No chest discomfort. No wheezes, rhonchi, or rales. Abdomen: Normal bowel sounds. Nontender. No rebound tenderness. Genitalia: Deferred. Back: No midline tenderness. Normal range of motion. Extremities: Normal range of motion. No injury. Skin: Intact. No rash. Warm. No erythema or pallor. Neurologic: No altered sensation. No weakness. Alert and oriented. Psychiatric: No suicidality. No anxiety or depression. No insomnia. Nursing notes and vitals signs are reviewed. Const: Vital Signs, click to edit/add: Vital Signs - 24 hr 11/27/24 13:17 11/27/24 13:38 11/27/24 13:45 Temperature 98.1 F Pulse Rate 91 88 Pulse Rate [Pulse Oximeter] 98 Respiratory Rate 20 Blood Pressure Blood Pressure [Ri ght Upper Arm] 111/81 Pulse Oximetry 97 98 97 Oxygen Delivery Me thod Room Air 11/27/24 14:00 11/27/24 14:15 11/27/24 14:30 Temperature Pulse Rate 87 89 88 Pulse Rate [Pulse Oximeter] Respiratory Rate Blood Pressure Blood Pressure [Ri ght Upper Arm] Pulse Oximetry 99 100 97 Oxygen Delivery Me thod 11/27/24 14:45 11/27/24 15:00 11/27/24 15:13 Temperature Pulse Rate 86 86 88 Pulse Rate [Pulse Oximeter] Respiratory Rate Blood Pressure 99/73 Blood Pressure [Ri ght Upper Arm] Pulse Oximetry 100 98 95 Oxygen Delivery Me thod Course Vital Signs Vital signs: Initial Vital Signs Temperature 98.1 F 11/27/24 13:17 Temperature Source Temporal Artery Scan 11/27/24 13:17 Pulse Rate 98 11/27/24 13:17 Respiratory Rate 20 11/27/24 13:17 Blood Pressure 111/81 11/27/24 13:17 Blood Pressure Mean 91 11/27/24 13:17 Pulse Oximetry 97 11/27/24 13:17 Oxygen Delivery Method Room Air 11/27/24 13:17 Vital Signs Temperature 98.1 F 11/27/24 13:17 Pulse Rate 98 11/27/24 13:17 Respiratory Rate 20 11/27/24 13:17 Blood Pressure 111/81 11/27/24 13:17 Pulse Oximetry 97 11/27/24 13:17 Oxygen Delivery Method Room Air 11/27/24 13:17 Temperature 98.1 F 11/27/24 13:17 Pulse Rate 88 11/27/24 15:13 Respiratory Rate 20 11/27/24 13:17 Blood Pressure 99/73 11/27/24 15:13 Pulse Oximetry 95 11/27/24 15:13 Oxygen Delivery Method Room Air 11/27/24 13:17 Medical Decision Making MDM Narrative Medical decision making narrative: This 59-year-old female comes in reporting cough and chest tightness that is reproducible when coughing. These symptoms began yesterday. She does arrive here with normal vital signs but has recent discovery of significant heart failure secondary to chemo and radiation treatments for her breast cancer. Her ejection fraction was discovered to be at 16% for both left and right heart function. Her chest discomfort is reproducible suggesting chest wall or air airway discomfort due to her coughing. Her EKG returns with normal findings as does her troponin and D-dimer. Her white count is a bit low and her monocytes are a bit elevated however the absolute value of monocytes is likely more normal. In any event she does not appear to have viral infection as her nasal swab returns negative. With abundance of caution given her heart failure I did prescribe doxycycline and Tylenol 3 for cough suppression and pain relief. This plan is acceptable to the patient and her . They know to return if worsening symptoms occur. Lab Data Labs: Lab Results 11/27/24 11/27/24 Range/Units 13:00 13:50 WBC 2.85 L (4.50-11.00) K/uL RBC 4.39 (4.00-5.20) m/uL Hgb 15.4 (12.0-16.0) gm/dL Hct 44.5 (33.0-51.0) % MCV 101 H (80-100) fL MCH 35 H (26-34) pg MCHC 35 (32-36) gm/dL RDW Coeff of Srikanth 12.0 (11.5-15.5) % Plt Count 227 (140-440) K/uL Neut % (Auto) 50.2 (42.0-72.0) % Lymph % (Auto) 31.6 (20-44) % Menard % (Auto) 16.1 H (0.0-11.0) % Eos % (Auto) 1.4 (0.0-7.0) % Baso % (Auto) 0.7 (0.0-3.0) % Neut # (Auto) 1.40 L (1.7-7.0) K/uL Lymph # (Auto) 0.90 (0.90-2.90) K/uL Menard # (Auto) 0.50 (0.00-0.90) K/UL Eos # (Auto) 0.00 (0.00-0.50) K/uL Baso # (Auto) 0.00 (0.00-0.30) K/uL Abs Immat Gran (auto) 0.00 (0.00-0.30) K/uL Imm/Tot Granulo (auto) 0.0 % D-Dimer Quant (PE/DVT) 0.27 (0.00-0.50) ug/ml Sodium 136 (135-149) mmol/L Potassium 4.6 (3.6-5.1) mmol/L Chloride 98 (96-114) mmol/L Carbon Dioxide 30 (20-32) mmol/L Anion Gap 8 (7-15) mEq/L BUN 23 (7-30) mg/dL Creatinine 0.9 (0.5-1.5) mg/dL Estimated GFR 75 ml/min Glucose 99 (60-115) mg/dL Calcium 9.6 (8.4-10.6) mg/dL SARS-CoV-2 (PCR) Negative SARS-CoV-2 (Negative) Influenza Type A (PCR) Negative PCR FLU A (Negative) Influenza Type B (PCR) Negative PCR FLU B (Negative) RSV (PCR) Negative PCR RSV (Negative) Imaging Data Chest x-ray: Radiologist's impression: Negative chest. ECG Data Attestation: I personally reviewed and interpreted this ECG as follows: Interpretation: Normal sinus rhythm. Rate is 95 beats per minute. There are no ST or T-wave abnormalities. Discharge Plan Discharge Clinical Impression: Acute lower respiratory infection Patient Disposition: Home, Self-Care Condition: Stable Additional Instructions: Take medication as prescribed. Follow up with MD return if worsening symptoms occur. Prescriptions: New doxycycline hyclate 100 mg capsule 100 mg PO BID 7 Days Qty: 14 0RF acetaminophen-codeine 300-30 mg tablet 1 tab PO Q6H PRN (Reason: pain) Qty: 15 0RF No Action ibuprofen 600 mg tablet 600 mg PO Q6H PRN calcium citrate-vitamin D3 [Citracal + D Maximum] 315 mg-6.25 mcg (250 unit) tablet 1 tab PO QDAY acyclovir 400 mg tablet 400 mg PO QDAY PRN cholecalciferol (vitamin D3) 50 mcg (2,000 unit) capsule 50 mcg PO QDAY fluoxetine 40 mg capsule 40 mg PO QDAY Qty: 90 3RF fluticasone propionate 110 mcg/actuation HFA aerosol inhaler 2 puff inhalation BID 28 Days Qty: 12 1RF Rx Instructions: administer with spacer lorazepam 0.5 mg tablet 0.5 mg PO QHS PRN (Reason: sleep) Qty: 20 0RF docusate sodium 100 mg Capsule 100 mg PO BID PRN (Reason: Constipation) Qty: 100 0RF exemestane 25 mg tablet 25 mg PO QDAY Qty: 90 3RF Rx Instructions: must administer after a meal nitrofurantoin macrocrystal 50 mg capsule 50 mg PO DAILY Qty: 90 0RF Rx Instructions: Take daily after intercourse. oxybutynin chloride 10 mg tablet extended release 24hr 10 mg PO QDAY Qty: 90 3RF omeprazole 40 mg capsule,delayed release(DR/EC) 40 mg PO QDAY Qty: 90 1RF amitriptyline 25 mg tablet 25 mg PO QHS Qty: 30 0RF Follow Up/Referrals: Ciara Go MD [Primary Care Provider] - Stand Alone Forms: Integrated [employer] Info Instructions
[2024-11-27 13:55] LABS: Basophils Percent Auto 0.7 % (0.0-3.0); Eosinophils Percent Auto 1.4 % (0.0-7.0); Hematocrit 44.5 % (33.0-51.0); Hemoglobin* 15.4 gm/dL (12.0-16.0); Lymphocytes Percent Auto 31.6 % (20-44); Mean Corpuscular HGB Conc 35 gm/dL (32-36); Mean Corpuscular Hemoglobin 35 pg (26-34); Mean Corpuscular Volume 101 fL (80-100); Monocytes Percent Auto 16.1 % (0.0-11.0); Neutrophils Percent Auto 50.2 % (42.0-72.0); Platelet Count* 227 K/uL (140-440); Red Blood Count 4.39 m/uL (4.00-5.20); White Blood Count* 2.85 K/uL (4.50-11.00)
[2024-11-27 13:58] LABS: Slide Review Reflex No
[2024-11-27 14:04] LABS: PCR FLU A Negative PCR FLU A (Negative); PCR FLU B Negative PCR FLU B (Negative); PCR RSV Negative PCR RSV (Negative); SARS PCR* Negative SARS-CoV-2 (Negative)
[2024-11-27 14:10] LABS: Chloride* 98 mmol/L (96-114); Potassium* 4.6 mmol/L (3.6-5.1); Sodium* 136 mmol/L (135-149)
[2024-11-27 14:13] LABS: Anion Gap 8 mEq/L (7-15); Blood Urea Nitrogen* 23 mg/dL (7-30); Carbon Dioxide* 30 mmol/L (20-32); Creatinine* 0.9 mg/dL (0.5-1.5); Estimated Glomerular Filt Rate 75 ml/min
[2024-11-27 14:14] LABS: Calcium* 9.6 mg/dL (8.4-10.6); Glucose* 99 mg/dL (60-115)
[2024-11-27 14:16] LABS: D Dimer Quantitative* 0.27 ug/ml (0.00-0.50)
== END 2024-11-27 15:17 | disposition home or self-care (01) ==
PROVIDERS: Emergency Provider Emergency Medicine Emergency Medical Services; PCP Family Medicine
DX: J22 Unspecified acute lower respiratory infection (principal); R07.89 Other chest pain; R05.9 Cough, unspecified
CPT/HCPCS: 36415; 71046; 80048; 84484; 85025; 85379; 87631; 99284

== ENCOUNTER 2024-11-30 10:01 | Emergency (ER) | payer OTHER, SELFPAY ==
[2024-11-30] VITALS (19 sets, daily range): BP systolic 97–127; BP diastolic 73–97; PULSE 88–114; RESP 16; TEMP 36.7; O2SAT 83–100; BMI 22.9
--- OUTSIDE RECORDS SUMMARY | 2024-11-30 10:04 | XMS_ITS | Data Portability ---
Author Organization [facility], [facility] [address] [place] [address] Care Team Providers Care Test Eng Name Role Phone DORI LOPES Primary Care [...] [email or web address] 30 [facility], [address], [place], [address], 14:53:12 Referral None recorded. Procedures None recorded. Surgeries None recorded. Imaging None recorded. Medication Orders oxybutynin chloride ER 10 mg tablet,exte nded release 24 hr 2023 024 [facility], [address] , [place], [place], [phone], 4 14:53:07 Macrobid 100 mg capsule 2022 023 [email or web address] 30 [facility], [address] [place] [address] [place], [place], [phone], 4 14:51:38 oxybutynin chloride ER 10 mg tablet,exte nded release 24 hr 2022 023 CARLOS EDUARDO [facility], [address] [place] [address], [phone], 3 15:21:16 Patient TargetsNo targets recorded. Patient InstructionsNo instructions recorded. Reason for Referral None Reported. Results Created Date Observation Date Name Description Value Unit Range Abnormal Flag Note LastModifiedBy Organization Detail LastModifiedTime 09/12/19 24 09/12/2023 urina lysis , dipst ick Bilirubin-St atus Small Not Available [facility] [address], [place], [address], 09/12/2023 14:52:30 09/12/19 24 09/12/2023 urina lysis , dipst ick pH-Status 6.5 Not Available [facility] [address], [place], [address], 09/12/2023 14:52:30 09/12/19 24 09/12/2023 urina lysis , dipst ick Protein-Stat us >=9.0 Not Available [facility] [address], [place], [address], 09/12/2023 14:52:30 09/12/19 24 09/12/2023 urina lysis , dipst ick Nitrates-Sta tus negati ve Not Available [facility] [address], [place], [address], 09/12/2023 14:52:30 09/12/19 24 09/12/2023 urina lysis , dipst ick Blood-Status Negati ve Not Available [facility] [address], [place], [address], 09/12/2023 14:52:30 09/12/19 24 09/12/2023 urina lysis , dipst ick Leuko-Status Negati ve Not Available [facility] [address], [place], [address], 09/12/2023 14:52:30 09/12/19 24 09/12/2023 urina lysis , dipst ick Specimen Type Voided Not Available [facility] [address], [place], [address], 09/12/2023 14:52:30 Result Notes None recorded. Procedures Surgical History Date Name Laterality Status Provider Name and Address Organization Details Recorded Time Bladder Scan completed Beatriz Soler [facility] 09/12/2023 14:50:36 Imaging Results None recorded. Procedure Notes None recorded. Medical Equipment None Reported. Allergies Allergen ID Allergen Name Allergen Category Reaction Reaction Severity Criticality Documentation Date Start Date Code Code System Note Provider Name and Address Organization Details Recorded Time 316510 Substance with sulfonami de structure and antibacte rial mechanism of action (substanc e) medicatio n Not available Not available Not available 08/07/2022 27554 8003 SNOMED Not Available Not Available Not Available 181868 bacitraci n medicatio n Not available Not available Not available 08/07/2022 1291 RxNorm Not Available Not Available Not Available 396262 aspirin medicatio n Not available Not available [...] Updated DateTime 08/07/2022 172.72 cm 22.8 kg/m2 20412.86 g Komal Joseph [facility] 08/07/2022 14:16:48 Date Recorded Body height Body mass index (BMI) Body weight Provider Name and Address Organization Details Last Updated DateTime 09/12/2023 172.72 cm 25.1 kg/m2 89923.74 g Beatriz Soler [facility] 09/12/2023 14:50:59 Social History Question Answer Notes LastModified by Organizat ion Details LastModified Time Tobacco Smoking Status Former Smoker Komal butler [facility] 08/07/2022 14:19:36 What Is Your [...] virus, quadrivalent, PF 3 completed [facility] 09/12/2023 14:52:02 Influenza, split virus, quadrivalent, preservative 1 completed Asuncion Dodsonre [facility] 06/02/2023 16:48:28 Influenza, recombinant, quadrivalent, PF 2 completed Asuncion [facility] 06/02/2023 16:48:28 zoster recombinant 1 completed Asuncion [facility] 06/02/2023 16:48:28 zoster recombinant 0 completed Asuncion [facility]ston [facility] 06/02/2023 16:48:28 COVID-19, mRNA, LNP-S, PF, 30 mcg/0.3 mL dose 1 completed Asuncion Dodsonre [facility] 06/02/2023 16:48:28 COVID-19, mRNA, LNP-S, PF, 30 mcg/0.3 mL dose 0 completed Asuncion [facility] 06/02/2023 16:48:28 Tdap 4 completed Asuncion Langston [facility] 06/02/2023 16:48:28 Influenza, split virus, trivalent, PF 0 completed Asuncion Dod[facility] 06/02/2023 16:48:28 Td (adult), 5 Lf tetanus toxoid, preservative free, adsorbed 4 completed Asuncion [facility] 06/02/2023 16:48:28 Influenza, split virus, quadrivalent, PF 1 completed Asuncion butler [place] [facility] 06/02/2023 16:48:28 Past Encounters Encounter ID Performer Location Encounter Start Date Encounter Closed Date Diagnosis/Indication Diagnosis SNOMED-CT Code Diagnosis ICD10 Code Diagnosis Note [id number] Damian Harris MD [facility] [address] [place] [address] 08/07/2022 14:14:41 08/09/2022 09:20:25 Urgent desire to urinate [id number] R39.15 -Doing well on 10 mg of oxybutynin , we did discuss trying oxybutynin patch if adverse effects prove bothersome -PVR remains low -Follow-up in 6 months Recurrent urinary tract infection 730109892 N39.0 - Will write for post-coita l prophylaxi s. In review of her allergies she states that she has recently used nitrofuran toin and tolerated it well. Myalgia of pelvic floor [id number] M79.18 - As above [id number] Damian Harris MD _[place] [address] [place] [address] 09/12/2023 14:33:20 09/22/2023 11:25:30 Urgent desire to urinate [id number] R39.15 -Doing well on 10 mg of oxybutynin , we have discussed trying oxybutynin patch if adverse effects prove bothersome -PVR 1 mL Recurrent urinary tract infection [id number] N39.0 - Will write for post-coita l prophylaxi s. In review of her allergies she states that she has recently used nitrofuran toin and tolerated it well. Myalgia of pelvic floor [id number] M79.18 - As above Female str ess incontinence 36690158 N39.3 - Will refer to our Female [...] ID Guarantor Name 08/07/2022 1 [employer] (PPO) [id number] Rolando Youngeed [id number] Rolando Turk 09/12/2023 1 [facility] [id number] Rolando Turk [id number] Rolando Turk Notes Date Note Type Note [...] and coordinate their care. Damian Harris MD [address] [place] [address],[address], [place], [address], [facility] 08/07/2022 15:21:57 09/12/2023 text/html 54 [...] in discussing other options. Damian Harris MD [address] [place] [address],[address], [place], [address], [facility] 09/12/2023 17:13:25 OBGyn Episode No OBEpisode recorded.
--- OUTSIDE RECORDS SUMMARY | 2024-11-30 10:04 | XMS_ITS | Clinical Summary ---
Author Organization [employer] [facility] Address [address] [place] [address] Care Team Providers Care Machine Setter Automatic Name Role Phone Ciara Lopes MD Primary [...] for Pain. 30 Tablet 1 7:57 AM ACCOUNT EXECUTIVE AGRIBUSINESS 06/16/20 21 025 Discontinued( Pharmacist change per medication history (E-cancel not sent)) cetirizine (ZYRTEC) 10 mg tablet Take 1 Tablet (10 mg) by mouth once daily. 0 05/02/20 025 Discontinued( Pharmacist change per medication history (E-cancel not sent)) methocarbamoL (ROBAXIN) 750 mg tabletIndicatio ns:Radiation adverse effect, sequela Take 1 Tablet (750 mg) by mouth 4 times daily. 40 Tablet 1 7:57 AM ACCOUNT EXECUTIVE AGRIBUSINESS 06/16/20 025 Discontinued( Pharmacist change per medication history (E-cancel not sent)) fluticasone propionate 110 mcg/Actuation inhaler Inhale 2 Puffs by mouth two times daily. 11/06/19 025 Discontinued( *Patient states no longer taking) Active Problems Problem Noted Date Diagnosed Date Acute systolic heart failure 11/14/2024 History of left breast cancer 10/07/2016 Encounters Date Type Department Care Team Description 11/30/2024 Telephone [facility] [address] [facility] [address] [place] [address] Cindi Marroquin NP Concerns 11/27/2024 Nurse Triage [facility] [address] [facility] [address] [place] [address] Jesús Lopez MBChB Shortness Of Breath 11/26/2024 Telephone [facility] [address] [facility] [address] [place] [address] Cindi Marroquin NP Cough 11/19/2024 11:30 AM CDT Office Visit [facility] [address] [address] Cindi Marroquin NP CV Heart Failure Discharge (Appointment Note//CHF PO HOSP FOLLOW UP/LABS PRIOR//) 11/19/2024 10:30 AM CDT Orders Only [facility] [address] [address] Lab 11/19/2024 Telephone [facility] [address] [address] Cindi Marroquin NP Follow Up (Entresto/SGLT2 Coverage) 11/18/2024 Travel 11/13/2024 9:14 PM CDT - 11/15/2024 3:15 PM CDT Hospital Encounter [facility] [address], [place] [address] [facility], [facility] Hospitalists [facility], MD Milo Tyler, MD Melissa Singh, Jon Caldera MD Biventricular heart failure (HC) (Primary Dx); Cardiovascular symptoms; Alcohol use disorder Discharge Disposition: Home Self Care 11/13/2024 Travel 11/13/[address] [facility] [address], [place] [address] Christine Bourgeois, [facility] 11/12/2024 2:00 PM CDT Ancillary Procedure [facility] & [address] [address] from Last 3 Months Immunizations Immunization Administration Dates Next Due COVID-19 vaccine (Vistronix 30mcg/0.3mL) P F, MDV 08/15/2020,07/26/2020 Influenza, IIV3 [...] on file Legal Sex Female 7:57 PM ACCOUNT EXECUTIVE [employer]RI[employer] Gender Identity Not on file Sexual Orientation [...] Description 12/08/2024 9:00 AM CDT Orders Only [facility] [address] [facility] [address] [place] [address] 12/08/2024 10:00 AM CDT Office Visit [facility] [address] [facility] [address] [place] [address] Cindi Marroquin, THERAPIST PHYSICAL [address] [facility] [address] [place] [address] 01/05/2025 10:30 AM CDT Orders Only [facility] [address] [facility] [address] [place] [address] 01/05/2025 11:30 AM CDT Office Visit [facility] [address] [facility] [address] [place] [address] Jesús Lopez, [facility] [address] [facility] [place] [address] Health Maintenance Due Date Last Done Comments [...] of2 resultswithin the time period is included. PRO-BNP 1,441(H) <125 pg/mL 11/19/2024 11:57 AM CDT [facility] Blood BLOOD SPECIMEN / Unknown Venipuncture / Unknown 11/19/2024 10:44 AM CDT 11/19/2024 10:44 AM CDT [facility] LAB[facility]ATORY - 11/19/2024 11:57 AM CDT [...] of 72% for acute congestive heart failure. Cindi Marroquin NP SEND OUTS Final Resu lt [facility] [address] [place] [address], * (ABNORMAL) BASIC METABOLIC PANEL (11/19/2024 10:44 AM CDT) SODIUM 136 136 - 145 mmol/L 11/19/2024 11:56 AM CDT [facility] POTASSIUM 4.4 3.5 - 5.1 mmol/L 11/19/2024 11:56 AM CDT [facility] CHLORIDE 98 98 - 107 mmol/L 11/19/2024 11:56 AM CDT [facility] CO2,TOTAL 26 22 - 29 mmol/L 11/19/2024 11:56 AM CDT [facility] ANION GAP 12 5 - 18 11/19/2024 11:56 AM CDT [facility] GLUCOSE 66(L) 70 - 99 mg/dL 11/19/2024 11:56 AM CDT [facility] CALCIUM 9.6 8.8 - 10.4 mg/dL 11/19/2024 11:56 AM CDT [facility] Comment: Reference ranges for this test were updated on 06/08/2024 to reflect our healthy population more accurately. Reference range changes are not retroactively applied to results, but previous results using the same methodology can be interpreted in the context of the new reference range. BUN 21(H) 6 - 20 mg/dL 11/19/2024 11:56 AM CDT [facility] CREATININE 1.08(H) 0.50 - 0.90 mg/dL 11/19/2024 11:56 AM CDT [facility] BUN/CREAT RATIO 19 10 - 20 11:56 AM CDT [facility] eGFR 60(L) >90 mL/min/1. 73m2 11/19/2024 11:56 AM CDT [facility] Comment:As of 2021, eG FR is calculated by the CKD-EPI creatinine equation without race adjustment. eGFR can be influenced by muscle mass, exercise, and diet. The reported eGFR is an estimation only and is only applicable if the renal function is stable. Blood BLOOD SPECIMEN / Unknown Venipuncture / Unknown 11/19/2024 10:44 AM CDT 11/19/2024 10:44 AM CDT us Cindi Marroquin THERAPIST PHYSICAL CHEMISTRY Final Resu lt [facility] [address] [place] [address], [place] * SCAN CORRESP-LABORATORY RESULTS (11/15/2024 1:49 [...] - 75 % 11/15/2024 9:56 AM CDT [facility]AL LAB[facility] PATIENT TEMPERATURE 37.0 Degrees C 11/15/2024 9:56 AM CDT [facility] COLLECTION SITE PULMONARY ARTERY 11/15/2024 9:56 AM CDT [facility] HEMOGLOBIN,BLOO D GAS 14.0 12.0 - 16.0 g/dL 11/15/2024 9:56 AM CDT [facility] N[facility] LABORATORY Blood BLOOD SPECIMEN / Unknown 11/15/2024 9:56 AM CDT 11/15/2024 9:56 AM CDT [facility] CHEMISTRY Final Re sult [facility] [address] [place] [address], * COMPREHENSIVE BLOOD GAS ARTERIAL (11/15/2024 9:53 AM CDT) PH, ARTERIAL 7.40 7.35 - 7.45 11/15/2024 9:53 AM CDT [facility] PCO2, ARTERIAL 42 32 - 45 mmHg 11/16/19 9:53 AM CDT [facility] PO2, ARTERIAL 99 83 - 108 mmHg 11/15/2024 9:53 AM CDT [facility] HCO3, ARTERIAL 26 21 - 28 mmol/L 11/15/2024 9:53 AM CDT [facility] BASE EXCESS, ARTERIAL 1.0 -2.0 - 3.0 11/15/2024 9:53 AM CDT [facility] O2 SATURATION, ARTERIAL 98 94 - 98 % 11/15/2024 9:53 AM CDT [facility] PATIENT TEMPERATURE 37.0 Degrees C 11/15/2024 9:53 AM CDT [facility] Blood BLOOD SPECIMEN / Unknown 11/15/2024 9:53 AM CDT 11/15/2024 9:53 AM CDT [facility] CHEMISTRY Final Re sult [facility] [address] [place] [address], * CVL CORONARY ANGIOGRAM POSS PCI (11/15/2024 9:39 AM CDT) Anatomical Region Laterality Modality Other 11/15/2024 9:39 AM CDT Narrative Transcriptions Jaime Murrieta MD - 11/15/2024 12:02 PM CDT [facility] at [facility] Cardiac Catheterization Report Name: SATISH TURK Event Date: 11/15/2024 09:39 [employer] ID #: [id number] EVRNON #: [id number] Patient Class: Inpatient Diagnostic Physician: JAIME MURRIETA [facility] Referring Physician: Ciara Lopes Primary Care Physician: [...] per the advanced HF team. Consent & Bruin Protocol The risks, benefits, and alternatives of the procedure were discussed withthe patient and written informed consent was obtained. Bruin protocol was followed. TIME OUT conducted just prior tostarting procedure confirmed patient identity, site/side, procedure,patient position, and availability of correct equipment and implants (ifapplicable). Staff Name Title Jaime Murrieta Diagnostic Linting Machine Operator Chantale Snyder RN Nurse Jose Grimm CVT [...] Estimated Axel Index: 1.76 l/min/m2 Resistances PVR: [id number] PVR Index: 408.11 SVR: [id number] SVR Index: 3854.34 PVR/SVR: 0.11 Blood Flow [...] Yader 09:48 1% Lidocaine 3 ml Subcut Barclay Jaime MartinezjoniClary Martinezder 09:52 Heparin 5000 units IV Jaime Murrieta Tammy RN I personally monitored the patient?s conscious sedation during theprocedure. Conscious sedation starts with the first sedation medication dose ofFentanyl or Versed and ends when the procedure is completed, the patientis stable for recovery status, and the physician or other qualified healthcare professional providing the sedation ends personal [id number] time with the patient. The medications listed above were verbally ordered by me and read back tome as documented above. Refer to the procedure log report for additional case details. electronically signed on 11/15/2024 12:02:43 PM with status of Final Jaime Martinez MD [facility] [address] [place] [address] (p) [phone](f) Provider Referring CV IMAGING Edited Result - Final * ANTI HCV (11/15/2024 7:14 AM CDT) HEPATITIS C ANTIBODY Non-Reacti ve Non-React yon 11/15/2024 8:36 AM CDT [facility] Comment:Please note, per www .CDC.gov: [...] CDT 11/15/2024 7:50 AM CDT Jesús Lopez MBChB SEND OUTS Final Result [facility] [address] [place] [address], [place] * (ABNORMAL) CBC no diff AM (11/15/2024 7:14 AM CDT) Only the most recent of2 resultswithin the time period is included. WHITE BLOOD COUNT 3.8(L) 4.5 - 11.0 thou/cu mm 11/15/2024 7:56 AM CDT [facility] RED BLOOD COUNT 3.90(L) 4.00 - 5.20 mil/cu mm 11/15/2024 7:56 AM CDT [facility] HEMOGLOBIN 13.5 12.0 - 16.0 g/dL 11/15/2024 7:56 AM CDT [facility] HEMATOCRIT 40.2 33.0 - 51.0 % 11/15/2024 7:56 AM CDT [facility] MCV 103(H) 80 - 100 fL 11/15/2024 7:56 AM CDT [facility] MCH 34.6(H) 26.0 - 34.0 pg 11/15/2024 7:56 AM CDT [facility] MCHC 33.6 32.0 - 36.0 g/dL 11/15/2024 7:56 AM CDT [facility] RDW 13.5 11.5 - 15.5 % 11/15/2024 7:56 AM CDT [facility] PLATELET COUNT 232 140 - 440 thou/cu mm 11/15/2024 7:56 AM CDT [facility] MPV 9.4 6.5 - 11.0 fL 11/15/2024 7:56 AM CDT [facility] NRBC 0.0 % 11/15/2024 7:56 AM CDT [facility] ABS NRBC 0.0 thou /cu mm 11/15/2024 7:56 AM T [facility] Blood BLOOD SPECIMEN / Unknown Venipuncture / Unknown 11/15/2024 7:14 AM CDT 11/15/2024 7:49 AM CDT Jesús Lopez [facility] HEMATOLOGY Final Result Performing Organization Address City/[facility]/ZIP Co de Phone Number [facility] [address] [place] [address], [place] * MAGNESIUM (11/15/2024 7:14 AM CDT) Only the most recent of3 resultswithin the time period is included. MAGNESIUM 2.3 1.6 - 2.6 mg/dL 11/15/2024 8:17 AM CDT [facility] Blood BLOOD SPECIMEN / Unknown Venipuncture / Unknown 11/15/2024 7:14 AM CDT 11/15/2024 7:50 AM CDT Jon Torres MD CHEMISTRY Final R esult Performing Organization Address City/[facility]/ZIP Co de Phone Number [facility] [address] [place] [address], [place] * (ABNORMAL) COMP METABOLIC PANEL (11/15/2024 7:14 AM CDT) SODIUM 139 136 - 145 mmol/L 11/15/2024 8:17 AM CDT [facility] POTASSIUM 4.8 3.5 - 5.1 mmol/L 11/15/2024 8:17 AM CDT [facility] CHLORIDE 105 98 - 107 mmol/L 11/15/2024 8:17 AM CDT [facility] CO2,TOTAL 25 22 - 29 mmol/L 11/15/2024 8:17 AM CDT [facility] ANION GAP 9 5 - 18 11/15/2024 8:17 AM CDT [facility] GLUCOSE 111(H) 70 - 99 mg/dL 11/15/2024 8:17 AM CDT [facility] CALCIUM 9.0 8.8 - 10.4 mg/dL 11/15/2024 8:[address] [facility] Comment: Reference ranges for this test were updated on 06/08/2024 to reflect our healthy population more accurately. Reference range changes are not retroactively applied to results, but previous results using the same methodology can be interpreted in the context of the new reference range. BUN 21(H) 6 - 20 mg/dL 11/15/2024 8:17 AM [facility] CREATININE 0.83 0.50 - 0.90 mg/dL 11/15/2024 8:17 AM [facility] BUN/CREAT RATIO 25(H) 10 - 20 8:17 AM [facility] eGFR 82(L) >90 mL/min/1. 73m2 11/15/2024 8:[address] [facility] Comment:As of 2021, eG FR is calculated by the CKD-EPI creatinine equation without race adjustment. eGFR can be influenced by muscle mass, exercise, and diet. The reported eGFR is an estimation only and is only applicable if the renal function is stable. ALBUMIN 3.7(L) 4.0 - 4.9 g/dL 11/15/2024 8:[address] [facility] PROTEIN,TOTAL 5.9(L) 6.0 - 8.0 g/dL 11/15/2024 8:[address] [facility] BILIRUBIN,TOTAL 0.4 0.0 - 1.2 mg/dL 11/15/2024 8:[address] [facility] ALK PHOSPHATASE 71 35 - 104 IU/L 11/15/2024 8:17 AM [facility] ALT (SGPT) 50(H) 10 - 35 IU/L 11/15/2024 8:[address] [facility] AST (SGOT) 29 10 - 35 IU/L 11/15/2024 8:17 AM [facility] Blood BLOOD SPECIMEN / Unknown Venipuncture / Unknown 11/15/2024 7:14 AM CDT 11/15/2024 7:50 AM CDT Jesús Lopez [facility] CHEMISTRY Final Result [facility] [address] [place] [address], [place] * SCAN-CARDIAC STRIP (11/15/2024 1:29 AM CDT) Scanner OTHER Final Result * (ABNORMAL) PHOSPHATIDYLETHANOL, BLOOD (11/14/2024 3:29 PM CDT) [facility] Phosphatidylethanol Positive (A) 11/19/2024 11:09 AM CDT [facility] Phosphatidylethanol (PEth) 195 ng/mL 11/19/2024 11:09 AM CDT [facility] Comment: Analyzed compound: PEth 16:0/18:1. 8-irzlzdwbm-7-pyimss-wo-jhpofqw-3-phosphoethanol. Analysis performed by Liquid Chromatography with Tandem [...] developed and its performance characteristics determined by [employer]. It has not been cleared or approved by the Food and Drug Administration. Blood BLOOD SPECIMEN / Unknown Butterfly / Unknown 11/14/2024 3:29 PM CDT 11/14/2024 3:58 PM CDT Narrative [facility] - 11/19/2024 11:09 AM CDT Performed at: [facility] [employer] [address] [place] [id number] Doorperson Or Luggage Porter: Yadira Montelongo [facility], Phone: [phone] Jesús Lopez MBChB SEND OUTS Final Result [facility] ([facility]) [address] [place] [address], * (ABNORMAL) Drug screen, rapid urine inhouse TODAY (11/14/2024 2:22 PM CDT) [facility] THC METABOLITES,MARCO L Not Detected Not Detected 11/14/2024 3:05 PM CDT [facility] PCP,QUAL Not Detected Not Detected 11/14/2024 3:05 PM CDT [facility] COCAINE,QUAL Not Detected Not Detected 11/14/2024 3:05 PM CDT [facility] METHAMPHETAMINE , QUALITATIVE Not Detected Not Detected 11/14/2024 3:05 PM CDT [facility] OPIATES,QUAL Not Detected Not Detected 11/14/2024 3:05 PM CDT [facility] AMPHETAMINE, QUALITATIVE Not Detected Not Detected 11/14/2024 3:05 PM CDT [facility] BENZODIAZEPINES ,QUAL Not Detected Not Detected 11/14/2024 3:05 PM CDT [facility] TRICYCLICS,QUAL Non-negative , consider further testing if indicated(A) Not Detected 11/14/2024 3:05 PM CDT [facility] METHADONE, QUALITATIVE Not Detected Not Detected 11/14/2024 3:05 PM CDT [facility] BARBITURATES,QU AL Not Detected Not Detected 11/14/2024 3:05 PM CDT [facility] OXYCODONE, QUALITATIVE Not Detected Not Detected 11/14/2024 3:05 PM CDT [facility] BUPRENORPHINE, QUALITATIVE Not Detected Not Detected 11/14/2024 3:05 PM CDT [facility] Urine URINE SPECIMEN / Unknown Non-Blood / Unknown 11/14/2024 2:22 PM CDT 11/14/2024 2:33 PM CDT Narrative [facility] - 11/14/2024 3:05 PM CDT Please [...] If clinically indicated, order PCP confirmation. [facility]s [facility] URINE Final Result [facility] [address] [place] [address], * MR CARDIAC WWO (11/14/2024 9:29 AM CDT) Anatomical Region Laterality Modality HEART, THORAX Magnetic Resonan ce 11/14/2024 8:37 AM CDT Narrative 11/14/2024 11:34 AM CDT [facility] CMR Report Name: SATISH TURK : Scan Date: Accession Number: [id number] Status: Final Electronically signed by Lobo Baeza [...] Akinetic None Apical Lateral Severe Hypo None Haslet Severe Hypo None + + + + +---- ----- -------+ RV Segments Wall Motion Hyperenhancement Interpretation + + + + +---- ----- -------+ RV Basal Anterior RV Basal Inferior RV Mid RV Apical ' + + + +---- ----- -------' FINDINGS LV SCAR SIZE (17 SEGMENT): 3 % SCAN INFO ===== GENERAL ----- --- SCANNER PLATING INSPECTOR: SIEMENS MODEL: Aera CONTRAST AGENT TYPE: Gadavist GD CONCENTRATION: 1.0 M SETUP REASON(S) FOR SCAN: Ischemic vs nonischemic REFERRING PHYSICIAN: LEONA BUSTAMANTE ATTENDING PHYSICIAN: DOV BARBOSA BILLING ===== Patient Account [id number] Report generated by [employer], a product of [employer] Procedure Note Lobo Baeza MD - 11/14/2024 [facility] CMR Report Name: SATISH TURK Sandie : Scan Date: Accession Number: [id number] Status: Final Electronically signed by Lobo Baeza [...] Akinetic None Apical Lateral Severe Hypo None Haslet Severe Hypo None + + + + +---- ----- -------+ RV Segments Wall Motion Hyperenhancement Interpretation + + + + +---- ----- -------+ RV Basal Anterior RV Basal Inferior RV Mid RV Apical ' + + + +---- ----- -------' FINDINGS LV SCAR SIZE (17 SEGMENT): 3 % SCAN INFO ===== GENERAL ----- --- SCANNER PLATING INSPECTOR: SIEMENS MODEL: Aera CONTRAST AGENT TYPE: Gadavist GD CONCENTRATION: 1.0 M SETUP REASON(S) FOR SCAN: Ischemic vs nonischemic REFERRING PHYSICIAN: LEONA BUSTAMANTE ATTENDING PHYSICIAN: DOV BARBOSA BILLING ===== Patient Account [id number] Report generated by [employer], a product of [employer] us Edgardo DE MR Final Res ult * TSH (11/14/2024 7:29 AM CDT) TSH 4.00 0.27 - 4.20 uIU/mL 11/14/2024 8:54 AM CDT [facility] [employer] [facility] Blood BLOOD SPECIMEN / Unknown Butterfly / Unknown 11/14/2024 7:29 AM CDT 11/14/2024 8:09 AM CDT Narrative [facility] - 11/14/2024 8:54 AM CDT In Adults, TSH values between 5.00 and 10.00 uIU/ml do not necessarily indicate the presence of Hypothyroidism. Correlation with clinical findings such as presence of goiter and/or Thyroperoxidase (TPO) Antibody may be helpful. For more information please refer to ISAI 2004; 291: 228-238. Miguelito Hawthorne MD CHEMISTRY Final Res ult Performing Organization Address [facility] Co de Phone Number [facility] [address] [address], [place] * HBSAG (HBS) (11/14/2024 7:29 AM CDT) HBSAG Nonreactive Nonreactive 11/14/2024 4:44 PM CDT [facility] Blood BLOOD SPECIMEN / Unknown Butterfly / Unknown 11/14/2024 7:29 AM CDT 11/14/2024 8:09 AM CDT Jesús Lopez MBChB SEND OUTS Final Result Performing Organization Address [facility] Co de Phone Number [facility] [address] [place] [address], [place] * SODIUM (11/14/2024 7:29 AM CDT) SODIUM 139 136 - 145 mmol/L 11/14/2024 8:54 AM CDT [facility] Blood BLOOD SPECIMEN / Unknown Butterfly / Unknown 11/14/2024 7:29 AM CDT 11/14/2024 8:09 AM CDT Miguelito Hawthorne MD CHEMISTRY Final Res ult Performing Organization Address [facility] Co de Phone Number [facility] [address] [address], [place] * POTASSIUM (11/14/2024 7:29 AM CDT) POTASSIUM 4.9 3.5 - 5.1 mmol/L 11/14/2024 8:54 AM CDT [facility] Blood BLOOD SPECIMEN / Unknown Butterfly / Unknown 11/14/2024 7:29 AM CDT 11/14/2024 8:09 AM CDT Miguelito Hawthorne MD CHEMISTRY Final Res ult Performing Organization Address [facility] de Phone Number [facility] [address] [place] [address], [place] * (ABNORMAL) CREATININE (11/14/2024 7:29 AM CDT) eGFR 81(L) >90 mL/min/1.7 3m2 11/14/2024 8:54 AM CDT [facility] Comment:As of 2021, eG FR is calculated by the CKD-EPI creatinine equation without race adjustment. eGFR can be influenced by muscle mass, exercise, and diet. The reported eGFR is an estimation only and is only applicable if the renal function is stable. CREATININE 0.84 0.50 - 0.90 mg/dL 11/14/2024 8:54 AM CDT [facility] Blood BLOOD SPECIMEN / Unknown Butterfly / Unknown 11/14/2024 7:29 AM CDT 11/14/2024 8:09 AM CDT Miguelito Hawthorne MD CHEMISTRY Final Res ult Performing Organization Address [facility] Phone Number [facility] [address] [place] [address], [place] * Anti HIV 1/2 - TODAY (11/14/2024 7:29 AM CDT) Pathologist [facility] HIV-1/HIV-2 SCREEN Non-Reacti ve Non-Reacti ve 11/14/2024 2:03 PM CDT [facility] Comment:HIV-1 p24 and HIV-1/ HIV-2 Ab Not Detected. Blood BLOOD SPECIMEN / Unknown Butterfly / Unknown 11/14/2024 7:29 AM CDT 11/14/2024 8:09 AM CDT Jesús Lopez [facility] Final Result Performing Organization Address [facility]/State/ZIP Co de Phone Number [facility] [address] [place] [address], [place] * FERRITIN (11/14/2024 7:29 AM CDT) FERRITIN 58.0 15.0 - 150.0 ng/mL 11/14/2024 2:31 PM CDT [facility] Blood BLOOD SPECIMEN / Unknown Butterfly / Unknown 11/14/2024 7:29 AM CDT 11/14/2024 8:09 AM CDT Jesús Travisgildardo [facility] CHEMISTRY Final Result [facility] [address] [place] [phone], * (ABNORMAL) HEPATIC FUNCTION PANEL (11/14/2024 7:29 AM CDT) ALBUMIN 3.8(L) 4.0 - 4.9 g/dL 11/14/2024 8:54 AM CDT [facility] PROTEIN,TOTAL 6.1 6.0 - 8.0 g/dL 11/14/2024 8:54 AM CDT [facility] BILIRUBIN,TOTAL 0.7 0.0 - 1.2 mg/dL 11/14/2024 8:54 AM CDT [facility] BILIRUBIN,DIRECT 0.3(H) 0.0 - 0.2 mg/dL 11/14/2024 8:54 AM CDT [facility] BILIRUBIN,INDIRE CT 0.4 0.2 - 0.8 mg/dL 11/14/2024 8:54 AM CDT [facility] ALK PHOSPHATASE 75 35 - 104 IU/L 11/14/2024 8:54 AM CDT [facility] ALT (SGPT) 61(H) 10 - 35 IU/L 11/14/2024 8:54 AM CDT [facility] AST (SGOT) 37(H) 10 - 35 IU/L 11/14/2024 8:54 AM CDT [facility] Blood BLOOD SPECIMEN / Unknown Butterfly / Unknown 11/14/2024 7:29 AM CDT 11/14/2024 8:09 AM CDT us Miguelito Hawthorne MD CHEMISTRY Final Res ult Performing Organization Address City/[facility]/ZIP Co de Phone Number [facility] [address] [place] [phone], [place] * LIPID PANEL (11/14/2024 7:29 AM CDT) [facility] CHOLESTEROL,TOTAL 136 100 - 199 mg/dL 11/14/2024 8:54 AM CDT [facility] Comment: Cholesterol, Total Reference Ranges Desirable <200 mg/dL Borderline 200-239 mg/dL High >=240 mg/dL TRIGLYCERIDES 117 <150 mg/dL 11/14/2024 8:54 AM CDT [facility] HDL CHOLESTEROL 48 >40 mg/dL 8:54 AM CDT [facility] NON-HDL CHOLESTEROL 88 <145 mg/dl 11/14/2024 8:54 AM CDT [facility] CHOL/HDL RATIO 2.83 <4.50 11/14/2024 8:54 AM CDT [facility] LDL CHOLESTEROL 65 <=130 mg/dL 11/14/2024 8:54 AM CDT [facility] VLDL CHOLESTEROL 23 <=30 mg/dL 11/14/2024 8:54 AM CDT [facility] PROVIDER ORDERED STATUS RANDOM 11/14/2024 8:54 AM CDT [facility] Blood BLOOD SPECIMEN / Unknown Butterfly / Unknown 11/14/2024 7:29 AM CDT 11/14/2024 8:09 AM CDT us Miguelito Hawthorne MD CHEMISTRY Final Res ult Performing Organization Address City/[facility]/ZIP Co de Phone Number [facility] [address] [place] [phone], [place] * (ABNORMAL) TROPONIN T (HS) ONE TIME (11/13/2024 11:46 PM CDT) TROPONIN T HS 36(H) 6-10 ng/L ng/L 11/14/2024 12:21 AM CDT [facility] Blood BLOOD SPECIMEN / Unknown Venipuncture / Unknown 11/13/2024 11:46 PM CDT 11/13/2024 11:53 PM CDT Miguelito Hawthorne MD CHEMISTRY Final Res ult [facility] [address] [place] [phone], [place] * LACTATE VENOUS (11/13/2024 11:46 PM CDT) Pathologist [facility] LACTATE,VENOUS 1.4 0.5 - 2.0 mmol/L 11/14/2024 12:24 AM CDT [facility] Blood BLOOD SPECIMEN / Unknown Venipuncture / Unknown 11/13/2024 11:46 PM CDT 11/13/2024 11:53 PM CDT Edgardo DE CHEMISTRY Final Res ult [facility] [address] [place] [phone], [place] * (ABNORMAL) C-REACTIVE PROTEIN (11/13/2024 11:46 PM CDT) Pathologist [facility] C-REACTIVE PROTEIN 0.7(H) <0.5 mg/dL 11/14/2024 12:21 AM CDT [facility] Blood BLOOD SPECIMEN / Unknown Venipuncture / Unknown 11/13/2024 11:46 PM CDT 11/13/2024 11:53 PM CDT Edgardo DE CHEMISTRY Final Res ult [facility] [address] [place] [phone], * (ABNORMAL) TROPONIN T (HS) ACUTE W/2HR REFLEX (11/13/2024 10:39 PM CDT) [facility] TROPONIN T HS 38(H) 6-10 ng/L ng/L 11/13/2024 11:23 PM CDT [facility] Blood BLOOD SPECIMEN / Unknown Venipuncture / Unknown 11/13/2024 10:39 PM CDT 11/13/2024 11:02 PM CDT Narrative [facility] - 11/13/2024 11:23 PM CDT [...] Miguelito Hawthorne MD CHEMISTRY Final Res ult [facility] [address] [place] [address], [place] * SCAN-CARDIAC STRIP (11/13/2024 9:22 PM [...] BSA: 1.83 m Weight: 70.00 kg Tech: BEATRICE Referring MD: MAYA KERNS Site: [facility] Reading Location: Mobile-OP Patient [...] documentation: 1 ml diluted Definity, lot #[id number], [facility]# [id number] was administered peripherally to enhance visualization of all left ventricular segments. . This study was interpreted by an [facility] accredited facility. CC: HIM (med records) [facility]. Final Procedure Note Herminio Gregg MD - 11/12/2024 ECHOCARDIOGRAM SATISH TURK : 1965 59 years Study Date: 11/12/2024 2:16:24 PM Gender: F BP: 118/84 mmHg Height: 173.00 cm BSA: 1.83 m Weight: 70.00 kg Tech: [facility] Referring MD: MAYA KERNS Site: [facility] Reading Location: Mobile-OP Patient [...] documentation: 1 ml diluted Definity, lot #[id number], [facility]#[id number] was administered peripherally to enhance visualization of allleft ventricular segments. . This study was interpreted by an [facility] accredited facility. CC: HIM (med records) [facility]. Final Maya Kerns THERAPIST PHYSICAL ECHO ORD F inal Result * (ABNORMAL) HPV HIGH RISK (11/14/2023 12:00 PM CDT) TYPE 16 Negative Negative 11/19/2023 2:05 PM CDT [facility] TYPE 18 Negative Negative 11/19/2023 2:05 PM CDT [facility] OTHER HIGH RISK TYPES Positive(A) Negative 11/19/2023 2:05 PM CDT [facility] Other (Cervical) 11/14/2023 12:00 PM CDT 11/18/2023 8:47 AM CDT Narrative [facility] - 11/19/2023 2:05 PM CDT Specimen is positive for the DNA of any one of, or combination of, the following high risk HPV types: 31, 33, 35, 39, 45, 51, 52, 56, 58, 59, 66, 68. HPV types 16 and 18 DNA were undetectable or below the pre-set threshold. 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
--- NOTE | 2024-11-30 10:38 | ED_ITS ---
HPI - General Adult General Date Seen: 11/30/24 Chief complaint: Cough Stated complaint: new diagnosis of heart failure Time Seen by Provider: 11/30/24 10:34 History of Present Illness HPI narrative: 59 yo F with a history of breast cancer status post chemo, also recent diagnosis of heart failure with low ejection fraction of 14%. Seen in ER 11/13. Per that note she to 3 weeks of shortness of breath getting progressively worse. Dyspnea on exertion. Clinic chest x-ray prior to visit had shown small bilateral pleural effusions. Abnormal D-dimer prompted chest CT which showed mild pulmonary edema, small bilateral pleural effusions, cardiomegaly, dilated main pulmonary artery but no PE. On 11/10 [place] was [address]303. Outpatient echocardiogram done earlier in November showed EF of 10-20% with global hypokinesis. In the ER BNP was down to 8760, troponin 0.12. Consult with Nursery Cardiology.. She was transferred Nursery. Per discharge summary from 11/15. In the hospital she had a cardiac catheterization that showed normal coronary arteries. She was discharged on digoxin 0.125 mg, furosemide 40 mg, losartan, spironolactone, thiamine. Cardiac MRI 11/14/2024 1. Severe nonspecific nonischemic biventricular cardiomyopathy: - nonspecific fibrosis in the basal anteroseptum and anterolateral wall - diffusely increase interstitial fibrosis with ECV of 33% - no evidence of myocardial infarction - findings are not suggestive of myocarditis or cardiac amyloidosis. 2. Left ventricle is severely enlarged with normal wall thickness, severely decreased systolic function, and akinesis of the entire inferior and inferoseptal rod. Calculated LVEF is 14%. 3. Right ventricle is moderately enlarged with severely reduced systolic function. Calculated RVEF is 16%. 4. Trileaflet aortic valve with mild-moderate regurgitation. 5. Small bilateral pleural effusions. 6. Mildly enlarged ascending aorta: 40 x 40 mm. ? 11/13/24 Chest radiograph: Enlarged cardiac silhouette. Basilar atelectasis slight blunting the costophrenic angles could be related to small effusion/atelectasis. Small effusions posteriorly. ? 11/11/24 Echocardiogram: Final Impressions: 1. Mildly increased LV size, normal wall thickness, severely reduced global systolic function with an estimated EF of 10-20%. There is severe global left ventricular hypokinesis. 2. Right ventricular cavity size is mildly enlarged, global systolic RV function is moderately reduced. 3. Mild aortic regurgitation. 4. Trivial pericardial effusion. 5. Echo contrast was administered to enhance visualization of all left ventricular segments. She developed a cough about a week ago. Seen in ER 3 days ago on11/27 for cough and chest tightness. Sometimes productive cough workup showed normal EKG, normal troponin, normal D-dimer. White count 2.86, hemoglobin 15.4.. Chest x- ray was clear. Influenza, COVID, RSV PCR was negative. She was discharged home with doxycycline to treat for possible infection and Tylenol with codeine. She has been noticing worsening cough and some shortness of breath. She feels like she is not getting any better on the doxycycline came back to the ER. She is not running a fever. No real chest pain. Cough is productive of small amounts of yellowish sputum. All she is also having sore throat, body aches. Related Data Home Medications ?Medication ?Instructions ?Recorded ?Confirmed acyclovir 400 mg tablet 400 mg PO QDAY PRN 04/29/22 11/05/24 calcium 315 mg (as 1 tab PO QDAY 04/29/22 11/05/24 citrate)-vitamin D3 6.25 mcg (250 unit) tablet (Citracal + Vitamin D Maximum) cholecalciferol (vitamin D3) 50 50 mcg PO QDAY 04/29/22 11/05/24 mcg (2,000 unit) capsule ibuprofen 600 mg tablet 600 mg PO Q6H PRN 08/02/24 11/05/24 Previous Rx's ?Medication ?Instructions ?Recorded fluoxetine 40 mg capsule 40 mg PO QDAY #90 caps 06/18/24 docusate sodium 100 mg capsule 100 mg PO BID PRN Constipation 07/22/24 #100 caps exemestane 25 mg tablet 25 mg PO QDAY #90 tabs 10/21/24 nitrofurantoin macrocrystal 50 mg 50 mg PO DAILY #90 caps 10/25/24 capsule oxybutynin chloride 10 mg 10 mg PO QDAY #90 tabs 10/25/24 tablet,extended release 24 hr omeprazole 40 mg capsule,delayed 40 mg PO QDAY #90 caps 10/28/24 release fluticasone propionate 110 2 puff inhalation BID 4 weeks #12 11/05/24 mcg/actuation HFA aerosol inhaler grams lorazepam 0.5 mg tablet 0.5 mg PO QHS PRN sleep #20 tabs 11/10/24 amitriptyline 25 mg tablet 25 mg PO QHS #30 tabs 11/23/24 acetaminophen 300 mg-codeine 30 mg 1 tab PO Q6H PRN pain #15 tabs 11/27/24 tablet doxycycline hyclate 100 mg capsule 100 mg PO BID 7 days #14 caps 11/27/24 albuterol sulfate 90 mcg/actuation 2 inh inhalation Q4-6H PRN #1 ea 11/30/24 breath activated powder inhaler amoxicillin 500 mg capsule 1,000 mg (2 x 500 mg) PO BID 7 11/30/24 days #28 caps hydrocodone 5 mg-acetaminophen 325 1 - 2 tab PO Q4-6H PRN pain #10 11/30/24 mg tablet tabs Allergies Allergy/AdvReac Type Severity Reaction Status Date / Time chlorhexidine Allergy Intermediate Verified 11/30/24 10:31 aspirin Allergy Mild Hives Verified 11/30/24 10:15 neomycin Allergy Mild Rash Verified 11/30/24 10:15 Sulfa (Sulfonamide Allergy Mild Hives Verified 11/30/24 10:15 Antibiotics) bacitracin AdvReac Intermediate Verified 11/30/24 10:15 [facility] Medical History (Updated 11/30/24 @ 15:32 by Miguelito Carrasquillo MD) Heart failure (11/2024) ?I50.9 - Heart failure, unspecified (ICD-10) Cardiomyopathy (11/15/24) ?I42.9 - Cardiomyopathy, unspecified (ICD-10) Recurrent UTI ?N39.0 - Urinary tract infection, site not specified (ICD-10) Chronic gastroesophageal reflux disease ?K21.9 - Gastro-esophageal reflux disease without esophagitis (ICD-10) History of antineoplastic chemotherapy ?Z92.21 - Personal history of antineoplastic chemotherapy (ICD-10) Carcinoma of breast metastatic to axillary lymph node (2017) ?C50.919 - Malignant neoplasm of unspecified site of unspecified female breast (ICD-10) ?C77.3 - Secondary and unspecified malignant neoplasm of axilla and upper limb lymph nodes (ICD-10) Chronic low back pain ?M54.50 - Low back pain, unspecified (ICD-10) ?G89.29 - Other chronic pain (ICD-10) Genital herpes simplex ?A60.00 - Herpesviral infection of urogenital system, unspecified (ICD-10) Prolonged QT interval (2020) ?R94.31 - Abnormal electrocardiogram [ECG] [EKG] (ICD-10) Degenerative disc disease, cervical ?M50.30 - Other cervical disc degeneration, unspecified cervical region (ICD- 10) Overweight (BMI 25.0-29.9) ?E66.3 - Overweight (ICD-10) Libido, decreased ?R68.82 - Decreased libido (ICD-10) Macrocytosis ?D75.89 - Other specified diseases of blood and blood-forming organs (ICD-10) Metabolic dysfunction-associated steatohepatitis (MASH) ?K75.81 - Nonalcoholic steatohepatitis (DANIELS) (ICD-10) LFT elevation ?R79.89 - Other specified abnormal findings of blood chemistry (ICD-10) Impingement syndrome, shoulder, left ?M75.42 - Impingement syndrome of left shoulder (ICD-10) 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 ?R87.612 - Low grade squamous intraepithelial lesion on cytologic smear of cervix (LGSIL) (ICD-10) Depression ?F32.A - Depression, unspecified (ICD-10) Anxiety ?F41.9 - Anxiety disorder, unspecified (ICD-10) History of abnormal cervical Pap smear ?Z87.42 - Personal history of other diseases of the female genital tract (ICD-10) Back pain ?M54.9 - Dorsalgia, unspecified (ICD-10) Genitourinary syndrome of menopause ?N95.8 - Other specified menopausal and perimenopausal disorders (ICD-10) Surgical History (Updated 11/16/24 @ 12:08 by Ciara Go MD) History of cardiac catheterization (11/15/24) ?Z98.890 - Other specified postprocedural states (ICD-10) Status post total abdominal hysterectomy and bilateral salpingo-oophorectomy (CAM-BSO) (07/20/24) ?Z90.710 - Acquired absence of both cervix and uterus (ICD-10) ?Z90.722 - Acquired absence of ovaries, bilateral (ICD-10) ?Z90.79 - Acquired absence of other genital organ(s) (ICD-10) History of colposcopy (11/05/22) ?Z98.890 - Other specified postprocedural states (ICD-10) History of breast surgery ?Z98.890 - Other specified postprocedural states (ICD-10) History of varicose vein ligation (1996) ?Z98.890 - Other specified postprocedural states (ICD-10) ?Z86.79 - Personal history of other diseases of the circulatory system (ICD- 10) Status post loop electrosurgical excision procedure (LEEP) of cervix (05/19/19) ?Z98.890 - Other specified postprocedural states (ICD-10) Status post left breast lumpectomy (2016) ?Z98.890 - Other specified postprocedural states (ICD-10) History of foot surgery (1998) ?Z98.890 - Other specified postprocedural states (ICD-10) History of colposcopy (08/23/21) ?Z98.890 - Other specified postprocedural states (ICD-10) History of colonoscopy (03/01/19) ?Z98.890 - Other specified postprocedural states (ICD-10) History of bilateral ligation of fallopian tubes ?Z98.51 - Tubal ligation status (ICD-10) S/P ORIF (open reduction internal fixation) fracture (10/19/15) ?Z98.890 - Other specified postprocedural states (ICD-10) ?Z87.81 - Personal history of (healed) traumatic fracture (ICD-10) Family History Paternal Grandfather Stroke Aunt Colon cancer, Onset Age: 70 Sister Alcohol dependence Alcoholic cirrhosis of liver with ascites Paternal Grandmother Brain aneurysm, Onset Age: 84 Social History Narrative: . 1 child. [facility] NH&C. Nonsmoker (quite 2009, 15 pack-years). Social EtOH (5/week). Exercises 3-4 times/week walking. What is your current living situation?: I presently have a place to live Problems where you live: no known problems In the past 12 months, utilities in danger of being shut off: no In past 12 months, lack of transportation kept you from medical appts, meetings, work, or getting things needed for daily living: no In the past 12 mos, have been you worried that your food would run out before you had money to buy more?: never true In the past 12 mos, the food you bought just didn't last and you didn't have money to buy more?: never true Smoking Status: Never smoker Do you use any of these nicotine containing products: None How often do you have a drink containing alcohol: monthly or less Alcohol type: beer, wine and hard liquor How many standard drinks containing alcohol do you have on a typical day: 3 or 4 How often do you have six or more drinks on one occasion: Never AUDIT-C Alcohol total score: 2 Non-prescribed substance use: marijuana (any form) Caffeine: Yes How often does anyone, including family, friends and others, physically hurt you : never How often does anyone, including family, friends and others, insult or talk down to you: never How often does anyone, including family, friends and others, threaten you with harm: never How often does anyone, including family, friends and others, scream or curse at you: never Are you using contraception or practicing any form of control: No Exam Narrative: Exam Narrative: Constitutional: Appears well-developed and well-nourished. Alert. Conversant, but very frequent cough and mildly hoarse voice. No respiratory distress. Overall, Non toxic. HENT: Head: Atraumatic. Nose: Nose normal. Mouth/Throat: Oral mucosa is clear and moist. no trismus. Pharynx erythematous. Tonsils symmetric. No tonsillar enlargement, erythema, or exudate. Eyes: Conjunctivae normal. EOM normal. Pupils equal, round, and reactive to light. No scleral icterus. Neck: Normal range of motion. Neck supple. No tracheal deviation present. Cardiovascular: Normal rate, regular rhythm. No gallop. No friction rub. No murmur heard. Symmetric radial artery pulses Pulmonary/Chest: Effort normal. Frequent cough. Mildly hoarse voice but No stridor. No respiratory distress. She does have bilateral expiratory wheezes. No rales. No rhonchi . No tenderness. Abdominal: Soft. Bowel sounds normal. No distension. No mass. No tenderness. No rebound. No guarding. Musculoskeletal: RUE: Normal range of motion. No tenderness. No deformity LUE: Normal range of motion. No tenderness. No deformity RLE: Normal range of motion. No edema. No tenderness. No deformity LLE: Normal range of motion. No edema. No tenderness. No deformity Lymph: No cervical adenopathy. Neurological: Alert and oriented to person, place, and time. Normal strength. CN II-VII intact. No sensory deficit. GCS eye subscore is 4. GCS verbal subscore is 5. GCS motor subscore is 6. Normal coordination Skin: Skin is warm and dry. No rash noted. No pallor. Normal capillary refill. Psychiatric: Normal mood. Normal affect. Const: Vital Signs, click to edit/add: Vital Signs - 24 hr 11/30/24 10:22 11/30/24 13:13 11/30/24 13:14 Temperature 98.0 F Pulse Rate 110 H 106 H Pulse Rate [Pulse Oximeter] 93 Respiratory Rate 16 Blood Pressure 127/97 H Blood Pressure [Ri ght Upper Arm] 107/78 Pulse Oximetry 97 100 99 Oxygen Delivery Me thod Room Air Oxygen Flow Rate 11/30/24 13:15 11/30/24 13:30 11/30/24 13:33 Temperature Pulse Rate 112 H 112 H 108 H Pulse Rate [Pulse Oximeter] Respiratory Rate Blood Pressure 99/75 Blood Pressure [Ri ght Upper Arm] Pulse Oximetry 99 97 97 Oxygen Delivery Me thod Oxygen Flow Rate 11/30/24 13:36 11/30/24 13:38 11/30/24 13:40 Temperature Pulse Rate 108 H 109 H Pulse Rate [Pulse Oximeter] Respiratory Rate Blood Pressure 99/78 97/73 Blood Pressure [Ri ght Upper Arm] Pulse Oximetry 95 90 83 L Oxygen Delivery Me thod Room Air Oxygen Flow Rate 2 11/30/24 13:46 11/30/24 14:03 11/30/24 14:05 Temperature Pulse Rate 108 H Pulse Rate [Pulse Oximeter] 112 H 106 H Respiratory Rate Blood Pressure Blood Pressure [Ri ght Upper Arm] 125/90 H 121/87 Pulse Oximetry 93 97 96 Oxygen Delivery Me thod Room Air Room Air Oxygen Flow Rate 11/30/24 14:10 11/30/24 14:14 11/30/24 14:15 Temperature Pulse Rate 111 H 109 H Pulse Rate [Pulse Oximeter] 114 H Respiratory Rate Blood Pressure Blood Pressure [Ri t Upper Arm] 118/88 Pulse Oximetry 98 93 96 Oxygen Delivery Me thod Room Air Oxygen Flow Rate 11/30/24 14:30 11/30/24 14:45 11/30/24 15:00 Temperature Pulse Rate 100 98 88 Pulse Rate [Pulse Oximeter] Respiratory Rate Blood Pressure Blood Pressure [Ri ght Upper Arm] Pulse Oximetry 88 93 Oxygen Delivery Me thod Oxygen Flow Rate Course Course ED Course: Exam and history performed ER bed 7. She is coughing frequently but able to converse. Oxygen normal. Lung sounds reveal bilateral wheezes. She does not have a history of asthma and is not normally use inhalers or nebs. She does not really have rales to suggest pulmonary edema. Will order a bronchodilator (DuoNeb) treat for possible infection induced bronchospasm. Differential would also include cardiac asthma. Recheck-cough is somewhat improved after DuoNeb. Lung sounds improved but still wheezy. X-ray came back clear. Labs pending. Recheck-labs came back reassuring with downward trending and terminal proBNP. X-ray is clear. Recheck-still wheezy after 1st neb. has just received dose of steroids for possible bronchospasm and albuterol neb. She then had an abrupt change where she developed stridor and difficulty breathing, increased coughing, increased shortness, and increased difficulty breathing. That was called by nursing directly to her room. Also respiratory therapy responded. On my repeat exam She was stridulous but able to breathe. She was breathing rapidly and she was anxious. Racemic epinephrine ordered and administered. Repeat exam revealed good aeration of her lungs. No definite ongoing wheezing. Overall good aeration. No hives or other signs of swelling to suggest clear allergic reaction. Differential would include a allergic reaction to 1 of the med she got (either albuterol or prednisone, laryngospasm, or abrupt worsening of upper airway infection, anxiety, angioedema, among others. No history that she choked her has an airway foreign body. With the racemic epi she did have some improvement in her breathing. Also of note once the respiratory therapist was coaching her on how her breathe that the received a copy through the nebulizer she was able to calm her breathing and stridor improved. Repeat lung exam again still revealed no wheezing. No evolving hives. Received fentanyl 50 mcg and Versed 1 mg because she was having throat pain and some overlay of anxiety. With this she was much calmer and breathing more easily. We moved the patient to ER stay broom 1 and I performed a limited fiberoptic laryngoscopy. Procedure: Fiberoptic laryngoscopy Indication: Acute onset shortness of breath and stridor, eval for vocal cord edema or epiglottitis. Verbal consent was obtained for the patient her Procedure: Initially attempted to pass the fiberoptic scope through the patient's right nares. Nasal prep included Afrin, topical 2% viscous lidocaine, mucosal atomized 1% lidocaine with epi and also Cetacaine spray into her posterior pharynx. Unfortunately were not able to pass the fiberoptic scope passed her turbinates. We then attempted oral passage and the patient tolerated this much better. I was able to pass the fiberoptic scope into the patient's oropharynx and then flexed the scope downward to get a good visualization of her glottis. Epiglottis, vocal cords were normal. No sign of foreign body. There was erythema and a little edema of the soft tissues of her posterior oropharynx likely related to her infection.. Overall , airway was patent. She does not require emergent intubation. Plan would be to continue to monitor here in the ER. Overall seems much improved after Versed and fentanyl. Recheck-patient was moved back to ER room 7 and seemed to stabilize. Recheck-lung sounds still clear. Still has a mildly hoarse voice but essentially back to her arrival baseline. No signs of all [place] or recurring stridor. No complaining of sore throat and also left naris pain where we attempted her nasal scope. No signs of nose bleed. Received [place] for pain. Vital Signs Vital signs: Initial Vital Signs Temperature 98.0 F 11/30/24 10:22 Temperature Source Temporal Artery Scan 11/30/24 10:22 Pulse Rate 93 11/30/24 10:22 Respiratory Rate 16 11/30/24 10:22 Blood Pressure 107/78 11/30/24 10:22 Blood Pressure Mean 87 11/30/24 10:22 Blood Pressure Position Sitting 11/30/24 10:22 Pulse Oximetry 97 11/30/24 10:22 Oxygen Delivery Method Room Air 11/30/24 10:22 Vital Signs Temperature 98.0 F 11/30/24 10:22 Pulse Rate 93 11/30/24 10:22 Respiratory Rate 16 11/30/24 10:22 Blood Pressure 107/78 11/30/24 10:22 Pulse Oximetry 97 11/30/24 10:22 Oxygen Delivery Method Room Air 11/30/24 10:22 Temperature 98.0 F 11/30/24 10:22 Pulse Rate 88 11/30/24 15:00 Respiratory Rate 16 11/30/24 10:22 Blood Pressure 118/88 11/30/24 14:10 Pulse Oximetry 93 11/30/24 14:45 Oxygen Delivery Method Room Air 11/30/24 14:10 Oxygen Flow Rate 2 11/30/24 13:40 Medications Administered Medications: Discontinued Medications Generic Name Dose Route Start Last Admin Trade Name Freq PRN Reason Stop Dose Admin Hydrocodone Bitart/Acetaminophen 1 tab 11/30/24 15:07 11/30/24 15:13 Hydrocodone-Acetamin 5-325 Mg 1 Tab PO 11/30/24 15:08 1 tab ONCE ONE Administration Albuterol 2.5 mg 11/30/24 12:35 11/30/24 12:48 Albuterol Sulfate 2.5 Mg/3 Ml Vial.Neb [facility] 11/30/24 12:36 2.5 mg ONCE ONE Administration Albuterol/Ipratropium 1 neb 11/30/24 11:04 11/30/24 11:30 Iprat-Albut 0.5-2.5 Mg/3 Ml Neb 11/30/24 11:05 1 neb ONCE ONE Administration Benzocaine 1 each 11/30/24 13:58 11/30/24 14:05 Benzocaine 20 % [place] PO 11/30/24 13:59 1 each ONCE ONE Administration Fentanyl 50 mcg 11/30/24 13:21 11/30/24 13:33 Fentanyl 100 Mcg/2 Ml Inj IVP 11/30/24 13:22 50 mcg ONCE ONE Administration Lidocaine/Epinephrine 20 ml 11/30/24 13:31 11/30/24 14:07 Lidocaine 1%-Epi 1:100,000 INFILTRATI 11/30/24 13:32 2 ml ONCE ONE Administration Midazolam HCl 1 mg 11/30/24 13:21 11/30/24 13:37 Midazolam Hcl 1 Mg/Ml Inj IVP 11/30/24 13:22 1 mg ONCE ONE Administration Prednisone 40 mg 11/30/24 12:35 11/30/24 12:48 Prednisone 20 Mg Tablet PO 11/30/24 12:36 40 mg ONCE ONE Administration Medical Decision Making [facility] Narrative Medical decision making narrative: Very pleasant 59-year-old female with a complex recent past medical history including history of cancer previous chemotherapy and radiation with recent diagnosis of cardiomyopathy and congestive heart failure. She has had a cough now for about a week or so and returns to the ER today with worsening cough that is so bad that she has unable to sleep at night. She is already on a course of doxycycline for potential community-acquired pneumonia although chest x-ray in the ER couple of days close was normal. When she presented to the ER today she was persistently coughing but not in respiratory distress or showing signs of hypoxia or respiratory failure. On my lung exam she was wheezy with expiratory wheezing but no inspiratory rales. She did have some improvement in cough after DuoNeb. Chest x-ray was recheck today and still shows no sign of involving pneumonia or infiltrate. Chest x-ray does not show any sign of pulmonary edema which corresponds to the absence of were all cement lung exam. Laboratory workup was undertaken to double check her cardiac function and BNP and looks reassuring. BNP is trending down. After treatment with a dose of steroids (40 mg p.o. prednisone) and an albuterol nebulizer she had an abrupt change here in the ER where she became stridulous and very dyspneic. She received racemic epinephrine with some improvement and then Versed and fentanyl for pain and anxiety. No other signs of allergic reaction such as hives. We performed a fiberoptic laryngoscopy which did not show any sign of impending airway compromise, epiglottitis, vocal cord edema. Cause of that episode of dyspnea is unclear. She was monitored here in the ER for couple of hours thereafter and did well. She did have some mild sore throat which improved with [place]. She was also noting mild left nasal discomfort but no epistaxis. No signs of other nasal trauma. Question here is what is causing her ongoing cough. Certainly could be a viral infection. However with potential for bacterial infection I think it is reasonable to continue the doxycycline. With her sore throat and pharyngeal erythema will also add amoxicillin since doxycycline does not really treat for strep. However, discussed with the patient and her that it is unclear if this is truly a bacterial infection or just a bad virus. Will also give her prescription for albuterol inhaler that she can use as needed for cough. She also already has a steroid inhaler at home (that had been given to her by the urgent care last month prior to diagnosis of her CHF). She will use that for the next 3 days-1 puff twice daily for 3 days of her Flovent. Would avoid long-term inhaled steroids at this time. Prescription for hydrocodone given. Opiate precautions reviewed. Precautions for return to the ER reviewed. Questions answered. Lab Data Labs: Lab Results 11/30/24 Range/Units 11:30 WBC 2.51 L (4.50-11.00) K/uL RBC 4.11 (4.00-5.20) m/uL Hgb 14.2 (12.0-16.0) gm/dL Hct 41.3 (33.0-51.0) % MCV 101 H (80-100) fL MCH 35 H (26-34) pg MCHC 34 (32-36) gm/dL RDW Coeff of Srikanth 12.1 (11.5-15.5) % Plt Count 184 (140-440) K/uL Neut % (Auto) 50.9 (42.0-72.0) % Lymph % (Auto) 34.3 (20-44) % [place] % (Auto) 10.4 (0.0-11.0) % Eos % (Auto) 3.2 (0.0-7.0) % Baso % (Auto) 0.8 (0.0-3.0) % Neut # (Auto) 1.30 L (1.7-7.0) K/uL Lymph # (Auto) 0.90 (0.90-2.90) K/uL [place] # (Auto) 0.30 (0.00-0.90) K/UL Eos # (Auto) 0.10 (0.00-0.50) K/uL Baso # (Auto) 0.00 (0.00-0.30) K/uL Abs Immat Gran (auto) 0.00 (0.00-0.30) K/uL Imm/Tot Granulo (auto) 0.4 % Sodium 137 (135-149) mmol/L Potassium 3.7 (3.6-5.1) mmol/L Chloride 101 (96-114) mmol/L Carbon Dioxide 27 (20-32) mmol/L Anion Gap 9 (7-15) mEq/L BUN 19 (7-30) mg/dL Creatinine 0.9 (0.5-1.5) mg/dL Estimated Creat Clear 69.57 Estimated GFR 75 ml/min Glucose 94 (60-115) mg/dL Calcium 9.3 (8.4-10.6) mg/dL Troponin I 0.02 (0.01-0.04) ng/mL NT-Pro-B Natriuret Pep 1670 pg/mL Imaging Data Chest x-ray: Attestation: I have reviewed the pertinent imaging results. Radiologist's impression: IMPRESSION: No evidence of active pulmonary disease. No evidence of heart failure on this exam. ECG Data Interpretation: Normal sinus rhythm Rate: 98 CT: 160 QRS axis: Left axis deviation. LVH. ST segment/T wave: No ST segment elevation or depression. Nonspecific T-wave flattening. QTc: 505 Compared to 11/27/2024 no definite changes. Previous T-wave inversions in leads V5, V6, V4 actually look somewhat better. Discharge Plan Discharge Clinical Impression: Cough, Bronchospasm, Acute sore throat, Stridor Patient Disposition: Home, Self-Care Condition: Stable Instructions: Pharyngitis (ED), Bronchospasm (ED) Prescriptions: New amoxicillin 500 mg capsule 1,000 mg PO BID 7 Days Qty: 28 0RF hydrocodone-acetaminophen 5-325 mg tablet 1 - 2 tab PO Q4-6H PRN (Reason: pain) Qty: 10 0RF albuterol sulfate 90 mcg/actuation aerosol powdr breath activated 2 inh inhalation Q4-6H PRNQty: 1 0RF No Action ibuprofen 600 mg tablet 600 mg PO Q6H PRN calcium citrate-vitamin D3 [Citracal + D Maximum] 315 mg-6.25 mcg (250 unit) tablet 1 tab PO QDAY acyclovir 400 mg tablet 400 mg PO QDAY PRN cholecalciferol (vitamin D3) 50 mcg (2,000 unit) capsule 50 mcg PO QDAY fluoxetine 40 mg capsule 40 mg PO QDAY Qty: 90 3RF fluticasone propionate 110 mcg/actuation HFA aerosol inhaler 2 puff inhalation BID 28 Days Qty: 12 1RF Rx Instructions: administer with spacer lorazepam 0.5 mg tablet 0.5 mg PO QHS PRN (Reason: sleep) Qty: 20 0RF docusate sodium 100 mg Capsule 100 mg PO BID PRN (Reason: Constipation) Qty: 100 0RF doxycycline hyclate 100 mg capsule 100 mg PO BID 7 Days Qty: 14 0RF acetaminophen-codeine 300-30 mg tablet 1 tab PO Q6H PRN (Reason: pain) Qty: 15 0RF exemestane 25 mg tablet 25 mg PO QDAY Qty: 90 3RF Rx Instructions: must administer after a meal nitrofurantoin macrocrystal 50 mg capsule 50 mg PO DAILY Qty: 90 0RF Rx Instructions: Take daily after intercourse. oxybutynin chloride 10 mg tablet extended release 24hr 10 mg PO QDAY Qty: 90 3RF omeprazole 40 mg capsule,delayed release(DR/EC) 40 mg PO QDAY Qty: 90 1RF amitriptyline 25 mg tablet 25 mg PO QHS Qty: 30 0RF Follow Up/Referrals: Ciara Go MD [Primary Care Provider] - Stand Alone Forms: [facility] Info Instructions
--- NOTE | 2024-11-30 11:04 | CRLHL7_ITS ---
For Patients: As a result of the Century Cures Act, medical imaging exams and procedure reports are released immediately into your electronic medical record. You may view this report before your referring provider. If you have questions, please contact your health care provider. INDICATION: Cough. Recent heart failure with ejection fraction of 16 percent. 3 pound weight gain. COMPARISON: November 27, 2024 TECHNIQUE: PA and lateral views of the chest were acquired FINDINGS: TUBES AND LINES: None. HEART AND MEDIASTINUM: Heart size normal. Tortuous aorta. Similar appearance to the prior study.. LUNGS AND PLEURAL SPACES: The lungs appear normal.The pleural spaces are unremarkable. OSSEOUS STRUCTURES: Age-appropriate appearance. No acute focal finding. IMPRESSION: No evidence of active pulmonary disease. No evidence of heart failure on this exam. Dictated by Chino Sanz MD @ 11/30/2024 11:40:12 AM (Electronically Signed)
[2024-11-30] MEDS: IPRAT-ALBUT 0.5-2.5 MG/3 ML NEB 1 NEB IH (11:30)
--- OUTSIDE RECORDS SUMMARY | 2024-11-30 11:37 | XMS_ITS | Clinical Summary ---
Author Organization [facility] Address [address] [place] [id number] Care Team Providers Care Infection Prevention Specialist Name Role Phone Ciara Lopes MD Primary [...] for Pain. 30 Tablet 1 7:57 AM ELECTRONICS SYSTEM MECHANIC 06/16/20 21 025 Discontinued( Pharmacist change per medication history (E-cancel not sent)) cetirizine (ZYRTEC) 10 mg tablet Take 1 Tablet (10 mg) by mouth once daily. 0 05/02/20 025 Discontinued( Pharmacist change per medication history (E-cancel not sent)) methocarbamoL (ROBAXIN) 750 mg tabletIndicatio ns:Radiation adverse effect, sequela Take 1 Tablet (750 mg) by mouth 4 times daily. 40 Tablet 1 7:57 AM ELECTRONICS SYSTEM MECHANIC 06/16/20 025 Discontinued( Pharmacist change per medication history (E-cancel not sent)) fluticasone propionate 110 mcg/Actuation inhaler Inhale 2 Puffs by mouth two times daily. 11/06/19 025 Discontinued( *Patient states no longer taking) Active Problems Problem Noted Date Diagnosed Date Acute systolic heart failure 11/14/2024 History of left breast cancer 10/07/2016 Encounters Date Type Department Care Team Description 11/30/2024 Telephone [facility] [address] [facility] [address] [place] [address] Cindi Marroquni NP Concerns 11/27/2024 Nurse Triage [facility] [address] [facility] [address] [place] [address] Jesús Lopez MBChB Shortness Of Breath 11/26/2024 Telephone [facility] [address] [facility] [address] [place] [address] Cindi Marroquin NP Cough 11/19/2024 11:30 AM CDT Office Visit [facility] [place] [address] [address] Cindi Marroquin NP CV Heart Failure Discharge (Appointment Note//CHF PO HOSP FOLLOW UP/LABS PRIOR//) 11/19/2024 10:30 AM CDT Orders Only [facility] [place] [address] [address] Lab 11/19/2024 Telephone [facility] [place] [address] [address] Cindi Marroquin NP Follow Up (Entresto/SGLT2 Coverage) 11/18/2024 Travel 11/13/2024 9:14 PM CDT - 11/15/2024 3:15 PM CDT Hospital Encounter [facility] [address], [place] [address] [facility], [facility] Hospitalists [facility], MD Milo Tyler, MD Melissa Singh, Jon Caldera MD Biventricular heart failure (HC) (Primary Dx); Cardiovascular symptoms; Alcohol use disorder Discharge Disposition: Home Self Care 11/13/2024 Travel 11/13/2024 Telephone [facility] [address], [place] [address] Christine Bourgeois, [facility] 11/12/2024 2:00 PM CDT Ancillary Procedure [facility] & [address] [address] from Last 3 Months Immunizations Immunization Administration Dates Next Due COVID-19 vaccine (Ahometo 30mcg/0.3mL) P F, MDV 08/15/2020,07/26/2020 Influenza, IIV3 [...] on file Legal Sex Female 7:57 PM ELECTRONICS SYSTEM MECHANIC Gender Identity Not on file Sexual Orientation [...] Description 12/08/2024 9:00 AM CDT Orders Only [facility] [address] [facility] [address] [place] [address] 12/08/2024 10:00 AM CDT Office [place] [facility] [address] [facility] [address] [place] [address] Cindi Marroquin, MATERIAL MANAGER [address] [facility] [address] [place] [address] 01/05/2025 10:30 AM CDT Orders Only [facility] [address] [facility] [address] [place] [address] 01/05/2025 11:30 AM CDT [place] [facility] [address] [facility] [address] [place] [address] Jesús Lopez, [facility] [address] [place] [address] Health Maintenance Due Date Last Done Comments [...] 1,441(H) <125 pg/mL 11/19/2024 11:57 AM CDT [facility] Blood BLOOD SPECIMEN / Unknown Venipuncture / Unknown 11/19/2024 10:44 AM CDT 11/19/2024 10:[address] [facility] LABORATORY - 11/19/2024 11:57 AM CDT [...] Marroquin NP SEND OUTS Final Resu lt [facility] [address] [place] [address], * (ABNORMAL) BASIC METABOLIC PANEL (11/19/2024 10:44 AM CDT) SODIUM 136 136 - 145 mmol/L 11/19/2024 11:56 AM CDT [facility] POTASSIUM 4.4 3.5 - 5.1 mmol/L 11/19/2024 11:56 AM CDT [facility] CHLORIDE 98 98 - 107 mmol/L 11/19/2024 11:56 AM CDT [facility] CO2,TOTAL 26 22 - 29 mmol/L 11/19/2024 11:56 AM CDT [facility] ANION GAP 12 5 - 18 11/19/2024 11:56 AM CDT [facility] GLUCOSE 66(L) 70 - 99 mg/dL 11/19/2024 11:56 AM CDT [facility] CALCIUM 9.6 8.8 - 10.4 mg/dL 11/19/2024 11:56 AM CDT [facility] Comment: Reference ranges for this test were updated on 06/08/2024 to reflect our healthy population more accurately. Reference range changes are not retroactively applied to results, but previous results using the same methodology can be interpreted in the context of the new reference range. BUN 21(H) 6 - 20 mg/dL 11/19/2024 11:56 AM CDT [facility] CREATININE 1.08(H) 0.50 - 0.90 mg/dL 11/19/2024 11:56 AM CDT [facility] BUN/CREAT RATIO 19 10 - 20 11:56 AM CDT [facility] eGFR 60(L) >90 mL/min/1. 73m2 11/19/2024 11:56 AM CDT [facility] Comment:As of 2021, eG [...] 11/19/2024 10:44 AM CDT us Cindi Marroquin MATERIAL MANAGER CHEMISTRY Final Resu lt [facility] [address] [place] [address], [place] * SCAN CORRESP-LABORATORY RESULTS (11/15/2024 1:49 [...] - 75 % 11/15/2024 9:56 AM CDT [facility]-CE NTRAL LABORATORY PATIENT TEMPERATURE 37.0 Degrees C 11/15/2024 9:56 AM CDT [facility]- NTROR LABORATORY COLLECTION SITE PULMONARY ARTERY 11/15/2024 9:56 AM CDT [facility]- NTROR LABORATORY HEMOGLOBIN,BLOO D GAS 14.0 12.0 - 16.0 g/dL 11/15/2024 9:56 AM CDT [facility] NTRAL LABORATORY Blood BLOOD SPECIMEN / Unknown 11/15/2024 9:56 AM CDT 11/15/2024 9:56 AM CDT [facility] CHEMISTRY Final Re sult [facility] [address] [place] [address], * COMPREHENSIVE BLOOD GAS ARTERIAL (11/15/2024 9:53 AM CDT) PH, ARTERIAL 7.40 7.35 - 7.45 11/15/2024 9:53 AM CDT [facility] PCO2, ARTERIAL 42 32 - 45 mmHg 11/16/19 9:53 AM CDT [facility] PO2, ARTERIAL 99 83 - 108 mmHg 11/15/2024 9:53 AM CDT [facility] HCO3, ARTERIAL 26 21 - 28 mmol/L 11/15/2024 9:53 AM CDT [facility] BASE EXCESS, ARTERIAL 1.0 -2.0 - 3.0 11/15/2024 9:53 AM CDT [facility] O2 SATURATION, ARTERIAL 98 94 - 98 % 11/15/2024 9:53 AM CDT [facility] PATIENT TEMPERATURE 37.0 Degrees C 11/15/2024 9:53 AM CDT [facility] Blood BLOOD SPECIMEN / Unknown 11/15/2024 9:53 AM CDT 11/15/2024 9:53 AM CDT [facility] CHEMISTRY Final Re sult [facility]-CENTRAL LABORATORY [address] [place] [address], * CVL CORONARY ANGIOGRAM POSS PCI (11/15/2024 9:39 AM CDT) Anatomical Region Laterality Modality Other 11/15/2024 9:39 AM CDT Narrative Transcriptions Jaime Murrieta MD - 11/15/2024 12:02 PM CDT [facility] Cardiac Catheterization Report Name: SATISH TURK Event Date: 11/15/2024 09:39 [facility] ID #: [id number] VERNON #: [id number] Patient Class: Inpatient Diagnostic Physician: JAIME MURRIETA [facility] Referring Physician: Ciara Lopes Primary Care Physician: [...] per the advanced HF team. Consent & [place] Protocol The risks, benefits, and alternatives of the procedure were discussed withthe patient and written informed consent was obtained. [place] protocol was followed. TIME OUT conducted just prior tostarting procedure confirmed patient identity, site/side, procedure,patient position, and availability of correct equipment and implants (ifapplicable). Staff Name Title Jaime Murrieta Diagnostic Active Directory Engineer Chantale Snyder RN Nurse Jose Grimm CVT [...] Estimated Axel Index: 1.76 l/min/m2 Resistances PVR: [id number] PVR Index: 408.11 SVR: [id number] SVR Index: 3854.34 PVR/SVR: 0.11 Blood Flow [...] healthcare professional providing the sedation ends personal [id number] time with the patient. The medications listed above were verbally ordered by me and read back tome as documented above. Refer to the procedure log report for additional case details. electronically signed on 11/15/2024 12:02:43 PM with status of Final Jaime Martinez MD [facility] [address] [place] [address] (p) [phone](f) Provider Referring CV IMAGING Edited Result - Final * ANTI HCV (11/15/2024 7:14 AM CDT) HEPATITIS C ANTIBODY Non-Reacti ve Non-React yon 11/15/2024 8:36 AM CDT [facility] Comment:Please note, per www [...] Jesús Lopez MBChB SEND OUTS Final Result [facility] [address] [place] [address], [place] * (ABNORMAL) CBC no diff AM (11/15/2024 7:14 AM CDT) Only the most recent of2 resultswithin the time period is included. WHITE BLOOD COUNT 3.8(L) 4.5 - 11.0 thou/cu mm 11/15/2024 7:56 AM CDT [facility] RED BLOOD COUNT 3.90(L) 4.00 - 5.20 mil/cu mm 11/15/2024 7:56 AM CDT [facility] HEMOGLOBIN 13.5 12.0 - 16.0 g/dL 11/15/2024 7:56 AM CDT [facility] HEMATOCRIT 40.2 33.0 - 51.0 % 11/15/2024 7:56 AM CDT [facility] MCV 103(H) 80 - 100 fL 11/15/2024 7:56 AM CDT [facility] MCH 34.6(H) 26.0 - 34.0 pg 11/15/2024 7:56 AM CDT [facility] MCHC 33.6 32.0 - 36.0 g/dL 11/15/2024 7:56 AM CDT [facility] RDW 13.5 11.5 - 15.5 % 11/15/2024 7:56 AM CDT [facility] PLATELET COUNT 232 140 - 440 thou/cu mm 11/15/2024 7:56 AM CDT [facility] MPV 9.4 6.5 - 11.0 fL 11/15/2024 7:56 AM CDT [facility] NRBC 0.0 % 11/15/2024 7:56 AM CDT [facility] ABS NRBC 0.0 thou /cu mm 11/15/2024 7:56 AM T [facility] Blood BLOOD SPECIMEN / Unknown Venipuncture / Unknown 11/15/2024 7:14 AM CDT 11/15/2024 7:49 AM CDT Jesús Lopez [facility] HEMATOLOGY Final Result Performing Organization Address City/[facility]/ZIP Co de Phone Number [facility] [address] [place] [address], [place] * MAGNESIUM (11/15/2024 7:14 AM CDT) Only the most recent of3 resultswithin the time period is included. MAGNESIUM 2.3 1.6 - 2.6 mg/dL 11/15/2024 8:17 AM CDT [facility] Blood BLOOD SPECIMEN / Unknown Venipuncture / Unknown 11/15/2024 7:14 AM CDT 11/15/2024 7:50 AM CDT Jon Torres MD CHEMISTRY Final R esult Performing Organization Address City/[facility]/ZIP Co de Phone Number [facility] [address] [place] [address], [place] * (ABNORMAL) COMP METABOLIC PANEL (11/15/2024 7:14 AM CDT) SODIUM 139 136 - 145 mmol/L 11/15/2024 8:17 AM CDT [facility] POTASSIUM 4.8 3.5 - 5.1 mmol/L 11/15/2024 8:17 AM CDT [facility] CHLORIDE 105 98 - 107 mmol/L 11/15/2024 8:17 AM CDT [facility] CO2,TOTAL 25 22 - 29 mmol/L 11/15/2024 8:17 AM CDT [facility] ANION GAP 9 5 - 18 11/15/2024 8:17 AM CDT [facility] GLUCOSE 111(H) 70 - 99 mg/dL 11/15/2024 8:17 AM CDT [facility] CALCIUM 9.0 8.8 - 10.4 mg/dL 11/15/2024 8:17 AM [facility] Comment: Reference ranges for this test were updated on 06/08/2024 to reflect our healthy population more accurately. Reference range changes are not retroactively applied to results, but previous results using the same methodology can be interpreted in the context of the new reference range. BUN 21(H) 6 - 20 mg/dL 11/15/2024 8:17 AM [facility] CREATININE 0.83 0.50 - 0.90 mg/dL 11/15/2024 8:17 AM [facility] BUN/CREAT RATIO 25(H) 10 - 20 8:17 AM [facility] eGFR 82(L) >90 mL/min/1. 73m2 11/15/2024 8:17 AM [facility] Comment:As of 2021, eG FR is calculated by the CKD-EPI creatinine equation without race adjustment. eGFR can be influenced by muscle mass, exercise, and diet. The reported eGFR is an estimation only and is only applicable if the renal function is stable. ALBUMIN 3.7(L) 4.0 - 4.9 g/dL 11/15/2024 8:17 AM [facility] LAB[facility] PROTEIN,TOTAL 5.9(L) 6.0 - 8.0 g/dL 11/15/2024 8:17 AM [facility] BILIRUBIN,TOTAL 0.4 0.0 - 1.2 mg/dL 11/15/2024 8:17 AM [facility] ALK PHOSPHATASE 71 35 - 104 IU/L 11/15/2024 8:17 AM [facility] ALT (SGPT) 50(H) 10 - 35 IU/L 11/15/2024 8:17 AM [facility] AST (SGOT) 29 10 - 35 IU/L 11/15/2024 8:17 AM [facility] Blood BLOOD SPECIMEN / Unknown Venipuncture / Unknown 11/15/2024 7:14 AM CDT 11/15/2024 7:50 AM CDT Jesús Lopez [facility] CHEMISTRY Final Result [facility] [address] [place] [address], [place] * SCAN-CARDIAC STRIP (11/15/2024 1:29 AM CDT) Scanner OTHER Final Result * (ABNORMAL) PHOSPHATIDYLETHANOL, BLOOD (11/14/2024 3:29 PM CDT) [facility] Phosphatidylethanol Positive (A) 11/19/2024 11:[address] [facility] ([facility]) Phosphatidylethanol (PEth) 195 ng/mL 11/19/2024 11:[address] [facility] ([facility]) Comment: Analyzed compound: PEth 16:0/18:1. 9-pzajubwnz-6-drkysd-vt-ttlcncq-3-phosphoethanol. Analysis performed by Liquid Chromatography with Tandem [...] developed and its performance characteristics determined by [employer]. It has not been cleared or approved by the Food and Drug Administration. Blood BLOOD SPECIMEN / Unknown Butterfly / Unknown 11/14/2024 3:29 PM CDT 11/14/2024 3:58 PM CDT Narrative [facility] ([facility]) - 11/19/2024 11:09 AM CDT Performed at: [facility] [employer] [address] [place] [id number] Plastic Press Operator: Yadira Montelongo [facility], Phone: [phone] Jesús Lopez MBChB SEND OUTS Final Result [facility] ([facility]) [address] [place] [address], * (ABNORMAL) Drug screen, rapid urine inhouse TODAY (11/14/2024 2:22 PM CDT) [facility] THC METABOLITES,MARCO L Not Detected Not Detected 11/14/2024 3:05 PM CDT [facility] PCP,QUAL Not Detected Not Detected 11/14/2024 3:05 PM CDT [facility] COCAINE,QUAL Not Detected Not Detected 11/14/2024 3:05 PM CDT [facility] METHAMPHETAMINE , QUALITATIVE Not Detected Not Detected 11/14/2024 3:05 PM CDT [facility] OPIATES,QUAL Not Detected Not Detected 11/14/2024 3:05 PM CDT [facility] AMPHETAMINE, QUALITATIVE Not Detected Not Detected 11/14/2024 3:05 PM CDT [facility] BENZODIAZEPINES ,QUAL Not Detected Not Detected 11/14/2024 3:05 PM CDT [facility] TRICYCLICS,QUAL Non-negative , consider further testing if indicated(A) Not Detected 11/14/2024 3:05 PM CDT [facility] METHADONE, QUALITATIVE Not Detected Not Detected 11/14/2024 3:05 PM CDT [facility] BARBITURATES,QU AL Not Detected Not Detected 11/14/2024 3:05 PM CDT [facility] OXYCODONE, QUALITATIVE Not Detected Not Detected 11/14/2024 3:05 PM CDT [facility] BUPRENORPHINE, QUALITATIVE Not Detected Not Detected 11/14/2024 3:05 PM CDT [facility] Urine URINE SPECIMEN / Unknown Non-Blood / Unknown 11/14/2024 2:22 PM CDT 11/14/2024 2:33 PM CDT Narrative [facility] - 11/14/2024 3:05 PM CDT Please [...] If clinically indicated, order PCP confirmation. Jes[facility]s [facility] URINE Final Result [facility] [address] [place] [address], * MR CARDIAC WWO (11/14/2024 9:29 AM CDT) Anatomical Region Laterality Modality HEART, THORAX Magnetic Resonan ce 11/14/2024 8:37 AM CDT Narrative 11/14/2024 11:34 AM CDT [facility] CMR Report Name: SATISH TURK : Scan Date: Accession Number: [id number] Status: Final Electronically signed by Lobo Baeza [...] Akinetic None Apical Lateral Severe Hypo None Gordon Severe Hypo None + + + + +---- ----- -------+ RV Segments Wall Motion Hyperenhancement Interpretation + + + + +---- ----- -------+ RV Basal Anterior RV Basal Inferior RV Mid RV Apical ' + + + +---- ----- -------' FINDINGS LV SCAR SIZE (17 SEGMENT): 3 % SCAN INFO ===== GENERAL ----- --- SCANNER STEAM SHOVEL OILER: SIEMENS MODEL: Aera CONTRAST AGENT TYPE: Gadavist GD CONCENTRATION: 1.0 M SETUP REASON(S) FOR SCAN: Ischemic vs nonischemic REFERRING PHYSICIAN: LEONA BUSTAMANTE ATTENDING PHYSICIAN: DOV BARBOSA BILLING ===== Patient Account [id number] Report generated by [employer], a product of [employer] Procedure Note Lobo Baeza MD - 11/14/2024 [facility] CMR Report Name: SATISH TURK Sandie : Scan Date: Accession Number: [id number] Status: Final Electronically signed by Lobo Baeza [...] Akinetic None Apical Lateral Severe Hypo None Gordon Severe Hypo None + + + + +---- ----- -------+ RV Segments Wall Motion Hyperenhancement Interpretation + + + + +---- ----- -------+ RV Basal Anterior RV Basal Inferior RV Mid RV Apical ' + + + +---- ----- -------' FINDINGS LV SCAR SIZE (17 SEGMENT): 3 % SCAN INFO ===== GENERAL ----- --- SCANNER STEAM SHOVEL OILER: SIEMENS MODEL: Aera CONTRAST AGENT TYPE: Gadavist GD CONCENTRATION: 1.0 M SETUP REASON(S) FOR SCAN: Ischemic vs nonischemic REFERRING PHYSICIAN: LEONA BUSTAMANTE ATTENDING PHYSICIAN: DOV BARBOSA BILLING ===== Patient Account [id number] Report generated by [employer], a product of [employer] us Edgardo DE MR Final Res ult * TSH (11/14/2024 7:29 AM CDT) TSH 4.00 0.27 - 4.20 uIU/mL 11/14/2024 8:54 AM CDT [facility] [employer] [facility] Blood BLOOD SPECIMEN / Unknown Butterfly / Unknown 11/14/2024 7:29 AM CDT 11/14/2024 8:09 AM CDT Narrative [facility] - 11/14/2024 8:54 AM CDT In Adults, TSH values between 5.00 and 10.00 uIU/ml do not necessarily indicate the presence of Hypothyroidism. Correlation with clinical findings such as presence of goiter and/or Thyroperoxidase (TPO) Antibody may be helpful. For more information please refer to ISAI 2004; 291: 228-238. Miguelito Hawthorne MD CHEMISTRY Final Res ult Performing Organization Address [facility] Co de Phone Number [facility] [address] [address], [place] * HBSAG (HBS) (11/14/2024 7:29 AM CDT) HBSAG Nonreactive Nonreactive 11/14/2024 4:44 PM CDT [facility] Blood BLOOD SPECIMEN / Unknown Butterfly / Unknown 11/14/2024 7:29 AM CDT 11/14/2024 8:09 AM CDT Jesús Lopez MBChB SEND OUTS Final Result Performing Organization Address [facility] Co de Phone Number [facility] [address] [place] [address], [place] * SODIUM (11/14/2024 7:29 AM CDT) SODIUM 139 136 - 145 mmol/L 11/14/2024 8:54 AM CDT [facility] Blood BLOOD SPECIMEN / Unknown Butterfly / Unknown 11/14/2024 7:29 AM CDT 11/14/2024 8:09 AM CDT Miguelito Hawthorne MD CHEMISTRY Final Res ult Performing Organization Address [facility] Co de Phone Number [facility] [address] [address], [place] * POTASSIUM (11/14/2024 7:29 AM CDT) POTASSIUM 4.9 3.5 - 5.1 mmol/L 11/14/2024 8:54 AM CDT [facility] Blood BLOOD SPECIMEN / Unknown Butterfly / Unknown 11/14/2024 7:29 AM CDT 11/14/2024 8:09 AM CDT Miguelito Hawthorne MD CHEMISTRY Final Res ult Performing Organization Address [facility] de Phone Number [facility] [address] [place] [address], [place] * (ABNORMAL) CREATININE (11/14/2024 7:29 AM CDT) eGFR 81(L) >90 mL/min/1.7 3m2 11/14/2024 8:54 AM CDT [facility] Comment:As of 2021, eG FR is calculated by the CKD-EPI creatinine equation without race adjustment. eGFR can be influenced by muscle mass, exercise, and diet. The reported eGFR is an estimation only and is only applicable if the renal function is stable. CREATININE 0.84 0.50 - 0.90 mg/dL 11/14/2024 8:54 AM CDT [facility] Blood BLOOD SPECIMEN / Unknown Butterfly / Unknown 11/14/2024 7:29 AM CDT 11/14/2024 8:09 AM CDT Miguelito Hawthorne MD CHEMISTRY Final Res ult Performing Organization Address [facility] Phone Number [facility] [address] [place] [address], [place] * Anti HIV 1/2 - TODAY (11/14/2024 7:29 AM CDT) Pathologist [facility] HIV-1/HIV-2 SCREEN Non-Reacti ve Non-Reacti ve 11/14/2024 2:03 PM CDT [facility] Comment:HIV-1 p24 and HIV-1/ HIV-2 Ab Not Detected. Blood BLOOD SPECIMEN / Unknown Butterfly / Unknown 11/14/2024 7:29 AM CDT 11/14/2024 8:09 AM CDT Jes[facility] Lopez [facility] SEND OUTS Final Result Performing Organization Address [facility]/State/ZIP Co de Phone Number [facility] [address] [place] [address], [place] * FERRITIN (11/14/2024 7:29 AM CDT) FERRITIN 58.0 15.0 - 150.0 ng/mL 11/14/2024 2:31 PM CDT [facility] Blood BLOOD SPECIMEN / Unknown Butterfly / Unknown 11/14/2024 7:29 AM CDT 11/14/2024 8:09 AM CDT Jesús Travisgildardo [facility] CHEMISTRY Final Result [facility] [address] [place] [phone], * (ABNORMAL) HEPATIC FUNCTION PANEL (11/14/2024 7:29 AM CDT) ALBUMIN 3.8(L) 4.0 - 4.9 g/dL 11/14/2024 8:54 AM CDT [facility] TRAL LABORATORY PROTEIN,TOTAL 6.1 6.0 - 8.0 g/dL 11/14/2024 8:54 AM CDT [facility] BILIRUBIN,TOTAL 0.7 0.0 - 1.2 mg/dL 11/14/2024 8:54 AM CDT [facility] BILIRUBIN,DIRECT 0.3(H) 0.0 - 0.2 mg/dL 11/14/2024 8:54 AM CDT [facility] BILIRUBIN,INDIRE CT 0.4 0.2 - 0.8 mg/dL 11/14/2024 8:54 AM CDT [facility] ALK PHOSPHATASE 75 35 - 104 IU/L 11/14/2024 8:54 AM CDT [facility] ALT (SGPT) 61(H) 10 - 35 IU/L 11/14/2024 8:54 AM CDT [facility] AST (SGOT) 37(H) 10 - 35 IU/L 11/14/2024 8:54 AM CDT [facility] Blood BLOOD SPECIMEN / Unknown Butterfly / Unknown 11/14/2024 7:29 AM CDT 11/14/2024 8:09 AM CDT us Miguelito Hawthorne MD CHEMISTRY Final Res ult Performing Organization Address City/[facility]/ZIP Co de Phone Number [facility] [address] [place] [phone], [place] * LIPID PANEL (11/14/2024 7:29 AM CDT) [facility] CHOLESTEROL,TOTAL 136 100 - 199 mg/dL 11/14/2024 8:54 AM CDT [facility] Comment: Cholesterol, Total Reference Ranges Desirable <200 mg/dL Borderline 200-239 mg/dL High >=240 mg/dL TRIGLYCERIDES 117 <150 mg/dL 11/14/2024 8:54 AM CDT [facility] HDL CHOLESTEROL 48 >40 mg/dL 8:54 AM CDT [facility] NON-HDL CHOLESTEROL 88 <145 mg/dl 11/14/2024 8:54 AM CDT [facility] CHOL/HDL RATIO 2.83 <4.50 11/14/2024 8:54 AM CDT [facility] LDL CHOLESTEROL 65 <=130 mg/dL 11/14/2024 8:54 AM CDT [facility] VLDL CHOLESTEROL 23 <=30 mg/dL 11/14/2024 8:54 AM CDT [facility] PROVIDER ORDERED STATUS RANDOM 11/14/2024 8:54 AM CDT [facility] Blood BLOOD SPECIMEN / Unknown Butterfly / Unknown 11/14/2024 7:29 AM CDT 11/14/2024 8:09 AM CDT us Miguelito Hawthorne MD CHEMISTRY Final Res ult Performing Organization Address City/[facility]/ZIP Co de Phone Number [facility] [address] [place] [phone], [place] * (ABNORMAL) TROPONIN T (HS) ONE TIME (11/13/2024 11:46 PM CDT) TROPONIN T HS 36(H) 6-10 ng/L ng/L 11/14/2024 12:21 AM CDT [facility] Blood BLOOD SPECIMEN / Unknown Venipuncture / Unknown 11/13/2024 11:46 PM CDT 11/13/2024 11:53 PM CDT Miguelito Hawthorne MD CHEMISTRY Final Res ult [facility] [address] [place] [phone], [place] * LACTATE VENOUS (11/13/2024 11:46 PM CDT) Pathologist [facility] LACTATE,VENOUS 1.4 0.5 - 2.0 mmol/L 11/14/2024 12:24 AM CDT [facility] Blood BLOOD SPECIMEN / Unknown Venipuncture / Unknown 11/13/2024 11:46 PM CDT 11/13/2024 11:53 PM CDT Edgardo DE CHEMISTRY Final Res ult [facility] [address] [place] [phone], [place] * (ABNORMAL) C-REACTIVE PROTEIN (11/13/2024 11:46 PM CDT) Pathologist [facility] C-REACTIVE PROTEIN 0.7(H) <0.5 mg/dL 11/14/2024 12:21 AM CDT [facility] Blood BLOOD SPECIMEN / Unknown Venipuncture / Unknown 11/13/2024 11:46 PM CDT 11/13/2024 11:53 PM CDT Edgardo DE CHEMISTRY Final Res ult [facility] [address] [place] [phone], * (ABNORMAL) TROPONIN T (HS) ACUTE W/2HR REFLEX (11/13/2024 10:39 PM CDT) [facility] TROPONIN T HS 38(H) 6-10 ng/L ng/L 11/13/2024 11:23 PM CDT [facility] Blood BLOOD SPECIMEN / Unknown Venipuncture / Unknown 11/13/2024 10:39 PM CDT 11/13/2024 11:02 PM CDT Narrative [facility] - 11/13/2024 11:23 PM CDT hs-cTnT [...] Miguelito Hawthorne MD CHEMISTRY Final Res ult [facility] [address] [place] [address], [place] * SCAN-CARDIAC STRIP (11/13/2024 9:22 PM [...] Tech: BEATRICE Referring MD: MAYA KERNS Site: [facility] Reading Location: Mobile-OP Patient [...] documentation: 1 ml diluted Definity, lot #[id number], [facility] [place] [id number] was administered peripherally to enhance visualization of all left ventricular segments. . This study was interpreted by an [facility] accredited facility. CC: HIM (med records) [facility]. Final Procedure Note Herminio Gregg MD - 11/12/2024 ECHOCARDIOGRAM SATISH TURK : 1965 59 years Study Date: 11/12/2024 2:16:24 PM Gender: F BP: 118/84 mmHg Height: 173.00 cm BSA: 1.83 m Weight: 70.00 kg Tech: [facility] Referring MD: MAYA KERNS Site: [facility] Reading Location: Mobile-OP Patient [...] documentation: 1 ml diluted Definity, lot #[id number], [facility] [place][id number] was administered peripherally to enhance visualization of allleft ventricular segments. . This study was interpreted by an [facility] accredited facility. CC: HIM (med records) [facility]. Final Maya Kerns MATERIAL MANAGER ECHO ORD F inal Result * (ABNORMAL) HPV HIGH RISK (11/14/2023 12:00 PM CDT) TYPE 16 Negative Negative 11/19/2023 2:05 PM CDT [facility] TYPE 18 Negative Negative 11/19/2023 2:05 PM CDT [facility] OTHER HIGH RISK TYPES Positive(A) Negative 11/19/2023 2:05 PM CDT [facility] Other (Cervical) 11/14/2023 12:00 PM CDT 11/18/2023 8:47 AM CDT Narrative [facility] - 11/19/2023 2:05 PM CDT Specimen [...] Alma Amaya PA-C MICROBIOLOGY Final Resu lt [facility] [address] [phone], from Last 3 Months or Most Recently Relevant to Health Maintenance Insurance [facility] Advance Directives * Full [...] Code Status Discussion: Not Discussed Care Teams Infection Prevention Specialist Relationship Specialty Start Date End Date Ciara Lopes MD [address] [place] [id number] PCP - General Family Practice 04/12/19
[2024-11-30 11:39] LABS: Basophils Percent Auto 0.8 % (0.0-3.0); Eosinophils Percent Auto 3.2 % (0.0-7.0); Hematocrit 41.3 % (33.0-51.0); Hemoglobin* 14.2 gm/dL (12.0-16.0); Immature Granulocytes Pct Auto 0.4 %; Lymphocytes Percent Auto 34.3 % (20-44); Mean Corpuscular HGB Conc 34 gm/dL (32-36); Mean Corpuscular Hemoglobin 35 pg (26-34); Mean Corpuscular Volume 101 fL (80-100); Monocytes Percent Auto 10.4 % (0.0-11.0); Neutrophils Percent Auto 50.9 % (42.0-72.0); Platelet Count* 184 K/uL (140-440); RDW Coefficient of Variation % 12.1 % (11.5-15.5); Red Blood Count 4.11 m/uL (4.00-5.20); White Blood Count* 2.51 K/uL (4.50-11.00)
[2024-11-30 11:53] LABS: Slide Review Reflex No
[2024-11-30 12:04] LABS: Chloride* 101 mmol/L (96-114); Potassium* 3.7 mmol/L (3.6-5.1); Sodium* 137 mmol/L (135-149)
[2024-11-30 12:07] LABS: Anion Gap 9 mEq/L (7-15); Blood Urea Nitrogen* 19 mg/dL (7-30); Calcium* 9.3 mg/dL (8.4-10.6); Carbon Dioxide* 27 mmol/L (20-32); Creatinine* 0.9 mg/dL (0.5-1.5); Est. Creatinine Clearance* 69.57; Estimated Glomerular Filt Rate 75 ml/min; Glucose* 94 mg/dL (60-115)
[2024-11-30 12:19] LABS: Troponin I* 0.02 ng/mL (0.01-0.04)
[2024-11-30 12:21] LABS: NT Pro B Type NatriureticPept* 1670 pg/mL
[2024-11-30] MEDS: ALBUTEROL SULFATE 2.5 MG/3 ML VIAL.NEB NEB (12:48)
[2024-11-30] MEDS: predniSONE 20 MG TABLET 40 MG PO (12:48)
[2024-11-30] MEDS: fentaNYL 100 MCG/2 ML inj 50 MCG IVP (13:33)
[2024-11-30] MEDS: MIDAZOLAM HCL 1 MG/ML inj IVP (13:37)
[2024-11-30] MEDS: BENZOCAINE 20 % SPRAY 1 EACH PO (14:05)
[2024-11-30] MEDS: LIDOCAINE 1%-EPI 1:100,000 20 ML INFILTRATI (14:07)
--- NOTE | 2024-11-30 14:23 | RESP.RT ---
Here to see pt. for respiratory distress. Pt had already received a DuoNeb, and albuterol neb. PT was receiving a racemic epinephrine neb. No stridor noted. BBS clear. PT RR 36, very anxious, teary. Talked pt down, to RR of 20. SPO2 on RA 100%. Suppested some sedation and possible pain control. Pt talking about pain from coughing, and unable to clear sputum. She reports it is thick and yellow. PT improved with sedation and fentanyl. Pt more relaxed now. Provider decided to look at glottis and vocal chords via peds bronchoscopy. Pt placed on oxygen oxymask at 5L, SPO2 100%, L nare numbed and hurricane spray used. somewhat red, irritated, not swollen. Pt doing well now. Will instruct on aerobika to assist with mobilizing sputum.
[2024-11-30] MEDS: HYDROCODONE-ACETAMIN 5-325 MG 1 TAB PO (15:13)
== END 2024-11-30 16:09 | disposition home or self-care (01) ==
PROVIDERS: Emergency Provider Emergency Medicine; PCP Family Medicine
DX: J98.01 Acute bronchospasm (principal); R06.1 Stridor; R05.1 Acute cough
CPT/HCPCS: 31575; 36415; 71046; 80048; 83880; 84484; 85025; 93005; 94640; 96374; 96375; 99284; 99285; A9270; J2250; J3010; J7512

== ENCOUNTER 2025-03-15 14:21 | Outpatient (CLI) | payer OTHER, SELFPAY ==
[2025-03-15 16:37] LABS: Chloride* 94 mmol/L (96-114); Potassium* 3.9 mmol/L (3.6-5.1); Sodium* 136 mmol/L (135-149)
[2025-03-15 16:40] LABS: Anion Gap 8 mEq/L (7-15); Blood Urea Nitrogen* 22 mg/dL (7-30); Carbon Dioxide* 34 mmol/L (20-32); Creatinine* 0.9 mg/dL (0.5-1.5); Estimated Glomerular Filt Rate 74 ml/min
[2025-03-15 16:41] LABS: Calcium* 10.3 mg/dL (8.4-10.6); Glucose* 105 mg/dL (60-115)
[2025-03-15 16:50] LABS: NT Pro B Type NatriureticPept* 131 pg/mL (See Note)
== END 2025-03-15 14:22 | disposition home or self-care (01) ==
LOC: NPINS 14:22
PROVIDERS: PCP Family Medicine; Visit Provider Nurse Practitioner Adult Health
DX: I50.21 Acute systolic (congestive) heart failure (principal)
CPT/HCPCS: 80048; 83880

== ENCOUNTER 2025-06-17 07:36 | Outpatient (CLI) | payer OTHER, SELFPAY ==
--- NOTE | 2025-06-17 07:45 | CRLHL7_ITS ---
For Patients: As a result of the Century Cures Act, medical imaging exams and procedure reports are released immediately into your electronic medical record. You may view this report before your referring provider. If you have questions, please contact your health care provider. INDICATION: BILATERAL SCREENING MAMMOGRAM, ASYMPTOMATIC 60 Y/O FEMALE COMPARISON: 03/19/2024, 03/10/2023, 09/04/2022 TECHNIQUE: Digital mammogram in CC and MLO projections including computer-aided detection (CAD) and tomosynthesis. BREAST COMPOSITION: There are scattered areas of fibroglandular density. FINDINGS: No suspicious findings. ASSESSMENT: BI-RADS 2 Benign RECOMMENDATION: Annual screening mammogram. A lay language report of this examination will be provided to the patient. Dictated by: Antonio Ludwig MD @ 06/17/2025 11:18:41 (Electronically Signed)
== END 2025-06-17 07:37 | disposition home or self-care (01) ==
LOC: MAMMO 07:36
PROVIDERS: PCP Family Medicine; Visit Provider Physician Assistant
DX: Z12.31 Encounter for screening mammogram for malignant neoplasm of breast (principal)
CPT/HCPCS: 77063; 77067

== ENCOUNTER 2025-07-01 07:55 | Outpatient (CLI) | payer OTHER, SELFPAY ==
--- NOTE | 2025-07-01 08:15 | CRLHL7_ITS ---
For Patients: As a result of the Century Cures Act, medical imaging exams and procedure reports are released immediately into your electronic medical record. You may view this report before your referring provider. If you have questions, please contact your health care provider. BILATERAL BREAST MRI WITHOUT AND WITH GADOLINIUM CLINICAL HISTORY: Personal history of left breast cancer diagnosed August 2016. Treatment lumpectomy radiation and chemotherapy. History reduction mammoplasty and mastopexy in 2019. plastic surgery requests MRI prior to reconstruction to assess for fat necrosis and look at perfusion. INDICATION FOR BREAST MRI: Problem-solving COMPARISON STUDIES: Bilateral mammogram June 17 2025 CONTRAST: Fifteen mL Dotarem IV. TECHNIQUE: The patient was positioned prone using a breast coil. Multiple imaging sequences were obtained using 1-1.5 mm thick slices with no gap. The image sequences include T2-weighted STIR in the axial plane, T1-weighted nonfat-saturated gradient echo in the axial plane, pre- and post-contrast T1-weighted FLASH 3D with fat suppression in the axial plane, and T1-weighted FLASH high resolution 3D with fat suppression in the sagittal plane. Image post-processing was performed on a [employer] workstation. Complex 3D rendering including maximum intensity projections (MIPS) and volumetric renderings were obtained to optimize visualization of the extent of pathology and relationship to the nipple, skin, and chest wall. This aids in determining feasibility of breast conservation surgery. Subtraction, multiplanar reconstruction, mean curve determination, and angiogenesis mapping were also performed. The study was technically adequate. FINDINGS: Amount of Fibroglandular Tissue: Almost entirely fatty Breast Background Enhancement: Minimal RIGHT Breast: No suspicious mass or non mass enhancement. LEFT Breast: Postoperative changes. No suspicious mass or non-mass enhancement. No cysts identified. Negative for skin edema. The nipple is positioned laterally. Lymph Nodes: No suspicious lymph nodes. IMPRESSIONS AND RECOMMENDATIONS: 1. The right breast is negative 2. Left breast shows postoperative changes and is smaller than the right. The nipple is positioned laterally. 3. No evidence for malignancy or other areas of abnormal enhancement. 4. She was due in June 2025 for annual screening mammogram 5. Follow-up with annual screening mammogram. Discontinuing breast MRI this is best offset from the mammogram by 6 months. BI-RADS: 2-benign Dictated by Adele Noguera MD @ 07/04/2025 2:35:25 PM (Electronically Signed)
== END 2025-07-01 07:56 | disposition home or self-care (01) ==
LOC: MRI 07:55
PROVIDERS: PCP Family Medicine; Visit Provider Student in an Organized Health Care Education/Training Program
DX: Z98.890 Other specified postprocedural states (principal); Z85.3 Personal history of malignant neoplasm of breast; Z92.3 Personal history of irradiation
CPT/HCPCS: 77049; C8908; C8937; A9575